=== PATIENT | female | born 1965 | race Caucasian/White ===

== ENCOUNTER 2020-04-17 09:56 | Outpatient (REF) | payer OTHER, SELFPAY ==
[2020-04-17 11:35] LABS: Alanine Aminotransferase 26 U/L (0-31); Albumin Level 4.2 g/dL (3.5-5.0); Alkaline Phosphatase 71 U/L (39-117); Anion Gap 12 (12-20); Aspartate Amino Transferase 23 U/L (5-31); Bilirubin Total 0.6 mg/dL (0.0-1.0); Blood Urea Nitrogen 8 mg/dL (9-16); Carbon Dioxide 24 mmol/L (22-29); Chloride 105 mmol/L (96-108); Cholesterol 150 mg/dL; Estimated Glomerular Filt Rate > 60; Glucose Fasting 127 mg/dL (60-99); HDL Cholesterol 45 mg/dL; LDL Cholesterol Calculated 82 mg/dl; Potassium 4.2 mmol/l (3.3-5.1); Sodium 137 mmol/L (135-145); Total Protein 7.3 g/dL (6.5-8.0); Triglycerides 116 mg/dL
== END 2020-04-17 09:57 | disposition home or self-care (01) ==
LOC: HO.LAB 09:56
PROVIDERS: PCP Internal Medicine; Visit Provider Internal Medicine
DX: E78.00 Pure hypercholesterolemia, unspecified (principal); I10 Essential (primary) hypertension
CPT/HCPCS: 80053; 80061

== ENCOUNTER 2020-08-03 16:08 | Outpatient (REF) | payer OTHER, SELFPAY ==
[2020-08-03 17:53] LABS: Basophils Absolute Auto 0.1 X10*3/uL (0.0-0.2); Basophils Percent Auto 0.4 % (0-2); Eosinophils Absolute Auto 0.2 X10*3/uL (0.0-0.4); Eosinophils Percent Auto 1.7 % (0-4); Hemoglobin 14.5 g/dl (12.0-16.0); Imm Gran Abs Auto 0.04 X10*3/uL (0.00-0.03); Imm Gran Pct Auto 0.3 % (0.0-0.4); Lymphocytes Percent Auto 51.2 % (20-40); MANUAL DIFF FLAG SCAN; Mean Corpuscular HGB Conc 33.7 g/dl (31.0-35.0); Mean Corpuscular Hemoglobin 30.9 pg (27.0-33.0); Mean Corpuscular Volume 91.5 fL (80-98); Mean Platelet Volume 9.5 fL (9.4-12.3); Monocytes Absolute Auto 0.7 X10*3/uL (0.1-1.2); Monocytes Percent Auto 5.7 % (2-11); Neutrophils Absolute Auto 4.9 X10*3/uL (2.0-8.3); Neutrophils Percent Auto 40.7 % (45-73); Platelet Count 264 X10*3/uL (160-400); Red Cell Distribution Width 13.1 % (11.0-16.0); SCAN SMEAR FLAG 1
[2020-08-03 17:54] LABS: Lymphocytes Absolute Auto 6.2 X10*3/uL (1.2-4.9)
[2020-08-03 18:10] LABS: Cholesterol 159 mg/dL; HDL Cholesterol 50 mg/dL; LDL Cholesterol Calculated 79 mg/dl; Lactate Dehydrogenase 201 U/L (122-220); Triglycerides 151 mg/dL
[2020-08-03 18:19] LABS: SLIDE REVIEW VERIFIED
[2020-08-03 18:33] LABS: Erythrocyte Sedimentation Rate 7 MM/HR (0-20)
== END 2020-08-03 16:09 | disposition home or self-care (01) ==
LOC: HO.LAB 16:08
PROVIDERS: PCP Internal Medicine; Visit Provider Internal Medicine Medical Oncology
DX: C83.00 Small cell B-cell lymphoma, unspecified site (principal)
CPT/HCPCS: 36415; 80061; 83615; 85025; 85652

== ENCOUNTER → 2020-08-28 08:42 | Outpatient (BNVA) | payer OTHER, SELFPAY | PROVIDERS: PCP Internal Medicine; Visit Provider Surgery | DX: Z91.89 Other specified personal risk factors, not elsewhere classified (principal) | CPT/HCPCS: 99212 ==

== ENCOUNTER 2020-10-03 09:51 | Outpatient (REF) | payer OTHER, SELFPAY ==
--- NOTE | ~2020-10-03 | MM_ITS ---
EXAMINATION: MM SCREENING DIGITAL BREAST TOMOSYNTHESIS, BILATERAL CLINICAL INFORMATION: Screening. Asymptomatic. The lifetime risk of breast cancer based on the Tyrer-Cuzick Model is 20.3%. Additional annual screening with breast MRI may be of benefit in women with a Score of 20% or greater. COMPARISON: Mammography: September 28, 2019 and studies dating back to August 24, 2011 TECHNIQUE: Digital breast tomosynthesis is performed in both the craniocaudal and mediolateral oblique views along with computer-aided detection (CAD). Synthesized 2D images are generated from the tomosynthesis. FINDINGS: There are scattered areas of fibroglandular density (ACR BI-RADS breast composition Category b). There are no significant masses, abnormal calcifications, or other abnormalities. Postsurgical changes upper outer aspect of the right breast. MM/MM tomosynthesis screening BI IMPRESSION: There are no significant changes from prior study. ASSESSMENT: BI-RADS 2: Benign RECOMMENDATION: Routine annual mammography screening. This patient's information was entered into a reminder system with a target due date for their next mammogram.
== END 2020-10-03 09:52 | disposition home or self-care (01) ==
LOC: HO.MAMMO 09:51
PROVIDERS: Absent Provider Internal Medicine Medical Oncology; PCP Internal Medicine; Visit Provider Internal Medicine
DX: Z12.31 Encounter for screening mammogram for malignant neoplasm of breast (principal)
CPT/HCPCS: 77063; 77067

== ENCOUNTER 2020-12-08 09:38 | Outpatient (REF) | payer OTHER, SELFPAY ==
[2020-12-08 10:12] LABS: MANUAL DIFF FLAG NO
[2020-12-08 10:16] LABS: Basophils Percent Auto 0.6 % (0-2); Eosinophils Absolute Auto 0.2 X10*3/uL (0.0-0.4); Eosinophils Percent Auto 2.8 % (0-4); Hemoglobin 14.3 g/dl (12.0-16.0); Imm Gran Abs Auto 0.02 X10*3/uL (0.00-0.03); Imm Gran Pct Auto 0.3 % (0.0-0.4); Lymphocytes Absolute Auto 3.7 X10*3/uL (1.2-4.9); Lymphocytes Percent Auto 55.5 % (20-40); Mean Corpuscular Hemoglobin 31.4 pg (27.0-33.0); Mean Corpuscular Volume 92.1 fL (80-98); Monocytes Absolute Auto 0.5 X10*3/uL (0.1-1.2); Monocytes Percent Auto 6.7 % (2-11); Neutrophils Absolute Auto 2.3 X10*3/uL (2.0-8.3); Neutrophils Percent Auto 34.1 % (45-73); Platelet Count 215 X10*3/uL (160-400); Red Blood Count 4.56 X10*6/uL (4.20-5.50); Red Cell Distribution Width 12.9 % (11.0-16.0); White Blood Count 6.7 X10*3/uL (4.8-10.8)
[2020-12-08 10:39] LABS: Alanine Aminotransferase 41 U/L (0-31); Albumin Level 4.2 g/dL (3.5-5.0); Alkaline Phosphatase 88 U/L (39-117); Anion Gap 12 (12-20); Aspartate Amino Transferase 34 U/L (5-31); Bilirubin Total 0.4 mg/dL (0.0-1.0); Blood Urea Nitrogen 9 mg/dL (9-16); Calcium 9.2 mg/dL (8.4-10.2); Carbon Dioxide 23 mmol/L (22-29); Chloride 104 mmol/L (96-108); Estimated Glomerular Filt Rate > 60; Glucose Random 172 mg/dL (60-115); Lactate Dehydrogenase 219 U/L (122-220); Sodium 135 mmol/L (135-145); Total Protein 7.4 g/dL (6.5-8.0)
[2020-12-08 11:28] LABS: Erythrocyte Sedimentation Rate 7 MM/HR (0-20)
== END 2020-12-08 09:39 | disposition home or self-care (01) ==
LOC: HO.LAB 09:38
PROVIDERS: PCP Internal Medicine; Visit Provider Internal Medicine Medical Oncology
DX: C83.00 Small cell B-cell lymphoma, unspecified site (principal)
CPT/HCPCS: 36415; 80053; 83615; 85025; 85652

== ENCOUNTER 2021-01-18 16:26 | Outpatient (REF) | payer OTHER, SELFPAY ==
[2021-01-18 17:07] LABS: Basophils Absolute Auto 0.1 X10*3/uL (0.0-0.2); Basophils Percent Auto 0.4 % (0-2); Eosinophils Absolute Auto 0.2 X10*3/uL (0.0-0.4); Eosinophils Percent Auto 1.7 % (0-4); Hematocrit 43.4 % (37-47); Hemoglobin 14.6 g/dl (12.0-16.0); Imm Gran Abs Auto 0.04 X10*3/uL (0.00-0.03); Imm Gran Pct Auto 0.3 % (0.0-0.4); Lymphocytes Percent Auto 46.8 % (20-40); MANUAL DIFF FLAG SCAN; Mean Corpuscular HGB Conc 33.6 g/dl (31.0-35.0); Mean Corpuscular Hemoglobin 30.6 pg (27.0-33.0); Mean Platelet Volume 9.2 fL (9.4-12.3); Monocytes Absolute Auto 0.7 X10*3/uL (0.1-1.2); Monocytes Percent Auto 5.3 % (2-11); Neutrophils Absolute Auto 6.3 X10*3/uL (2.0-8.3); Neutrophils Percent Auto 45.5 % (45-73); Platelet Count 242 X10*3/uL (160-400); Red Blood Count 4.77 X10*6/uL (4.20-5.50); Red Cell Distribution Width 12.7 % (11.0-16.0); SCAN SMEAR FLAG 1; White Blood Count 13.8 X10*3/uL (4.8-10.8)
[2021-01-18 17:13] LABS: Lymphocytes Absolute Auto 6.4 X10*3/uL (1.2-4.9)
[2021-01-18 17:18] LABS: Estimated Average Glucose 146 mg/dL; Hemoglobin A1c % 6.7 %
[2021-01-18 17:36] LABS: Alanine Aminotransferase 25 U/L (0-31); Albumin Level 4.2 g/dL (3.5-5.0); Alkaline Phosphatase 76 U/L (39-117); Anion Gap 16 (12-20); Aspartate Amino Transferase 24 U/L (5-31); Bilirubin Total 0.8 mg/dL (0.0-1.0); Blood Urea Nitrogen 13 mg/dL (9-16); Carbon Dioxide 20 mmol/L (22-29); Chloride 103 mmol/L (96-108); Cholesterol 156 mg/dL; Estimated Glomerular Filt Rate > 60; Glucose Random 81 mg/dL (60-115); HDL Cholesterol 49 mg/dL; LDL Cholesterol Calculated 79 mg/dl; Potassium 3.9 mmol/L (3.3-5.1); Sodium 135 mmol/L (135-145); Total Protein 7.6 g/dL (6.5-8.0); Triglycerides 141 mg/dL
[2021-01-18 17:58] LABS: Free T4 (Free Thyroxine) 1.12 ng/dL (0.71-1.85); Thyroid Stimulating Hormone 1.45 uIU/mL (0.32-4.0); Vitamin D 25-OH Total 30.9 ng/mL (>30)
[2021-01-18 18:02] LABS: SLIDE REVIEW VERIFIED
[2021-01-18 18:13] LABS: Folate 10.5 ng/mL (> or = 4.0); Vitamin B12 448 pg/mL (200-900)
== END 2021-01-18 16:27 | disposition home or self-care (01) ==
LOC: HO.LAB 16:26
PROVIDERS: PCP Internal Medicine; Visit Provider Internal Medicine
DX: E11.65 Type 2 diabetes mellitus with hyperglycemia (principal); E78.00 Pure hypercholesterolemia, unspecified
CPT/HCPCS: 36415; 80053; 80061; 82306; 82607; 82746; 83036; 84439; 84443; 85025

== ENCOUNTER 2021-02-24 08:39 | Outpatient (REF) | payer OTHER, SELFPAY ==
--- NOTE | ~2021-02-24 | MR_ITS ---
EXAMINATION: MR BREAST WITHOUT AND WITH CONTRAST, BILATERAL CLINICAL INFORMATION: 55-year-old for high-risk screening, strong family history, history of low-grade lymphoma. COMPARISON: MRI of 09/06/2019, 09/05/2018 and 07/28/2017. TECHNIQUE: Imaging was performed with a dedicated breast coil. Prior to the administration of contrast, bilateral axial T1 and bilateral axial T2 weighted sequences were obtained. After the uneventful administration of?9 mL of Gadavist, dynamic contrast-enhanced VIBRANT series through the breasts in the axial plane were performed. Subtracted images were performed and reviewed. A delayed sagittal sequence through both breasts was acquired. Additionally, CAD post-processing, including maximum intensity projections, 3-D reconstructions and kinetic analysis, were performed an independent workstation and reviewed by the interpreting radiologist is a portion of this exam. FINDINGS: The patient's fibroglandular tissue demonstrates minimal background enhancement. LEFT BREAST: No suspicious masslike or non-masslike enhancement. No abnormal skin thickening or nipple retraction. No abnormal architectural distortion. Review of the T2 weighted images demonstrates no fibrocystic changes or dilated ducts. Review of kinetic images reveals no additional findings. RIGHT BREAST: No suspicious masslike or non-masslike enhancement. No abnormal skin thickening or nipple retraction. No abnormal architectural distortion. There is mild architectural distortion in the upper outer quadrant from prior excisional biopsy. Review of the T2 weighted images demonstrates no fibrocystic changes or dilated ducts. Review of kinetic images reveals no additional findings. There is no suspicious internal mammary chain or axillary adenopathy. Limited views of the chest and abdomen are unremarkable. MR/MR breast BI wo/w con IMPRESSION: No MR specific evidence of malignancy. ASSESSMENT: LEFT BREAST: BI-RADS 1 - Negative. RIGHT BREAST: BI-RADS 2 - Benign. RECOMMENDATIONS: Routine mammographic imaging as per most recent study and MRI as per high-risk protocol.
== END 2021-02-24 08:40 | disposition home or self-care (01) ==
LOC: HO.MRI 08:39
PROVIDERS: PCP Internal Medicine; Visit Provider Surgery
DX: Z91.89 Other specified personal risk factors, not elsewhere classified (principal)
CPT/HCPCS: 77049; A9585

== ENCOUNTER → 2021-03-18 13:11 | Outpatient (BNVA) | payer OTHER, SELFPAY | PROVIDERS: PCP Internal Medicine; Referring Provider Internal Medicine; Visit Provider Surgery | DX: Z91.89 Other specified personal risk factors, not elsewhere classified (principal) | CPT/HCPCS: 99212 ==

== ENCOUNTER → 2021-04-08 10:27 | Outpatient (BNVA) | payer OTHER, SELFPAY | PROVIDERS: PCP Internal Medicine; Referring Provider Internal Medicine; Visit Provider Surgery | DX: R59.0 Localized enlarged lymph nodes (principal) | CPT/HCPCS: 99212 ==

== ENCOUNTER 2021-04-09 16:23 | Outpatient (REF) | payer OTHER, SELFPAY ==
[2021-04-09 18:03] LABS: Basophils Absolute Auto 0.1 X10*3/uL (0.0-0.2); Basophils Percent Auto 0.4 % (0-2); Eosinophils Absolute Auto 0.3 X10*3/uL (0.0-0.4); Eosinophils Percent Auto 2.4 % (0-4); Hematocrit 41.6 % (37-47); Hemoglobin 14.1 g/dl (12.0-16.0); Imm Gran Abs Auto 0.04 X10*3/uL (0.00-0.03); Imm Gran Pct Auto 0.3 % (0.0-0.4); Lymphocytes Percent Auto 52.7 % (20-40); MANUAL DIFF FLAG SCAN; Mean Corpuscular HGB Conc 33.9 g/dl (31.0-35.0); Mean Corpuscular Hemoglobin 30.6 pg (27.0-33.0); Mean Corpuscular Volume 90.2 fL (80-98); Mean Platelet Volume 9.2 fL (9.4-12.3); Monocytes Absolute Auto 0.7 X10*3/uL (0.1-1.2); Monocytes Percent Auto 5.6 % (2-11); Neutrophils Absolute Auto 4.5 X10*3/uL (2.0-8.3); Neutrophils Percent Auto 38.6 % (45-73); Platelet Count 250 X10*3/uL (160-400); Red Blood Count 4.61 X10*6/uL (4.20-5.50); Red Cell Distribution Width 12.8 % (11.0-16.0); SCAN SMEAR FLAG 1; White Blood Count 11.7 X10*3/uL (4.8-10.8)
[2021-04-09 18:06] LABS: Lymphocytes Absolute Auto 6.2 X10*3/uL (1.2-4.9)
[2021-04-09 18:12] LABS: Estimated Average Glucose 146 mg/dL; Hemoglobin A1c % 6.7 %
[2021-04-09 18:56] LABS: SLIDE REVIEW VERIFIED
[2021-04-09 19:04] LABS: Alanine Aminotransferase 31 U/L (0-31); Albumin Level 4.2 g/dL (3.5-5.0); Alkaline Phosphatase 72 U/L (39-117); Anion Gap 14 (12-20); Aspartate Amino Transferase 26 U/L (5-31); Bilirubin Total 0.8 mg/dL (0.0-1.0); Blood Urea Nitrogen 7 mg/dL (9-16); Carbon Dioxide 21 mmol/L (22-29); Chloride 106 mmol/L (96-108); Estimated Glomerular Filt Rate > 60; Glucose Random 74 mg/dL (60-115); Lactate Dehydrogenase 214 U/L (122-220); Potassium 3.9 mmol/L (3.3-5.1); Sodium 137 mmol/L (135-145); Total Protein 7.4 g/dL (6.5-8.0)
[2021-04-09 19:25] LABS: Erythrocyte Sedimentation Rate 8 MM/HR (0-20)
== END 2021-04-09 16:24 | disposition home or self-care (01) ==
LOC: HO.LAB 16:23
PROVIDERS: PCP Internal Medicine; Visit Provider Internal Medicine Medical Oncology
DX: C83.00 Small cell B-cell lymphoma, unspecified site (principal); E66.9 Obesity, unspecified; E11.9 Type 2 diabetes mellitus without complications
CPT/HCPCS: 36415; 80053; 83036; 83615; 85025; 85652

== ENCOUNTER 2021-05-03 16:36 | Outpatient (REF) | payer OTHER, SELFPAY ==
[2021-05-03 18:15] LABS: Creatinine Urine 70.78 mg/dL; Microalbum/Creatinine Ratio Ur 9.8 ug/mg cr
== END 2021-05-03 16:37 | disposition home or self-care (01) ==
LOC: HO.LAB 16:36
PROVIDERS: PCP Internal Medicine; Visit Provider Internal Medicine
DX: E11.65 Type 2 diabetes mellitus with hyperglycemia (principal)
CPT/HCPCS: 82043

== ENCOUNTER 2021-05-10 17:25 | Outpatient (REF) | payer OTHER, SELFPAY ==
[2021-05-11 03:55] LABS: CT PCR NOT DETECTED (Not Detect.); NG PCR NOT DETECTED (Not Detect.)
[2021-05-11 11:11] LABS: BV Int Neg Control Negative (Negative); BV Int Pos Control Positive (Positive)
[2021-05-13 02:32] LABS: HPV mRNA E6/E7 rflx Not Detected (Not Detected)
== END 2021-05-10 17:26 | disposition home or self-care (01) ==
LOC: HO.LAB 17:25
PROVIDERS: Visit Provider Internal Medicine
DX: Z12.4 Encounter for screening for malignant neoplasm of cervix (principal); Z11.3 Encounter for screening for infections with a predominantly sexual mode of transmission; Z11.51 Encounter for screening for human papillomavirus (HPV)
CPT/HCPCS: 87480; 87491; 87510; 87591; 87624; 87660; 88142

== ENCOUNTER → 2021-05-11 09:26 | Outpatient (BNVA) | payer OTHER, SELFPAY | PROVIDERS: PCP Internal Medicine; Referring Provider Internal Medicine; Visit Provider Surgery | DX: R59.0 Localized enlarged lymph nodes (principal); Z91.89 Other specified personal risk factors, not elsewhere classified | CPT/HCPCS: 99212 ==

== ENCOUNTER 2021-08-10 15:10 | Outpatient (REF) | payer OTHER, SELFPAY ==
[2021-08-10 16:00] LABS: Basophils Percent Auto 0.3 % (0-2); Eosinophils Absolute Auto 0.2 X10*3/uL (0.0-0.4); Eosinophils Percent Auto 1.5 % (0-4); Hematocrit 40.8 % (37.0-47.0); Hemoglobin 13.5 g/dl (12.0-16.0); Imm Gran Abs Auto 0.04 X10*3/uL (0.00-0.03); Imm Gran Pct Auto 0.3 % (0.0-0.4); Lymphocytes Absolute Auto 5.1 X10*3/uL (1.2-4.9); MANUAL DIFF FLAG SCAN; Mean Corpuscular HGB Conc 33.1 g/dl (31.0-35.0); Mean Corpuscular Hemoglobin 30.5 pg (27.0-33.0); Mean Corpuscular Volume 92.3 fL (80.0-98.0); Mean Platelet Volume 9.4 fL (9.4-12.3); Monocytes Absolute Auto 0.8 X10*3/uL (0.1-1.2); Monocytes Percent Auto 6.8 % (2-11); Neutrophils Absolute Auto 5.7 x10*3/uL (2.0-8.3); Neutrophils Percent Auto 48.1 % (45-73); Platelet Count 243 X10*3/uL (160-400); Red Blood Count 4.42 X10*6/uL (4.20-5.50); Red Cell Distribution Width 12.7 % (11.0-16.0); SCAN SMEAR FLAG 1
[2021-08-10 16:25] LABS: Alanine Aminotransferase 24 U/L (0-31); Albumin Level 4.1 g/dL (3.5-5.0); Alkaline Phosphatase 69 U/L (39-117); Anion Gap 11 (12-20); Aspartate Amino Transferase 21 U/L (5-31); Bilirubin Total 0.4 mg/dL (0.0-1.0); Blood Urea Nitrogen 12 mg/dL (9-16); Calcium 9.2 mg/dL (8.4-10.2); Carbon Dioxide 23 mmol/L (22-29); Chloride 106 mmol/L (96-108); Estimated Glomerular Filt Rate > 60; Glucose Random 83 mg/dL (60-115); Potassium 4.1 mmol/L (3.3-5.1); Sodium 136 mmol/L (135-145); Total Protein 7.3 g/dL (6.5-8.0)
[2021-08-10 16:43] LABS: SLIDE REVIEW VERIFIED
== END 2021-08-10 15:11 | disposition home or self-care (01) ==
LOC: HO.LAB 15:10
PROVIDERS: PCP Internal Medicine; Visit Provider Internal Medicine Medical Oncology
DX: R92.0 Mammographic microcalcification found on diagnostic imaging of breast (principal); C83.00 Small cell B-cell lymphoma, unspecified site
CPT/HCPCS: 36415; 80053; 85025

== ENCOUNTER 2021-10-09 09:55 | Outpatient (REF) | payer OTHER, SELFPAY ==
--- NOTE | ~2021-10-09 | MM_ITS ---
EXAMINATION: MM SCREENING DIGITAL BREAST TOMOSYNTHESIS, BILATERAL CLINICAL INFORMATION: Screening. Asymptomatic. The lifetime risk of breast cancer based on the Tyrer-Cuzick Model is 17%. COMPARISON: Mammography: 10/03/2020, 09/28/2019, 09/15/2018 TECHNIQUE: Digital breast tomosynthesis is performed in both the craniocaudal and mediolateral oblique views along with computer-aided detection (CAD). Synthesized 2D images are generated from the tomosynthesis. FINDINGS: There are scattered areas of fibroglandular density (ACR BI-RADS breast composition Category b). There are no significant masses, abnormal calcifications, or other abnormalities. There are some incidental benign round regional dermal calcifications medial left breast. Skin contours are smooth. There are no significant changes from prior exams. MM/MM tomosynthesis screening BI IMPRESSION: No mammographic evidence of malignancy. ASSESSMENT: BI-RADS 2: Benign RECOMMENDATION: Routine annual mammography screening. This patient's information was entered into a reminder system with a target due date for their next mammogram.
== END 2021-10-09 09:56 | disposition home or self-care (01) ==
LOC: HO.MAMMO 09:55
PROVIDERS: Absent Provider Surgery; PCP Internal Medicine; Visit Provider Internal Medicine
DX: Z12.31 Encounter for screening mammogram for malignant neoplasm of breast (principal)
CPT/HCPCS: 77063; 77067

== ENCOUNTER → 2021-11-04 10:35 | Outpatient (BNVA) | payer OTHER, SELFPAY | PROVIDERS: PCP Internal Medicine; Visit Provider Obstetrics & Gynecology | DX: N95.0 Postmenopausal bleeding (principal) | CPT/HCPCS: 99202 ==

== ENCOUNTER 2021-11-08 09:43 | Outpatient (REF) | payer OTHER, SELFPAY ==
[2021-11-08 10:28] LABS: Basophils Absolute Auto 0.1 X10*3/uL (0.0-0.2); Basophils Percent Auto 0.5 % (0-2); Eosinophils Absolute Auto 0.2 X10*3/uL (0.0-0.4); Eosinophils Percent Auto 2.2 % (0-4); Hematocrit 41.2 % (37.0-47.0); Hemoglobin 13.6 g/dl (12.0-16.0); Imm Gran Abs Auto 0.03 X10*3/uL (0.00-0.03); Imm Gran Pct Auto 0.3 % (0.0-0.4); Lymphocytes Absolute Auto 5.7 X10*3/uL (1.2-4.9); Lymphocytes Percent Auto 51.4 % (20-40); MANUAL DIFF FLAG SCAN; Mean Corpuscular Hemoglobin 30.6 pg (27.0-33.0); Mean Corpuscular Volume 92.6 fL (80.0-98.0); Mean Platelet Volume 8.9 fL (9.4-12.3); Monocytes Absolute Auto 0.6 X10*3/uL (0.1-1.2); Neutrophils Absolute Auto 4.5 x10*3/uL (2.0-8.3); Neutrophils Percent Auto 40.6 % (45-73); Platelet Count 240 X10*3/uL (160-400); Red Blood Count 4.45 X10*6/uL (4.20-5.50); Red Cell Distribution Width 12.5 % (11.0-16.0); SCAN SMEAR FLAG 1; White Blood Count 11.1 X10*3/uL (4.8-10.8)
[2021-11-08 11:17] LABS: Alanine Aminotransferase 39 U/L (0-31); Alkaline Phosphatase 69 U/L (39-117); Anion Gap 12 (12-20); Aspartate Amino Transferase 28 U/L (5-31); Bilirubin Total 0.6 mg/dL (0.0-1.0); Blood Urea Nitrogen 9 mg/dL (9-16); Calcium 9.1 mg/dL (8.4-10.2); Carbon Dioxide 21 mmol/L (22-29); Chloride 106 mmol/L (96-108); Estimated Glomerular Filt Rate > 60; Free T4 (Free Thyroxine) 1.19 ng/dL (0.71-1.85); Glucose Random 114 mg/dL (60-115); Potassium 4.2 mmol/L (3.3-5.1); Sodium 135 mmol/L (135-145); Thyroid Stimulating Hormone 2.33 uIU/mL (0.32-4.0); Total Protein 7.5 g/dL (6.5-8.0)
[2021-11-08 11:39] LABS: SLIDE REVIEW VERIFIED
== END 2021-11-08 09:44 | disposition home or self-care (01) ==
LOC: HO.LAB 09:43
PROVIDERS: PCP Internal Medicine; Visit Provider Internal Medicine Medical Oncology
DX: C83.00 Small cell B-cell lymphoma, unspecified site (principal); E66.9 Obesity, unspecified
CPT/HCPCS: 36415; 80053; 84439; 84443; 85025

== ENCOUNTER → 2021-11-09 12:27 | Outpatient (BNVA) | payer OTHER, SELFPAY | PROVIDERS: PCP Internal Medicine; Referring Provider Internal Medicine; Visit Provider Surgery | DX: Z91.89 Other specified personal risk factors, not elsewhere classified (principal); R59.0 Localized enlarged lymph nodes | CPT/HCPCS: 99212 ==

== ENCOUNTER 2021-11-16 09:39 | Outpatient (REF) | payer OTHER, SELFPAY ==
--- NOTE | ~2021-11-16 | US_ITS ---
EXAMINATION: US PELVIS CLINICAL INFORMATION: Postmenopausal bleeding. COMPARISON: CT abdomen/pelvis dated from 08/24/2018. TECHNIQUE: Ultrasound of the pelvis is performed using both transabdominal and transvaginal transducers along with Doppler. Transvaginal imaging is performed due to inadequate visualization transabdominally. FINDINGS: The uterus is retroverted and lobulated measuring 7.6 x 5.4 x 5.9 cm with redemonstration of at least 2 uterine fibroids measuring 1.8 x 1.9 x 2.3 cm and 4.4 x 4.0 x 4.4 cm both in the anterior surface of the uterus. There is thickening of the endometrial measuring up to 0.9 cm without discrete focal abnormalities. The ovaries demonstrate preserved flow at the moment of this examination. The right ovary measures 2.4 x 2 x 2.5 cm (6 mL) and the left ovary measures 2.6 x 1.8 x 1.4 cm (3.3 mL). There is a 1.9 x 1.7 x 1.8 cm solid mass in the right ovary, and a 0.8 x 0.7 x 0.9 cm complex cystic appearing lesion in the left ovary with no definite vascularity fat heterogeneous content and multiple septations. There is a small amount of free fluid layering in the pelvis. US/US pelvic and transvaginal IMPRESSION: Abnormal examination. 1. Thickened endometrium for which PARTS FACILITATOR consultation and tissue sampling is recommended. 2. Solid appearing lesion in the right ovary measuring 1.9 cm and complex cystic appearing lesion in the left ovary measuring 0.9 cm. Consider surgical consult and/or further evaluation with a pelvic MRI with and without intravenous contrast. 3. Uterine fibroids are redemonstrated. The report will be called to the ordering clinician by a [facility] Tub Rider.
== END 2021-11-16 09:40 | disposition home or self-care (01) ==
LOC: HO.HMGCX 09:39
PROVIDERS: Visit Provider Obstetrics & Gynecology
DX: N95.0 Postmenopausal bleeding (principal)
CPT/HCPCS: 76830; 76856

== ENCOUNTER 2021-11-18 18:26 | Outpatient (REF) | payer OTHER, SELFPAY | END 2021-11-18 18:27 | disposition home or self-care (01) | LOC: HO.LNP 18:26 | PROVIDERS: Visit Provider Physician Assistant | DX: N30.01 Acute cystitis with hematuria (principal) | CPT/HCPCS: 87086; 87088; 87186 ==

== ENCOUNTER 2021-12-07 14:10 | Outpatient (REF) | payer OTHER, SELFPAY ==
[2021-12-09 01:10] LABS: CA 125 New Method 12 U/mL (<35); CA-125 12 U/mL (<35)
== END 2021-12-07 14:11 | disposition home or self-care (01) ==
LOC: HO.LAB 14:10
PROVIDERS: PCP Internal Medicine; Visit Provider Obstetrics & Gynecology
DX: N95.0 Postmenopausal bleeding (principal); N83.291 Other ovarian cyst, right side; N83.292 Other ovarian cyst, left side
CPT/HCPCS: 36415; 58100; 86304; 88305; 99212

== ENCOUNTER 2021-12-22 17:44 | Outpatient (REF) | payer OTHER, SELFPAY ==
--- NOTE | ~2021-12-22 | MR_ITS ---
EXAMINATION: MR PELVIS WITHOUT AND WITH CONTRAST CLINICAL INFORMATION: Postmenopausal bleeding. Ultrasound nodes solid mass right ovary and tiny cystic lesion left ovary. History small lymphocytic lymphoma. COMPARISON: Pelvic ultrasound 11/16/2021, PET/CT 08/24/2017. TECHNIQUE: MRI pelvis is performed without and with use of 9 mL Gadavist gadolinium contrast. Imaging is performed in 3 planes. Pre and postcontrast imaging performed in axial views. FINDINGS: Uterus: -Retroverted, measuring 9.5 x 7.1 x 7.0 cm. -Endometrial double wall thickness measuring up to 0.7 cm. -Intramural and submucous fibroid posterior uterine body and fundus just left of midline and compressing posterior uterine cavity measuring 4.4 x 3.2 x 3.9 cm. Margins are macrolobulated and circumscribed. Fibroid is slightly low signal T1 and strongly low signal T2 with fibroid enhancement less than myometrium. No other fibroids demonstrated. Adnexa: -Left ovary measures 2.7 x 1.5 x 1.7 cm. No cystic or solid intraovarian or paraovarian mass. No ascites. -Right ovary measures 3.0 x 2.1 x 2.2 cm. Suspect small intraovarian dermoid, oval in shape, high signal T1 measuring 0.9 x 1.7 x 1.9 cm. No ascites. Other: Urinary bladder unremarkable. No hydronephrosis. No inflammatory changes in bowel or mesentery. No inguinal hernia. No pelvic or inguinal lymphadenopathy. Marrow signal normal. MR/MR pelvis wo/w con IMPRESSION: -Uterus: Retroverted with double wall endometrial thickness is 7 mm. Intramural and submucous fibroid 4.4 cm. -Adnexa: Left ovary unremarkable. Small right intraovarian dermoid measuring 0.9 x 1.7 x 1.9 cm. No pelvic ascites.
== END 2021-12-22 17:45 | disposition home or self-care (01) ==
LOC: HO.MRI 17:44
PROVIDERS: Visit Provider Obstetrics & Gynecology
DX: N83.291 Other ovarian cyst, right side (principal); N83.292 Other ovarian cyst, left side
CPT/HCPCS: 72197; A9585

== ENCOUNTER 2021-12-28 14:15 | Outpatient (REF) | payer OTHER, SELFPAY ==
--- NOTE | ~2021-12-28 | US_ITS ---
EXAMINATION: US EXTREMITY NONVASCULAR GONZALES CLINICAL INFORMATION: Reason for Exam R22.42 - Localized swelling, mass and lump, left lower limb COMPARISON: None. TECHNIQUE: Targeted ultrasound of left lower extremity was performed utilizing grayscale and color Doppler technique US/US extremity nonvascular gonzales FINDINGS/IMPRESSION: No abnormalities are identified along the medial left lower extremity where the patient reported a lump. If this is of persistent clinical concern, MRI would be more sensitive and specific.
== END 2021-12-28 14:16 | disposition home or self-care (01) ==
LOC: HO.HMGCX 14:15
PROVIDERS: Visit Provider Internal Medicine
DX: R22.42 Localized swelling, mass and lump, left lower limb (principal)
CPT/HCPCS: 76882

== ENCOUNTER → 2022-01-11 12:26 | Outpatient (BNVA) | payer OTHER, SELFPAY | PROVIDERS: PCP Internal Medicine; Visit Provider Obstetrics & Gynecology | DX: D25.1 Intramural leiomyoma of uterus (principal); D25.0 Submucous leiomyoma of uterus | CPT/HCPCS: 99212 ==

== ENCOUNTER 2022-02-17 16:24 | Outpatient (REF) | payer OTHER, SELFPAY ==
--- NOTE | ~2022-02-17 | MR_ITS ---
EXAMINATION: MR BREAST WITHOUT AND WITH CONTRAST, BILATERAL CLINICAL INFORMATION: High-risk screening. Previous surgery upper outer right breast. COMPARISON: Portions of a previous study 02/24/2021, 09/05/2018. Mammography (nondiagnostic monitor review): 10/09/2021. TECHNIQUE: A 1.5 T system and a dedicated breast coil. T1-weighted sequences without fat-saturation were obtained prior to the administration of contrast. Fat-saturated T1 and T2-weighted sequences were also acquired. The patient received 10 mL of IV gadolinium-based contrast, Gadavist. Multiple sequential dynamic T1-weighted sequences were obtained through both breasts with fat-saturation. Subtracted images were reviewed. CAD postprocessing with 3-D reconstructions, maximum intensity projections and kinetic analysis was performed by the interpreting radiologist at an independent workstation and reviewed as a portion of this exam. FINDINGS: AMOUNT OF REMAINING FIBROGLANDULAR SIGNAL: There are scattered areas of fibroglandular tissue (ACR BI-RADS breast composition category B).* BACKGROUND PARENCHYMAL ENHANCEMENT: Minimal. SYMMETRY OF BACKGROUND ENHANCEMENT: Symmetric. RIGHT BREAST: There are no suspicious findings. MASSES: There are no suspicious enhancing masses. NON-MASS ENHANCEMENT: There is no suspicious non-mass enhancement. FOCUS: There are no suspicious enhancing foci. NON-ENHANCING FINDINGS: ASSOCIATED FINDINGS: Findings consistent with surgery in the upper outer right breast. KINETIC CURVE ASSESSMENT: INITIAL PHASE: There are no suspicious areas of color signal. DELAYED PHASE: There are no areas of washout kinetics. LEFT BREAST: There are no suspicious findings. MASSES: There are no suspicious enhancing masses. NON-MASS ENHANCEMENT: There is no suspicious non-mass enhancement. FOCUS: There are a few nonspecific circumscribed enhancing foci. These appear similar to the previous study. NON-ENHANCING FINDINGS: ASSOCIATED FINDINGS: There are no suspicious associated findings. KINETIC CURVE ASSESSMENT: INITIAL PHASE: There are no areas of suspicious color signal. DELAYED PHASE: There are no areas of washout kinetics. The axillary lymph nodes are morphologically normal. No suspicious internal mammary lymph nodes are seen. No suspicious abnormality in the visualized portions of chest or abdomen. MR/MR breast BI wo/w con IMPRESSION: No MR evidence of malignancy. No suspicious interval change. ASSESSMENT: RIGHT BREAST: ACR BI-RADS 1: Negative examination. LEFT BREAST: ACR BI-RADS 2: Benign finding. RECOMMENDATIONS: Continue screening.
== END 2022-02-17 16:25 | disposition home or self-care (01) ==
LOC: HO.MRI 16:24
PROVIDERS: Visit Provider Surgery
DX: Z87.898 Personal history of other specified conditions (principal); Z91.89 Other specified personal risk factors, not elsewhere classified
CPT/HCPCS: 77049; A9585

== ENCOUNTER 2022-03-15 16:19 | Outpatient (REF) | payer OTHER, SELFPAY ==
[2022-03-15 17:08] LABS: Basophils Absolute Auto 0.1 X10*3/uL (0.0-0.2); Basophils Percent Auto 0.6 % (0-2); Eosinophils Absolute Auto 0.2 X10*3/uL (0.0-0.4); Eosinophils Percent Auto 1.6 % (0-4); Hematocrit 45.8 % (37.0-47.0); Hemoglobin 15.3 g/dl (12.0-16.0); Imm Gran Abs Auto 0.04 X10*3/uL (0.00-0.03); Imm Gran Pct Auto 0.3 % (0.0-0.4); Lymphocytes Absolute Auto 5.9 X10*3/uL (1.2-4.9); Lymphocytes Percent Auto 48.4 % (20-40); MANUAL DIFF FLAG SCAN; Mean Corpuscular HGB Conc 33.4 g/dl (31.0-35.0); Mean Corpuscular Hemoglobin 30.1 pg (27.0-33.0); Mean Corpuscular Volume 90.2 fL (80.0-98.0); Monocytes Absolute Auto 0.7 X10*3/uL (0.1-1.2); Monocytes Percent Auto 5.7 % (2-11); Neutrophils Absolute Auto 5.3 x10*3/uL (2.0-8.3); Neutrophils Percent Auto 43.4 % (45-73); Platelet Count 269 X10*3/uL (160-400); Red Blood Count 5.08 X10*6/uL (4.20-5.50); Red Cell Distribution Width 13.1 % (11.0-16.0); SCAN SMEAR FLAG 1; White Blood Count 12.2 X10*3/uL (4.8-10.8)
[2022-03-15 17:28] LABS: Lactate Dehydrogenase 175 U/L (122-220)
[2022-03-15 17:33] LABS: SLIDE REVIEW VERIFIED
[2022-03-15 17:56] LABS: Erythrocyte Sedimentation Rate 7 MM/HR (0-20)
== END 2022-03-15 16:20 | disposition home or self-care (01) ==
LOC: HO.LAB 16:19
PROVIDERS: PCP Internal Medicine; Visit Provider Internal Medicine Medical Oncology
DX: C83.00 Small cell B-cell lymphoma, unspecified site (principal)
CPT/HCPCS: 36415; 83615; 85025; 85652

== ENCOUNTER 2022-05-06 08:19 | Outpatient (REF) | payer OTHER, SELFPAY ==
[2022-05-06 08:41] LABS: Basophils Absolute Auto 0.1 X10*3/uL (0.0-0.2); Basophils Percent Auto 0.4 % (0-2); Eosinophils Absolute Auto 0.2 X10*3/uL (0.0-0.4); Eosinophils Percent Auto 1.8 % (0-4); Hematocrit 44.3 % (37.0-47.0); Hemoglobin 14.7 g/dl (12.0-16.0); Imm Gran Abs Auto 0.03 X10*3/uL (0.00-0.03); Imm Gran Pct Auto 0.2 % (0.0-0.4); Lymphocytes Percent Auto 46.4 % (20-40); MANUAL DIFF FLAG SCAN; Mean Corpuscular HGB Conc 33.2 g/dl (31.0-35.0); Mean Corpuscular Hemoglobin 30.3 pg (27.0-33.0); Mean Corpuscular Volume 91.3 fL (80.0-98.0); Mean Platelet Volume 9.1 fL (9.4-12.3); Monocytes Absolute Auto 0.8 X10*3/uL (0.1-1.2); Neutrophils Absolute Auto 6.1 x10*3/uL (2.0-8.3); Neutrophils Percent Auto 45.2 % (45-73); Platelet Count 245 X10*3/uL (160-400); Red Blood Count 4.85 X10*6/uL (4.20-5.50); Red Cell Distribution Width 12.8 % (11.0-16.0); SCAN SMEAR FLAG 1; White Blood Count 13.6 X10*3/uL (4.8-10.8)
[2022-05-06 08:43] LABS: Lymphocytes Absolute Auto 6.3 X10*3/uL (1.2-4.9)
[2022-05-06 08:50] LABS: Estimated Average Glucose 148 mg/dL; Hemoglobin A1c % 6.8 %
[2022-05-06 09:05] LABS: Alanine Aminotransferase 26 U/L (0-31); Albumin Level 4.5 g/dL (3.5-5.0); Alkaline Phosphatase 81 U/L (39-117); Anion Gap 17 (12-20); Aspartate Amino Transferase 19 U/L (5-31); Bilirubin Total 0.4 mg/dL (0.0-1.0); Blood Urea Nitrogen 11 mg/dL (9-16); Calcium 9.7 mg/dL (8.4-10.2); Carbon Dioxide 21 mmol/L (22-29); Chloride 102 mmol/L (96-108); Cholesterol 158 mg/dL; Estimated Glomerular Filt Rate > 60; Glucose Random 139 mg/dL (60-115); HDL Cholesterol 47 mg/dL; LDL Cholesterol Calculated 81 mg/dl; Potassium 4.2 mmol/L (3.3-5.1); Sodium 136 mmol/L (135-145); Total Protein 7.9 g/dL (6.5-8.0); Triglycerides 153 mg/dL
[2022-05-06 09:06] LABS: SLIDE REVIEW VERIFIED
[2022-05-06 09:22] LABS: Free T4 (Free Thyroxine) 1.19 ng/dL (0.71-1.85); Thyroid Stimulating Hormone 2.29 uIU/mL (0.32-4.0); Vitamin D 25-OH Total 34.3 ng/mL (>30)
[2022-05-06 09:49] LABS: Folate 7.5 ng/mL (> or = 4.0); Vitamin B12 392 pg/mL (200-900)
[2022-05-06 10:55] LABS: Creatinine Urine 75.37 mg/dL; Microalbum/Creatinine Ratio Ur 11.9 ug/mg cr
== END 2022-05-06 08:20 | disposition home or self-care (01) ==
LOC: HO.LAB 08:19
PROVIDERS: PCP Internal Medicine; Visit Provider Internal Medicine
DX: E11.65 Type 2 diabetes mellitus with hyperglycemia (principal); E78.00 Pure hypercholesterolemia, unspecified
CPT/HCPCS: 36415; 80053; 80061; 82043; 82306; 82607; 82746; 83036; 84439; 84443; 85025

== ENCOUNTER → 2022-05-13 09:34 | Outpatient (BNVA) | payer OTHER, SELFPAY | PROVIDERS: PCP Internal Medicine; Visit Provider Surgery | DX: R59.0 Localized enlarged lymph nodes (principal); Z91.89 Other specified personal risk factors, not elsewhere classified; Z80.3 Family history of malignant neoplasm of breast; Z99.3 Dependence on wheelchair | CPT/HCPCS: 99212 ==

== ENCOUNTER 2022-07-19 09:10 | Outpatient (REF) | payer OTHER, SELFPAY ==
[2022-07-19 09:53] LABS: Basophils Percent Auto 0.4 % (0-2); Eosinophils Absolute Auto 0.2 X10*3/uL (0.0-0.4); Hematocrit 43.3 % (37.0-47.0); Hemoglobin 14.4 g/dl (12.0-16.0); Imm Gran Abs Auto 0.04 X10*3/uL (0.00-0.03); Imm Gran Pct Auto 0.4 % (0.0-0.4); Lymphocytes Absolute Auto 5.2 X10*3/uL (1.2-4.9); Lymphocytes Percent Auto 47.7 % (20-40); MANUAL DIFF FLAG SCAN; Mean Corpuscular HGB Conc 33.3 g/dl (31.0-35.0); Mean Corpuscular Hemoglobin 30.8 pg (27.0-33.0); Mean Corpuscular Volume 92.5 fL (80.0-98.0); Mean Platelet Volume 9.6 fL (9.4-12.3); Monocytes Absolute Auto 0.5 X10*3/uL (0.1-1.2); Monocytes Percent Auto 4.9 % (2-11); Neutrophils Absolute Auto 4.8 x10*3/uL (2.0-8.3); Neutrophils Percent Auto 44.6 % (45-73); Platelet Count 249 X10*3/uL (160-400); Red Blood Count 4.68 X10*6/uL (4.20-5.50); Red Cell Distribution Width 12.5 % (11.0-16.0); SCAN SMEAR FLAG 1; White Blood Count 10.9 X10*3/uL (4.8-10.8)
[2022-07-19 10:21] LABS: SLIDE REVIEW VERIFIED
[2022-07-19 11:21] LABS: Alanine Aminotransferase 33 U/L (0-31); Albumin Level 4.3 g/dL (3.5-5.0); Alkaline Phosphatase 83 U/L (39-117); Anion Gap 15 (12-20); Aspartate Amino Transferase 22 U/L (5-31); Bilirubin Total 0.6 mg/dL (0.0-1.0); Blood Urea Nitrogen 11 mg/dL (9-16); Calcium 9.6 mg/dL (8.4-10.2); Carbon Dioxide 22 mmol/L (22-29); Chloride 103 mmol/L (96-108); Estimated Glomerular Filt Rate > 60; Glucose Random 140 mg/dL (60-115); Lactate Dehydrogenase 184 U/L (122-220); Potassium 4.2 mmol/L (3.3-5.1); Sodium 136 mmol/L (135-145); Total Protein 7.7 g/dL (6.5-8.0)
[2022-07-21 13:13] LABS: Beta-2 Microglobulin, Serum 2.66 mg/L (< OR = 2.51)
== END 2022-07-19 09:11 | disposition home or self-care (01) ==
LOC: HO.LAB 09:10
PROVIDERS: PCP Internal Medicine; Visit Provider Internal Medicine Medical Oncology
DX: E55.9 Vitamin D deficiency, unspecified (principal); D72.820 Lymphocytosis (symptomatic); E66.9 Obesity, unspecified
CPT/HCPCS: 36415; 80053; 82232; 83615; 85025

== ENCOUNTER 2022-10-15 10:19 | Outpatient (REF) | payer OTHER, SELFPAY ==
--- NOTE | ~2022-10-15 | MM_ITS ---
EXAMINATION: MM SCREENING DIGITAL BREAST TOMOSYNTHESIS, BILATERAL CLINICAL INFORMATION: Screening. Asymptomatic. The lifetime risk of breast cancer based on the Tyrer-Cuzick Model is 20%. COMPARISON: Mammography: 10/09/2021, 10/03/2020, 09/28/2019, 09/15/2018 TECHNIQUE: Digital breast tomosynthesis is performed in both the craniocaudal and mediolateral oblique views along with computer-aided detection (CAD). Synthesized 2D images are generated from the tomosynthesis. FINDINGS: There are scattered areas of fibroglandular density (ACR BI-RADS breast composition Category b). There are no significant masses, abnormal calcifications, or other abnormalities. No architectural abnormality or developing density or significant change from prior studies. There is intramammary node again noted posterior upper outer left breast. The bilateral axilla and skin contours are unremarkable. MM/MM tomosynthesis screening BI IMPRESSION: No mammographic evidence of malignancy. ASSESSMENT: BI-RADS 2: Benign RECOMMENDATION: Routine annual mammography screening. This patient's information was entered into a reminder system with a target due date for their next mammogram.
== END 2022-10-15 10:20 | disposition home or self-care (01) ==
LOC: HO.MAMMO 10:19
PROVIDERS: PCP Internal Medicine; Visit Provider Internal Medicine
DX: Z12.31 Encounter for screening mammogram for malignant neoplasm of breast (principal)
CPT/HCPCS: 77063; 77067

== ENCOUNTER 2022-10-18 08:50 | Outpatient (REF) | payer OTHER, SELFPAY ==
[2022-10-18 09:23] LABS: Basophils Absolute Auto 0.1 X10*3/uL (0.0-0.2); Basophils Percent Auto 0.5 % (0-2); Eosinophils Absolute Auto 0.2 X10*3/uL (0.0-0.4); Eosinophils Percent Auto 1.5 % (0-4); Hematocrit 40.6 % (37.0-47.0); Hemoglobin 13.8 g/dl (12.0-16.0); Imm Gran Abs Auto 0.02 X10*3/uL (0.00-0.03); Imm Gran Pct Auto 0.2 % (0.0-0.4); Lymphocytes Percent Auto 54.9 % (20-40); MANUAL DIFF FLAG SCAN; Mean Corpuscular Hemoglobin 30.9 pg (27.0-33.0); Mean Platelet Volume 8.9 fL (9.4-12.3); Monocytes Absolute Auto 0.6 X10*3/uL (0.1-1.2); Monocytes Percent Auto 5.1 % (2-11); Neutrophils Absolute Auto 4.1 x10*3/uL (2.0-8.3); Neutrophils Percent Auto 37.8 % (45-73); Platelet Count 242 X10*3/uL (160-400); Red Blood Count 4.46 X10*6/uL (4.20-5.50); Red Cell Distribution Width 12.8 % (11.0-16.0); SCAN SMEAR FLAG 1; White Blood Count 10.8 X10*3/uL (4.8-10.8)
[2022-10-18 09:45] LABS: Alanine Aminotransferase 40 U/L (0-31); Albumin Level 4.2 g/dL (3.5-5.0); Alkaline Phosphatase 75 U/L (39-117); Anion Gap 11 (12-20); Aspartate Amino Transferase 24 U/L (5-31); Bilirubin Total 0.6 mg/dL (0.0-1.0); Blood Urea Nitrogen 11 mg/dL (9-16); Calcium 9.1 mg/dL (8.4-10.2); Carbon Dioxide 23 mmol/L (22-29); Chloride 107 mmol/L (96-108); Estimated Glomerular Filt Rate > 60; Glucose Random 139 mg/dL (60-115); Lactate Dehydrogenase 201 U/L (122-220); Potassium 4.3 mmol/L (3.3-5.1); Sodium 137 mmol/L (135-145); Total Protein 7.2 g/dL (6.5-8.0)
[2022-10-18 09:46] LABS: SLIDE REVIEW VERIFIED
== END 2022-10-18 08:51 | disposition home or self-care (01) ==
LOC: HO.LAB 08:50
PROVIDERS: PCP Internal Medicine; Visit Provider Internal Medicine Medical Oncology
DX: C83.00 Small cell B-cell lymphoma, unspecified site (principal)
CPT/HCPCS: 36415; 80053; 83615; 85025

== ENCOUNTER → 2022-12-01 14:37 | Outpatient (BNVA) | payer OTHER, SELFPAY | PROVIDERS: PCP Internal Medicine; Visit Provider Surgery | DX: R59.0 Localized enlarged lymph nodes (principal); Z91.89 Other specified personal risk factors, not elsewhere classified | CPT/HCPCS: 99212 ==

== ENCOUNTER 2023-02-09 15:50 | Outpatient (AMB) | payer OTHER, SELFPAY ==
[2023-02-09 15:58] VITALS: BP 128/78; PULSE 77; O2SAT 98; BMI 34.5
--- NOTE | 2023-02-09 15:58 | A.OFFPC_ITS ---
Vital Signs 02/09/23 15:58 Height 5 ft 3 in Weight 195 lb BMI 34.5 BP 128/78 Blood Pressure Location Lt brachial Position Sitting Pulse 77 Pulse Source Pulse Oximeter Pulse Oximetry (%) 98 Oxygen Delivery Method Room Air Intake Visit Reasons: Annual Physical Allergies latex [LATEX] Allergy (Intermediate, Verified 02/09/23 15:58) REDNESS,RASH lisinopril Allergy (Unknown, Verified 02/09/23 15:58) difficulty urination Medication List - Last Reconciled 02/09/23 by Jack Rosario MD alprazolam 0.5 mg PO DAILY PRN 90 days blood sugar diagnostic (FreeStyle Test strips) As directed check the BS QD cetirizine (Zyrtec) 10 mg PO DAILY cholecalciferol (vitamin D3) 25 mcg PO DAILY irbesartan 75 mg PO DAILY lancets (FreeStyle Lancets) As directed check the BS QD levothyroxine 88 mcg PO DAILY metformin 500 mg PO BIDWMEAL 90 days naproxen sodium (Aleve) 220 mg PO BID PRN sertraline 50 mg PO DAILY 90 days simvastatin 40 mg PO BEDTIME Tobacco use date assessed: 08/30/22 Dental Screening Dental Screen Date: 02/09/23 Did you have a dental visit in the last 12 months?: Yes Did you have a dental problem in the last 6 months where you did not have access to dental care?: No Was dental information given to patient?: Patient has dentist HPI Annual Physical HPI Details 57-year-old obese female with diabetes mellitus hypertension hypothyroidism hypercholesterolemia Maira anxiety disorder having a history of lymphoma and 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 Patient is here for physical exam. Cologuard up-to-date February 2022, Pap smear is up-to-date, mammogram is up-to-date October 2022. MRI breast March 06, 2023 Oncology March 28, Dr. Dominguez and stew FORMERLY [facility], [facility] Medical History Anxiety and depression At high risk for breast cancer Cerebral palsy Ear drum perforation Hypercholesterolemia Hypertension Hypothyroid Lymphoma Medial meniscus tear Obesity (BMI 30-39.9) Shoulder fracture, right Thyroid nodule Type 2 diabetes mellitus with hyperglycemia Surgical History History of Achilles tendon repair History of lymph node biopsy (07/2017) History of meniscal tear History of right breast biopsy (09/2017) Family History Father Stroke Hypertension Diabetes CVD (cardiovascular disease) Mother Stroke Cervical cancer, Onset Age: 63 Breast cancer, Onset Age: 49 CVD (cardiovascular disease) Sister Breast cancer, Onset Age: 51 Substance abuse Bipolar disorder Mental health disorder Maternal Aunt Breast cancer, Onset Age: 40 Maternal Grandfather Throat cancer Social History (Updated 02/09/23 @ 16:34 by Jack Rosario MD) Housing: Apartment Alcohol intake: current Alcohol intake frequency: holidays/special occasions only Patient Tobacco Use Status: Never used Tobacco e-Cigarette/Vaping Use: Never Used Second Hand Smoke Exposure: No service: No Current occupational status: disabled Cognitive needs: Yes Hearing needs: No Vision needs: Yes Female Reproductive History Menstrual Age of Menarche: 14 Questionnaire PHQ-9 Over the last 2 weeks, how often have you been bothered by any of the following problems? 1. Little interest or pleasure in doing things: not at all 2. Feeling down, depressed, or hopeless: not at all 3. Trouble falling or staying asleep, or sleeping too much: not at all 4. Feeling tired or having little energy: not at all 5. Poor appetite or overeating: not at all 6. Feeling bad about yourself - or that you are a failure or have let yourself or your family down: not at all 7. Trouble concentrating on things, such as reading the newspaper or watching television: not at all 8. Moving or speaking so slowly that other people could have noticed. Or the opposite - being so fidgety or restless that you have been moving around a lot more than usual: not at all 9. Thoughts that you would be better off or of hurting yourself in some way: not at all Total score: 0 Depression Screening Interpretation: Negative Source: Developed by Drs. Rahat Otero, Karrie Chahal, Filemon Dos Santos and colleagues, with an educational shaq from [employer]. Thrive Questionnaire Date Thrive assessed: 08/30/22 AUDIT C Alcohol Use Questionnaire (AUDIT-C) 1. How often do you have a drink containing alcohol?: Monthly or less 2. How many drinks containing alcohol do you have on a typical day when you are drinking?: 1 or 2 3. How often do you have six or more drinks on one occasion?: Never Total Score: 1 DAGOBERTO-7 AMB Questionnaire DAGOBERTO-7 Date DAGOBERTO - 7 assessed: 08/30/22 Source: Developed by Drs. Rahat Otero, Karrie Chahal, Filemon Dos Santos and colleagues, with an educational shaq from [employer]. Review of Systems Const Denies poor appetite and Denies weakness Eyes Denies no additional complaints ENT Reports Normal hearing present, Denies dizziness, Denies nasal congestion, Denies tinnitus and Denies sore throat Card Denies chest pain, Denies syncope, Denies rapid heart rate and Denies dyspnea Resp Denies cough and Denies dyspnea GI Denies change in stool character, Reports constipation, Denies diarrhea, Denies nausea and Denies vomiting Denies urinary frequency, Denies difficulty voiding and Denies dysuria Neuro Reports Normal hearing present, Denies confusion, Denies dizziness, Denies syncope and Denies weakness Psych Denies confusion Physical exam (Primary Care) Vital Signs: Last Vital Signs Pulse 77 02/09/23 15:58 BP 128/78 02/09/23 15:58 Pulse Ox 98 02/09/23 15:58 Oxygen Delivery Method Room Air 02/09/23 15:58 BMI result Body Mass Index 34.5 Tobacco/Smoking Status: Tobacco use Status Tobacco use date assessed 08/30/22 02/09/23 15:59 Patient Tobacco Use Status Never used Tobacco 02/09/23 15:59 e-Cigarette/Vaping Use Never Used 02/09/23 15:59 PHQ-9: PHQ-9 Score PHQ-9: Total score 0 02/09/23 16:21 Depression Screening Interpretation: Negative Thrive Assessment: Date of Thrive Assessment Date Thrive assessed 08/30/22 02/09/23 15:59 Const General: No confusion Orientation/consciousness: No confusion HENMT Head: Yes normocephalic Ears: external ears normal and TM's normal bilaterally Face and sinus: Yes normal facial exam Mouth: moist mucous membranes Throat: Yes tonsils normal Eyes Conjunctivae: conjunctivae normal Pupils: Equal, round and reactive pupils present and Pupil accommodation reflex normal Direct Ophthalmoscopy: normal light reflex Neck Neck: No lymphadenopathy Thyroid: Thyroid normal Chest Chest palpation & inspection: normal inspection of the chest Resp Effort & Inspection: normal respiratory effort and no audible wheezes Auscultation: clear to auscultation bilaterally, no crackles, no wheezes and lung sounds not diminished Cardio Rate: regular rate Rhythm: regular rhythm Peripheral pulses: radial pulses present and dorsalis pedis present GI Other: decline Palpation (GI): no masses Auscultation: normal bowel sounds and normoactive bowel sounds Rectal Exam - Female: deferred Skin Other: pedal pulse and pin prick normal General skin exam: no rashes or lesions noted Rashes: no rashes Neuro General: No confusion Cranial nerves: Yes Equal, round and reactive pupils present and Yes Normal hearing present Cognition (Neuro): normal cognition Gait exam (Neuro): Normal gait present Motor exam (neuro): 5/5 motor strength present throughout Deep tendon reflexes (DTR's): Right brachioradialis reflex intensity grade: 2+, Left brachioradialis reflex intensity grade: 2+, Right patellar reflex intensity grade: 2+ and Left patellar reflex intensity grade: 2+ Extrem General: No edema Results AMB Hemoglobin A1c AMB Hemoglobin A1c 6.1 % Last Edit by Estela Rios CMA on 02/09/23 16 :29 Assessment and Plan Assessment & Plan (1) Annual physical exam: Code(s): Z00.00 - Encounter for general adult medical examination without abnormal findings (2) Cerebral palsy: Comment: L ankle release, Code(s): G80.9 - Cerebral palsy, unspecified (3) Hypercholesterolemia: Code(s): E78.00 - Pure hypercholesterolemia, unspecified Plan: Avoid fried foods, chicken skin, eggs, butter margarine, pastries and meat. Be it pork or beef they have a lot of cholesterol LDL goal of less than 100 and triglyceride of less than 150 last blood work was done in April 2022 (4) Hypothyroid: Code(s): E03.9 - Hypothyroidism, unspecified Qualifiers: Hypothyroidism type: acquired Qualified Code(s): E03.9 - Hypothyroidism, unspecified Plan: Continue with thyroid medication advised retesting in 3 months (5) Hypertension: Code(s): I10 - Essential (primary) hypertension Qualifiers: Hypertension type: essential hypertension Qualified Code(s): I10 - Essential (primary) hypertension Plan: Continue with blood pressure medication. Decrease salt intake and exercise patient takes irbesartan 75 mg once a day (6) Type 2 diabetes mellitus with hyperglycemia: Comment: Eye and [place] Code(s): E11.65 - Type 2 diabetes mellitus with hyperglycemia Qualifiers: Diabetes mellitus [employer] insulin use: without [employer] use Qualified Code(s): E11.65 - Type 2 diabetes mellitus with hyperglycemia Plan: Decrease the amount of carbohydrate intake, pasta, bread, rice and potatoes are all sugar and that is aside from all the sweet stuff, remember that fruits are good but they are Sweet also. Hemoglobin A1c goal of less than 6.5 patient is on metformin 500 mg twice a day (7) Obesity (BMI 30-39.9): Code(s): E66.9 - Obesity, unspecified Plan: Diet and exercise (8) Generalized anxiety disorder: Code(s): F41.1 - Generalized anxiety disorder Plan: Continue with medication as needed Orders: Orders Vitamin B12 and Folate 3 Months E11.65 - Type 2 diabetes mellitus with hyperglycemia Comprehensive Met. Panel 3 Months E11.65 - Type 2 diabetes mellitus with hyperglycemia Lipid Panel 3 Months E11.65 - Type 2 diabetes mellitus with hyperglycemia, E78.00 - Pure hypercholesterolemia, unspecified Free T4 (Free Thyroxine) 3 Months E11.65 - Type 2 diabetes mellitus with hyperglycemia Thyroid Stimulating Hormone 3 Months E11.65 - Type 2 diabetes mellitus with hyperglycemia Vitamin D 25-OH Total 3 Months E11.65 - Type 2 diabetes mellitus with hyperglycemia Creatinine Urine 3 Months E11.65 - Type 2 diabetes mellitus with hyperglycemia Microalbumin, Random (w Creat) 3 Months E11.65 - Type 2 diabetes mellitus with hyperglycemia Complete Blood Count Auto Diff 3 Months E11.65 - Type 2 diabetes mellitus with hyperglycemia AMB Hemoglobin A1c Today Z13.9 - Encounter for screening, unspecified Coding Level of Care Code Est Pt Prev Care [id number]([id number]) Diagnoses Annual physical exam Z00.00 Cerebral palsy G80.9 Hypercholesterolemia E78.00 Hypothyroid E03.9 Hypothyroidism type: acquired Hypertension I10 Hypertension type: essential hypertension Type 2 diabetes mellitus with hyperglycemia E11.65 Diabetes mellitus [employer] insulin use: without correction use Obesity (BMI 30-39.9) E66.9 Generalized anxiety disorder F41.1
== END 2023-02-09 16:57 | disposition home or self-care (01) ==
PROVIDERS: PCP Internal Medicine; Visit Provider Internal Medicine
DX: Z00.00 Encounter for general adult medical examination without abnormal findings (principal); G80.9 Cerebral palsy, unspecified; E78.00 Pure hypercholesterolemia, unspecified; E03.9 Hypothyroidism, unspecified; I10 Essential (primary) hypertension; E11.65 Type 2 diabetes mellitus with hyperglycemia; E66.9 Obesity, unspecified; F41.1 Generalized anxiety disorder; Z13.9 Encounter for screening, unspecified
CPT/HCPCS: 83036; 99396

== ENCOUNTER 2023-03-06 13:56 | Outpatient (REF) | payer OTHER, SELFPAY ==
--- NOTE | ~2023-03-06 | MR_ITS ---
EXAMINATION: MR BREAST WITHOUT AND WITH CONTRAST, BILATERAL CLINICAL INFORMATION: High risk screening. The estimated lifetime risk of developing breast cancer is 20%. History of lymphoma and ovarian cancer. Family history of breast cancer. COMPARISON: Portions of a previous 02/17/2022 Mammography (nondiagnostic monitor review): 10/15/2022. TECHNIQUE: A 1.5 T system and a dedicated breast coil. T1-weighted sequences without fat-saturation were obtained prior to the administration of contrast. Fat-saturated T1 and T2-weighted sequences were also acquired. The patient received 9 mL of IV gadolinium-based contrast, Gadavist. Multiple sequential dynamic T1-weighted sequences were obtained through both breasts with fat-saturation. Subtracted images were reviewed. CAD postprocessing with 3-D reconstructions, maximum intensity projections and kinetic analysis was performed by the interpreting radiologist at an independent workstation and reviewed as a portion of this exam. FINDINGS: Amount of Remaining Fibroglandular Signal: There are scattered areas of fibroglandular tissue (ACR BI-RADS breast composition category B).* Background Parenchymal Enhancement: Minimal Symmetry of Background Enhancement: Symmetric RIGHT BREAST: There are no suspicious findings. Masses: There are no suspicious enhancing masses. Non-mass Enhancement: There is no suspicious non-mass enhancement. Focus: There are no suspicious enhancing foci. Non-enhancing Findings: Associated findings: There are no suspicious associated findings. There is distortion and susceptibility consistent with surgery in the upper outer right breast unchanged. Kinetic Curve Assessment: Initial Phase: There are no suspicious areas of color signal. Delayed Phase: There are no areas of washout kinetics. LEFT BREAST: There are no suspicious findings. Masses: There are no suspicious enhancing masses. Non-mass Enhancement: There is no suspicious non-mass enhancement. Focus: There are no suspicious enhancing foci. Non-enhancing Findings: Associated Findings: There are no suspicious associated findings. Kinetic Curve Assessment: Initial Phase: There are no areas of suspicious color signal. Delayed Phase: There are no areas of washout kinetics. There are bilateral axillary lymph nodes. These are minimally more prominent than 2020. No significant change since 02/17/2022. No suspicious internal mammary lymph nodes are seen. No suspicious abnormality in the visualized portions of chest or abdomen. MR/MR breast BI wo/w con IMPRESSION: 1. No MR evidence of malignancy. 2. No suspicious interval change. ASSESSMENT: Right Breast: ACR BI-RADS 2: Benign finding. Left Breast: ACR BI-RADS 1: Negative examination. RECOMMENDATIONS: Recommend annual screening MRI in patients with an estimated lifetime risk of developing breast cancer equal to or greater than 20%.
[2023-03-06] MEDS: gadobutroL 10 ML VIAL IVPUSH (15:28)
== END 2023-03-06 13:57 | disposition home or self-care (01) ==
LOC: HO.MRI 13:56
PROVIDERS: PCP Internal Medicine; Visit Provider Surgery
DX: Z91.89 Other specified personal risk factors, not elsewhere classified (principal)
CPT/HCPCS: 77049; A9585

== ENCOUNTER 2023-03-21 16:13 | Outpatient (REF) | payer OTHER, SELFPAY ==
[2023-03-21 16:32] LABS: Basophils Absolute Auto 0.1 X10*3/uL (0.0-0.2); Basophils Percent Auto 0.4 % (0-2); Eosinophils Absolute Auto 0.2 X10*3/uL (0.0-0.4); Hematocrit 39.9 % (37.0-47.0); Hemoglobin 13.3 g/dl (12.0-16.0); Imm Gran Abs Auto 0.04 X10*3/uL (0.00-0.03); Imm Gran Pct Auto 0.3 % (0.0-0.4); Lymphocytes Percent Auto 48.6 % (20-40); MANUAL DIFF FLAG SCAN; Mean Corpuscular HGB Conc 33.3 g/dl (31.0-35.0); Mean Corpuscular Hemoglobin 30.3 pg (27.0-33.0); Mean Corpuscular Volume 90.9 fL (80.0-98.0); Monocytes Absolute Auto 0.7 X10*3/uL (0.1-1.2); Monocytes Percent Auto 5.9 % (2-11); Neutrophils Absolute Auto 5.3 x10*3/uL (2.0-8.3); Neutrophils Percent Auto 42.8 % (45-73); Platelet Count 220 X10*3/uL (160-400); Red Blood Count 4.39 X10*6/uL (4.20-5.50); Red Cell Distribution Width 12.8 % (11.0-16.0); SCAN SMEAR FLAG 1; White Blood Count 12.3 X10*3/uL (4.8-10.8)
[2023-03-21 17:05] LABS: Alanine Aminotransferase 41 U/L (0-31); Albumin Level 4.3 g/dL (3.5-5.0); Alkaline Phosphatase 85 U/L (39-117); Anion Gap 13 (12-20); Aspartate Amino Transferase 24 U/L (5-31); Bilirubin Total 0.5 mg/dL (0.0-1.0); Blood Urea Nitrogen 12 mg/dL (9-16); Calcium 9.9 mg/dL (8.4-10.2); Carbon Dioxide 22 mmol/L (22-29); Chloride 108 mmol/L (96-108); Estimated Glomerular Filt Rate > 60; Glucose Random 100 mg/dL (60-115); Lactate Dehydrogenase 191 U/L (122-220); Potassium 3.8 mmol/L (3.3-5.1); Sodium 139 mmol/L (135-145); Total Protein 7.7 g/dL (6.5-8.0)
[2023-03-21 17:06] LABS: SLIDE REVIEW VERIFIED
[2023-03-21 17:28] LABS: Erythrocyte Sedimentation Rate 8 MM/HR (0-20)
[2023-03-23 13:33] LABS: Beta-2 Microglobulin, Serum 2.37 mg/L (< OR = 2.51)
== END 2023-03-21 16:14 | disposition home or self-care (01) ==
LOC: HO.LAB 16:13
PROVIDERS: PCP Internal Medicine; Visit Provider Internal Medicine Medical Oncology
DX: C83.00 Small cell B-cell lymphoma, unspecified site (principal); D72.820 Lymphocytosis (symptomatic)
CPT/HCPCS: 36415; 80053; 82232; 83615; 85025; 85652

== ENCOUNTER 2023-05-05 10:05 | Outpatient (REF) | payer OTHER, SELFPAY ==
[2023-05-05 10:57] LABS: Mean Corpuscular HGB Conc 32.5 g/dl (31.0-35.0); Mean Corpuscular Hemoglobin 30.2 pg (27.0-33.0); Mean Corpuscular Volume 92.8 fL (80.0-98.0); Mean Platelet Volume 9.4 fL (9.4-12.3); Platelet Count 240 X10*3/uL (160-400); Red Blood Count 4.31 X10*6/uL (4.20-5.50); Red Cell Distribution Width 12.5 % (11.0-16.0); White Blood Count 11.6 X10*3/uL (4.8-10.8)
[2023-05-05 11:29] LABS: Creatinine Urine 105.61 mg/dL; Microalbum/Creatinine Ratio Ur 14.2 ug/mg cr (<30)
[2023-05-05 11:45] LABS: Alanine Aminotransferase 83 U/L (0-31); Albumin Level 4.3 g/dL (3.5-5.0); Alkaline Phosphatase 92 U/L (39-117); Anion Gap 15 (12-20); Aspartate Amino Transferase 52 U/L (5-31); Bilirubin Total 0.5 mg/dL (0.0-1.0); Blood Urea Nitrogen 9 mg/dL (9-16); Calcium 9.5 mg/dL (8.4-10.2); Carbon Dioxide 22 mmol/L (22-29); Chloride 106 mmol/L (96-108); Cholesterol 161 mg/dL (<200); Estimated Glomerular Filt Rate > 60; Glucose Random 147 mg/dL (60-115); HDL Cholesterol 51 mg/dL (>40); LDL Cholesterol Calculated 84 mg/dL (<100); Potassium 3.8 mmol/L (3.3-5.1); Sodium 139 mmol/L (135-145); Total Protein 7.6 g/dL (6.5-8.0); Triglycerides 134 mg/dL (<150)
[2023-05-05 11:54] LABS: Free T4 (Free Thyroxine) 1.05 ng/dL (0.71-1.85); Thyroid Stimulating Hormone 4.21 uIU/mL (0.32-4.0); Vitamin D 25-OH Total 39.7 ng/mL (>30)
[2023-05-05 12:00] LABS: Eosinophils Absolute Manual 0.6 X10*3/uL (0.0-0.4); Eosinophils Percent Manual 5 % (0-4); Lymphocytes Percent Manual 52 % (20-40); Monocytes Absolute Manual 0.3 X10*3/uL (0.1-1.2); Monocytes Percent Manual 3 % (2-11)
[2023-05-05 12:01] LABS: Platelet Estimate NORMAL (NORMAL); Platelet Morphology Comment NORMAL; Smudge Cells PRESENT
[2023-05-05 12:02] LABS: RBC Morphology NORMAL
[2023-05-05 13:13] LABS: Folate 8.1 ng/mL (> or = 4.0); Vitamin B12 441 pg/mL (200-900)
[2023-05-05 14:50] LABS: Band Neutrophils Percent 0 % (3-5); Neutrophils Absolute Manual 4.6 X10*3/uL (2.0-8.3); Neutrophils Percent Manual 40 % (45-73)
== END 2023-05-05 10:06 | disposition home or self-care (01) ==
LOC: HO.LAB 10:05
PROVIDERS: PCP Internal Medicine; Visit Provider Internal Medicine
DX: E11.65 Type 2 diabetes mellitus with hyperglycemia (principal); E78.00 Pure hypercholesterolemia, unspecified
CPT/HCPCS: 36415; 80053; 80061; 82043; 82306; 82570; 82607; 82746; 84439; 84443; 85007; 85025; 85027

== ENCOUNTER 2023-05-16 15:24 | Outpatient (AMB) | payer OTHER, SELFPAY ==
[2023-05-16 15:27] VITALS: BP 130/72; PULSE 78; O2SAT 98; BMI 34.4
--- NOTE | 2023-05-16 15:27 | A.OFFPC_ITS ---
Vital Signs 05/16/23 15:27 Height 5 ft 3 in Weight 194 lb BMI 34.4 BP 130/72 Blood Pressure Location Lt brachial Position Sitting Pulse 78 Pulse Source Pulse Oximeter Pulse Oximetry (%) 98 Oxygen Delivery Method Room Air Intake Visit Reasons: 3mon f/u Freight Handler Required: No Acute Specialist: Not Required per policy Accompanied by: Self / Same As Patient Allergies latex [LATEX] Allergy (Intermediate, Verified 05/16/23 15:28) REDNESS,RASH lisinopril Allergy (Unknown, Verified 05/16/23 15:28) difficulty urination Tobacco use date assessed: 08/30/22 Dental Screening Dental Screen Date: 05/16/23 Did you have a dental visit in the last 12 months?: Yes Did you have a dental problem in the last 6 months where you did not have access to dental care?: No Was dental information given to patient?: Patient has dentist HPI 3mon f/u HPI Details 57-year-old female with cerebral palsy o n wheelchair having hypercholesterolemia hypothyroidism hypertension controlled diabetes mellitus generalized anxiety disorder last seen for physical in February 2023. Patient has Cologuard is up-to-date mammogram is up-to-date.. 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 Patient also had breast MRI under the surgeon no malignancy [facility] Medical History At high risk for breast cancer Thyroid nodule Medial meniscus tear Ear drum perforation Shoulder fracture, right Type 2 diabetes mellitus with hyperglycemia Obesity (BMI 30-39.9) Lymphoma Hypertension Anxiety and depression Hypothyroid Cerebral palsy Hypercholesterolemia Surgical History History of right breast biopsy (09/2017) History of lymph node biopsy (07/2017) History of meniscal tear History of Achilles tendon repair Family History Father Stroke Hypertension Diabetes CVD (cardiovascular disease) Mother Stroke Cervical cancer, Onset Age: 63 Breast cancer, Onset Age: 49 CVD (cardiovascular disease) Sister Breast cancer, Onset Age: 51 Substance abuse Bipolar disorder Mental health disorder Maternal Aunt Breast cancer, Onset Age: 40 Maternal Grandfather Throat cancer Social History (Reviewed 05/16/23 @ 15:28 by ASHLEY López Housing: Apartment Alcohol intake: current Alcohol intake frequency: holidays/special occasions only Patient Tobacco Use Status: Never used Tobacco e-Cigarette/Vaping Use: Never Used Second Hand Smoke Exposure: No service: No Current occupational status: disabled Cognitive needs: Yes Hearing needs: No Vision needs: Yes Female Reproductive History Menstrual Age of Menarche: 14 Questionnaire PHQ-9 Over the last 2 weeks, how often have you been bothered by any of the following problems? 1. Little interest or pleasure in doing things: not at all 2. Feeling down, depressed, or hopeless: not at all 3. Trouble falling or staying asleep, or sleeping too much: not at all 4. Feeling tired or having little energy: not at all 5. Poor appetite or overeating: not at all 6. Feeling bad about yourself - or that you are a failure or have let yourself or your family down: not at all 7. Trouble concentrating on things, such as reading the newspaper or watching television: not at all 8. Moving or speaking so slowly that other people could have noticed. Or the opposite - being so fidgety or restless that you have been moving around a lot more than usual: not at all 9. Thoughts that you would be better off or of hurting yourself in some way: not at all Total score: 0 Depression Screening Interpretation: Negative Depression Screening Done: Yes Source: Developed by Drs. Rahat Otero, Filemon Beth and colleagues, with an educational shaq from [employer]. Thrive Questionnaire Date Thrive assessed: 08/30/22 AUDIT C Alcohol Use Questionnaire (AUDIT-C) 1. How often do you have a drink containing alcohol?: Monthly or less 2. How many drinks containing alcohol do you have on a typical day when you are drinking?: 1 or 2 3. How often do you have six or more drinks on one occasion?: Never Total Score: 1 DAGOBERTO-7 AMB Questionnaire DAGOBERTO-7 Date DAGOBERTO - 7 assessed: 08/30/22 Source: Developed by Drs. Rahat Otero, Filemon Beth and colleagues, with an educational shaq from [employer]. Physical exam (Primary Care) Vital Signs: Last Vital Signs Pulse 78 05/16/23 15:27 BP 130/72 05/16/23 15:27 Pulse Ox 98 05/16/23 15:27 Oxygen Delivery Method Room Air 05/16/23 15:27 BMI result Body Mass Index 34.4 Tobacco/Smoking Status: Tobacco use Status Tobacco use date assessed 08/30/22 05/16/23 15:28 Patient Tobacco Use Status Never used Tobacco 05/16/23 15:28 e-Cigarette/Vaping Use Never Used 05/16/23 15:28 PHQ-9: PHQ-9 Score PHQ-9: Total score 0 05/16/23 15:41 Depression Screening Interpretation: Negative Thrive Assessment: Date of Thrive Assessment Date Thrive assessed 08/30/22 05/16/23 15:28 Const General: alert; No acute distress Eyes Conjunctivae: conjunctivae normal Resp Auscultation: clear to auscultation bilaterally Cardio Rate: regular rate Rhythm: regular rhythm GI Inspection: Yes normal to inspection Extrem General: Yes normal to inspection and No edema Results AMB Hemoglobin A1c AMB Hemoglobin A1c 7.2 % Last Edit by TRAVIS López on 05/16/23 15:42 Assessment and Plan Assessment & Plan (1) Type 2 diabetes mellitus with hyperglycemia: Comment: Eye and [employer] Code(s): E11.65 - Type 2 diabetes mellitus with hyperglycemia Qualifiers: Diabetes mellitus long-term insulin use: without long-term use Qualified Code(s): E11.65 - Type 2 diabetes mellitus with hyperglycemia Plan: Decrease the amount of carbohydrate intake, pasta, bread, rice and potatoes are all sugar and that is aside from all the sweet stuff, remember that fruits are good but they are Sweet also. Hemoglobin A1c goal of less than 6.5 patient is on metformin 500 mg twice a day on (2) Lymphoma: Comment: small lymphocytic , chronic lymphocytic Dr. Grimes 08/2017 Code(s): C85.90 - Non-Hodgkin lymphoma, unspecified, unspecified site Plan: Continue to follow-up with Hematology-Oncology and on surveillance (3) Hypertension: Code(s): I10 - Essential (primary) hypertension Qualifiers: Hypertension type: essential hypertension Qualified Code(s): I10 - Essential (primary) hypertension Plan: Continue with blood pressure medication. Decrease salt intake and exercise patient is on irbesartan 75 mg once a day (4) Hypothyroid: Code(s): E03.9 - Hypothyroidism, unspecified Qualifiers: Hypothyroidism type: acquired Qualified Code(s): E03.9 - Hypothyroidism, unspecified Plan: Continue with thyroid medication will need retesting (5) Hypercholesterolemia: Code(s): E78.00 - Pure hypercholesterolemia, unspecified Plan: Avoid fried foods, chicken skin, eggs, butter margarine, pastries and meat. Be it pork or beef they have a lot of cholesterol LDL goal of less than 100 patient on simvastatin 40 mg once a day (6) Generalized anxiety disorder: Code(s): F41.1 - Generalized anxiety disorder Plan: Continue with medication as needed Orders: Orders AMB Hemoglobin A1c Today E11.65 - Type 2 diabetes mellitus with hyperglycemia Coding Level of Care Code Est Pt Level 4 (46887) Diagnoses Type 2 diabetes mellitus with hyperglycemia, without long-term current use of insulin E11.65 Diabetes mellitus termination clerk insulin use: without long-term use Lymphoma C85.90 Essential hypertension I10 Hypertension type: essential hypertension Acquired hypothyroidism E03.9 Hypothyroidism type: acquired Hypercholesterolemia E78.00 Generalized anxiety disorder F41.1
== END 2023-05-16 16:02 | disposition home or self-care (01) ==
PROVIDERS: PCP Internal Medicine; Visit Provider Internal Medicine
DX: E11.65 Type 2 diabetes mellitus with hyperglycemia (principal); C85.90 Non-Hodgkin lymphoma, unspecified, unspecified site; I10 Essential (primary) hypertension; E03.9 Hypothyroidism, unspecified; E78.00 Pure hypercholesterolemia, unspecified; F41.1 Generalized anxiety disorder
CPT/HCPCS: 83036; 99214

== ENCOUNTER 2023-06-08 15:28 | Outpatient (AMB) | payer OTHER, SELFPAY ==
--- NOTE | 2023-06-08 15:32 | MHC.OFFVIS ---
Intake Vital Signs 06/08/23 15:38 Height 5 ft 3 in Weight 191 lb 12.835 oz BMI 34.0 BP 128/82 Blood Pressure Location Lt brachial Position Sitting Intake Visit Reasons: 6 mth breast exam Intake Note: Patient is seen in office for 6 month follow up visit, breast exam. Pt c/o: no concerns at the time of visit mm:10/15/22 MRI b:03/06/23 Senior Security Architect Required: No Accompanied by: Self / Same As Patient Allergies latex [LATEX] Allergy (Intermediate, Verified 06/08/23 15:39) REDNESS,RASH lisinopril Allergy (Unknown, Verified 06/08/23 15:39) difficulty urination Medication List - Last Reconciled 06/08/23 by Domenic Quevedo MD alprazolam 0.5 mg PO DAILY PRN 90 days blood sugar diagnostic (FreeStyle Test strips) As directed check the BS QD cetirizine (Zyrtec) 10 mg PO DAILY cholecalciferol (vitamin D3) 25 mcg PO DAILY irbesartan 75 mg PO DAILY lancets (FreeStyle Lancets) As directed check the BS QD levothyroxine 88 mcg PO DAILY metformin 500 mg PO BIDWMEAL 90 days naproxen sodium (Aleve) 220 mg PO BID PRN sertraline 50 mg PO DAILY 90 days simvastatin 40 mg PO BEDTIME HPI HPI Comments History of Present Illness Details 57-year-old female previously evaluated by Dr. Bui and determined to be high risk due to her family history which includes her mother developed breast cancer at the age of 49, her sister who developed breast cancer at the age of 51, and a maternal aunt who developed breast cancer at the age of 40. Her lifetime breast cancer risk was calculated at 28% and she was placed on a high risk protocol including annual mammograms alternating every 6 months with annual breast MRIs. An abnormal cluster of microcalcifications was noted in the right breast close to the chest and could not be stereotactically biopsied. Enlarged lymph node was identified by ultrasound was biopsied on 08/01/2017 and determined to be lymphoma. She subsequently underwent a needle localized excisional biopsy to remove the microcalcifications on 09/28/2017. Pathology revealed benign breast tissue. She continues to be followed by Dr. Grimes for the lymphoma with no treatment required. Her last mammogram performed 10/15/2022 and revealed no mammographic evidence of malignancy (BI-RADS 2 benign). Her last breast MRI was performed on 03/06/2023 revealed no MR evidence of malignancy ( BI-RADS 2 right side, BI-RADS 1 left side). She underwent a laparoscopic bilateral salpingectomy and left oophorectomy at [facility] on 06/14/2022. 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 She subsequently underwent a right oophorectomy, omentectomy and peritoneal washings. She feels well and denies any new breast symptoms or palpable enlarged lymph nodes currently. [facility] Medical History At high risk for breast cancer Thyroid nodule Medial meniscus tear Ear drum perforation Shoulder fracture, right Type 2 diabetes mellitus with hyperglycemia Obesity (BMI 30-39.9) Lymphoma Hypertension Anxiety and depression Hypothyroid Cerebral palsy Hypercholesterolemia Surgical History History of right breast biopsy (09/2017) History of lymph node biopsy (07/2017) History of meniscal tear History of Achilles tendon repair Family History Father Stroke Hypertension Diabetes CVD (cardiovascular disease) Mother Stroke Cervical cancer, Onset Age: 63 Breast cancer, Onset Age: 49 CVD (cardiovascular disease) Sister Breast cancer, Onset Age: 51 Substance abuse Bipolar disorder Mental health disorder Maternal Aunt Breast cancer, Onset Age: 40 Maternal Grandfather Throat cancer Social History Housing: Apartment Alcohol intake: current Alcohol intake frequency: holidays/special occasions only Patient Tobacco Use Status: Never used Tobacco e-Cigarette/Vaping Use: Never Used Second Hand Smoke Exposure: No service: No Current occupational status: disabled Cognitive needs: Yes Hearing needs: No Vision needs: Yes Female Reproductive History Menstrual Age of Menarche: 14 Review of Systems Const Denies poor appetite and Denies weakness Eyes Denies no additional complaints ENT Reports Normal hearing present, Denies dizziness, Denies nasal congestion, Denies tinnitus and Denies sore throat Card Denies chest pain, Denies syncope, Denies rapid heart rate and Denies dyspnea Resp Denies cough and Denies dyspnea GI Denies change in stool character, Reports constipation, Denies diarrhea, Denies nausea and Denies vomiting Denies urinary frequency, Denies difficulty voiding and Denies dysuria Neuro Reports Normal hearing present, Denies confusion, Denies dizziness, Denies syncope and Denies weakness Psych Denies confusion Physical Exam Vital Signs: Last Vital Signs BP 128/82 06/08/23 15:38 BMI result Body Mass Index 34.0 Const General: No confusion Nutritional Appearance: well nourished Orientation/consciousness: No confusion Limitations: wheelchair HEENT Head: Yes normocephalic and Yes atraumatic Ears: hearing grossly normal bilaterally Eyes Sclerae: sclerae normal EOM: EOMs intact bilaterally Chest Other: Left breast: No skin change, no nipple retraction, no nipple discharge, no palpable mass, no enlarged lymph nodes. Right breast: No skin change, no nipple retraction, no nipple discharge, no palpable mass, no enlarged lymph nodes Resp Effort & Inspection: normal respiratory effort, no audible wheezes and no cough Skin General skin exam: no rashes or lesions noted Neuro General: No confusion Cranial nerves: Yes Normal hearing present Extrem General: Yes no clubbing, cyanosis or edema Assessment & Plan Assessment & Plan (1) At high risk for breast cancer: Code(s): Z91.89 - Other specified personal risk factors, not elsewhere classified Plan 57-year-old female patient determined to be high risk for breast cancer recently identified. She has a history of lymphoma which is being followed by Dr. Grimes. 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 Her most recent mammogram of 10/15/2022 revealed no evidence of malignancy (BI-RADS 2). Her most recent breast MRI of 03/06/2023 revealed no MR evidence of malignancy (BI-RADS 1 left breast, BI-RADS 2 right breast ). Examination today revealed no suspicious findings in either breast and no palpable lymph nodes. She will follow-up in 6 months for routine breast examination, but is welcome to return sooner p.r.n.. Coding Level of Care Code Est Pt Level 3 (30053) Diagnoses At high risk for breast cancer Z91.89
[2023-06-08 15:38] VITALS: BP 128/82; BMI 34.0
== END 2023-06-08 15:56 | disposition home or self-care (01) ==
PROVIDERS: PCP Internal Medicine; Visit Provider Surgery
DX: Z80.3 Family history of malignant neoplasm of breast (principal); Z91.89 Other specified personal risk factors, not elsewhere classified
CPT/HCPCS: 99213

== ENCOUNTER → 2023-06-08 15:28 | Outpatient (BNVA) | payer OTHER, SELFPAY | PROVIDERS: PCP Internal Medicine; Visit Provider Surgery | DX: Z91.89 Other specified personal risk factors, not elsewhere classified (principal) | CPT/HCPCS: 99212 ==

== ENCOUNTER 2023-07-04 10:06 | Outpatient (REF) | payer OTHER, SELFPAY ==
[2023-07-04 11:10] LABS: Free T4 (Free Thyroxine) 1.08 ng/dL (0.71-1.85)
== END 2023-07-04 10:07 | disposition home or self-care (01) ==
LOC: HO.LAB 10:06
PROVIDERS: PCP Internal Medicine; Visit Provider Internal Medicine
DX: E03.9 Hypothyroidism, unspecified (principal)
CPT/HCPCS: 36415; 84439; 84443

== ENCOUNTER 2023-07-21 09:01 | Outpatient (REF) | payer OTHER, SELFPAY ==
[2023-07-21 09:54] LABS: Basophils Absolute Auto 0.1 X10*3/uL (0.0-0.2); Basophils Percent Auto 0.7 % (0-2); Eosinophils Absolute Auto 0.2 X10*3/uL (0.0-0.4); Hematocrit 42.8 % (37.0-47.0); Hemoglobin 14.1 g/dl (12.0-16.0); Imm Gran Abs Auto 0.03 X10*3/uL (0.00-0.03); Imm Gran Pct Auto 0.2 % (0.0-0.4); Lymphocytes Percent Auto 55.4 % (20-40); MANUAL DIFF FLAG SCAN; Mean Corpuscular HGB Conc 32.9 g/dl (31.0-35.0); Mean Corpuscular Hemoglobin 30.9 pg (27.0-33.0); Mean Corpuscular Volume 93.9 fL (80.0-98.0); Mean Platelet Volume 9.6 fL (9.4-12.3); Monocytes Absolute Auto 0.6 X10*3/uL (0.1-1.2); Monocytes Percent Auto 5.2 % (2-11); Neutrophils Absolute Auto 4.5 x10*3/uL (2.0-8.3); Neutrophils Percent Auto 36.5 % (45-73); Platelet Count 254 X10*3/uL (160-400); Red Blood Count 4.56 X10*6/uL (4.20-5.50); Red Cell Distribution Width 13.1 % (11.0-16.0); SCAN SMEAR FLAG 1; White Blood Count 12.2 X10*3/uL (4.8-10.8)
[2023-07-21 09:57] LABS: Lymphocytes Absolute Auto 6.8 X10*3/uL (1.2-4.9)
[2023-07-21 10:47] LABS: Alanine Aminotransferase 48 U/L (0-31); Albumin Level 4.7 g/dL (3.5-5.0); Alkaline Phosphatase 82 U/L (39-117); Anion Gap 13 (12-20); Aspartate Amino Transferase 25 U/L (5-31); Bilirubin Total 0.5 mg/dL (0.0-1.0); Blood Urea Nitrogen 11 mg/dL (9-16); Calcium 9.7 mg/dL (8.4-10.2); Carbon Dioxide 24 mmol/L (22-29); Chloride 104 mmol/L (96-108); Estimated Glomerular Filt Rate > 60; Glucose Random 114 mg/dL (60-115); Lactate Dehydrogenase 207 U/L (122-220); Potassium 3.7 mmol/L (3.3-5.1); Sodium 137 mmol/L (135-145); Total Protein 8.5 g/dL (6.5-8.0)
[2023-07-21 10:56] LABS: SLIDE REVIEW VERIFIED
[2023-07-24 20:33] LABS: Beta-2 Microglobulin, Serum 2.41 mg/L (< OR = 2.51)
== END 2023-07-21 09:02 | disposition home or self-care (01) ==
LOC: HO.LAB 09:01
PROVIDERS: PCP Internal Medicine; Visit Provider Internal Medicine Medical Oncology
DX: C83.00 Small cell B-cell lymphoma, unspecified site (principal); D72.820 Lymphocytosis (symptomatic)
CPT/HCPCS: 36415; 80053; 82232; 83615; 85025

== ENCOUNTER 2023-08-16 08:05 | Outpatient (REF) | payer OTHER, SELFPAY ==
[2023-08-18 08:54] LABS: IgA 259 mg/dL (47-310); IgG 1423 mg/dL (600-1640); IgM 53 mg/dL (50-300)
== END 2023-08-16 08:06 | disposition home or self-care (01) ==
LOC: HO.LAB 08:05
PROVIDERS: PCP Internal Medicine Medical Oncology; Visit Provider Internal Medicine Medical Oncology
DX: E55.9 Vitamin D deficiency, unspecified (principal); C83.00 Small cell B-cell lymphoma, unspecified site; E11.9 Type 2 diabetes mellitus without complications; D72.820 Lymphocytosis (symptomatic); R77.9 Abnormality of plasma protein, unspecified
CPT/HCPCS: 36415; 82784; 84155; 86334

== ENCOUNTER 2023-08-23 08:01 | Outpatient (AMB) | payer OTHER, SELFPAY ==
--- NOTE | 2023-08-23 08:33 | MHC.PC.OV ---
Vital Signs 08/23/23 08:36 Height 5 ft 3 in Weight 190 lb BMI 33.7 BP 130/82 Blood Pressure Location Lt brachial Position Sitting Pulse 83 Pulse Source Pulse Oximeter Pulse Oximetry (%) 96 Oxygen Delivery Method Room Air Intake Visit Reasons: 3 Month F/U Allergies latex [LATEX] Allergy (Intermediate, Verified 08/23/23 08:41) REDNESS,RASH lisinopril Allergy (Unknown, Verified 08/23/23 08:41) difficulty urination Tobacco use date assessed: 08/23/23 Dental Screening Dental Screen Date: 08/23/23 Did you have a dental visit in the last 12 months?: Yes Did you have a dental problem in the last 6 months where you did not have access to dental care?: No Was dental information given to patient?: Patient has dentist HPI 3 Month F/U HPI Details 57-year-old obese female with diabetes mellitus hypertension hypothyroidism hypercholesterolemia and generalized anxiety disorder. Patient has a history of lymphoma, small lymphocytic. Follows up with Hematology-Oncology Dr. Sydney geiger. Patient also follows up with the surgeon for the breast exam due to the high risk nature. Having annual mammograms with alternating breast MRI follows up every6 months blood work for LDL done in April 2023 84. September eye and lasik [facility] Medical History (Updated 08/23/23 @ 08:39 by Jack Rosario MD) Anxiety and depression At high risk for breast cancer Thyroid nodule Medial meniscus tear Ear drum perforation Shoulder fracture, right Type 2 diabetes mellitus with hyperglycemia Obesity (BMI 30-39.9) Lymphoma Hypertension Hypothyroid Cerebral palsy Hypercholesterolemia Surgical History History of right breast biopsy (09/2017) History of lymph node biopsy (07/2017) History of meniscal tear History of Achilles tendon repair Family History Father Stroke Hypertension Diabetes CVD (cardiovascular disease) Mother Stroke Cervical cancer, Onset Age: 63 Breast cancer, Onset Age: 49 CVD (cardiovascular disease) Sister Breast cancer, Onset Age: 51 Substance abuse Bipolar disorder Mental health disorder Maternal Aunt Breast cancer, Onset Age: 40 Maternal Grandfather Throat cancer Social History Housing: Apartment Alcohol intake: current Alcohol intake frequency: holidays/special occasions only Patient Tobacco Use Status: Never used Tobacco e-Cigarette/Vaping Use: Never Used Second Hand Smoke Exposure: No service: No Current occupational status: disabled Cognitive needs: Yes Hearing needs: No Vision needs: Yes Female Reproductive History Menstrual Age of Menarche: 14 Questionnaire Thrive Questionnaire Date Thrive assessed: 08/30/22 AUDIT C Alcohol Use Questionnaire (AUDIT-C) 1. How often do you have a drink containing alcohol?: Monthly or less 2. How many drinks containing alcohol do you have on a typical day when you are drinking?: 1 or 2 3. How often do you have six or more drinks on one occasion?: Never Total Score: 1 DAGOBERTO-7 AMB Questionnaire DAGOBERTO-7 Date DAGOBERTO - 7 assessed: 08/23/23 Source: Developed by Drs. Rahat Otero, Karrie Chahal, Filemon Dos Santos and colleagues, with an educational shaq from [employer]. Physical exam (Primary Care) Vital Signs: Last Vital Signs Pulse 83 08/23/23 08:36 BP 130/82 08/23/23 08:36 Pulse Ox 96 08/23/23 08:36 Oxygen Delivery Method Room Air 08/23/23 08:36 BMI result Body Mass Index 33.7 Tobacco/Smoking Status: Tobacco use Status Tobacco use date assessed 08/23/23 08/23/23 08:43 Patient Tobacco Use Status Never used Tobacco 08/23/23 08:34 e-Cigarette/Vaping Use Never Used 08/23/23 08:34 Thrive Assessment: Date of Thrive Assessment Date Thrive assessed 08/30/22 08/23/23 08:34 Const General: alert; No acute distress Eyes Conjunctivae: conjunctivae normal Resp Auscultation: clear to auscultation bilaterally Cardio Rate: regular rate Rhythm: regular rhythm GI Inspection: Yes normal to inspection Extrem General: Yes normal to inspection and No edema Results AMB Hemoglobin A1c AMB Hemoglobin A1c 7.0 % Last Edit by TRAVIS King on 08/23/23 08:45 Results Reviewed Results Reviewed: Laboratory Last Values Hgb A1c (Clinic) 7.0 % (4.0-6.0) H 08/23/23 08:44 Assessment and Plan Assessment & Plan (1) Type 2 diabetes mellitus with hyperglycemia: Comment: Eye and [facility] Code(s): E11.65 - Type 2 diabetes mellitus with hyperglycemia Qualifiers: Diabetes mellitus assisted insulin use: without modeling agency manager use Qualified Code(s): E11.65 - Type 2 diabetes mellitus with hyperglycemia Plan: Decrease the amount of carbohydrate intake, pasta, bread, rice and potatoes are all sugar and that is aside from all the sweet stuff, remember that fruits are good but they are Sweet also. Hemoglobin A1c goal of less than 6.5. Patient presently on metformin 500 mg twice a day (2) Hypertension: Code(s): I10 - Essential (primary) hypertension Qualifiers: Hypertension type: essential hypertension Qualified Code(s): I10 - Essential (primary) hypertension Plan: Continue with blood pressure medication. Decrease salt intake and exercise taking irbesartan 75 mg once a day (3) Hypothyroid: Code(s): E03.9 - Hypothyroidism, unspecified Qualifiers: Hypothyroidism type: acquired Qualified Code(s): E03.9 - Hypothyroidism, unspecified Plan: Continue with thyroid medication 2022 (4) Hypercholesterolemia: Code(s): E78.00 - Pure hypercholesterolemia, unspecified Plan: Avoid fried foods, chicken skin, eggs, butter margarine, pastries and meat. Be it pork or beef they have a lot of cholesterol LDL goal of less than 100 and triglyceride of less than 150 presently on simvastatin 40 mg once a day (5) Obesity (BMI 30-39.9): Code(s): E66.9 - Obesity, unspecified Plan: Keep active eat healthy (6) Generalized anxiety disorder: Comment: [facility] ended 2019 decline any more referral therapy Code(s): F41.1 - Generalized anxiety disorder Plan: Continue with present medication (7) At high risk for breast cancer: Code(s): Z91.89 - Other specified personal risk factors, not elsewhere classified Plan: Patient continues to follow-up with the surgeon for surveillance and monitoring (8) Lymphoma: Comment: small lymphocytic , chronic lymphocytic Dr. Grimes 08/2017 Code(s): C85.90 - Non-Hodgkin lymphoma, unspecified, unspecified site Plan: Patient follows up with Hematology-Oncology patient has been doing good. Orders: Orders AMB Hemoglobin A1c Today E11.65 - Type 2 diabetes mellitus with hyperglycemia Medications: Changed From metformin 500 mg PO BIDWMEAL 90 days 180 tabs 2RF E11.65 - Type 2 diabetes mellitus with hyperglycemia To metformin 1,000 mg PO BIDWMEAL 180 tabs 2RF 90 days E11.65 - Type 2 diabetes mellitus with hyperglycemia Coding Level of Care Code Est Pt Level 4 (64154) Diagnoses Type 2 diabetes mellitus with hyperglycemia, without long-term current use of insulin E11.65 Diabetes mellitus assisted insulin use: without modeling agency manager use Essential hypertension I10 Hypertension type: essential hypertension Acquired hypothyroidism E03.9 Hypothyroidism type: acquired Hypercholesterolemia E78.00 Obesity (BMI 30-39.9) E66.9 Generalized anxiety disorder F41.1 At high risk for breast cancer Z91.89 Lymphoma C85.90
[2023-08-23 08:36] VITALS: BP 130/82; PULSE 83; O2SAT 96; BMI 33.7
== END 2023-08-23 09:00 | disposition home or self-care (01) ==
PROVIDERS: PCP Internal Medicine; Visit Provider Internal Medicine
DX: E11.65 Type 2 diabetes mellitus with hyperglycemia (principal); C85.90 Non-Hodgkin lymphoma, unspecified, unspecified site; E66.9 Obesity, unspecified; Z68.33 Body mass index [BMI] 33.0-33.9, adult; I10 Essential (primary) hypertension; E03.9 Hypothyroidism, unspecified; E78.00 Pure hypercholesterolemia, unspecified; F41.1 Generalized anxiety disorder; Z91.89 Other specified personal risk factors, not elsewhere classified
CPT/HCPCS: 83036; 99214

== ENCOUNTER 2023-10-21 09:13 | Outpatient (REF) | payer OTHER, SELFPAY ==
[2023-10-21 09:56] LABS: Basophils Absolute Auto 0.1 X10*3/uL (0.0-0.2); Basophils Percent Auto 0.5 % (0-2); Eosinophils Absolute Auto 0.6 X10*3/uL (0.0-0.4); Eosinophils Percent Auto 4.6 % (0-4); Hematocrit 41.9 % (37.0-47.0); Imm Gran Abs Auto 0.03 X10*3/uL (0.00-0.03); Imm Gran Pct Auto 0.2 % (0.0-0.4); Lymphocytes Percent Auto 53.4 % (20-40); MANUAL DIFF FLAG SCAN; Mean Corpuscular HGB Conc 33.4 g/dl (31.0-35.0); Mean Corpuscular Hemoglobin 30.8 pg (27.0-33.0); Mean Corpuscular Volume 92.1 fL (80.0-98.0); Monocytes Absolute Auto 0.6 X10*3/uL (0.1-1.2); Monocytes Percent Auto 5.1 % (2-11); Neutrophils Absolute Auto 4.5 x10*3/uL (2.0-8.3); Neutrophils Percent Auto 36.2 % (45-73); Platelet Count 259 X10*3/uL (160-400); Red Blood Count 4.55 X10*6/uL (4.20-5.50); Red Cell Distribution Width 12.9 % (11.0-16.0); SCAN SMEAR FLAG 1; White Blood Count 12.5 X10*3/uL (4.8-10.8)
[2023-10-21 10:04] LABS: Lymphocytes Absolute Auto 6.7 X10*3/uL (1.2-4.9)
[2023-10-21 10:26] LABS: SLIDE REVIEW VERIFIED
[2023-10-21 10:29] LABS: Alanine Aminotransferase 47 U/L (0-31); Albumin Level 4.5 g/dL (3.5-5.0); Alkaline Phosphatase 78 U/L (39-117); Anion Gap 15 (12-20); Aspartate Amino Transferase 27 U/L (5-31); Bilirubin Total 0.5 mg/dL (0.0-1.0); Blood Urea Nitrogen 10 mg/dL (9-16); Calcium 9.8 mg/dL (8.4-10.2); Carbon Dioxide 21 mmol/L (22-29); Chloride 106 mmol/L (96-108); Estimated Glomerular Filt Rate > 60; Glucose Random 127 mg/dL (60-115); Lactate Dehydrogenase 184 U/L (122-220); Potassium 3.9 mmol/L (3.3-5.1); Sodium 138 mmol/L (135-145)
[2023-10-21 10:45] LABS: Vitamin D 25-OH Total 46.2 ng/mL (>30)
== END 2023-10-21 09:14 | disposition home or self-care (01) ==
LOC: HO.MAMMO 09:13
PROVIDERS: Internal Medicine Medical Oncology; PCP Internal Medicine; Visit Provider Internal Medicine
DX: E55.9 Vitamin D deficiency, unspecified (principal); C83.00 Small cell B-cell lymphoma, unspecified site; E11.9 Type 2 diabetes mellitus without complications; D72.820 Lymphocytosis (symptomatic)
CPT/HCPCS: 36415; 77063; 77067; 80053; 82232; 82306; 83615; 85025

== ENCOUNTER → 2023-10-21 10:30 | Outpatient (BNV) | payer OTHER, SELFPAY | PROVIDERS: PCP Internal Medicine; Visit Provider Radiology Diagnostic Radiology | DX: Z12.31 Encounter for screening mammogram for malignant neoplasm of breast (principal) | CPT/HCPCS: 77063; 77067 ==

== ENCOUNTER 2023-12-06 08:55 | Outpatient (AMB) | payer OTHER, SELFPAY ==
[2023-12-06 08:59] VITALS: BP 136/78; PULSE 87; O2SAT 97; BMI 34.2
--- NOTE | 2023-12-06 08:59 | MHC.PC.OV ---
Vital Signs 12/06/23 08:59 Height 5 ft 3 in Weight 193 lb BMI 34.2 BP 136/78 Blood Pressure Location Lt brachial Position Sitting Pulse 87 Pulse Source Pulse Oximeter Pulse Oximetry (%) 97 Oxygen Delivery Method Room Air Intake Visit Reasons: DM Allergies latex [LATEX] Allergy (Intermediate, Verified 12/06/23 09:47) REDNESS,RASH lisinopril Allergy (Unknown, Verified 12/06/23 09:47) difficulty urination Tobacco use date assessed: 12/06/23 Dental Screening Dental Screen Date: 09/13/23 Did you have a dental visit in the last 12 months?: Yes Did you have a dental problem in the last 6 months where you did not have access to dental care?: No Was dental information given to patient?: Patient has dentist HPI DM HPI Details 58-year-old obese female with diabetes mellitus hypertension hypothyroid hypercholesterolemia generalized anxiety disorder and history of lymphoma seeing Hematology-Oncology coming in for follow-up. Last seen in 08/29/2023. Patient's Cologuard is up-to-date 02/26/2022 mammogram is up-to-date 11/27/2023. [facility] Medical History (Updated 08/23/23 @ 08:39 by Jack Rosario MD) Anxiety and depression At high risk for breast cancer Thyroid nodule Medial meniscus tear Ear drum perforation Shoulder fracture, right Type 2 diabetes mellitus with hyperglycemia Obesity (BMI 30-39.9) Lymphoma Hypertension Hypothyroid Cerebral palsy Hypercholesterolemia Surgical History History of right breast biopsy (09/2017) History of lymph node biopsy (07/2017) History of meniscal tear History of Achilles tendon repair Family History Father Stroke Hypertension Diabetes CVD (cardiovascular disease) Mother Stroke Cervical cancer, Onset Age: 63 Breast cancer, Onset Age: 49 CVD (cardiovascular disease) Sister Breast cancer, Onset Age: 51 Substance abuse Bipolar disorder Mental health disorder Maternal Aunt Breast cancer, Onset Age: 40 Maternal Grandfather Throat cancer Social History Housing: Apartment Alcohol intake: current Alcohol intake frequency: holidays/special occasions only Patient Tobacco Use Status: Never used Tobacco e-Cigarette/Vaping Use: Never Used Second Hand Smoke Exposure: No service: No Current occupational status: disabled Cognitive needs: Yes Hearing needs: No Vision needs: Yes Female Reproductive History Menstrual Age of Menarche: 14 Questionnaire PHQ-9 Over the last 2 weeks, how often have you been bothered by any of the following problems? 1. Little interest or pleasure in doing things: not at all 2. Feeling down, depressed, or hopeless: not at all 3. Trouble falling or staying asleep, or sleeping too much: not at all 4. Feeling tired or having little energy: not at all 5. Poor appetite or overeating: not at all 6. Feeling bad about yourself - or that you are a failure or have let yourself or your family down: not at all 7. Trouble concentrating on things, such as reading the newspaper or watching television: not at all 8. Moving or speaking so slowly that other people could have noticed. Or the opposite - being so fidgety or restless that you have been moving around a lot more than usual: not at all 9. Thoughts that you would be better off or of hurting yourself in some way: not at all Total score: 0 Depression Screening Interpretation: Negative Depression Screening Done: Yes Source: Developed by Drs. Rahat Otero, Karrie Chahal, Filemon Dos Santos and colleagues, with an educational shaq from [employer]. Thrive Questionnaire Date Thrive assessed: 12/06/23 I am a: Patient What is your living situation today?: I have a steady place to live Within the past 12 months, did the food you bought not last and you didn't have the money to get more?: Never true Within the past 12 months, did you worry whether your food would run out before you got money to buy more?: Never true Do you have trouble paying for medicines?: No Do you have trouble getting transportation to medical appointments?: No Do you have trouble paying your heating and electricity bill?: No Do you have trouble taking care of your child, family member or friend?: No Do you have trouble with day-to-day activities such as bathing, preparing meals, shopping, managing finances, etc.?: No Are you currently unemployed and looking for a job?: No Are you interested in more education?: No Please select the resources that you would like help with: None Currently or been in a relationship where the following occur: no concerns reported THRIVE Score: 0 AUDIT C Alcohol Use Questionnaire (AUDIT-C) 1. How often do you have a drink containing alcohol?: Monthly or less 2. How many drinks containing alcohol do you have on a typical day when you are drinking?: 1 or 2 3. How often do you have six or more drinks on one occasion?: Never Total Score: 1 DAGOBERTO-7 AMB Questionnaire DAGOBERTO-7 Date DAGOBERTO - 7 assessed: 08/23/23 Source: Developed by Drs. Rahat Otero, Karrie Chahal, Filemon Dos Santos and colleagues, with an educational shaq from [employer]. Physical exam (Primary Care) Vital Signs: Last Vital Signs Pulse 87 12/06/23 08:59 BP 136/78 12/06/23 08:59 Pulse Ox 97 12/06/23 08:59 Oxygen Delivery Method Room Air 12/06/23 08:59 BMI result Body Mass Index 34.2 Tobacco/Smoking Status: Tobacco use Status Tobacco use date assessed 12/06/23 12/06/23 09:00 Patient Tobacco Use Status Never used Tobacco 12/06/23 09:00 e-Cigarette/Vaping Use Never Used 12/06/23 09:00 PHQ-9: PHQ-9 Score PHQ-9: Total score 0 12/06/23 10:27 Depression Screening Interpretation: Negative Thrive Assessment: Date of Thrive Assessment Date Thrive assessed 12/06/23 12/06/23 09:00 Currently or been in a relationship where the following occur: no concerns reported Const General: alert; No acute distress Eyes Conjunctivae: conjunctivae normal Resp Auscultation: clear to auscultation bilaterally Cardio Rate: regular rate Rhythm: regular rhythm GI Inspection: Yes normal to inspection Extrem General: Yes normal to inspection and No edema Results AMB Hemoglobin A1c AMB Hemoglobin A1c 6.9 % Last Edit by TRAVIS King on 12/06/23 09:53 Results Reviewed Results Reviewed: Laboratory Last Values Hgb A1c (Clinic) 6.9 % (4.0-6.0) H 12/06/23 08:59 Assessment and Plan Assessment & Plan (1) Type 2 diabetes mellitus with hyperglycemia: Comment: [facility] Code(s): E11.65 - Type 2 diabetes mellitus with hyperglycemia Qualifiers: Diabetes mellitus nursing home insulin use: without nursing home use Qualified Code(s): E11.65 - Type 2 diabetes mellitus with hyperglycemia Plan: Decrease the amount of carbohydrate intake, pasta, bread, rice and potatoes are all sugar and that is aside from all the sweet stuff, remember that fruits are good but they are Sweet also. Hemoglobin A1c goal of less than 6.5. Patient on metformin a 1000 mg twice a day only (2) Obesity (BMI 30-39.9): Code(s): E66.9 - Obesity, unspecified Plan: Diet and exercise (3) Hypertension: Code(s): I10 - Essential (primary) hypertension Qualifiers: Hypertension type: essential hypertension Qualified Code(s): I10 - Essential (primary) hypertension Plan: Continue with blood pressure medication. Decrease salt intake and exercise takes irbesartan 75 mg once a day (4) Hypothyroid: Code(s): E03.9 - Hypothyroidism, unspecified Qualifiers: Hypothyroidism type: acquired Qualified Code(s): E03.9 - Hypothyroidism, unspecified Plan: Continue with thyroid medication (5) Hypercholesterolemia: Code(s): E78.00 - Pure hypercholesterolemia, unspecified Plan: Avoid fried foods, chicken skin, eggs, butter margarine, pastries and meat. Be it pork or beef they have a lot of cholesterol 04/28/2023 last blood work LDL goal of less than 100 on simvastatin 40 mg once a day (6) Generalized anxiety disorder: Comment: [facility] ended 2019 decline any more referral therapy Code(s): F41.1 - Generalized anxiety disorder Plan: Continue with sertraline and alprazolam as needed Orders: Orders AMB Hemoglobin A1c Today E11.65 - Type 2 diabetes mellitus with hyperglycemia Medications: New empagliflozin (Jardiance) 10 mg PO DAILY 30 tabs 3RF E11.65 - Type 2 diabetes mellitus with hyperglycemia Coding Level of Care Code Est Pt Level 4 (75237) Complex EM visit Add On G2211 Diagnoses Type 2 diabetes mellitus with hyperglycemia, without long-term current use of insulin E11.65 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
== END 2023-12-06 10:38 | disposition home or self-care (01) ==
PROVIDERS: PCP Internal Medicine Medical Oncology; Visit Provider Internal Medicine
DX: E11.65 Type 2 diabetes mellitus with hyperglycemia (principal); I10 Essential (primary) hypertension; E03.9 Hypothyroidism, unspecified; E78.00 Pure hypercholesterolemia, unspecified; F41.1 Generalized anxiety disorder
CPT/HCPCS: 83036; 99214; G2211

== ENCOUNTER 2023-12-21 10:33 | Outpatient (AMB) | payer OTHER, SELFPAY ==
--- NOTE | 2023-12-21 10:46 | A.OFFVIS_ITS ---
Vital Signs 12/21/23 10:55 Height 5 ft 3 in Weight 191 lb 12.835 oz BMI 34.0 BP 121/61 Blood Pressure Location Lt brachial Position Sitting Pulse 88 Intake Visit Reasons: 6 month follow up breast exam Intake Note: Patient is seen in office for 6 month follow up visit, breast exam. Pt c/o: no concerns Wind Turbine Performance Engineer Required: No Director Of Premium Seat Sales: Director Of Premium Seat Sales Present Accompanied by: Family/Other Allergies latex [LATEX] Allergy (Intermediate, Verified 12/21/23 10:56) REDNESS,RASH lisinopril Allergy (Unknown, Verified 12/21/23 10:56) difficulty urination Medication List - Last Reconciled 12/21/23 by Domenic Quevedo MD alprazolam 0.5 mg PO DAILY PRN 90 days blood sugar diagnostic (FreeStyle Test strips) As directed check the BS QD cetirizine (Zyrtec) 10 mg PO DAILY cholecalciferol (vitamin D3) 25 mcg PO DAILY empagliflozin (Jardiance) 10 mg PO DAILY irbesartan 75 mg PO DAILY lancets (FreeStyle Lancets) As directed check the BS QD levothyroxine 88 mcg PO DAILY metformin 1,000 mg PO BIDWMEAL 90 days naproxen sodium (Aleve) 220 mg PO BID PRN sertraline 50 mg PO DAILY 90 days simvastatin 40 mg PO BEDTIME HPI Comments Details: 58-year-old female previously evaluated by Dr. Bui and determined to be high risk due to her family history which includes her mother developed breast cancer at the age of 49, her sister who developed breast cancer at the age of 51, and a maternal aunt who developed breast cancer at the age of 40. Her lifetime breast cancer risk was calculated at 28% and she was placed on a high risk protocol including annual mammograms alternating every 6 months with annual breast MRIs. An abnormal cluster of microcalcifications was noted in the right breast close to the chest and could not be stereotactically biopsied. Enlarged lymph node was identified by ultrasound was biopsied on 08/01/2017 and determined to be lymphoma. She subsequently underwent a needle localized excisional biopsy to remove the microcalcifications on 09/28/2017. Pathology revealed benign breast tissue. She continues to be followed by Dr. Grimes for the lymphoma with no treatment required. Her last mammogram performed 10/21/2023 revealed no mammographic evidence of malignancy (BI-RADS 1). Her last breast MRI was performed on 03/06/2023 revealed no MR evidence of malignancy ( BI-RADS 2 right side, BI-RADS 1 left side). She underwent a laparoscopic bilateral salpingectomy and left oophorectomy at [facility] on 06/14/2022. 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 She subsequently underwent a right oophorectomy, omentectomy and peritoneal washings. She feels well and denies any new breast symptoms or palpable enlarged lymph nodes currently. [facility] Medical History (Updated 08/23/23 @ 08:39 by Jack Rosario MD) Anxiety and depression At high risk for breast cancer Thyroid nodule Medial meniscus tear Ear drum perforation Shoulder fracture, right Type 2 diabetes mellitus with hyperglycemia Obesity (BMI 30-39.9) Lymphoma Hypertension Hypothyroid Cerebral palsy Hypercholesterolemia Surgical History History of right breast biopsy (09/2017) History of lymph node biopsy (07/2017) History of meniscal tear History of Achilles tendon repair Family History Father Stroke Hypertension Diabetes CVD (cardiovascular disease) Mother Stroke Cervical cancer, Onset Age: 63 Breast cancer, Onset Age: 49 CVD (cardiovascular disease) Sister Breast cancer, Onset Age: 51 Substance abuse Bipolar disorder Mental health disorder Maternal Aunt Breast cancer, Onset Age: 40 Maternal Grandfather Throat cancer Social History Housing: Apartment Alcohol intake: current Alcohol intake frequency: holidays/special occasions only Patient Tobacco Use Status: Never used Tobacco e-Cigarette/Vaping Use: Never Used Second Hand Smoke Exposure: No service: No Current occupational status: disabled Cognitive needs: Yes Hearing needs: No Vision needs: Yes Female Reproductive History Menstrual Age of Menarche: 14 Review of Systems Const Denies poor appetite and Denies weakness Eyes Denies no additional complaints ENT Reports Normal hearing present, Denies dizziness, Denies nasal congestion, Denies tinnitus and Denies sore throat Card Denies chest pain, Denies syncope, Denies rapid heart rate and Denies dyspnea Resp Denies cough and Denies dyspnea GI Denies change in stool character, Reports constipation, Denies diarrhea, Denies nausea and Denies vomiting Denies urinary frequency, Denies difficulty voiding and Denies dysuria Neuro Reports Normal hearing present, Denies confusion, Denies dizziness, Denies syncope and Denies weakness Psych Denies confusion Physical Exam Vital Signs: Last Vital Signs Pulse 88 12/21/23 10:55 BP 121/61 12/21/23 10:55 BMI result Body Mass Index 34.0 Const General: No confusion Nutritional Appearance: well nourished Orientation/consciousness: No confusion Limitations: wheelchair HEENT Head: Yes normocephalic and Yes atraumatic Ears: hearing grossly normal bilaterally Eyes Sclerae: sclerae normal EOM: EOMs intact bilaterally Chest Other: Left breast: No skin change, no nipple retraction, no nipple discharge, no palpable mass, no enlarged lymph nodes. Right breast: No skin change, no nipple retraction, no nipple discharge, no palpable mass, no enlarged lymph nodes Resp Effort & Inspection: normal respiratory effort, no audible wheezes and no cough Skin General skin exam: no rashes or lesions noted Neuro General: No confusion Cranial nerves: Yes Normal hearing present Extrem General: Yes no clubbing, cyanosis or edema Assessment & Plan Assessment & Plan (1) At high risk for breast cancer: Code(s): Z91.89 - Other specified personal risk factors, not elsewhere classified Category: Medical Plan 58-year-old female patient determined to be high risk for breast cancer recently identified. She has a history of lymphoma which is being followed by Dr. Grimes. 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 Her most recent mammogram of 10/21/2023 revealed no evidence of malignancy (BI-RADS 1). Her most recent breast MRI of 03/06/2023 revealed no MR evidence of malignancy (BI-RADS 1 left breast, BI-RADS 2 right breast ). Follow-up breast MRI is recommended in 02/27/2024. Examination today revealed no suspicious findings in either breast and no palpable lymph nodes. She will follow-up in 6 months for routine breast examination, but is welcome to return sooner p.r.n.. She will be scheduled for yearly breast MRI in February 2024 Orders: Orders MR breast BI wo/w con 03/07/24 Z91.89 - Other specified personal risk factors, not elsewhere classified Coding Level of Care Code Est Pt Level 3 (76638) Diagnoses At high risk for breast cancer Z91.89
[2023-12-21 10:55] VITALS: BP 121/61; PULSE 88; BMI 34.0
== END 2023-12-21 11:06 | disposition home or self-care (01) ==
PROVIDERS: PCP Internal Medicine; Visit Provider Surgery
DX: Z80.3 Family history of malignant neoplasm of breast (principal); Z91.89 Other specified personal risk factors, not elsewhere classified
CPT/HCPCS: 99213

== ENCOUNTER → 2023-12-21 10:33 | Outpatient (BNVA) | payer OTHER, SELFPAY | PROVIDERS: PCP Internal Medicine; Visit Provider Surgery | DX: Z91.89 Other specified personal risk factors, not elsewhere classified (principal); Z80.3 Family history of malignant neoplasm of breast | CPT/HCPCS: 99212 ==

== ENCOUNTER 2024-02-19 09:02 | Outpatient (REF) | payer OTHER, SELFPAY ==
[2024-02-19 09:27] LABS: Basophils Absolute Auto 0.1 X10*3/uL (0.0-0.2); Basophils Percent Auto 0.6 % (0-2); Eosinophils Absolute Auto 0.3 X10*3/uL (0.0-0.4); Hematocrit 43.2 % (37.0-47.0); Hemoglobin 14.5 g/dl (12.0-16.0); Imm Gran Abs Auto 0.06 X10*3/uL (0.00-0.03); Imm Gran Pct Auto 0.4 % (0.0-0.4); Lymphocytes Percent Auto 52.4 % (20-40); MANUAL DIFF FLAG SCAN; Mean Corpuscular HGB Conc 33.6 g/dl (31.0-35.0); Mean Corpuscular Hemoglobin 30.7 pg (27.0-33.0); Mean Corpuscular Volume 91.5 fL (80.0-98.0); Mean Platelet Volume 9.1 fL (9.4-12.3); Monocytes Absolute Auto 0.7 X10*3/uL (0.1-1.2); Neutrophils Absolute Auto 5.4 x10*3/uL (2.0-8.3); Neutrophils Percent Auto 39.6 % (45-73); Platelet Count 267 X10*3/uL (160-400); Red Blood Count 4.72 X10*6/uL (4.20-5.50); Red Cell Distribution Width 12.8 % (11.0-16.0); SCAN SMEAR FLAG 1; White Blood Count 13.7 X10*3/uL (4.8-10.8)
[2024-02-19 09:28] LABS: Lymphocytes Absolute Auto 7.2 X10*3/uL (1.2-4.9)
[2024-02-19 10:01] LABS: Alanine Aminotransferase 35 U/L (0-31); Albumin Level 4.6 g/dL (3.5-5.0); Alkaline Phosphatase 74 U/L (39-117); Anion Gap 14 (12-20); Aspartate Amino Transferase 22 U/L (5-31); Bilirubin Total 0.5 mg/dL (0.0-1.0); Blood Urea Nitrogen 11 mg/dL (9-16); Calcium 9.7 mg/dL (8.4-10.2); Carbon Dioxide 23 mmol/L (22-29); Chloride 108 mmol/L (96-108); Cholesterol 140 mg/dL (<200); Estimated Glomerular Filt Rate > 60; Glucose Fasting 105 mg/dL (60-99); HDL Cholesterol 56 mg/dL (>40); LDL Cholesterol Calculated 67 mg/dL (<100); Sodium 141 mmol/L (135-145); Total Protein 8.1 g/dL (6.5-8.0); Triglycerides 85 mg/dL (<150)
[2024-02-19 10:17] LABS: SLIDE REVIEW VERIFIED
[2024-02-19 10:20] LABS: Free T4 (Free Thyroxine) 1.34 ng/dL (0.71-1.85); Thyroid Stimulating Hormone 3.67 uIU/mL (0.32-4.0)
== END 2024-02-19 09:03 | disposition home or self-care (01) ==
LOC: HO.LAB 09:02
PROVIDERS: PCP Internal Medicine; Visit Provider Internal Medicine Medical Oncology
DX: E55.9 Vitamin D deficiency, unspecified (principal); C83.00 Small cell B-cell lymphoma, unspecified site; E11.9 Type 2 diabetes mellitus without complications; D72.820 Lymphocytosis (symptomatic); E06.3 Autoimmune thyroiditis; E66.9 Obesity, unspecified
CPT/HCPCS: 36415; 80053; 80061; 84439; 84443; 85025

== ENCOUNTER 2024-02-26 15:48 | Outpatient (AMB) | payer OTHER, SELFPAY ==
[2024-02-26 16:25] VITALS: BP 122/78; PULSE 77; O2SAT 98; BMI 33.2
--- NOTE | 2024-02-26 16:25 | A.OFFPC_ITS ---
Vital Signs 02/26/24 16:25 Height 5 ft 3 in Weight 187 lb 8 oz BMI 33.2 BP 122/78 Blood Pressure Location Lt brachial Position Sitting Pulse 77 Pulse Source Pulse Oximeter Pulse Oximetry (%) 98 Oxygen Delivery Method Room Air Intake Visit Reasons: PE [place] Required: No Accompanied by: Self / Same As Patient Allergies latex [LATEX] Allergy (Intermediate, Verified 02/26/24 16:26) REDNESS,RASH lisinopril Allergy (Unknown, Verified 02/26/24 16:26) difficulty urination Medication List - Last Reconciled 02/26/24 by Jack Rosario MD alprazolam 0.5 mg PO DAILY PRN 90 days Bifidobacterium infantis (Align) 4 mg PO BEDTIME blood sugar diagnostic (FreeStyle Test strips) As directed check the BS QD cetirizine (Zyrtec) 10 mg PO DAILY cholecalciferol (vitamin D3) 25 mcg PO DAILY empagliflozin (Jardiance) 10 mg PO DAILY irbesartan 75 mg PO DAILY lancets (FreeStyle Lancets) As directed check the BS QD levothyroxine 88 mcg PO DAILY metformin 1,000 mg PO BIDWMEAL 90 days sertraline 50 mg PO DAILY 90 days simvastatin 40 mg PO BEDTIME Tobacco use date assessed: 02/26/24 Dental Screening Dental Screen Date: 02/26/24 Did you have a dental visit in the last 12 months?: Yes Did you have a dental problem in the last 6 months where you did not have access to dental care?: No Was dental information given to patient?: Patient has dentist HPI PE HPI Details 58-year-old obese femalenoted 4 4 lb ayan ght loss) with diabetes mellitus controlled hypertension hypothyroid hypercholesterolemia and gel as anxiety disorder last seen in November 2023. Patient's last Cologuard test was in 02/26/2022 mammogram is up-to-date. [facility] Medical History (Updated 08/23/23 @ 08:39 by Jack Rosario MD) Anxiety and depression At high risk for breast cancer Thyroid nodule Medial meniscus tear Ear drum perforation Shoulder fracture, right Type 2 diabetes mellitus with hyperglycemia Obesity (BMI 30-39.9) Lymphoma Hypertension Hypothyroid Cerebral palsy Hypercholesterolemia Surgical History History of right breast biopsy (09/2017) History of lymph node biopsy (07/2017) History of meniscal tear History of Achilles tendon repair Family History Father Stroke Hypertension Diabetes CVD (cardiovascular disease) Mother Stroke Cervical cancer, Onset Age: 63 Breast cancer, Onset Age: 49 CVD (cardiovascular disease) Sister Breast cancer, Onset Age: 51 Substance abuse Bipolar disorder Mental health disorder Maternal Aunt Breast cancer, Onset Age: 40 Maternal Grandfather Throat cancer Social History (Updated 02/26/24 @ 17:29 by Jack Rosario MD) Housing: Apartment Alcohol intake: current Alcohol intake frequency: holidays/special occasions only Comment: stopped 2021 Patient Tobacco Use Status: Never used Tobacco e-Cigarette/Vaping Use: Never Used Second Hand Smoke Exposure: No service: No Current occupational status: disabled Cognitive needs: Yes Hearing needs: No Vision needs: Yes Female Reproductive History Menstrual Age of Menarche: 14 Questionnaire PHQ-9 Over the last 2 weeks, how often have you been bothered by any of the following problems? 1. Little interest or pleasure in doing things: not at all 2. Feeling down, depressed, or hopeless: nearly every day 3. Trouble falling or staying asleep, or sleeping too much: not at all 4. Feeling tired or having little energy: not at all 5. Poor appetite or overeating: not at all 6. Feeling bad about yourself - or that you are a failure or have let yourself or your family down: not at all 7. Trouble concentrating on things, such as reading the newspaper or watching television: not at all 8. Moving or speaking so slowly that other people could have noticed. Or the opposite - being so fidgety or restless that you have been moving around a lot more than usual: not at all 9. Thoughts that you would be better off or of hurting yourself in some way: not at all Total score: 3 Depression Screening Interpretation: Negative Depression Screening Done: Yes Source: Developed by Drs. Rahat Otero, Karrie Chahal, Filemon Dos Santos and colleagues, with an educational shaq from [employer]. Thrive Questionnaire Date Thrive assessed: 02/26/24 I am a: Patient What is your living situation today?: I have a steady place to live Within the past 12 months, did the food you bought not last and you didn't have the money to get more?: Never true Within the past 12 months, did you worry whether your food would run out before you got money to buy more?: Never true Do you have trouble paying for medicines?: No Do you have trouble getting transportation to medical appointments?: No Do you have trouble paying your heating and electricity bill?: No Do you have trouble taking care of your child, family member or friend?: No Do you have trouble with day-to-day activities such as bathing, preparing meals, shopping, managing finances, etc.?: No Are you currently unemployed and looking for a job?: No Are you interested in more education?: No Please select the resources that you would like help with: None Currently or been in a relationship where the following occur: No concerns reported THRIVE Score: 0 AUDIT C Alcohol Use Questionnaire (AUDIT-C) 1. How often do you have a drink containing alcohol?: Monthly or less 2. How many drinks containing alcohol do you have on a typical day when you are drinking?: 1 or 2 3. How often do you have six or more drinks on one occasion?: Never Total Score: 1 DAGOBERTO-7 AMB Questionnaire DAGOBERTO-7 Date DAGOBERTO - 7 assessed: 02/26/24 Feeling nervous, anxious, or on edge: 3 = Nearly every day Not being able to stop or control worryin = Nearly every day Worrying too much about different things: 3 = Nearly every day Trouble relaxin = Nearly every day Being so restless that it is hard to sit still: 3 = Nearly every day Becoming easily annoyed or irritable: 3 = Nearly every day Feeling afraid as if something awful might happen: 3 = Nearly every day Total DAGOBERTO-7 score (0-4 normal; 5-9 mild; 10-14 moderate; 15-21 severe): 21 Source: Developed by Drs. Rahat Otero, Karrie Chahal, Filemon Dos Santos and colleagues, with an educational shaq from [employer]. Review of Systems Const Denies poor appetite and Denies weakness Eyes Denies no additional complaints ENT Reports Normal hearing present, Denies dizziness, Denies nasal congestion, Denies tinnitus and Denies sore throat Card Denies chest pain, Denies syncope, Denies rapid heart rate and Denies dyspnea Resp Denies cough and Denies dyspnea GI Denies change in stool character, Reports constipation, Denies diarrhea, Denies nausea and Denies vomiting Denies urinary frequency, Denies difficulty voiding and Denies dysuria Neuro Reports Normal hearing present, Denies confusion, Denies dizziness, Denies syncope and Denies weakness Psych Denies confusion Physical exam (Primary Care) Vital Signs: Last Vital Signs Pulse 77 02/26/24 16:25 BP 122/78 02/26/24 16:25 Pulse Ox 98 02/26/24 16:25 Oxygen Delivery Method Room Air 02/26/24 16:25 BMI result Body Mass Index 33.2 Tobacco/Smoking Status: Tobacco use Status Tobacco use date assessed 02/26/24 02/26/24 16:27 Patient Tobacco Use Status Never used Tobacco 02/26/24 16:27 e-Cigarette/Vaping Use Never Used 02/26/24 16:27 PHQ-9: PHQ-9 Score PHQ-9: Total score 3 02/26/24 17:01 Depression Screening Interpretation: Negative Thrive Assessment: Date of Thrive Assessment Date Thrive assessed 02/26/24 02/26/24 16:27 Currently or been in a relationship where the following occur: No concerns reported Const General: No confusion Orientation/consciousness: No confusion HENMT Head: Yes normocephalic Ears: external ears normal and TM's normal bilaterally Face and sinus: Yes normal facial exam Mouth: moist mucous membranes Throat: Yes tonsils normal Eyes Conjunctivae: conjunctivae normal Pupils: Equal, round and reactive pupils present and Pupil accommodation reflex normal Direct Ophthalmoscopy: normal light reflex Neck Neck: No lymphadenopathy Thyroid: Thyroid normal Chest Chest palpation & inspection: normal inspection of the chest Resp Effort & Inspection: normal respiratory effort and no audible wheezes Auscultation: clear to auscultation bilaterally, no crackles, no wheezes and lung sounds not diminished Cardio Rate: regular rate Rhythm: regular rhythm Peripheral pulses: radial pulses present and dorsalis pedis present GI Palpation (GI): no masses Auscultation: normal bowel sounds and normoactive bowel sounds Rectal Exam - Female: deferred Skin Other: pedal pulse and pin prick good General skin exam: no rashes or lesions noted Rashes: no rashes Neuro General: No confusion Cranial nerves: Yes Equal, round and reactive pupils present and Yes Normal hearing present Cognition (Neuro): normal cognition Gait exam (Neuro): Normal gait present Motor exam (neuro): 5/5 motor strength present throughout Deep tendon reflexes (DTR's): Right brachioradialis reflex intensity grade: 2+, Left brachioradialis reflex intensity grade: 2+, Right patellar reflex intensity grade: 2+ and Left patellar reflex intensity grade: 2+ Extrem General: No edema Results AMB Hemoglobin A1c AMB Hemoglobin A1c 6.4 % Last Edit by TRAVIS Bacon on 02/26/24 17 :02 Results Reviewed Results Reviewed: Laboratory Last Values Hgb A1c (Clinic) 6.4 % (4.0-6.0) H 02/26/24 16:51 Assessment and Plan Assessment & Plan (1) Annual physical exam: Code(s): Z00.00 - Encounter for general adult medical examination without abnormal findings Plan: Patient is advised to eat healthy, keep well hydrated, keep active and have adequate sleep. (2) Type 2 diabetes mellitus with hyperglycemia: Comment: [facility] Code(s): E11.65 - Type 2 diabetes mellitus with hyperglycemia Qualifiers: Diabetes mellitus [facility] insulin use: without [facility] use Qualified Code(s): E11.65 - Type 2 diabetes mellitus with hyperglycemia Plan: Decrease the amount of carbohydrate intake, pasta, bread, rice and potatoes are all sugar and that is aside from all the sweet stuff, remember that fruits are good but they are Sweet also. Hemoglobin A1c goal of less than 6.5 patient on Jardiance 10 mg once a day metformin a 1000 mg twice a day (3) Obesity (BMI 30-39.9): Code(s): E66.9 - Obesity, unspecified Plan: Diet and exercise (4) Hypercholesterolemia: Code(s): E78.00 - Pure hypercholesterolemia, unspecified Plan: Avoid fried foods, chicken skin, eggs, butter margarine, pastries and meat. Be it pork or beef they have a lot of cholesterol LDL goal of less than 100 and triglyceride of less than 150 on simvastatin 40 mg once a day (5) Hypothyroid: Code(s): E03.9 - Hypothyroidism, unspecified Qualifiers: Hypothyroidism type: acquired Qualified Code(s): E03.9 - Hypothyroidism, unspecified Plan: Continue with thyroid Medicaid (6) Hypertension: Code(s): I10 - Essential (primary) hypertension Qualifiers: Hypertension type: essential hypertension Qualified Code(s): I10 - Essential (primary) hypertension Plan: Continue with blood pressure medication. Decrease salt intake and exercise on irbesartan 75 mg once a day (7) Colon cancer screening: Code(s): Z12.11 - Encounter for screening for malignant neoplasm of colon Plan: Discussed about Cologuard test (8) Generalized anxiety disorder: Comment: [facility] ended 2020 decline any more referral therapy Code(s): F41.1 - Generalized anxiety disorder Plan: Continue with therapy Orders: Orders AMB Hemoglobin A1c Today Z13.9 - Encounter for screening, unspecified Medications: Refilled alprazolam 0.5 mg PO DAILY 90 days PRN 90 tabs 0RF anxiety F32.9 - Major depressive disorder, single episode, unspecified, F41.9 - Anxiety disorder, unspecified empagliflozin (Jardiance) 10 mg PO DAILY 90 tabs 3RF E11.65 - Type 2 diabetes mellitus with hyperglycemia Coding Level of Care Code Est Pt Prev Care 40-64y(09311) Diagnoses Annual physical exam Z00.00 Type 2 diabetes mellitus with hyperglycemia, without long-term current use of insulin E11.65 Diabetes mellitus [facility] insulin use: without [employer] operator use Obesity (BMI 30-39.9) E66.9 Hypercholesterolemia E78.00 Acquired hypothyroidism E03.9 Hypothyroidism type: acquired Essential hypertension I10 Hypertension type: essential hypertension Colon cancer screening Z12.11 Generalized anxiety disorder F41.1
== END 2024-02-26 17:49 | disposition home or self-care (01) ==
PROVIDERS: PCP Internal Medicine; Visit Provider Internal Medicine
DX: Z00.00 Encounter for general adult medical examination without abnormal findings (principal); E11.65 Type 2 diabetes mellitus with hyperglycemia; E66.9 Obesity, unspecified; Z68.33 Body mass index [BMI] 33.0-33.9, adult; E03.9 Hypothyroidism, unspecified; E78.00 Pure hypercholesterolemia, unspecified; I10 Essential (primary) hypertension; Z12.11 Encounter for screening for malignant neoplasm of colon; F41.1 Generalized anxiety disorder
CPT/HCPCS: 83036; 99396

== ENCOUNTER → 2024-04-15 12:33 | Outpatient (BNV) | payer OTHER, SELFPAY | PROVIDERS: PCP Internal Medicine; Visit Provider Internal Medicine | DX: Z85.79 Personal history of other malignant neoplasms of lymphoid, hematopoietic and related tissues (principal) | CPT/HCPCS: 77049 ==

== ENCOUNTER 2024-04-15 12:36 | Outpatient (REF) | payer OTHER, SELFPAY ==
--- NOTE | ~2024-04-15 | MR_ITS ---
EXAMINATION: MR BREAST WITHOUT AND WITH CONTRAST, BILATERAL CLINICAL INFORMATION: High risk surveillance. History of lymphoma and ovarian cancer. Strong family history of breast cancer. COMPARISON: Breast MRI February 2023, February 2022. Atrophy October 21, 2023. TECHNIQUE: Magnetic resonance imaging of the breast was performed using T1, T2 and fat saturated techniques. Dynamic multiphase imaging was also performed after administration of intravenous gadolinium contrast agent. Computer generated 3-D reconstruction was utilized by the radiologist in the interpretation of this examination. FINDINGS: Images are limited due to motion and other MR artifacts. There is scattered fibroglandular densities with moderate background enhancement. LEFT BREAST: There are no suspicious masses or areas of abnormal nonmass enhancement in the left breast. There is no axillary or internal mammary lymphadenopathy on the left. RIGHT BREAST: There are no suspicious masses or areas of abnormal nonmass enhancement in the right breast. There is no axillary or internal mammary lymphadenopathy on the right. Limited views of the chest and abdomen are unremarkable. MR/MR breast BI wo/w con IMPRESSION: No MR specific evidence of malignancy. ASSESSMENT: LEFT BREAST: BI-RADS 1-Negative RIGHT BREAST: BI-RADS 1-Negative RECOMMENDATIONS: Recommend bilateral breast MRI in one year for high risk surveillance. Recommend yearly annual mammography. Electronically signed by: Mary Mcghee DO 05/03/2024 02:07 PM EDT
[2024-04-15] MEDS: gadobutroL 10 ML VIAL IVPUSH (13:52)
== END 2024-04-15 12:37 | disposition home or self-care (01) ==
LOC: HO.MRI 12:36
PROVIDERS: PCP Internal Medicine; Visit Provider Surgery
DX: Z91.89 Other specified personal risk factors, not elsewhere classified (principal)
CPT/HCPCS: 77049; A9585

== ENCOUNTER 2024-06-05 17:25 | Emergency (ER) | payer OTHER, SELFPAY ==
--- NOTE | ~2024-06-05 | XR_ITS ---
EXAMINATION: XR SHOULDER, LEFT CLINICAL INFORMATION: pain/limited rom COMPARISON: None available. TECHNIQUE: Three views of the left shoulder. FINDINGS: The bones and soft tissues are normal. No fracture. Glenohumeral and acromioclavicular alignment is anatomic with normal joint space. No abnormal soft tissue calcifications. XR/XR shoulder LT min 2V IMPRESSION: Normal left shoulder. Electronically signed by: Charli Marlow MD 06/05/2024 08:06 PM [facility]
[2024-06-05 17:31] VITALS: BP 170/95; PULSE 95; RESP 20; TEMP 36.2; O2SAT 95; BMI 34.2
--- NOTE | 2024-06-05 17:53 | ED.EXTPRO ---
HPI - Extremity Problem General Chief complaint: Extremity Problem Stated complaint: Left Arm/Shoulder (no inj) Time Seen by Provider: 06/05/24 21:12 Source: patient Mode of arrival: ambulatory Limitations: no limitations History of Present Illness ED Provider: JOSE SINGH PA-C HPI Narrative: 58 year old female with pmhx significant for lymphoma, hypertension, hypothyroid, HDL, anxiety, depression presents to the ED today for evaluation of atraumatic left shoulder pain x1.5 weeks. Reports pain to the anterolateral aspect of her left shoulder. Pain does not radiate and is exacerbated with lifting the left shoulder. No history of similar. She has been trialing Motrin at home which provides temporary relief. Denies injury/ trauma. Denies history of surgery or injury to that shoulder. denies numbness/tingling/weakness of the LUE. denies fever, chills, cp, sob. Related Data Home Medications ?Medication ?Instructions ?Recorded ?Confirmed cetirizine 10 mg tablet (Zyrtec) 10 mg PO DAILY 04/24/20 02/26/24 cholecalciferol (vitamin D3) 25 25 mcg PO DAILY 04/24/20 02/26/24 mcg (1,000 unit) capsule Bifidobacterium infantis 4 mg 4 mg PO BEDTIME 02/26/24 02/26/24 capsule (Align) Previous Rx's ?Medication ?Instructions ?Recorded lancets 28 gauge (FreeStyle #100 ea 12/24/21 Lancets) blood sugar diagnostic (FreeStyle #100 ea 06/29/23 Test strips) metformin 1,000 mg tablet 1,000 mg PO BIDWMEAL 90 days #180 11/01/23 tabs irbesartan 75 mg tablet 75 mg PO DAILY #90 tabs 01/22/24 sertraline 50 mg tablet 50 mg PO DAILY 90 days #90 tabs 02/25/24 alprazolam 0.5 mg tablet 0.5 mg PO DAILY PRN anxiety 90 02/26/24 days #90 tabs empagliflozin 10 mg tablet 10 mg PO DAILY #90 tabs 02/26/24 (Jardiance) levothyroxine 88 mcg tablet 88 mcg PO DAILY #90 tabs 05/01/24 simvastatin 40 mg tablet 40 mg PO BEDTIME #90 tabs 05/01/24 naproxen 500 mg tablet 500 mg PO Q12H PRN pain (scale 06/05/24 score 1-3) #20 tabs prednisone 20 mg tablet 20 mg PO DAILY 4 days #4 tabs 06/05/24 Allergies Allergy/AdvReac Type Severity Reaction Status Date / Time latex [LATEX] Allergy Intermediate REDNESS,JENNY Verified 06/05/24 17:32 H lisinopril Allergy Unknown difficulty Verified 06/05/24 17:32 urination Review of Systems Review of Systems: Constitutional: No fever, chills, fatigue, night sweats, weight changes ENT/Mouth: No ear pain, hearing loss, nasal congestion, sinus pain, rhinorrhea, sore throat Eyes: No eye pain, swelling, redness, vision changes, discharge Cardio: No chest pain, palpitations, TAN, orthopnea, peripheral edema Pulm: No SOB, cough, sputum, wheezing, dyspnea, hemoptysis GI: No nausea, vomiting, hematemesis, abdominal pain, diarrhea, constipation, hematochezia, melena : No irregular bleeding, dysuria, frequency, urgency, hesitancy, hematuria, flank pain, urinary flow changes, urinary incontinence or retention MSK: No back pain, neck pain, joint pain, myalgias, +L shoulder pain Skin: No lesions, rashes Neuro: No weakness, numbness, paresthesias, LOC, dizziness, headache Psych: No anxiety/panic, depression, SI/HI, AH/VH All other systems reviewed and are negative. [facility] Past Medical History Attestation statement: The following information was validated with the patient. Source: old records reviewed and nursing notes reviewed Medical History Anxiety and depression At high risk for breast cancer Thyroid nodule Medial meniscus tear Ear drum perforation Shoulder fracture, right Type 2 diabetes mellitus with hyperglycemia Obesity (BMI 30-39.9) Lymphoma Hypertension Hypothyroid Cerebral palsy Hypercholesterolemia Surgical History History of right breast biopsy (09/2017) History of lymph node biopsy (07/2017) History of meniscal tear History of Achilles tendon repair Family History Family History Father Stroke Hypertension Diabetes CVD (cardiovascular disease) Mother Stroke Cervical cancer, Onset Age: 63 Breast cancer, Onset Age: 49 CVD (cardiovascular disease) Sister Breast cancer, Onset Age: 51 Substance abuse Bipolar disorder Mental health disorder Maternal Aunt Breast cancer, Onset Age: 40 Maternal Grandfather Throat cancer Social History Social History Housing: Apartment Alcohol intake: current Alcohol intake frequency: holidays/special occasions only Comment: stopped 2021 Patient Tobacco Use Status: Never used Tobacco e-Cigarette/Vaping Use: Never Used Second Hand Smoke Exposure: No Advance Directives: No Advance Directives Information Provided: Yes service: No Current occupational status: disabled Cognitive needs: Yes Hearing needs: No Vision needs: Yes Physical Exam Vital Signs: Vital Signs: Last Vital Signs Temp 97.6 F 06/05/24 22:46 Pulse 86 06/05/24 22:46 Resp 16 06/05/24 22:46 BP 144/79 H 06/05/24 22:46 Pulse Ox 96 06/05/24 22:46 O2 Del Method Room Air 06/05/24 22:46 BMI result Body Mass Index 34.2 hypertensive, vitals otherwise wnl General: Well appearing, in no acute distress. Skin: Warm, dry, intact. No rashes or lesions. Head: Normocephalic, atraumatic. Neck: Supple without LAD. FROM Cardiac: Chest wall symmetric. RRR Lungs: Normal respiratory effort without accessory muscle use. CTA bilaterally Back: No midline spinous or paraspinal tenderness. No step off deformity. Ext: +left shoulder with minimal swelling, no overlying erythema. Exquisitely tender along anterior/ lateral aspect of shoulder. no palpable deformity, crepitus, warmth. NV intact distally. AROM to left shoulder limited d/t pain. Neuro: AOx3. Normal speech. NV intact distally.Ambulating with steady gait. Psych: Appropriate mood and affect. Responds appropriately to questions. Course Course Course Narrative: This is a Rapid Medical Exam performed in triage by Otilia Linares PA-C. Full HPI, ROS and PE to be performed by primary ED provider. 58-year-old female with a past medical history of lymphoma, HTN, hypothyroid, HLD, anxiety, depression, presenting to the ED c/o atraumatic left shoulder pain x1.5 weeks. Denies known injury, trauma, fall, CP/SOB, numbness/tingling PE: + left shoulder with mild swelling. Exquisitely tender. No erythema/warmth. Neurovascularly intact distally. Limited ROM secondary to pain Plan: X-ray, pain control Reevaluation(s) Reevaluation #1: 7844 -- x-ray of left shoulder unremarkable. No fracture, no dislocation. Her exam is concerning for tendinitis versus bursitis. I am not concerned for a rotator cuff tear. will discharge home with prednisone and naproxen. sling provided for comfort. educated on hyperglycemic effects. Patient has remained stable throughout ED visit today. Discussed worrisome signs and symptoms and when to return to the ED. All questions answered at this time. Patient is agreeable with disposition and stable for discharge. Medications Administered Discontinued Medications Generic Name Dose Route Start Last Admin Trade Name Freq PRN Reason Stop Dose Admin Ketorolac Tromethamine 30 mg 06/05/24 21:59 06/05/24 22:08 Ketorolac Tromethamine 30 Mg/Ml Vial IM 06/05/24 22:00 30 mg ONCE ONE Administration Prednisone 20 mg 06/05/24 21:59 06/05/24 22:09 Prednisone 20 Mg Tablet PO 06/05/24 22:00 20 mg ONCE ONE Administration Medical Decision Making Medical Decision Making MDM Narrative: 58 year old female with pmhx significant for lymphoma, hypertension, hypothyroid, HDL, anxiety, depression presents to the ED today for evaluation of atraumatic left shoulder pain x1.5 weeks. Hypertensive, vitals otherwise wnl. she is nontoxic appearing and in NAD. on exam, left shoulder with minimal swelling, no overlying erythema. Exquisitely tender along anterior/ lateral aspect of shoulder. no palpable deformity, crepitus, warmth. NV intact distally. AROM to left shoulder limited d/t pain. Differential diagnosis includes bursitis, tendonitis, rotator cuff injury, fracture, dislocation, arthritis, unlikely NV compromise, threat to limb, compartment syndrome, DVT, gout, pseudo gout Differential Diagnosis Differential Diagnoses: The differential diagnosis associated with the presentation includes as above Admission/Observation not indicated Independent Interpretation I performed an independent interpretation of an: Plain X-Ray Interpretation: xr left shoulder w/o fracture Radiology Impression Discussion of test interpretation with radiology: I have reviewed the radiologist's reading. Radiologist Impression: EXAMINATION: XR SHOULDER, LEFT CLINICAL INFORMATION: pain/limited rom COMPARISON: None available. TECHNIQUE: Three views of the left shoulder. FINDINGS: The bones and soft tissues are normal. No fracture. Glenohumeral and acromioclavicular alignment is anatomic with normal joint space. No abnormal soft tissue calcifications. XR/XR shoulder LT min 2V IMPRESSION: Normal left shoulder. Electronically signed by: Charli Marlow MD 06/05/2024 08:06 PM [facility] Independent Historian Clinical information obtained from an independent historian. History obtained from or confirmed by: Spouse External Record Review External record reviewed: Inpatient record Prescription Management I considered prescription management with: Pain Medication and Other (prednisone) Social Determinants Patient?s care significantly limited by Social Determinants of Health including: Other Social Determinant of Health Procedures Orthopedic Splinting/Casting Injury #1: Side: left Upper Extremity Injury Location: shoulder Upper Extremity Immobilizer: sling/shoulder immobilizer Critical Care Time Critical Care Time Critical Care Time: No Discharge Plan Discharge Clinical Impression: Tendinitis Patient Disposition: Home, Self-Care Instructions: Tendinitis (ED) Additional Instructions: You were evaluated in the ED today for left shoulder pain. Your x-ray is normal. Prednisone as an anti-inflammatory that has been sent to your pharmacy for you to take over the next 4 days starting tomorrow as you already received a dose in the ED today. As discussed, this has hyperglycemic side effects. Please monitor for elevated blood sugars. Continue taking your diabetes medication as prescribed. I also advise taking naproxen at home for pain control. You have been provided with a sling for comfort. As discussed, remove your shoulder and move it around multiple times throughout the day. Follow up with your PCP this week. Return with new or worsening symptoms. In the case of an emergency call 911. Prescriptions: New prednisone 20 mg tablet 20 mg PO DAILY 4 Days Qty: 4 0RF naproxen 500 mg tablet 500 mg PO Q12H PRN (Reason: pain (scale score 1-3)) Qty: 20 0RF No Action (DME) lancets [FreeStyle Lancets] 28 gauge misc See Rx Instructions .ROUTE .MEDSUPPLY Qty: 100 3RF Rx Instructions: As directed check the BS QD (DME) FreeStyle Test Strip See Rx Instructions .ROUTE .MEDSUPPLY Qty: 100 3RF Rx Instructions: As directed check the BS QD metformin 1,000 mg tablet 1,000 mg PO BIDWMEAL 90 Days Qty: 180 2RF irbesartan 75 mg tablet 75 mg PO DAILY Qty: 90 2RF sertraline 50 mg tablet 50 mg PO DAILY 90 Days Qty: 90 2RF levothyroxine 88 mcg tablet 88 mcg PO DAILY Qty: 90 2RF simvastatin 40 mg tablet 40 mg PO BEDTIME Qty: 90 2RF cholecalciferol (vitamin D3) 25 mcg (1,000 unit) capsule 25 mcg PO DAILY cetirizine [Zyrtec] 10 mg tablet 10 mg PO DAILY Align 4 mg capsule 4 mg PO BEDTIME Jardiance 10 mg tablet 10 mg PO DAILY Qty: 90 3RF alprazolam 0.5 mg tablet 0.5 mg PO DAILY PRN (Reason: anxiety) 90 Days Qty: 90 0RF Referrals: Po,Jack Miller MD [Primary Care Provider] - Interventions: ED Discharge Assessment Last Done: 06/05/24 22:46 Discharge Date/Time: 06/05/24 22:46 Print Language: Korean
[2024-06-05 19:54] VITALS: BP 144/79; PULSE 86; RESP 16; TEMP 36.4; O2SAT 96
[2024-06-05] MEDS: Ketorolac Tromethamine 30 MG/ML VIAL IM (22:08)
[2024-06-05] MEDS: predniSONE 20 MG TABLET PO (22:09)
[2024-06-05 22:46] VITALS: BP 144/79; PULSE 86; RESP 16; TEMP 36.4; O2SAT 96
== END 2024-06-05 22:46 | disposition home or self-care (01) ==
PROVIDERS: Emergency Provider Emergency Medicine; PCP Internal Medicine
DX: M75.92 Shoulder lesion, unspecified, left shoulder (principal); M25.512 Pain in left shoulder; E11.9 Type 2 diabetes mellitus without complications; I10 Essential (primary) hypertension; E78.00 Pure hypercholesterolemia, unspecified; G80.9 Cerebral palsy, unspecified; Z79.84 Long term (current) use of oral hypoglycemic drugs; Z79.02 Long term (current) use of antithrombotics/antiplatelets; Z79.899 Other long term (current) drug therapy
CPT/HCPCS: 73030; 96372; 99283; 99284; J1885

== ENCOUNTER 2024-06-17 08:14 | Outpatient (REF) | payer OTHER, SELFPAY ==
[2024-06-17 09:17] LABS: Basophils Absolute Auto 0.1 X10*3/uL (0.0-0.2); Basophils Percent Auto 0.5 % (0-2); Eosinophils Absolute Auto 0.2 X10*3/uL (0.0-0.4); Eosinophils Percent Auto 1.7 % (0-4); Hemoglobin 14.1 g/dl (12.0-16.0); Imm Gran Abs Auto 0.03 X10*3/uL (0.00-0.03); Imm Gran Pct Auto 0.2 % (0.0-0.4); Lymphocytes Percent Auto 53.2 % (20-40); MANUAL DIFF FLAG SCAN; Mean Corpuscular Hemoglobin 29.4 pg (27.0-33.0); Mean Corpuscular Volume 91.9 fL (80.0-98.0); Mean Platelet Volume 9.1 fL (9.4-12.3); Monocytes Absolute Auto 0.7 X10*3/uL (0.1-1.2); Monocytes Percent Auto 5.4 % (2-11); Neutrophils Absolute Auto 5.2 x10*3/uL (2.0-8.3); Platelet Count 254 X10*3/uL (160-400); Red Blood Count 4.79 X10*6/uL (4.20-5.50); Red Cell Distribution Width 13.3 % (11.0-16.0); SCAN SMEAR FLAG 1; White Blood Count 13.3 X10*3/uL (4.8-10.8)
[2024-06-17 09:18] LABS: Lymphocytes Absolute Auto 7.1 X10*3/uL (1.2-4.9)
[2024-06-17 09:51] LABS: Alanine Aminotransferase 33 U/L (0-31); Albumin Level 4.4 g/dL (3.5-5.0); Alkaline Phosphatase 70 U/L (39-117); Anion Gap 13 (12-20); Aspartate Amino Transferase 24 U/L (5-31); Bilirubin Total 0.4 mg/dL (0.0-1.0); Blood Urea Nitrogen 11 mg/dL (9-16); Calcium 9.6 mg/dL (8.4-10.2); Carbon Dioxide 23 mmol/L (22-29); Chloride 106 mmol/L (96-108); Cholesterol 153 mg/dL (<200); Estimated Glomerular Filt Rate > 60; Glucose Fasting 109 mg/dL (60-99); HDL Cholesterol 54 mg/dL (>40); LDL Cholesterol Calculated 79 mg/dL (<100); Sodium 138 mmol/L (135-145); Total Protein 7.8 g/dL (6.5-8.0); Triglycerides 104 mg/dL (<150)
[2024-06-17 10:07] LABS: Lactate Dehydrogenase 200 U/L (122-220)
[2024-06-17 10:59] LABS: SLIDE REVIEW VERIFIED
[2024-06-18 14:08] LABS: Beta-2 Microglobulin, Serum 2.48 mg/L (< OR = 2.51)
== END 2024-06-17 08:15 | disposition home or self-care (01) ==
LOC: HO.LAB 08:14
PROVIDERS: PCP Internal Medicine; Visit Provider Internal Medicine Medical Oncology
DX: E55.9 Vitamin D deficiency, unspecified (principal); C83.00 Small cell B-cell lymphoma, unspecified site; E66.9 Obesity, unspecified; E11.9 Type 2 diabetes mellitus without complications; D72.820 Lymphocytosis (symptomatic)
CPT/HCPCS: 36415; 80053; 80061; 82232; 83615; 85025

== ENCOUNTER 2024-06-21 08:47 | Outpatient (AMB) | payer OTHER, SELFPAY ==
--- NOTE | 2024-06-21 08:49 | MHC.OFFVIS ---
Vital Signs 06/21/24 09:01 Height 5 ft 3 in Weight 193 lb BMI 34.2 BP 138/67 Blood Pressure Location Lt brachial Position Sitting Pulse 80 Intake Visit Reasons: 6 month follow up breast exam Intake Note: Patient is seen in office for 6 month follow up visit, breast exam. 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 Bui and determined to be high risk due to her family history which includes her mother developed breast cancer at the age of 49, her sister who developed breast cancer at the age of 51, and a maternal aunt who developed breast cancer at the age of 40. Her lifetime breast cancer risk was calculated at 28% and she was placed on a high risk protocol including annual mammograms alternating every 6 months with annual breast MRIs. An abnormal cluster of microcalcifications was noted in the right breast close to the chest and could not be stereotactically biopsied. Enlarged lymph node was identified by ultrasound was biopsied on 08/01/2017 and determined to be lymphoma. She subsequently underwent a needle localized excisional biopsy to remove the microcalcifications on 09/28/2017. Pathology revealed benign breast tissue. She continues to be followed by Dr. Grimes for the lymphoma with no treatment required. She underwent a laparoscopic bilateral salpingectomy and left oophorectomy at [facility] on 06/14/2022. 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 She subsequently underwent a right oophorectomy, omentectomy and peritoneal washings. She feels well and denies any new breast symptoms or palpable enlarged lymph nodes currently. Her latest mammogram on 10/21/2023 revealed no mammographic evidence of malignancy (BI-RADS 1). Her latest breast MRI performed on 04/15/2024 revealed no MR specific evidence of malignancy (BI-RADS 1 bilaterally). She is due to see Dr. Grimes next week on 06/25/[address] Rosario on 07/04/2024. [facility] Medical History Anxiety and depression At high risk for breast cancer Thyroid nodule Medial meniscus tear Ear drum perforation Shoulder fracture, right Type 2 diabetes mellitus with hyperglycemia Obesity (BMI 30-39.9) Lymphoma Hypertension Hypothyroid Cerebral palsy Hypercholesterolemia Surgical History History of right breast biopsy (09/2017) History of lymph node biopsy (07/2017) History of meniscal tear History of Achilles tendon repair Family History Father Stroke Hypertension Diabetes CVD (cardiovascular disease) Mother Stroke Cervical cancer, Onset Age: 63 Breast cancer, Onset Age: 49 CVD (cardiovascular disease) Sister Breast cancer, Onset Age: 51 Substance abuse Bipolar disorder Mental health disorder Maternal Aunt Breast cancer, Onset Age: 40 Maternal Grandfather Throat cancer Social History Housing: Apartment Alcohol intake: current Alcohol intake frequency: holidays/special occasions only Comment: stopped 2021 Patient Tobacco Use Status: Never used Tobacco e-Cigarette/Vaping Use: Never Used Second Hand Smoke Exposure: No service: No Current occupational status: disabled Cognitive needs: Yes Hearing needs: No Vision needs: Yes Female Reproductive History Menstrual Age of Menarche: 14 Review of Systems Const Denies poor appetite and Denies weakness Eyes Denies no additional complaints ENT Reports Normal hearing present Card Denies chest pain, Denies syncope, Denies rapid heart rate and Denies dyspnea Resp Denies cough and Denies dyspnea GI Denies change in stool character, Reports constipation, Denies diarrhea, Denies nausea and Denies vomiting Denies urinary frequency, Denies difficulty voiding and Denies dysuria Neuro Reports Normal hearing present, Denies confusion, Denies syncope and Denies weakness Psych Denies confusion Physical Exam Vital Signs: Last Vital Signs Pulse 80 06/21/24 09:01 BP 138/67 06/21/24 09:01 BMI result Body Mass Index 34.2 Const General: No confusion Nutritional Appearance: well nourished Orientation/consciousness: No confusion Limitations: wheelchair HEENT Head: Yes normocephalic and Yes atraumatic Ears: hearing grossly normal bilaterally Eyes Sclerae: sclerae normal EOM: EOMs intact bilaterally Chest Other: Left breast: No skin change, no nipple retraction, no nipple discharge, no palpable mass, no enlarged lymph nodes. Right breast: No skin change, no nipple retraction, no nipple discharge, no palpable mass, no enlarged lymph nodes Resp Effort & Inspection: normal respiratory effort, no audible wheezes and no cough Skin General skin exam: no rashes or lesions noted Neuro General: No confusion Cranial nerves: Yes Normal hearing present Extrem General: Yes no clubbing, cyanosis or edema Assessment & Plan Assessment & Plan (1) At high risk for breast cancer: Code(s): Z91.89 - Other specified personal risk factors, not elsewhere classified Category: Medical Plan 58-year-old female patient determined to be high risk for breast cancer recently identified. She has a history of lymphoma which is being followed by Dr. Grimes. 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 Her most recent mammogram of 10/21/2023 revealed no mammographic evidence of malignancy (BI-RADS 1). Her most recent breast MRI of 04/15/2024 revealed no MR evidence of malignancy (BI-RADS 1 bilaterally). Examination today revealed no suspicious findings in either breast and no palpable lymph nodes. She will follow-up in 6 months for routine breast examination, but is welcome to return sooner p.r.n.. Coding Level of Care Code Est Pt Level 3 (15896) Complex EM visit Add On G2211 Diagnoses At high risk for breast cancer Z91.89
[2024-06-21 09:01] VITALS: BP 138/67; PULSE 80; BMI 34.2
== END 2024-06-21 09:22 | disposition home or self-care (01) ==
PROVIDERS: PCP Internal Medicine; Visit Provider Surgery
DX: Z91.89 Other specified personal risk factors, not elsewhere classified (principal)
CPT/HCPCS: 99213; G2211

== ENCOUNTER → 2024-06-21 08:47 | Outpatient (BNVA) | payer OTHER, SELFPAY | PROVIDERS: PCP Internal Medicine; Visit Provider Surgery | DX: Z91.89 Other specified personal risk factors, not elsewhere classified (principal) | CPT/HCPCS: 99212 ==

== ENCOUNTER 2024-07-04 08:16 | Outpatient (AMB) | payer OTHER, SELFPAY ==
--- NOTE | 2024-07-04 08:20 | MHC.PC.OV ---
Vital Signs 07/04/24 08:25 Height 5 ft 3 in Weight 183 lb BMI 32.4 BP 126/78 Blood Pressure Location Lt brachial Position Sitting Pulse 85 Pulse Source Pulse Oximeter Pulse Oximetry (%) 97 Oxygen Delivery Method Room Air Intake Visit Reasons: 3 MONTHS DM Intake Note: Patient here for a 3 month follow up DM Warehouse Loader Required: No Accompanied by: Self / Same As Patient Allergies latex [LATEX] Allergy (Intermediate, Verified 07/04/24 08:29) REDNESS,RASH lisinopril Allergy (Unknown, Verified 07/04/24 08:29) difficulty urination Tobacco use date assessed: 02/26/24 Dental Screening Dental Screen Date: 02/26/24 HPI 3 MONTHS DM HPI Details The patient is a 58-year-old female presenting for a routine follow-up of her chronic medical conditions and a complaint of shoulder pain. Her diabetes mellitus is currently well-controlled, with an A1c recently documented at 5.9%. She reports consistent monitoring of her diet. Her blood pressure and lipid profile also remain well-managed with current medications. She reports an LDL cholesterol level of 79 mg/dL. The patient received flu and COVID vaccinations, the latter on March 23. Regarding her shoulder pain, she describes that it started after cleaning out her refrigerator. The pain was significant enough to require a visit to the hospital the day before , where she was administered an injection of Ketorolac, which provided relief. The patient was apprehensive about taking prescribed prednisone due to concerns about its impact on her blood glucose levels and opted not to take it. She was advised to take Naproxen for pain, with instructions to consume it with food, which she has followed sparingly. The patient also noted lifestyle changes, such as avoiding high-carbohydrate foods, which may have contributed to her current health status. [facility] Medical History Anxiety and depression At high risk for breast cancer Thyroid nodule Medial meniscus tear Ear drum perforation Shoulder fracture, right Type 2 diabetes mellitus with hyperglycemia Obesity (BMI 30-39.9) Lymphoma Hypertension Hypothyroid Cerebral palsy Hypercholesterolemia Surgical History History of right breast biopsy (09/2017) History of lymph node biopsy (07/2017) History of meniscal tear History of Achilles tendon repair Family History Father Stroke Hypertension Diabetes CVD (cardiovascular disease) Mother Stroke Cervical cancer, Onset Age: 63 Breast cancer, Onset Age: 49 CVD (cardiovascular disease) Sister Breast cancer, Onset Age: 51 Substance abuse Bipolar disorder Mental health disorder Maternal Aunt Breast cancer, Onset Age: 40 Maternal Grandfather Throat cancer Social History Housing: Apartment Alcohol intake: current Alcohol intake frequency: holidays/special occasions only Comment: stopped 2021 Patient Tobacco Use Status: Never used Tobacco e-Cigarette/Vaping Use: Never Used Second Hand Smoke Exposure: No service: No Current occupational status: disabled Cognitive needs: Yes Hearing needs: No Vision needs: Yes Female Reproductive History Menstrual Age of Menarche: 14 Questionnaire Thrive Questionnaire Date Thrive assessed: 02/26/24 AUDIT C Alcohol Use Questionnaire (AUDIT-C) 2. How many drinks containing alcohol do you have on a typical day when you are drinking?: 1 or 2 3. How often do you have six or more drinks on one occasion?: Never Total Score: 0 DAGOBERTO-7 AMB Questionnaire DAGOBERTO-7 Date DAGOBERTO - 7 assessed: 02/26/24 Source: Developed by Drs. Rahat Otero, Karrie Chahal, Filemon Dos Santos and colleagues, with an educational shaq from [employer]. Physical exam (Primary Care) Vital Signs: Last Vital Signs Pulse 85 07/04/24 08:25 BP 126/78 07/04/24 08:25 Pulse Ox 97 07/04/24 08:25 Oxygen Delivery Method Room Air 07/04/24 08:25 BMI result Body Mass Index 32.4 Tobacco/Smoking Status: Tobacco use Status Tobacco use date assessed 02/26/24 07/04/24 08:21 Patient Tobacco Use Status Never used Tobacco 07/04/24 08:21 e-Cigarette/Vaping Use Never Used 07/04/24 08:21 Thrive Assessment: Date of Thrive Assessment Date Thrive assessed 02/26/24 07/04/24 08:21 Const General: alert; No acute distress Eyes Conjunctivae: conjunctivae normal Resp Auscultation: clear to auscultation bilaterally Cardio Rate: regular rate Rhythm: regular rhythm GI Inspection: Yes normal to inspection Results AMB Hemoglobin A1c AMB Hemoglobin A1c 5.9 % Last Edit by TRAVIS Sanchez on 07/04/24 08:32 Results Reviewed Results Reviewed: Laboratory Last Values Hgb A1c (Clinic) 5.9 % (4.0-6.0) 07/04/24 08:20 Coding Level of Care Code Est Pt Level 4 (35542) Complex EM visit Add On G2211 Diagnoses Type 2 diabetes mellitus with hyperglycemia, without long-term current use of insulin E11.65 Diabetes mellitus adjunct faculty for medical terminology insulin use: without penitentiary use Lymphoma C85.90 Essential hypertension I10 Hypertension type: essential hypertension Acquired hypothyroidism E03.9 Hypothyroidism type: acquired Hypercholesterolemia E78.00 Generalized anxiety disorder F41.1 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 Hemoglobin A1c goal of less than 6.5 patient on Jardiance 10 mg once a day metformin a 1000 mg twice a day (2) Lymphoma: Comment: small lymphocytic , chronic lymphocytic Dr. Grimes 08/2017 Code(s): C85.90 - Non-Hodgkin lymphoma, unspecified, unspecified site Category: Medical Plan: Continue to be monitored under Hematology-Oncology (3) Hypertension: Code(s): I10 - Essential (primary) hypertension Category: Medical Qualifiers: Hypertension type: essential hypertension Qualified Code(s): I10 - Essential (primary) hypertension Plan: Continue with blood pressure medication. Decrease salt intake and exercise takes irbesartan 75 mg once a day (4) Hypothyroid: Code(s): E03.9 - Hypothyroidism, unspecified Category: Medical Qualifiers: Hypothyroidism type: acquired Qualified Code(s): E03.9 - Hypothyroidism, unspecified Plan: February 2024 last blood work thyroid test normal (5) Hypercholesterolemia: Code(s): E78.00 - Pure hypercholesterolemia, unspecified Category: Medical Plan: Avoid fried foods, chicken skin, eggs, butter margarine, pastries and meat. 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 August 05, 2022 Robotic assisted laparoscopic total hysterectomy removal of remaining ovary omentectomy, peritoneal biopsies possible midline laparotomy. Q 6 months x 2 years then yearly stage Ia Code(s): D27.9 - Benign neoplasm of unspecified ovary Category: Medical Plan: Continue to follow-up together with the surgeon under surveillance with MRI of the breast Plan - Continue current medication regimen for diabetes mellitus, hypertension, and hyperlipidemia, with appropriate dietary monitoring. - Encourage continued engagement in lifestyle modifications to maintain glucose and lipid control. - Recommend ketorolac injection on an as-needed basis for shoulder pain if warranted, with consideration of Naproxen if ongoing. Educate on the importance of medication adherence and monitoring any adverse reactions. - Schedule a follow-up appointment in six months to re-assess chronic conditions and manage any ongoing issues. - Discuss potential impacts of steroid use on blood glucose levels and explore alternative pain management strategies, with emphasis on the risks and benefits of each. - Reassure patient that preventative measures for shoulder pain through reduced activity strain should also be instituted alongside any pharmacologic intervention. - Continue preventive healthcare maintenance with periodic reassessment of vaccinations and screening tests in line with current guidelines. Orders: Orders AMB Hemoglobin A1c Today E11.65 - Type 2 diabetes mellitus with hyperglycemia
[2024-07-04 08:25] VITALS: BP 126/78; PULSE 85; O2SAT 97; BMI 32.4
== END 2024-07-04 08:49 | disposition home or self-care (01) ==
PROVIDERS: PCP Internal Medicine; Visit Provider Internal Medicine
DX: E11.65 Type 2 diabetes mellitus with hyperglycemia (principal); C85.90 Non-Hodgkin lymphoma, unspecified, unspecified site; I10 Essential (primary) hypertension; E03.9 Hypothyroidism, unspecified; E78.00 Pure hypercholesterolemia, unspecified; F41.1 Generalized anxiety disorder; D27.9 Benign neoplasm of unspecified ovary

== ENCOUNTER → 2024-07-04 08:16 | Outpatient (BNVA) | payer OTHER, SELFPAY | PROVIDERS: PCP Internal Medicine; Visit Provider Internal Medicine | DX: E11.65 Type 2 diabetes mellitus with hyperglycemia (principal); C85.90 Non-Hodgkin lymphoma, unspecified, unspecified site; E03.9 Hypothyroidism, unspecified; I10 Essential (primary) hypertension; E78.00 Pure hypercholesterolemia, unspecified; F41.1 Generalized anxiety disorder; D27.9 Benign neoplasm of unspecified ovary | CPT/HCPCS: 83036; 99212 ==

== ENCOUNTER 2024-10-26 08:48 | Outpatient (REF) | payer OTHER, SELFPAY ==
--- OUTSIDE RECORDS SUMMARY | 2024-10-26 08:52 | XMS_ITS | Patient Health Record ---
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 Name Role Phone Rowan Rosario MD Primary Care Provider Rahat Ruiz Unavailable [phone] Allergies Allergen (clinical drug ingredient) Drug/Non Drug Allergy documented on EMR Reaction Allergy Type Onset Date Status Tape Unknown Allergy Active Surgical Glue Unknown Allergy Active lisinopril Lisinopril Unknown Drug Allergy Activ e Latex Latex Unknown Allergy Active Adhesive Unknown Allergy Active Results Component Value Reference Range Notes Complete Blood Count Auto Di ff Reviewed date:02/25/2024 06:44:09 AM Interpretation: Performing Lab:[facility], [address] [place] [phone] Notes/Report: White Blood Count 13.7 4.8-10.8 X10*3/uL Red Blood Count 4.72 4.20-5.50 X10*6/uL Hemoglobin 14.5 12.0-16.0 g/dl Hematocrit 43.2 37.0-47.0 % Mean Corpuscular Volume 91.5 80.0-98.0 fL Mean Corpuscular Hemoglobin 30.7 27.0-33.0 pg Mean Corpuscular HGB Conc 33.6 31.0-35.0 g/dl Red Cell Distribution Width 12.8 11.0-16.0 % Platelet Count 267 160-400 X10*3/uL Mean Platelet Volume 9.1 9.4-12.3 fL Neutrophils Percent Auto 39.6 45-73 % Imm Gran Pct Auto 0.4 0.0-0.4 % Lymphocytes Percent Auto 52.4 20-40 % Monocytes Percent Auto 5.0 2-11 % Eosinophils Percent Auto 2.0 0-4 % Basophils Percent Auto 0.6 0-2 % NRBC Pct Auto 0.0 0.0-0.2 /100WBC Neutrophils Absolute Auto 5.4 2.0-8.3 x10*3/u L Imm Gran Abs Auto 0.06 0.00-0.03 X10*3/uL Lymphocytes Absolute Auto 7.2 1.2-4.9 X10*3/u L Monocytes Absolute Auto 0.7 0.1-1.2 X10*3/uL Eosinophils Absolute Auto 0.3 0.0-0.4 X10*3/u L Basophils Absolute Auto 0.1 0.0-0.2 X10*3/uL NRBC Abs Auto 0.000 0.0-0.012 X10*3/uL White Blood Count 13.7 4.8-10.8 X10*3/uL Red Blood Count 4.72 4.20-5.50 X10*6/uL Hemoglobin 14.5 12.0-16.0 g/dl Hematocrit 43.2 37.0-47.0 % Mean Corpuscular Volume 91.5 80.0-98.0 fL Mean Corpuscular Hemoglobin 30.7 27.0-33.0 pg Mean Corpuscular HGB Conc 33.6 31.0-35.0 g/dl Red Cell Distribution Width 12.8 11.0-16.0 % Platelet Count 267 160-400 X10*3/uL Mean Platelet Volume 9.1 9.4-12.3 fL Neutrophils Percent Auto 39.6 45-73 % Imm Gran Pct Auto 0.4 0.0-0.4 % Lymphocytes Percent Auto 52.4 20-40 % Monocytes Percent Auto 5.0 2-11 % Eosinophils Percent Auto 2.0 0-4 % Basophils Percent Auto 0.6 0-2 % NRBC Pct Auto 0.0 0.0-0.2 /100WBC Neutrophils Absolute Auto 5.4 2.0-8.3 x10*3/u L Imm Gran Abs Auto 0.06 0.00-0.03 X10*3/uL Lymphocytes Absolute Auto 7.2 1.2-4.9 X10*3/u L Monocytes Absolute Auto 0.7 0.1-1.2 X10*3/uL Eosinophils Absolute Auto 0.3 0.0-0.4 X10*3/u L Basophils Absolute Auto 0.1 0.0-0.2 X10*3/uL NRBC Abs Auto 0.000 0.0-0.012 X10*3/uL C ORRECTED REPORT C ORRECTED REPORT Comprehensive [place]. Panel Fa st Reviewed date:02/25/2024 06:44:09 AM Interpretation: Performing Lab:[facility], [address] [place] [phone] Notes/Report: Sodium 141 135-145 mmol/L Potassium 4.0 3.3-5.1 mmol/L Chloride 108 96-108 mmol/L Carbon Dioxide 23 22-29 mmol/L Anion Gap 14 12-20 Blood Urea Nitrogen 11 9-16 mg/dL Creatinine 0.64 0.5-1.4 mg/dL Estimated Glomerular Filt Rate > 60 NOTE: For -Armenian individuals, multiply the result by 1.210. Chronic Kidney Disease: Estimated GFR < 60 mL/min/1.73m2 Severe Kidney Disease: Estimated GFR < 15 mL/min/1.73m2 Glucose Fasting 105 60-99 mg/dL A fasting glucose from 100-125 mg/dl is considered impaired (pre-diabetes). Calcium 9.7 8.4-10.2 mg/dL Bilirubin Total 0.5 0.0-1.0 mg/dL Aspartate Amino Transferase 22 5-31 U/L Alanine Aminotransferase 35 0-31 U/L Total Protein 8.1 6.5-8.0 g/dL Albumin Level 4.6 3.5-5.0 g/dL Alkaline Phosphatase 74 39-117 U/L Lipid Panel Reviewed date:02/25/2024 06:44:09 AM Interpretation: Performing Lab:[facility] [address] [address] Notes/Report: Triglycerides 85 <150 mg/dL Desirable Triglyceride: less than 150 mg/dL Borderline High Triglyceride 150-199 mg/dL High Triglyceride: 200-499 mg/dL Very High Triglyceride: greater than or equal to 5OO mg/dL Cholesterol 140 <200 mg/dL Desirable Cholesterol: less than 200 mg/dL Borderline High Cholesterol: 200-239 mg/dL High Cholesterol: greater than 239 mg/dL LDL Cholesterol Calculated 67 <100 mg/dL Desirable LDL: less than 100 mg/dL Near Optimal/Above Optimal LDL: 110-129 mg/dL Borderline High LDL: 130-159 mg/dL High LDL: 160-189 mg/dL Very High LDL: greater than or equal to 190 mg/dL HDL Cholesterol 56 >40 mg/dL Desirable HDL: greater than 40 mg/dL Note: This HDL assay may give artificially low results in patients with liver disease. Free T4 (Free Thyroxine) Reviewed date:02/25/2024 06:44:09 AM Interpretation: Performing Lab:[address] [address] Notes/Report: Free T4 (Free Thyroxine) 1.34 0.71-1.85 ng/dL Thyroid Stimulating Hormone Reviewed date:02/25/2024 06:44:09 AM Interpretation: Performing Lab:[address] [address] Notes/Report: Thyroid Stimulating Hormone 3.67 0.32-4.0 uIU/mL Note: A sustained TSH level above 2.5 uIU/mL may warrant further investigation. TSH 3rd Generation ([facility]) SLIDE REVIEW Reviewed date:02/25/2024 06:44:09 AM Interpretation: Performing Lab:[facility], [address] [place] [phone] Notes/Report: SLIDE REVIEW VERIFIED MR breast BI wo/w con Reviewed date:05/13/2024 05:47:39 AM Interpretation: Performing Lab: Notes/Report: [address] [address] Magnetic Resonance Report Signed Patient: Osei Núñez MR#: [id number] : 1965 Acct:[id number] Age/Sex: 58 / F ADM Date: 04/15/24 Loc: HO.MRI Attending Dr: Domenic Quevedo MD Ordering Physician: Domenic Quevedo MD Date of Service: 04/15/24 Procedure(s): MR breast BI wo/w con Accession Number(s): [id number] cc: Rahat Grimes MD; Domenic Quevedo MD; Jack Rosario MD EXAMINATION: MR BREAST WITHOUT AND WITH CONTRAST, BILATERAL CLINICAL INFORMATION: High risk surveillance. History of lymphoma and ovarian cancer. Strong family history of breast cancer. COMPARISON: Breast MRI February 2023, February 2022. Atrophy October 21, 2023. TECHNIQUE: Magnetic resonance imaging of the breast was performed using T1, T2 and fat saturated techniques. Dynamic multiphase imaging was also performed after administration of intravenous gadolinium contrast agent. Computer generated 3-D reconstruction was utilized by the radiologist in the interpretation of this examination. FINDINGS: Images are limited due to motion and other MR artifacts. There is scattered fibroglandular densities with moderate background enhancement. LEFT BREAST: There are no suspicious masses or areas of abnormal nonmass enhancement in the left breast. There is no axillary or internal mammary lymphadenopathy on the left. RIGHT BREAST: There are no suspicious masses or areas of abnormal nonmass enhancement in the right breast. There is no axillary or internal mammary lymphadenopathy on the right. Limited views of the chest and abdomen are unremarkable. MR/MR breast BI wo/w con IMPRESSION: No MR specific evidence of malignancy. ASSESSMENT: LEFT BREAST: BI-RADS 1-Negative RIGHT BREAST: BI-RADS 1-Negative RECOMMENDATIONS: Recommend bilateral breast MRI in one year for high risk surveillance. Recommend yearly annual mammography. Electronically signed by: Mary Mcghee DO 05/03/2024 02:07 PM EDT Dictated By: Mary Mcghee DO Signed By: <Electronically signed by Mary Mcghee DO in OV> 05/03/24 1407 DD/ 1233 TD/TT: 04/15/24 1330 Flight Purser: [address] [address] Magnetic Resonance Report Signed Patient: Osei Núñez MR#: [id number] : 1965 Acct:[id number] Age/Sex: 58 / F ADM Date: 04/15/24 Loc: HO.MRI Attending Dr: Domenic Quevedo MD Ordering Physician: Domenic Quevedo MD Date of Service: 04/15/24 Procedure(s): MR gupta ast BI wo/w con Accession Number(s): [id number] cc: Rahat Grimes MD; Domenic Quevedo MD; Jack Rosario MD EXAMINATION: MR BREAST WITHOUT AN D WITH CONTRAST, BILATERAL CLINICAL INFORMATION: High risk surveillan ce. History of lymphoma and ovarian cancer. Strong family history of breast cancer. COMPARISON: Breast MRI February 26February 2022. Atrophy October 21, 2023. TECHNIQUE: Magnetic resonance imaging of the breast was performed using T1, T2 and fat saturated techniques. Dynamic multiphase imaging was also performed after administration of intravenous gadolinium contrast agent. Computer generated 3-D reconstruction was utilized by the radiologist in the interpretation of th is examination. FINDINGS: Images are limited d ue to motion and other MR artifacts. There is scattered fibroglandular densities with moderate background enhancement. LEFT BREAST: There a re no suspicious masses or areas of abnormal nonmass enhancement in the left breast. There is no axillary or internal mammary lymphadenopathy on the left. RIGHT BREAST: There are no suspicious masses or areas of abnormal nonmass enhancement in the right breast. There is no axillary or internal mammary lymphadenopathy on the right. Limited views of the chest and abdomen are unremarkable. MR/MR breast BI wo/w con IMPRESSION: No MR specific evide nce of malignancy. ASSESSMENT: LEFT BREAST: BI-RADS 1-Negative RIGHT BREAST: BI-RAD S 1-Negative RECOMMENDATIONS: Recommend bilateral breast MRI in one year for high risk surveillance. Recommend yearly ted ual mammography. Electronically breanne d by: Mary Mcghee DO 05/03/2024 02:07 PM EDT Dictated By: Mary Mcghee DO Signed By: <Electronically signed by Mary Mcghee DO in OV> 05/03/24 1407 DD/ 1233 TD/TT: 04/15/24 1330 Flight Purser: Complete Blood Count Auto Di ff Reviewed date:06/25/2024 10:49:35 AM Interpretation: Performing Lab:[facility], [address] [place] [phone] Notes/Report: White Blood Count 13.3 4.8-10.8 X10*3/uL Red Blood Count 4.79 4.20-5.50 X10*6/uL Hemoglobin 14.1 12.0-16.0 g/dl Hematocrit 44.0 37.0-47.0 % Mean Corpuscular Volume 91.9 80.0-98.0 fL Mean Corpuscular Hemoglobin 29.4 27.0-33.0 pg Mean Corpuscular HGB Conc 32.0 31.0-35.0 g/dl Red Cell Distribution Width 13.3 11.0-16.0 % Platelet Count 254 160-400 X10*3/uL Mean Platelet Volume 9.1 9.4-12.3 fL Neutrophils Percent Auto 39.0 45-73 % Imm Gran Pct Auto 0.2 0.0-0.4 % Lymphocytes Percent Auto 53.2 20-40 % Monocytes Percent Auto 5.4 2-11 % Eosinophils Percent Auto 1.7 0-4 % Basophils Percent Auto 0.5 0-2 % NRBC Pct Auto 0.0 0.0-0.2 /100WBC Neutrophils Absolute Auto 5.2 2.0-8.3 x10*3/u L Imm Gran Abs Auto 0.03 0.00-0.03 X10*3/uL Lymphocytes Absolute Auto 7.1 1.2-4.9 X10*3/u L Monocytes Absolute Auto 0.7 0.1-1.2 X10*3/uL Eosinophils Absolute Auto 0.2 0.0-0.4 X10*3/u L Basophils Absolute Auto 0.1 0.0-0.2 X10*3/uL NRBC Abs Auto 0.000 0.0-0.012 X10*3/uL White Blood Count 13.3 4.8-10.8 X10*3/uL Red Blood Count 4.79 4.20-5.50 X10*6/uL Hemoglobin 14.1 12.0-16.0 g/dl Hematocrit 44.0 37.0-47.0 % Mean Corpuscular Volume 91.9 80.0-98.0 fL Mean Corpuscular Hemoglobin 29.4 27.0-33.0 pg Mean Corpuscular HGB Conc 32.0 31.0-35.0 g/dl Red Cell Distribution Width 13.3 11.0-16.0 % Platelet Count 254 160-400 X10*3/uL Mean Platelet Volume 9.1 9.4-12.3 fL Neutrophils Percent Auto 39.0 45-73 % Imm Gran Pct Auto 0.2 0.0-0.4 % Lymphocytes Percent Auto 53.2 20-40 % Monocytes Percent Auto 5.4 2-11 % Eosinophils Percent Auto 1.7 0-4 % Basophils Percent Auto 0.5 0-2 % NRBC Pct Auto 0.0 0.0-0.2 /100WBC Neutrophils Absolute Auto 5.2 2.0-8.3 x10*3/u L Imm Gran Abs Auto 0.03 0.00-0.03 X10*3/uL Lymphocytes Absolute Auto 7.1 1.2-4.9 X10*3/u L Monocytes Absolute Auto 0.7 0.1-1.2 X10*3/uL Eosinophils Absolute Auto 0.2 0.0-0.4 X10*3/u L Basophils Absolute Auto 0.1 0.0-0.2 X10*3/uL NRBC Abs Auto 0.000 0.0-0.012 X10*3/uL C ORRECTED REPORT C ORRECTED REPORT Comprehensive [place]. Panel Fa st Reviewed date:06/25/2024 10:49:35 AM Interpretation: Performing Lab:[facility], [address] [place] [phone] Notes/Report: Sodium 138 135-145 mmol/L Potassium 4.0 3.3-5.1 mmol/L Chloride 106 96-108 mmol/L Carbon Dioxide 23 22-29 mmol/L Anion Gap 13 12-20 Blood Urea Nitrogen 11 9-16 mg/dL Creatinine 0.57 0.5-1.4 mg/dL Estimated Glomerular Filt Rate > 60 Chronic Kidney Disease: Estimated GFR < 60 mL/min/1.73m2 Severe Kidney Disease: Estimated GFR < 15 mL/min/1.73m2 Glucose Fasting 109 60-99 mg/dL A fasting glucose from 100-125 mg/dl is considered impaired (pre-diabetes). Calcium 9.6 8.4-10.2 mg/dL Bilirubin Total 0.4 0.0-1.0 mg/dL Aspartate Amino Transferase 24 5-31 U/L Alanine Aminotransferase 33 0-31 U/L Total Protein 7.8 6.5-8.0 g/dL Albumin Level 4.4 3.5-5.0 g/dL Alkaline Phosphatase 70 39-117 U/L Lactate Dehydrogenase Reviewed date:06/25/2024 10:49:35 AM Interpretation: Performing Lab:[facility], [address] [place] [phone] Notes/Report: Lactate Dehydrogenase 200 122-220 U/L Lipid Panel Reviewed date:06/25/2024 10:49:35 AM Interpretation: Performing Lab:[facility], [address] [place] [phone] Notes/Report: Triglycerides 104 <150 mg/dL Desirable Triglyceride: less than 150 mg/dL Borderline High Triglyceride 150-199 mg/dL High Triglyceride: 200-499 mg/dL Very High Triglyceride: greater than or equal to 5OO mg/dL Cholesterol 153 <200 mg/dL Desirable Cholesterol: less than 200 mg/dL Borderline High Cholesterol: 200-239 mg/dL High Cholesterol: greater than 239 mg/dL LDL Cholesterol Calculated 79 <100 mg/dL Desirable LDL: less than 100 mg/dL Near Optimal/Above Optimal LDL: 110-129 mg/dL Borderline High LDL: 130-159 mg/dL High LDL: 160-189 mg/dL Very High LDL: greater than or equal to 190 mg/dL HDL Cholesterol 54 >40 mg/dL Desirable HDL: greater than 40 mg/dL Note: This HDL assay may give artificially low results in patients with liver disease. Beta-2 Microglobulin, Serum Reviewed date:06/25/2024 10:49:35 AM Interpretation: Performing Lab:[facility], [address] [place] [phone] Notes/Report: Beta-2 Microglobulin, Serum 2.48 < OR = 2.51 mg/L THIS TEST WAS PERFORMED AT: [facility] [address] [place] [phone] AMADOR TOURE MD SLIDE REVIEW Reviewed date:06/25/2024 10:49:35 AM Interpretation: Performing Lab:[facility], [address] [place] [phone] Notes/Report: SLIDE REVIEW VERIFIED Reason For Referral No Information Medications Medication SIG (Take, Route, Frequency, Duration) Notes Start Date End Date Status Simvastatin 20 MG 1 tablet in the even ing Orally Once a day Active Tylenol 325 MG 2 tablets as needed Orally every 6 hrs Active ALPRAZolam 0.25 MG 1 tablet Orally Twic e a day Active Sertraline HCl 50 MG 1 tablet Orally Onc e a day Active Jardiance 10 MG 1 tablet Orally Once a day Active Docusate Sodium 100 MG [...] the morning Orally Once a day Active Vitamin D 1000 UNIT 1 tablet Orally Once a day Active Immunizations Vaccine Route Administration Date Status Comme nts PPV 23 Unknown 10/17/2017 Administered Tdap Unknown 12/10/2015 Administered COVID- 19 Vaccine Unknown 10/20/2021 Administered COVID- 19 Vaccine Unknown 03/29/2021 Administered COVID- 19 Vaccine Unknown 10/24/2020 Administered Influenza, quad Unknown 05/10/2021 Administered Social History Tobacco Use: Social History Observation Description Date Details (start date - stop date) Never Smoker NA - NA Sex Assigned At : Social History Observation Description Sex Assigned At Female Tobacco Use/Smoking Question Answer Notes Patient is a nonsmoker Additional Findings: Tobacco Non-User Aggressive non-smoker Alcohol Screen Question Answer Notes Did you have a drink containing alcohol in the p ast year? No Points 0 Interpretation Negative Problems Problem Type SNOMED Code ICD Code Onset Dates Problem Status W/U Status Risk Notes Problem Diabetes mellitus without complication (304082572) Diabetes (E11.9) Active confirmed Her fas ting glucose is 105. No change in her medications indicated. I recommended aggressive weight loss. Problem 66673620 Lymphocytosis (D72.820) Active confirmed The white blood cell count is 13,300 primarily lymphocytes. Her disease has been stable. Problem 609656868577201 Obesity (BMI 30.0-34.9) (E66.9) Active confirmed She says her weight has been stable. We reviewed her diet and nutrition and weight loss strategy. Problem 19725914 Vitamin D deficiency (E55.9) Active confirmed She has b een compliant with her vitamin D suppleements. 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 No change in therapy was necessary. She will be followed at regular interrvals. She was given instructions on when she should call me or new developments. Problem 81186988452895 Microcalcificati on of right breast on mammogram (R92.0) Active confirmed She will undergo routine mammography. Problem 23353689 Corona's thyroiditis (E06.3) Active confirmed She is clinically euthyroid. She is compliant with her medications. Problem 46089540 Left-sided hemiplegic cerebral palsy (G80.8) Active confirmed The neurological deficits are mild and she is completing all his activities of daily life without impairment. She is not currently working. 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 There was no residual disease. She will be observed at this point. Vital Signs Heart Rate 82 /min 06/25/2024 Temperature 97.6 degrees Fahrenheit 06/25/2024 Blood pressure diastolic 89 mm Hg 06/25/2024 Height 64 in in 06/25/2024 Blood pressure systolic 138 mm Hg 06/25/2024 Weight 185 lbs 06/25/2024 BMI 31.75 kg/m2 06/25/2024 Encounters Encounter Location Date Provider Diagnosis Rahat Grimes III, MD [address] [place] [address] DR [address], [place] [address] 10/27/2023 Rahat Grimes Vitamin D deficiency E55.9 ; Lymphoma, small lymphocytic C83.00 ; Diabetes E11.9 ; Lymphocytosis D72.820 ; Corona's thyroiditis E06.3 and Obesity (BMI 30.0-34.9) E66.9 Rahat Grimes III, MD [address] [place] [address] [address] [place] [phone] 02/27/2024 Rahat Grimes Vitamin D deficiency E55.9 ; Lymphoma, small lymphocytic C83.00 ; Obesity (BMI 30.0-34.9) E66.9 ; Diabetes E11.9 and Lymphocytosis D72.820 Rahat Grimes III, MD [address] [place] [address] [address] [place] [address] 06/25/2024 Rahat Grimes Vitamin D deficiency E55.9 ; Lymphoma, small lymphocytic C83.00 ; Lymphocytosis D72.820 ; Obesity (BMI 30.0-34.9) E66.9 and 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 Assessments Encounter Date Diagnosis (ICD Code) Assessment Notes Treatment Notes Treatment Clinical Notes 10/27/2023 Vitamin D deficiency (ICD-10 - E55.9) She has been compliant with her vitamin D suppleements. 10/27/2023 Lymphoma, small lymphocytic (ICD-10 - C83.00) There is no sign of the lymphoma on today's examination. She continues to have a lymphocytosis. She is stable without treatment will be observed carefully. 02/27/2024 Vitamin D deficiency (ICD-10 - E55.9) She has been compliant with her vitamin D suppleements. 02/27/2024 Lymphoma, small lymphocytic (ICD-10 - C83.00) The lymphoproliferative process is stable and no changes were made in her treatment. She does not need treatment at this time. Observation was continued. 06/25/2024 Vitamin D deficiency (ICD-10 - E55.9) She has been compliant with her vitamin D suppleements. 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 No change in therapy was necessary. She will be followed at regular interrvals. She was given instructions on when she should call me or new developments. 10/27/2023 Diabetes (ICD-10 - E11.9) Diabetes appears to be stable. We discussed weight loss and the elements of a diabetic diet today. I recommended weight loss at a rate of one half pound per week. 02/27/2024 Obesity (BMI 30.0-34.9) (ICD-10 - E66.9) She says her weight has been stable. We reviewed her diet and nutrition and weight loss strategy. 06/25/2024 Lymphocytosis (ICD-10 - D72.820) The white blood cell count is 13,300 primarily lymphocytes. Her disease has been stable. 10/27/2023 Lymphocytosis (ICD-10 - D72.820) Her lymphocytosis is stable. There was no adenopathy or splenomegaly. 02/27/2024 Diabetes (ICD-10 - E11.9) Her fasting glucose is 105. No change in her medications indicated. I recommended aggressive weight loss. 06/25/2024 Obesity (BMI 30.0-34.9) (ICD-10 - E66.9) She says her weight has been stable. We reviewed her diet and nutrition and weight loss strategy. 10/27/2023 Corona's thyroiditis (ICD-10 - E06.3) She is clinically euthyroid. She is compliant with her medications. 02/27/2024 Lymphocytosis (ICD-10 - D72.820) Lymphocytosis is stable. There was no adenopathy or splenomegaly. 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 There was no residual disease. She will be observed at this point. 10/27/2023 Obesity (BMI 30.0-34.9) (ICD-10 - E66.9) She has lost 1 pound. Her body mass index is stable. Her nutritional status is good. We have discussed her weight loss strategies today. Plan Of Treatment Pending Test Test Name Order Date PROFILE, FASTING (COMPREHENSIVE METABOLI C) 12/15/2020 PROFILE, FASTING (COMPREHENSIVE METABOLI C) 02/27/2024 PROFILE, FASTING (COMPREHENSIVE METABOLI C) 10/27/2023 PROFILE, FASTING (COMPREHENSIVE METABOLI C) 04/09/2020 PROFILE, RANDOM (COMPREHENSIVE METABOLIC ) 04/16/2021 PROFILE, RANDOM (COMPREHENSIVE METABOLIC ) 06/25/2024 PROFILE, RANDOM (COMPREHENSIVE METABOLIC ) 03/28/2023 PROFILE, RANDOM (COMPREHENSIVE METABOLIC ) 11/15/2021 PROFILE, RANDOM (COMPREHENSIVE METABOLIC ) 10/25/2022 PROFILE, RANDOM (COMPREHENSIVE METABOLIC ) 05/09/2019 PROFILE, RANDOM (COMPREHENSIVE METABOLIC ) 08/17/2020 PROFILE, RANDOM (COMPREHENSIVE METABOLIC ) 08/17/2021 PROFILE, RANDOM (COMPREHENSIVE METABOLIC ) 01/09/2020 PROFILE, RANDOM (COMPREHENSIVE METABOLIC ) 07/26/2022 PROFILE, RANDOM (COMPREHENSIVE METABOLIC ) 07/28/2023 PROFILE, RANDOM (COMPREHENSIVE METABOLIC ) 09/09/2019 PROFILE, RANDOM (COMPREHENSIVE METABOLIC ) 03/22/2022 LIPID PANEL 04/09/2020 LDH 07/28/2023 LDH 09/09/2019 LDH 03/22/2022 LDH 06/25/2024 LDH 12/15/2020 LDH 03/28/2023 LDH 02/27/2024 LDH 11/15/2021 LDH 10/25/2022 LDH 05/09/2019 LDH 08/17/2020 LDH 04/09/2020 LDH 01/09/2020 LDH 07/26/2022 FREE T4 (FT4) 08/17/2021 TSH (THYROID STIMULATING HORMONE) 2023 TSH (THYROID STIMULATING HORMONE) 2021 CBC w DIFF 04/09/2020 CBC w DIFF 08/17/2021 CBC w DIFF 01/09/2020 CBC w DIFF 07/26/2022 CBC w DIFF 04/16/2021 CBC w DIFF 07/28/2023 CBC w DIFF 09/09/2019 CBC w DIFF 03/22/2022 CBC w DIFF 06/25/2024 CBC w DIFF 12/15/2020 CBC w DIFF 03/28/2023 CBC w DIFF 02/27/2024 CBC w DIFF 11/15/2021 CBC w DIFF 10/27/2023 CBC w DIFF 10/25/2022 CBC w DIFF 05/09/2019 CBC w DIFF 08/17/2020 SED RATE (ESR) 04/09/2020 SED RATE (ESR) 01/09/2020 SED RATE (ESR) 09/09/2019 SED RATE (ESR) 06/25/2024 SED RATE (ESR) 12/15/2020 SED RATE (ESR) 11/15/2021 SED RATE (ESR) 10/25/2022 SED RATE (ESR) 08/17/2020 IMMUNOFIXATION PANEL, SERUM (IEP) 2023 BETA-2 MICROGLOBULIN, SERUM 10/25/2022 BETA-2 MICROGLOBULIN, SERUM 01/04/2019 BETA-2 MICROGLOBULIN, SERUM 03/22/2022 BETA-2 MICROGLOBULIN, SERUM 07/28/2023 BETA-2 MICROGLOBULIN, SERUM 03/28/2023 BETA-2 MICROGLOBULIN, SERUM 02/27/2024 Total Protein 07/28/2023 Lipid Panel 10/27/2023 Lipid Panel 02/27/2024 Vitamin D 25-OH Total 07/28/2023 Free T4 (Free Thyroxine) 10/27/2023 Beta-2 Microglobulin, Serum 06/25/2024 Hemoglobin A1c 12/15/2020 Next Appt Details Provider Name:Rahat Grimes, 12/25/2024 10:30:00 AM, [address] [place] [address] STEF[address] JEAN, [place], [address], Insurance Providers Payer Name Payer Address Payer Phone Subscriber Number Group Number Insured Name Patient Relationship to Insured Coverage Start Date Coverage End Date [employer] [address] [address] [place] [address] [id number] SHANA NÚÑEZA Self - patient is the insured [place] [address] [place], [place] [id number] MERLY OSEI Self - patient is the insured Medical (General) History Medical History History ICD Code Vitamin D deficiency E55.9 Corona's thyroiditis E06.3 Left-sided hemiplegic cerebral palsy G80 .8 microcalcifications right breast indolent lymphoma, diagnosed July anxiety and depression osteoarthritis and torn medial right men iscus right knee left thyroid nodule menopausal, menarche age 14, first pregn omari age 23, lmp january 2020 strong family history of breast cancer, increased risk of same BRCA1/2 negative 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 Right axillary lymph node left posterior superior iliac crest bone marrow biopsy and aspirate 03/2018 Partial Hysterectomy 06/14/2022 hysterectomy completion 08/05/2022 No history Hospitalization History Reason Date(Month/Year) Left axillary lymph node biopsy DIANE/BSO Sertoli-Leydig cell tumor of the ovary September 2022 No history
--- OUTSIDE RECORDS SUMMARY | 2024-10-26 08:52 | XMS_ITS ---
Author Organization Rahat Grimes III, MD Address [address] [place] [facility] [place] [address] Care Team Providers Care Cnc Mill Set Up Operator Name Role Phone Rowan Rosario MD Primary Care Provider Rahat Ruiz [phone] REASON FOR VISIT follow up Social History Sex Assigned At : Social History Observation Description Sex Assigned At Female Encounters Encounter Location Date Provider Diagnosis Rahat Grimes III, MD [address] [place] [address] [place] [address] 02/26/2024 Rahat Grimes Plan Of Treatment Next Appt Details Provider Name:Rahat Grimes, 12/25/2024 10:30:00 AM, [address] [place] [address] [place], [address], Progress Notes * SHANA QUINTEROSADOB:1965 ([age] yo F)Acc No.[id number]:02/26/2024 Progress Notes Patient:?OSEI QUINTEROS Provider:?Rahat Grimes MD :1965???Age:58 Y???Sex:Female D ate:02/26/2024 Address:[address], [place] Pcp:Rowan Rosario MD Subjective: * Chief Complaints: * ???1. Follow up. * Medical History:? Objective: * Vitals:? Assessment: Plan: * Treatment: * Images: * The named appointment provid er may or may not be the originator of this progress note, and it is not deemed complete until electronically signed by the appointment provider. Sign off status: Pending * Provider:?Rahat Grimes MD Date:?02/07 Generated for Danette forrest/Jerri/Alberta on:?10/26/2024 08:51 AM EDT
--- OUTSIDE RECORDS SUMMARY | 2024-10-26 08:52 | XMS_ITS ---
Author Organization Rahat Grimes III, MD Address [address] [address] Care Team Providers Care Senior Datastage Developer Name Role Phone Rowan Rosario MD Primary Care Provider Rahat Ruiz [phone] Allergies Allergen (clinical drug ingredient) Drug/Non Drug [...] Date Provider Diagnosis Rahat Grimes III, MD [address] [place] [address] [place] [address] 02/27/2024 Rahat Grimes Vitamin D deficiency E55.9 [...] Months, Reason: ov review labs Provider Name:Rahat Grimes, 12/25/2024 10:30:00 AM, [address] [place] [address] DR, [place] [address], [place], [address], Progress Notes * SHAAN QUINTEROSADOB:1965 ([age] yo F)Acc No.[id number]:02/27/2024 Progress Notes Patient:?OSEI QUINTEROS Provider:?Rahat Grimes MD :1965???Age:58 Y???Sex:Female D ate:02/27/2024 Address:[address] [place] [address] [place], [address], [facility] Pcp:Rowan Rosario MD Subjective: * Chief Complaints: * ???Small lymphocytic lymphom aSertoli-Leydig cell tumor of the right ovaryLymphocytosisDiabetesObesityLeft hemiplegia from cerebral palsy * HPI: ???COVID-19 Screening:? She returns for medical management of her lymphoma. Since her last visit she has been healthy and well. No new problems have evolved. The ovarian tumor was removed. She says she feels healthy and well. Her diabetes has been controlled. Compress the blood work is available and was reviewed with her in detail. ?Questions?Have you experienced fever, chills, cough, sore throat, shortness of breath, difficulty breathing, muscle aches, loss of taste or smell??No ?Have you been exposed to the virus within the last 10 days??No ?Have you travelled internationally in the last 10 days??No ?Have you been exposed to COVID-19 in the past??No * ROS:?General/Constitutional:?pain?only normal aches and pains.?Chills?denies.?Fatigue?admits.?Fever?denies.?ENT:?Decreased hearing?denies.?Respiratory:?Cough?denies.?Cardiovascular:?Chest pain with exertion?denies.?Dyspnea on exertion?denies.?Shortness of breath?denies.?Gastrointestinal:?Constipation?occasional.?Decreased appetite?denies.?Diarrhea?denies.?Heartburn?controlled with medications.?Nausea?denies.?Rectal bleeding?denies.?Vomiting?denies.?Hematology:?bruising?denies.?petechiae?denies.?Swollen glands?none have been noted.?Genitourinary:?Frequent urination?at night.?Musculoskeletal:?Muscle aches?denies.?Painful joints?denies.?Sciatica?denies.?Weakness?denies.?Skin:?Itching?denies.?Rash?denies.?Skin lesion(s)?denies.?Neurologic:?Difficulty speaking?denies.?Dizziness?denies.?Headache?denies.?Low back pain?denies.?Psychiatric:?Depressed mood?denies.? * Medical History:? * Surgical History:?foot surge ry, left Right knee partial medial meniscectomy 06/2014core biopsy. Right axillary lymph node 07/2017left posterior superior iliac crest bone marrow biopsy and aspirate 03/2018Partial Hysterectomy 06/14/2022hysterectomy completion 08/05/2022 * Hospitalization/Major Diagno stic Procedure:?Left axillary lymph node biopsy DIANE/BSO Sertoli-Leydig cell tumor of the ovary September 2022 * Family History:?Father: dece ased 79 yrs, Diverticulitis, sepsis, diagnosed with HTN, DM.?Mother: 69 yrs, breast cancer-49, cervical cancer-63, diagnosed with Cancer.?Son(s): alive.?Siblings: alive, Sister have bilateral breast cancer-51, diagnosed with Cancer.?Paternal Grand Mother: 38 yrs, diagnosed with Cancer.?Maternal aunt: , bilateral breast cancer-40, diagnosed with Cancer.?1 brother(s) , 2 sister(s) . 1 son(s) [...] at the age of 51. * Social History:?Tobacco Use:?Tobacco Use/Smoking?Patient is a?nonsmoker ?Additional Findings: Tobacco Non-User?Aggressive non-smoker ???She does not smoke or drink alcohol or use drugs. She was born in [place]. She is unemployed. She is single with one child, a son Wilbert and she has no grandchildren. She sees an electric shaver mechanic at [facility] endocrinology. She is perimenopausal. 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 * Medications:?TakingJardiance 10 MG Tablet 1 tablet Orally Once [...] reviewed and reconciled with the patient * Allergies:?LatexLisinoprilAd hesiveSurgical GlueTapeno[Allergies Verified] Objective: * Vitals:?Ht: 64 in, Wt: 189, BMI:32.44, BP: 143/78, HR: 79, Temp: 98.2, Wt-k.73. * ???Past Orders: Lab:Lipid Panel * Order Date 02/19/2024 08/03/2020 Triglycerides 85 (Ref Range: <150 mg/dL) 151 (Ref Range: mg/dL) Cholesterol 140 (Ref Range: <200 mg/dL) 159 (Ref Range: mg/dL) LDL Cholesterol Calculated 67 (Ref Range: <100 mg/dL) 79 (Ref Range: mg/dl) HDL Cholesterol 56 (Ref Range: >40 mg/dL) 50 (Ref Range: mg/dL) ???Lab:Comprehensive Villanueva. Panel Fast (Order Date - 02/19/2024) (Collection Date - 02/19/2024)?ValueReference Range?Xuxepu596491-715 - mmol/L ?Bilirubin Total0.50.0-1.0 - mg/dL?Aspartate Amino Dagtteatnun744- 31 - U/L?Alanine Lyycskvreulvihef70U7-81 - U/L?Total Protein8.1H 6.5-8.0 - g/dL?Albumin Level4.63.5-5.0 - g/dL?Alkaline Phosphatase 7439-117 - U/L?Potassium4.03.3-5.1 - mmol/L?Pswfywac00720-838 - mmol/L?Carbon Neantgw6180-83 - mmol/L?Anion Zds2096-10 - ?Blood Urea Xmqlnyvx905-65 - mg/dL?Creatinine0.640.5-1.4 - mg/dL ?Estimated Glomerular Filt Rate> 60-?Glucose Atbejzu834I61-42 - mg/dL?Calcium9.78.4-10.2 - mg/dL * Lab:Complete Blood Count Aut o Diff * Order Date 02/19/2024 10/21/2023 07/21/2023 White Blood Count 13.7?H (Ref Range: 4.8-10.8 X10*3/uL) 12.5?H (Ref Range: 4.8-10.8 X10*3/uL) 12.2?H (Ref Range: 4.8-10.8 X10*3/uL) Red Blood Count [...] (Ref Range: 160-400 X10*3/uL) Mean Platelet Volume 9.1?L (Ref Range: 9.4-12.3 fL) 9.0?L (Ref Range: 9.4-12.3 fL) 9.6 (Ref Range: 9.4-12.3 fL) Neutrophils Percent Auto 39.6?L (Ref Range: 45-73 %) 36.2?L (Ref Range: 45-73 %) 36.5?L (Ref Range: 45-73 %) Imm Gran Pct Auto 0.4 (Ref Range: 0.0-0.4 %) 0.2 (Ref Range: 0.0-0.4 %) 0.2 (Ref Range: 0.0-0.4 %) Lymphocytes Percent Auto 52.4?H (Ref Range: 20-40 %) 53.4?H (Ref Range: 20-40 %) 55.4?H (Ref Range: 20-40 %) Monocytes Percent Auto 5.0 (Ref Range: 2-11 %) 5.1 (Ref Range: 2-11 %) 5.2 (Ref Range: 2-11 %) Eosinophils Percent Auto 2.0 (Ref Range: 0-4 %) 4.6?H (Ref Range: 0-4 %) 2.0 (Ref Range: [...] Range: 2.0-8.3 x10*3/uL) Imm Gran Abs Auto 0.06?H (Ref Range: 0.00-0.03 X10*3/uL) 0.03 (Ref Range: 0.00-0.03 X10*3/uL) 0.03 (Ref Range: 0.00-0.03 X10*3/uL) Lymphocytes Absolute Auto 7.2?H (Ref Range: 1.2-4.9 X10*3/uL) 6.7?H (Ref Range: 1.2-4.9 X10*3/uL) 6.8?H (Ref Range: 1.2-4.9 X10*3/uL) Monocytes Absolute Auto 0.7 (Ref Range: 0.1-1.2 X10*3/uL) 0.6 (Ref Range: 0.1-1.2 X10*3/uL) 0.6 (Ref Range: 0.1-1.2 X10*3/uL) Eosinophils Absolute Auto 0.3 (Ref Range: 0.0-0.4 X10*3/uL) 0.6?H (Ref Range: 0.0-0.4 X10*3/uL) 0.2 (Ref Range: [...] 1.19 (Ref Range: 0.71-1.85 ng/dL) * Examination: ???General Examination: ?GENERAL APPEARANCE:?pleasant, well nourished, well developed, in no acute distress, calm and relaxed , obese , woman.?HEAD:?atraumatic, normocephalic.?EYES:?eomi, perrla, anicteric, conjugate.?EARS:?normal.?NOSE:?septum intact.?ORAL CAVITY:?normal, unremarkable.?NECK/THYROID:?no jugular venous distention, no carotid bruit, thyroid normal.?LYMPH NODES:?no enlarged lymph nodes,spleen normal.?SKIN:?no suspicious lesions, anicteric.?HEART:?no clicks, gallops, murmurs, or rubs, regular rhythm, S1, S2 normal, no s3, or vascular bruits.?LUNGS:?clear to auscultation .?BREASTS:??no masses palpable bilaterally.?ABDOMEN:?bowel sounds normal, no ascites, no organomegaly, no mass , centripital obesity.?RECTAL EXAM:?not examined.?MUSCULOSKELETAL:?extremities unremarkable, no clubbing, cyanosis or edema.?PERIPHERAL PULSES:?normal.?NEUROLOGIC:?alert and oriented, cranial nerves 2-12 grossly intact, deep tendon reflexes 2+ symmetrical, motor strength normal right upper and lower extremities, Left hemiplegia,?sensory exam intact.?PSYCH:?alert, oriented.? 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 She does not need treatment at this time. Observation was continued.?3.?Obesity (BMI 30.0-34.9) - E66.9, She says her weight has been stable. We reviewed her diet and nutrition and weight loss strategy.?4.?Diabetes - E11.9, Her fasting glucose is 105. No change in her medications indicated. I recommended aggressive weight loss.?5. Lymphocytosis - D72.820, Lymphocytosis is stable. There was no adenopathy or splenomegaly.? Plan: * Treatment: 2.?Lymphoma, small lymphocyt ic?LAB: PROFILE, FASTING (COMPREHENSIVE METABOLIC) ?LAB: LDH ?LAB: CBC w DIFF ?LAB: BETA-2 MICROGLOBULIN, SERUM ?LAB: Lipid Panel 3.?Obesity (BMI 30.0-34.9)?LAB: PROFILE, FASTING (COMPREHENSIVE METABOLIC) ?LAB: LDH ?LAB: CBC w DIFF ?LAB: BETA-2 MICROGLOBULIN, SERUM ?LAB: Lipid Panel 4.?Diabetes?LAB: PROFILE, FASTING (COMPREHENSIVE METABOLIC) ?LAB: LDH ?LAB: CBC w DIFF ?LAB: BETA-2 MICROGLOBULIN, SERUM ?LAB: Lipid Panel 5.?Lymphocytosis?LAB: PROFILE, FASTING (COMPREHENSIVE METABOLIC) ?LAB: LDH ?LAB: CBC w DIFF ?LAB: BETA-2 MICROGLOBULIN, SERUM ?LAB: Lipid Panel * Procedure Codes:? * Preventive Medicine:? ??Counseling:?Care goal follow-up plan:?Counseling for abnormal BMI given?Yes ?Above Normal BMI Follow-up?Dietary management education, guidance, and counseling, Dietary needs education ??DM Care Plan:?Patient Lifestyle Goals?Patient wants to be able to manage diabetes without too much effort.?Treatment Goals?Blood Sugars less than < 115, HbA1C < 7.0.?Barriers?no barriers.?Self-Managment Goals?Work on weight loss, with a goal of losing 1 lb per week.? * Follow Up:?4 Months (Reason: ov review labs) * Images: * Sign off status: Completed true * Provider:?Rahat Grimes MD Date:?02/08 Generated for Danette forrest/Jerri/eTransmitting on:?10/26/2024 08:51 AM EDT History and Physical Notes * HPI (History of Present Illness) Category Sub-Category Detail Notes COVID-19 Screening Questions Have you had any new onset fever, chills, cough, congestion, sore throat, shortness of breath, muscle aches?: No Have you been exposed to the virus withi n the last 10 days?: No Have you travelled internationally in [facility] last 10 days?: No Have [...]
--- OUTSIDE RECORDS SUMMARY | 2024-10-26 08:52 | XMS_ITS ---
Author Organization Rahat Grimes III, MD Address [address] [place] [address] Care Team Providers Care Ingredient Handler Name Role Phone Rowan Rosario MD Primary Care Provider Rahat Ruiz [phone] Allergies Allergen (clinical drug ingredient) Drug/Non Drug [...] Provider Diagnosis Rahat Grimes III, MD [address] [place] [address] [place] [address] 06/25/2024 Rahat Grimes Vitamin D deficiency E55.9 [...] Next Appt Details Follow Up: December, Reason: Hmea moore follow-up Provider Name:Rahat Grimes, 12/25/2024 10:30:00 AM, [address] [place] [address], [place] [address], [place], [address], Progress Notes * ABDIAS QUINTEROSB:1965 ([age] yo F)Acc No.[id number]:06/25/2024 Progress Notes Patient:?OSEI QUINTEROS Provider:?Rahat Grimes MD :1965???Age:58 Y???Sex:Female D ate:06/25/2024 Address:[address] [place] [address] [place], [address] Pcp:Rowan Rosario MD Subjective: * Chief Complaints: * ???Small lymphocytic lymphom aSertoli-Leydig cell tumor of the right over * HPI: ???COVID-19 Screening:?Questions?Have you had any new onset fever, chills, cough, congestion, sore throat, shortness of breath, muscle aches??No ???:? The patient, a 58-year-old female, reported feeling [...] bleeding. Blood Sugar Level is 109. * ROS:?General/Constitutional:?pain?only normal aches and pains.?Chills?denies.?Fatigue?admits.?Fever?denies.?Admits?Weight loss.?ENT:?Decreased hearing?denies.?Respiratory:?Cough?denies.?Cardiovascular:?Chest pain with exertion?denies.?Dyspnea on exertion?denies.?Shortness of breath?denies.?Gastrointestinal:?Constipation?occasional.?Decreased appetite?denies.?Diarrhea?denies.?Heartburn?denies.?Nausea?denies.?Rectal bleeding?denies.?Vomiting?denies.?Hematology:?bruising?denies.?petechiae?denies.?Swollen glands?none have been noted.?Genitourinary:?Frequent urination?denies.?Musculoskeletal:?Muscle aches?denies.?Painful joints?denies.?Sciatica?denies.?Weakness?in the left arm.?Skin:?Itching?denies.?Rash?denies.?Skin lesion(s)?denies.?Neurologic:?Difficulty speaking?denies.?Dizziness?denies.?Headache?denies.?Low back pain?denies.?Psychiatric:?Depressed mood?denies.? * Medical History:? * Surgical History:?foot surge ry, left Right knee partial medial meniscectomy 06/2014core biopsy. Right axillary lymph node 07/2017left posterior superior iliac crest bone marrow biopsy and aspirate 03/2018Partial Hysterectomy 06/14/2022hysterectomy completion 08/05/2022No history * Hospitalization/Major Diagno stic Procedure:?Left axillary lymph node biopsy DIANE/BSO Sertoli-Leydig cell tumor of the ovary September 2022No history * Family History:?Father: dece ased 79 yrs, Diverticulitis, sepsis, diagnosed with DM, HTN.?Mother: 69 yrs, breast cancer-49, cervical cancer-63, diagnosed with Cancer.?Son(s): alive.?Siblings: alive, diagnosed with Cancer.?Paternal Grand Mother: 38 yrs, diagnosed with Cancer.?Maternal aunt: alive, diagnosed with Cancer.?1 brother(s) , 2 sister(s) [...] or use drugs. She was born in [place]. She is unemployed. She is single with one child, a son Wilbert and she has no grandchildren. She sees an director teen post at [facility] endocrinology. She is perimenopausal. 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 * Medications:?TakingmetFORMIN HCl ER 500 MG Tablet Extended Release [...] Verified] Objective: * Vitals:?Ht: 64 in, Wt: 185, BMI:31.75, BP: 138/89, HR: 82, Temp: 97.6, Wt-k.91. * ???Past Orders: Lab:SLIDE REVIEW * Collection Date 06/17/2024 [...] Date 06/17/2024 02/19/2024 10/21/2023 White Blood Count 13.3?H (Ref Range: 4.8-10.8 X10*3/uL) 13.7?H (Ref Range: 4.8-10.8 X10*3/uL) 12.5?H (Ref Range: 4.8-10.8 X10*3/uL) Red Blood Count [...] Platelet Volume 9.1?L (Ref Range: 9.4-12.3 fL) 9.1?L (Ref Range: 9.4-12.3 fL) 9.0?L (Ref Range: 9.4-12.3 fL) Neutrophils Percent Auto 39.0?L (Ref Range: 45-73 %) 39.6?L (Ref Range: 45-73 %) 36.2?L (Ref Range: 45-73 %) Imm Gran Pct Auto 0.2 (Ref Range: 0.0-0.4 %) 0.4 (Ref Range: 0.0-0.4 %) 0.2 (Ref Range: 0.0-0.4 %) Lymphocytes Percent Auto 53.2?H (Ref Range: 20-40 %) 52.4?H (Ref Range: 20-40 %) 53.4?H (Ref Range: 20-40 %) Monocytes Percent Auto 5.4 (Ref Range: 2-11 %) 5.0 (Ref Range: 2-11 %) 5.1 (Ref Range: 2-11 %) Eosinophils Percent Auto 1.7 (Ref Range: 0-4 %) 2.0 (Ref Range: 0-4 %) 4.6?H (Ref Range: 0-4 %) Basophils Percent Auto [...] Abs Auto 0.03 (Ref Range: 0.00-0.03 X10*3/uL) 0.06?H (Ref Range: 0.00-0.03 X10*3/uL) 0.03 (Ref Range: 0.00-0.03 X10*3/uL) Lymphocytes Absolute Auto 7.1?H (Ref Range: 1.2-4.9 X10*3/uL) 7.2?H (Ref Range: 1.2-4.9 X10*3/uL) 6.7?H (Ref Range: 1.2-4.9 X10*3/uL) Monocytes Absolute Auto 0.7 (Ref Range: 0.1-1.2 X10*3/uL) 0.7 (Ref Range: 0.1-1.2 X10*3/uL) 0.6 (Ref Range: 0.1-1.2 X10*3/uL) Eosinophils Absolute Auto 0.2 (Ref Range: 0.0-0.4 X10*3/uL) 0.3 (Ref Range: 0.0-0.4 X10*3/uL) 0.6?H (Ref Range: 0.0-0.4 X10*3/uL) Basophils Absolute Auto 0.1 (Ref Range: 0.0-0.2 X10*3/uL) 0.1 (Ref Range: 0.0-0.2 X10*3/uL) 0.1 (Ref Range: 0.0-0.2 X10*3/uL) NRBC Abs Auto 0.000 (Ref Range: 0.0-0.012 X10*3/uL) 0.000 (Ref Range: 0.0-0.012 X10*3/uL) 0.000 (Ref Range: 0.0-0.012 X10*3/uL) * Lab:Linda Garrido. Isela l Fast * Collection Date 06/17/2024 02/19/2024 Collection Time 08:31 AM 09:16 AM Order Date 06/17/2024 02/19/2024 Sodium 138 (Ref Range: 135-145 mmol/L) 141 (Ref Range: 135-145 mmol/L) Bilirubin Total 0.4 (Ref Range: 0.0-1.0 mg/dL) 0.5 (Ref Range: 0.0-1.0 mg/dL) Aspartate Amino Transferase 24 (Ref Range: 5-31 U/L) 22 (Ref Range: 5-31 U/L) Alanine Aminotransferase 33?H (Ref Range: 0-31 U/L) 35?H (Ref Range: 0-31 U/L) Total Protein 7.8 (Ref Range: 6.5-8.0 g/dL) 8.1?H (Ref Range: 6.5-8.0 g/dL) Albumin Level 4.4 [...] Rate > 60 > 60 Glucose Fasting 109?H (Ref Range: 60-99 mg/dL) 105?H (Ref Range: 60-99 mg/dL) Calcium 9.6 (Ref [...] mg/dL) 50 (Ref Range: mg/dL) * Examination: ???General Examination: ?GENERAL APPEARANCE:?pleasant, well nourished, well developed, in no acute distress, calm and relaxed, obese, woman.?HEAD:?atraumatic, normocephalic.?EYES:?eomi, perrla, anicteric, conjugate.?EARS:?normal.?NOSE:?septum intact.?ORAL CAVITY:?normal, unremarkable.?NECK/THYROID:?no jugular venous distention, no carotid bruit, thyroid normal.?LYMPH NODES:?no enlarged lymph nodes,spleen normal.?SKIN:?no suspicious lesions, anicteric.?HEART:?no clicks, gallops, murmurs, or rubs, regular rhythm, S1, S2 normal, no s3, or vascular bruits.?LUNGS:?clear to auscultation .?BREASTS:??no masses palpable bilaterally.?ABDOMEN:?bowel sounds normal, no ascites, no organomegaly, no mass, centripital obesity.?RECTAL EXAM:?not examined.?MUSCULOSKELETAL:?extremities unremarkable, no clubbing, cyanosis or edema.?PERIPHERAL PULSES:?normal.?NEUROLOGIC:?alert and oriented, cranial nerves 2-12 grossly intact, deep tendon reflexes 2+ symmetrica right, 3+ leftl, motor strength normal right upper and lower extremities, sensory exam intact, Left hemiplegia.?PSYCH:?alert, oriented.? Assessment: * Assessment: 1.?Lymphoma, small lymphocyt ic - C83.00 (Primary)???Notes :She remains stable with no detectable disease other than leukocytosis.? No change in therapy was necessary.? She will be followed at regular interrvals.? She was given instructions on when she should call me or new developments.???2.?Vitamin D deficiency - E55.9???Notes :She has been compliant with her vitamin D suppleements.???3.?Lymphocytosis - D72.820???Notes :The white blood cell count is 13,300 primarily lymphocytes.? Her disease has been stable.???4.?Obesity (BMI 30.0-34.9) - E66.9???Notes :She says her weight has been stable. 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 There was no residual disease. She will be observed at this point.??? Plan: * Treatment: 2.?Vitamin D deficiency? Continue metFORMIN HCl ER Tablet Extended Release 24 Hour, 500 MG, 1 tablet with evening meal, Orally, Twice a day;?Continue Irbesartan Tablet, 75 MG, 1 tablet, Orally, Once a day;?Continue ZyrTEC Allergy Tablet, 10 MG, 1 tablet, Orally, Once a day;?Continue Vitamin D Tablet, 1000 UNIT, 1 tablet, Orally, Once a day;?Continue Levothyroxine Sodium Tablet, 88 MCG, 1 tablet on an empty stomach in the morning, Orally, Once a day;?Continue Tylenol Tablet, 325 MG, 2 tablets as needed, Orally, every 6 hrs;?Continue Simvastatin Tablet, 20 MG, 1 tablet in the evening, Orally, Once a day;?Continue Sertraline HCl Tablet, 50 MG, 1 tablet, Orally, Once a day;?Continue ALPRAZolam Tablet, 0.25 MG, 1 tablet, Orally, Twice a day;?Continue Docusate Sodium Capsule, 100 MG, Oral;?Continue Jardiance Tablet, 10 MG, 1 tablet, Orally, Once a day.?LAB: PROFILE, RANDOM (COMPREHENSIVE METABOLIC) ?LAB: LDH ?LAB: CBC w DIFF ?LAB: SED RATE (ESR) ?LAB: Beta-2 Microglobulin, Serum 3.?Lymphocytosis?LAB: PROFILE, RANDOM (COMPREHENSIVE METABOLIC) ?LAB: LDH ?LAB: CBC w DIFF ?LAB: SED RATE (ESR) ?LAB: Beta-2 Microglobulin, Serum * Procedure Codes:? * Preventive Medicine:? ??Counseling:?Care [...] or Other reason not done * Follow Up:?December (Reason: Rou oscar follow-up) * Images: * Sign off status: Completed true * Provider:?Rahat Grimes MD Date:?06/09 Generated for Mariellei lon/Jerri/Arsalansmitting on:?10/26/2024 08:51 AM EDT History and Physical [...]
== END 2024-10-26 08:49 | disposition home or self-care (01) ==
LOC: HO.MAMMO 08:48
PROVIDERS: PCP Internal Medicine; Visit Provider Internal Medicine
DX: Z12.31 Encounter for screening mammogram for malignant neoplasm of breast (principal)
CPT/HCPCS: 77063; 77067

== ENCOUNTER → 2024-10-26 09:00 | Outpatient (BNV) | payer OTHER, SELFPAY | PROVIDERS: PCP Internal Medicine; Visit Provider Internal Medicine | DX: Z12.31 Encounter for screening mammogram for malignant neoplasm of breast (principal) | CPT/HCPCS: 77063; 77067 ==

== ENCOUNTER 2024-12-17 08:06 | Outpatient (REF) | payer OTHER, SELFPAY ==
--- OUTSIDE RECORDS SUMMARY | 2024-12-17 08:13 | XMS_ITS ---
Author Organization Rahat Grimes III, MD Address [address] [place] [address] Care Team Providers Care Stationary Engineer Apprentice Name Role Phone Rowan Rosario MD Primary Care Provider Rahat Ruiz [phone] Allergies Allergen (clinical drug ingredient) Drug/Non Drug [...] Date Provider Diagnosis Rahat Grimes III, MD [address] [place] [address] [place] [address] 06/25/2024 Rahat Grimes Vitamin D deficiency E55.9 [...] Reason: Hema moore follow-up Provider Name:Rahat Grimes, 12/25/2024 10:30:00 AM, [address] [place] [address], [place] [address], [place], [address], Progress Notes * ABDIAS QUINTEROSB:1965 ([age] yo F)Acc No.[id number]:06/25/2024 Progress Notes Patient:?OSEI QUINTEROS Provider:?Rahat Grimes MD :1965???Age:58 Y???Sex:Female D ate:06/25/2024 Address:[address] [place] [address] [place], [place] [facility] Pcp:Rowan Rosario MD Subjective: * Chief [...] or use drugs. She was born in [place]. She is unemployed. She is single with one child, a son Wilbert and she has no grandchildren. She sees an woodworking machine offbearer at [facility] endocrinology. She is perimenopausal. 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 * Medications:?TakingmetFORMIN HCl ER 500 MG Tablet [...] Grimes MD Date:?06/09 Generated for Mariellei lon/Jerri/Arsalansmitting on:?12/17/2024 08:13 AM EDT History and Physical Notes * [...]
[2024-12-17 09:47] LABS: Basophils Absolute Auto 0.1 X10*3/uL (0.0-0.2); Basophils Percent Auto 0.4 % (0-2); Eosinophils Absolute Auto 0.2 X10*3/uL (0.0-0.4); Eosinophils Percent Auto 1.6 % (0-4); Hematocrit 40.5 % (37.0-47.0); Hemoglobin 13.3 g/dl (12.0-16.0); Imm Gran Abs Auto 0.04 X10*3/uL (0.00-0.03); Imm Gran Pct Auto 0.3 % (0.0-0.4); Lymphocytes Absolute Auto 6.5 X10*3/uL (1.2-4.9); Lymphocytes Percent Auto 56.3 % (20-40); MANUAL DIFF FLAG SCAN; Mean Corpuscular HGB Conc 32.8 g/dl (31.0-35.0); Mean Corpuscular Volume 91.4 fL (80.0-98.0); Mean Platelet Volume 9.1 fL (9.4-12.3); Monocytes Absolute Auto 0.5 X10*3/uL (0.1-1.2); Monocytes Percent Auto 4.4 % (2-11); Neutrophils Absolute Auto 4.3 x10*3/uL (2.0-8.3); Platelet Count 233 X10*3/uL (160-400); Red Blood Count 4.43 X10*6/uL (4.20-5.50); Red Cell Distribution Width 13.5 % (11.0-16.0); SCAN SMEAR FLAG 1; White Blood Count 11.5 X10*3/uL (4.8-10.8)
[2024-12-17 10:30] LABS: Alanine Aminotransferase 28 U/L (0-31); Albumin Level 4.3 g/dL (3.5-5.0); Alkaline Phosphatase 70 U/L (39-117); Anion Gap 13 (12-20); Aspartate Amino Transferase 22 U/L (5-31); Bilirubin Total 0.4 mg/dL (0.0-1.0); Blood Urea Nitrogen 11 mg/dL (9-16); Calcium 9.1 mg/dL (8.4-10.2); Carbon Dioxide 23 mmol/L (22-29); Chloride 109 mmol/L (96-108); Estimated Glomerular Filt Rate > 60; Glucose Random 97 mg/dL (60-115); Lactate Dehydrogenase 161 U/L (122-220); Potassium 3.8 mmol/L (3.3-5.1); Sodium 141 mmol/L (135-145); Total Protein 7.2 g/dL (6.5-8.0)
[2024-12-17 10:34] LABS: SLIDE REVIEW VERIFIED
[2024-12-17 10:42] LABS: Erythrocyte Sedimentation Rate 7 MM/HR (0-20)
[2024-12-18 07:09] LABS: Beta-2 Microglobulin, Serum 2.77 mg/L (< OR = 2.51)
== END 2024-12-17 08:07 | disposition home or self-care (01) ==
LOC: HO.LAB 08:06
PROVIDERS: PCP Internal Medicine Medical Oncology; Visit Provider Internal Medicine Medical Oncology
DX: E55.9 Vitamin D deficiency, unspecified (principal); C83.00 Small cell B-cell lymphoma, unspecified site; D72.820 Lymphocytosis (symptomatic)
CPT/HCPCS: 36415; 80053; 82232; 83615; 85025; 85652

== ENCOUNTER 2024-12-24 08:51 | Outpatient (AMB) | payer OTHER, SELFPAY ==
--- NOTE | 2024-12-24 08:53 | A.OFFVIS_ITS ---
Vital Signs 12/24/24 08:54 Height 5 ft 3 in Weight 184 lb BMI 32.6 BP 141/67 H Blood Pressure Location Lt radial Position Sitting Pulse 79 Intake Visit Reasons: 6 month follow up breast exam Intake Note: Patient is seen in office for 6 month follow up visit, breast exam. Pt c/o: no concerns. Denies lumps, rash, redness, nipple discharge. mm:10/26/24 MRI:04/15/24 Manager Of Sustainability Required: No Accompanied by: Jon boyfriend Allergies latex [LATEX] Allergy (Intermediate, Verified 12/24/24 09:06) REDNESS,RASH lisinopril Allergy (Unknown, Verified 12/24/24 09:06) difficulty urination Medication List - Last Reconciled 12/24/24 by Domenic Quevedo MD alprazolam 0.5 mg PO DAILY PRN 90 days Bifidobacterium infantis (Align (B.infantis)) 4 mg PO BEDTIME blood sugar diagnostic (FreeStyle Test strips) As directed check the BS QD cetirizine (Zyrtec) 10 mg PO DAILY cholecalciferol (vitamin D3) 25 mcg PO DAILY empagliflozin (Jardiance) 10 mg PO DAILY irbesartan 75 mg PO DAILY lancets (FreeStyle Lancets) As directed check the BS QD levothyroxine 88 mcg PO DAILY metformin 1,000 mg PO BIDWMEAL 90 days naproxen 500 mg PO Q12H PRN sertraline 50 mg PO DAILY 90 days simvastatin 40 mg PO BEDTIME HPI Comments Details: 59-year-old female previously evaluated by Dr. Bui and determined to be high risk due to her family history which includes her mother developed breast cancer at the age of 49, her sister who developed breast cancer at the age of 51, and a maternal aunt who developed breast cancer at the age of 40. Her lifetime breast cancer risk was calculated at 28% and she was placed on a high risk protocol including annual mammograms alternating every 6 months with annual breast MRIs. An abnormal cluster of microcalcifications was noted in the right breast close to the chest and could not be stereotactically biopsied. Enlarged lymph node was identified by ultrasound was biopsied on 08/01/2017 and determined to be lymphoma. She subsequently underwent a needle localized excisional biopsy to remove the microcalcifications on 09/28/2017. Pathology revealed benign breast tissue. She continues to be followed by Dr. Grimes for t he lymphoma with no treatment required. She underwent a laparoscopic bilateral salpingectomy and left oophorectomy at [facility] on 06/14/2022. 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 She subsequently underwent a right oophorectomy, omentectomy and peritoneal washings. She feels well and denies any new breast symptoms or palpable enlarged lymph nodes currently. Her latest mammogram on 10/26/2024 revealed no mammographic evidence of malignancy (BI-RADS 1). MRI of 04/15/2024 revealed no MR specific evidence of malignancy (BI-RADS 1 bilaterally). [facility] Medical History Anxiety and depression At high risk for breast cancer Thyroid nodule Medial meniscus tear Ear drum perforation Shoulder fracture, right Type 2 diabetes mellitus with hyperglycemia Obesity (BMI 30-39.9) Lymphoma Hypertension Hypothyroid Cerebral palsy Hypercholesterolemia Surgical History History of right breast biopsy (09/2017) History of lymph node biopsy (07/2017) History of meniscal tear History of Achilles tendon repair Family History Father Stroke Hypertension Diabetes CVD (cardiovascular disease) Mother Stroke Cervical cancer, Onset Age: 63 Breast cancer, Onset Age: 49 CVD (cardiovascular disease) Sister Breast cancer, Onset Age: 51 Substance abuse Bipolar disorder Mental health disorder Maternal Aunt Breast cancer, Onset Age: 40 Maternal Grandfather Throat cancer Social History Housing: Apartment Alcohol intake: current Alcohol intake frequency: holidays/special occasions only Comment: stopped 2021 Patient Tobacco Use Status: Never used Tobacco e-Cigarette/Vaping Use: Never Used Second Hand Smoke Exposure: No service: No Current occupational status: disabled Cognitive needs: Yes Hearing needs: No Vision needs: Yes Female Reproductive History Menstrual Age of Menarche: 14 Review of Systems Const Denies poor appetite and Denies weakness Eyes Denies no additional complaints ENT Reports Normal hearing present Card Denies chest pain, Denies syncope, Denies rapid heart rate and Denies dyspnea Resp Denies cough and Denies dyspnea GI Denies change in stool character, Reports constipation, Denies diarrhea, Denies nausea and Denies vomiting Denies urinary frequency, Denies difficulty voiding and Denies dysuria Neuro Reports Normal hearing present, Denies confusion, Denies syncope and Denies weakness Psych Denies confusion Physical Exam Const General: No confusion Nutritional Appearance: well nourished Orientation/consciousness: No confusion Limitations: wheelchair HEENT Head: Yes normocephalic and Yes atraumatic Ears: hearing grossly normal bilaterally Eyes Sclerae: sclerae normal EOM: EOMs intact bilaterally Chest Other: Left breast: No skin change, no nipple retraction, no nipple discharge, no palpable mass, no enlarged lymph nodes. Right breast: No skin change, no nipple retraction, no nipple discharge, no palpable mass, no enlarged lymph nodes Resp Effort & Inspection: normal respiratory effort, no audible wheezes and no cough Skin General skin exam: no rashes or lesions noted Neuro General: No confusion Cranial nerves: Yes Normal hearing present Extrem General: Yes no clubbing, cyanosis or edema Assessment & Plan Assessment & Plan (1) At high risk for breast cancer: Code(s): Z91.89 - Other specified personal risk factors, not elsewhere classified Category: Medical Plan 59-year-old female patient determined to be high risk for breast cancer recently identified. She has a history of lymphoma which is being followed by Dr. Grimes. 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 Her most recent mammogram of 10/26/2024 revealed no mammographic evidence of malignancy (BI-RADS 1). Her most recent breast MRI of 04/15/2024 revealed no MR evidence of malignancy (BI-RADS 1 bilaterally). Examination today revealed no suspicious findings in either breast and no palpable lymph nodes. She will follow-up in 6 months for routine breast examination, but is welcome to return sooner p.r.n.. Coding Level of Care Code Est Pt Level 3 (13548) Complex EM visit Add On G2211 Diagnoses At high risk for breast cancer Z91.89
[2024-12-24 08:54] VITALS: BP 141/67; PULSE 79; BMI 32.6
--- OUTSIDE RECORDS SUMMARY | 2024-12-24 09:21 | XMS_ITS ---
Author Organization Rahat Grimes III, MD Address [address] [place] [address] Care Team Providers Care Bordereau Clerk Name Role Phone Rowan Rosario MD Primary Care Provider Rahat Ruiz [phone] Allergies Allergen (clinical drug ingredient) Drug/Non Drug [...] Provider Diagnosis Rahat Grimes III, MD [address] [place] [address] [place] [address] 06/25/2024 Rahat Grimes Vitamin D deficiency E55.9 [...] follow-up Provider Name:Rahat Grimes, 12/25/2024 10:30:00 AM, [address] [place] [address], [address] [address], [place], [address], Progress Notes * ABDIAS QUINTEROSB:1965 ([age] yo F)Acc No.[id number]:06/25/2024 Progress Notes Patient:?OSEI QUINTEROS Provider:?Rahat Grimes MD :1965???Age:58 Y???Sex:Female D ate:06/25/2024 Address:[address] [place] [address] [place], [place] [facility] Pcp:Rowan Rosario MD Subjective: * [...] or use drugs. She was born in [place]. She is unemployed. She is single with one child, a son Wilbert and she has no grandchildren. She sees an wine maker at [facility] endocrinology. She is perimenopausal. 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 * Medications:?TakingmetFORMIN HCl ER 500 MG Tablet [...] Grimes MD Date:?06/09 Generated for Mariellei lon/Jerri/Arsalansmitting on:?12/24/2024 09:20 AM EDT History and Physical Notes * [...]
== END 2024-12-24 09:20 | disposition home or self-care (01) ==
LOC: HO.HGS 08:52
PROVIDERS: PCP Internal Medicine; Visit Provider Surgery
DX: Z91.89 Other specified personal risk factors, not elsewhere classified (principal)
CPT/HCPCS: 99213; G2211

== ENCOUNTER → 2024-12-24 08:51 | Outpatient (BNVA) | payer OTHER, SELFPAY | PROVIDERS: PCP Internal Medicine; Visit Provider Surgery | DX: C56.9 Malignant neoplasm of unspecified ovary (principal); Z91.89 Other specified personal risk factors, not elsewhere classified | CPT/HCPCS: 99212 ==

== ENCOUNTER 2025-01-02 15:38 | Outpatient (AMB) | payer OTHER, SELFPAY ==
--- OUTSIDE RECORDS SUMMARY | 2024-06-25 06:45 | XMS_ITS ---
Author Organization Rahat Grimes III, MD Address [address] [address] Care Team Providers Care Blanket Winder Operator Name Role Phone Rowan Rosario MD Primary Care Provider Rahat Ruiz [phone] Allergies Allergen (clinical drug ingredient) Drug/Non Drug [...] Provider Diagnosis Rahat Grimes III, MD [address] [place] [address] [place] [address] 06/25/2024 Rahat Grimes Vitamin D deficiency E55.9 [...] December, Reason: Hema moore follow-up Provider Name:Rahat Griems, 06/26/2025 10:30:00 AM, [address] [place] [address], [address], [address], Progress Notes * ABDIAS QUINTEROSB:1965 ([age] yo F)Acc No.[id number]:06/25/2024 Progress Notes Patient: OSEI CUMMINS Provider: Suly Grimes MD :1965 A ge:58 Y S ex:Female Date:06/25/2024 Address:[address] [place] [address], [facility] Pcp:Rowan Rosario MD Subjective: * Chief Complaints: [...] or use drugs. She was born in [place]. She is unemployed. She is single with one child, a son Wilbert and she has no grandchildren. She sees an assistant service manager at [facility] endocrinology. She is perimenopausal. She has a rounder hand. * Medications: T akingmetFORMIN HCl ER 500 [...] 08/26/2023 Generated for Printi ng/Faalg/eTransmitting on: 0 01/02/2025 07:19 PM EDT History and Physical Notes * [...]
[2025-01-02 15:43] VITALS: BP 114/86; PULSE 78; O2SAT 97; BMI 31.9
--- NOTE | 2025-01-02 15:43 | A.OFFPC_ITS ---
Vital Signs 01/02/25 15:43 Height 5 ft 3 in Weight 180 lb BMI 31.9 BP 114/86 Blood Pressure Location Lt brachial Position Sitting Pulse 78 Pulse Source Pulse Oximeter Pulse Oximetry (%) 97 Oxygen Delivery Method Room Air Intake Visit Reasons: DM- A1C needed Utility Specialist Required: No Accompanied by: Self / Same As Patient Allergies latex (LATEX) Allergy (Intermediate, Verified 01/02/25 15:44) REDNESS,RASH lisinopril Allergy (Unknown, Verified 01/02/25 15:44) difficulty urination Tobacco use date assessed: 01/02/25 Dental Screening Dental Screen Date: 01/02/25 Did you have a dental visit in the last 12 months?: Yes Did you have a dental problem in the last 6 months where you did not have access to dental care?: No Was dental information given to patient?: Patient has dentist HPI DM- A1C needed HPI Details seeing Q year gynecology Dr. Etienne . [facility] Medical History Anxiety and depression At high risk for breast cancer Thyroid nodule Medial meniscus tear Ear drum perforation Shoulder fracture, right Type 2 diabetes mellitus with hyperglycemia Obesity (BMI 30-39.9) Lymphoma Hypertension Hypothyroid Cerebral palsy Hypercholesterolemia Surgical History History of right breast biopsy (09/2017) History of lymph node biopsy (07/2017) History of meniscal tear History of Achilles tendon repair Family History Father Stroke Hypertension Diabetes CVD (cardiovascular disease) Mother Stroke Cervical cancer, Onset Age: 63 Breast cancer, Onset Age: 49 CVD (cardiovascular disease) Sister Breast cancer, Onset Age: 51 Substance abuse Bipolar disorder Mental health disorder Maternal Aunt Breast cancer, Onset Age: 40 Maternal Grandfather Throat cancer Social History Housing: Apartment Alcohol intake: current Alcohol intake frequency: holidays/special occasions only Comment: stopped 2021 Patient Tobacco Use Status: Never used Tobacco e-Cigarette/Vaping Use: Never Used Second Hand Smoke Exposure: No service: No Current occupational status: disabled Cognitive needs: Yes Hearing needs: No Vision needs: Yes Female Reproductive History Menstrual Age of Menarche: 14 Questionnaire PHQ-9 Over the last 2 weeks, how often have you been bothered by any of the following problems? 1. Little interest or pleasure in doing things: more than half the days 2. Feeling down, depressed, or hopeless: several days 3. Trouble falling or staying asleep, or sleeping too much: several days 4. Feeling tired or having little energy: several days 5. Poor appetite or overeating: not at all 6. Feeling bad about yourself - or that you are a failure or have let yourself or your family down: not at all 7. Trouble concentrating on things, such as reading the newspaper or watching television: not at all 8. Moving or speaking so slowly that other people could have noticed. Or the opposite - being so fidgety or restless that you have been moving around a lot more than usual: not at all 9. Thoughts that you would be better off or of hurting yourself in some way: not at all Total score: 5 Source: Developed by Drs. Rahat Otero, Karrie Chahal, Filemon Dos Santos and colleagues, with an educational shaq from [employer]. Thrive Questionnaire Date Thrive assessed: 01/02/25 I am a: Patient What is your living situation today?: I have a place to live, but I am worried about losing it in the future Within the past 12 months, did the food you bought not last and you didn't have the money to get more?: I choose not to answer this question Within the past 12 months, did you worry whether your food would run out before you got money to buy more?: I choose not to answer this question Do you have trouble paying for medicines?: No Do you have trouble getting transportation to medical appointments?: I choose not to answer this question Do you have trouble paying your heating and electricity bill?: No Do you have trouble taking care of your child, family member or friend?: No Do you have trouble with day-to-day activities such as bathing, preparing meals, shopping, managing finances, etc.?: No Are you currently unemployed and looking for a job?: No Are you interested in more education?: No Please select the resources that you would like help with: Housing/Long Term Currently or been in a relationship where the following occur: I choose not to answer THRIVE Score: 1 AUDIT C Alcohol Use Questionnaire (AUDIT-C) 1. How often do you have a drink containing alcohol?: Never 3. How often do you have six or more drinks on one occasion?: Never Total Score: 0 DAGOBERTO-7 AMB Questionnaire DAGOBERTO-7 Date DAGOBERTO - 7 assessed: 01/02/25 Feeling nervous, anxious, or on edge: 3 = Nearly every day Not being able to stop or control worryin = Nearly every day Worrying too much about different things: 3 = Nearly every day Trouble relaxin = Nearly every day Being so restless that it is hard to sit still: 0 = Not at all Becoming easily annoyed or irritable: 3 = Nearly every day Feeling afraid as if something awful might happen: 1 = Several days Total DAGOBERTO-7 score (0-4 normal; 5-9 mild; 10-14 moderate; 15-21 severe): 16 Source: Developed by Drs. Rahat Otero, Karrie Chahal, Filemon Dos Santos and colleagues, with an educational shaq from [employer]. Physical exam (Primary Care) Vital Signs: Last Vital Signs Pulse 78 01/02/25 15:43 BP 114/86 01/02/25 15:43 Pulse Ox 97 01/02/25 15:43 Oxygen Delivery Method Room Air 01/02/25 15:43 BMI result Body Mass Index 31.9 Tobacco/Smoking Status: Tobacco use Status Tobacco use date assessed 01/02/25 01/02/25 15:45 Patient Tobacco Use Status Never used Tobacco 01/02/25 15:45 e-Cigarette/Vaping Use Never Used 01/02/25 15:45 PHQ-9: PHQ-9 Score PHQ-9: Total score 5 01/02/25 16:30 Thrive Assessment: Date of Thrive Assessment Date Thrive assessed 01/02/25 01/02/25 15:45 Currently or been in a relationship where the following occur: I choose not to answer Const General: alert; No acute distress Eyes Conjunctivae: conjunctivae normal Resp Auscultation: clear to auscultation bilaterally Cardio Rate: regular rate Rhythm: regular rhythm GI Inspection: Yes normal to inspection Extrem General: Yes normal to inspection and No edema Results AMB Hemoglobin A1c AMB Hemoglobin A1c 6.4 % Last Edit by TRAVIS Bacon on 01/02/25 16 :03 Results Reviewed Results Reviewed: Laboratory Last Values Hgb A1c (Clinic) 6.4 % (4.0-6.0) H 01/02/25 15:46 Coding Level of Care Code Est Pt Level 4 (69169) Complex EM visit Add On G2211 Diagnoses Type 2 diabetes mellitus with hyperglycemia, without long-term current use of insulin E11.65 Diabetes mellitus retirement insulin use: without retirement use Obesity (BMI 30-39.9) E66.9 Acquired hypothyroidism E03.9 Hypothyroidism type: acquired Essential hypertension I10 Hypertension type: essential hypertension Hypercholesterolemia E78.00 Generalized anxiety disorder F41.1 Lymphoma C85.90 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 in hemoglobin A1c goal of less than 6.5 patient is on Jardiance 10 mg once a day metformin a 1000 mg twice a day (2) Obesity (BMI 30-39.9): Code(s): E66.9 - Obesity, unspecified Category: Medical Plan: Diet and exercise (3) Hypothyroid: Code(s): E03.9 - Hypothyroidism, unspecified Category: Medical Qualifiers: Hypothyroidism type: acquired Qualified Code(s): E03.9 - Hypothyroidism, unspecified Plan: Continue with thyroid medication (4) Hypertension: Code(s): I10 - Essential (primary) hypertension Category: Medical Qualifiers: Hypertension type: essential hypertension Qualified Code(s): I10 - Essential (primary) hypertension Plan: Continue with blood pressure medication. Decrease salt intake and exercise patient is on irbesartan 75 mg once a day (5) Hypercholesterolemia: Code(s): E78.00 - Pure hypercholesterolemia, unspecified Category: Medical Plan: Avoid fried foods, chicken skin, eggs, butter margarine, pastries and meat. Be it pork or beef they have a lot of cholesterol LDL goal of less than 100 and triglyceride of less than 150 on simvastatin 40 mg once a day (6) Generalized anxiety disorder: Comment: [facility] ended 2019 decline any more referral therapy Code(s): F41.1 - Generalized anxiety disorder Category: Medical Plan: Continue with present medication (7) Lymphoma: Comment: small lymphocytic , chronic lymphocytic Dr. Grimes 08/2017 Code(s): C85.90 - Non-Hodgkin lymphoma, unspecified, unspecified site Category: Medical Plan: Patient follows up with Hematology-Oncology stable (8) Sertoli-Leydig cell tumor of ovary: Comment: JuneET CT Janelle Frank M.D. August 05, 2022 Robotic assisted laparoscopic total hysterectomy removal of remaining ovary omentectomy, peritoneal biopsies possible midline laparotomy. Q 6 months x 2 years then yearly stage Ia Code(s): D27.9 - Benign neoplasm of unspecified ovary Category: Medical Plan: Patient follows up with Hematology-Oncology on surveillance Plan History of Present Illness The patient is a 59-year-old female presenting for follow-up care and management of chronic conditions. The patient has a history of diabetes mellitus, which is currently controlled with a Hemoglobin A1c of 6.4%. She is on a regimen of Jardiance 10 mg once daily and Metformin 1000 mg twice daily, along with diet and exercise modifications. The patient also has hypertension, managed with ibuprofen 75 mg once daily. Her blood pressure management plan includes regular monitoring and medication adherence. Hypercholesterolemia is another chronic condition, with an LDL goal of less than 100 mg/dL and triglycerides less than 151 mg/dL. She is currently on Simvastatin 40 mg once daily. The patient has a history of a Sertoli-Leydig cell tumor of the ovary, diagnosed in 2021, and has undergone a total abdominal hysterectomy with bilateral salpingo-oophorectomy. She continues to be followed by hematology oncology for surveillance. The patient has a history of small lymphocytic lymphoma, with no detectable disease other than mild leukocytosis. She remains under observation with regular follow-ups. Health Maintenance - Colon cancer screening with stool test last performed in February 2022 - Mammogram follow-up with general surgeon - Regular follow-up with hematology oncology Social History Review of Systems Physical Exam Results - Labs: Hemoglobin A1c 6.4%, mild leukocytosis, normal electrolytes, good renal function, normal liver function, LDL 79 mg/dL Plan The management plan for diabetes mellitus includes maintaining a Hemoglobin A1c goal of less than 6.5% with the current regimen of Jardiance and Metformin, along with diet and exercise. Hypertension management involves continued use of ibuprofen and regular monitoring of blood pressure. For hypercholesterolemia, the patient is advised to continue Simvastatin with a target LDL of less than 100 mg/dL and triglycerides less than 151 mg/dL. The patient will continue regular follow-ups with hematology oncology for surveillance of lymphoma and post-surgical monitoring of the Sertoli-Leydig cell tumor. Patient was informed and verbally consented to the use of an ambient scribe for clinic note documentation during this visit. Discussion Notes Patient Instructions Orders: Orders AMB Hemoglobin A1c Today Z13.9 - Encounter for screening, unspecified Medications: Changed From sertraline 50 mg PO DAILY 90 days 90 tabs 2RF To sertraline 100 mg PO DAILY 90 tabs 2RF 90 days Refilled levothyroxine 88 mcg PO DAILY 90 tabs 2RF E03.9 - Hypothyroidism, unspecified alprazolam 0.5 mg PO DAILY PRN 90 tabs 0RF anxiety 90 days F32.9 - Major depressive disorder, single episode, unspecified, F41.9 - Anxiety disorder, unspecified
== END 2025-01-02 16:58 | disposition home or self-care (01) ==
LOC: HO.HMCH 15:38
PROVIDERS: PCP Internal Medicine; Visit Provider Internal Medicine
DX: E11.65 Type 2 diabetes mellitus with hyperglycemia (principal); E66.9 Obesity, unspecified; C85.90 Non-Hodgkin lymphoma, unspecified, unspecified site; Z68.31 Body mass index [BMI] 31.0-31.9, adult; E03.9 Hypothyroidism, unspecified; I10 Essential (primary) hypertension; E78.00 Pure hypercholesterolemia, unspecified; F41.1 Generalized anxiety disorder; D27.9 Benign neoplasm of unspecified ovary

== ENCOUNTER → 2025-01-02 15:38 | Outpatient (BNVA) | payer OTHER, SELFPAY | PROVIDERS: PCP Internal Medicine; Visit Provider Internal Medicine | DX: E11.65 Type 2 diabetes mellitus with hyperglycemia (principal); E66.9 Obesity, unspecified; E03.9 Hypothyroidism, unspecified; I10 Essential (primary) hypertension; E78.00 Pure hypercholesterolemia, unspecified; F41.1 Generalized anxiety disorder; C85.90 Non-Hodgkin lymphoma, unspecified, unspecified site; D27.9 Benign neoplasm of unspecified ovary; Z68.31 Body mass index [BMI] 31.0-31.9, adult; Z79.84 Long term (current) use of oral hypoglycemic drugs; Z79.899 Other long term (current) drug therapy | CPT/HCPCS: 83036; 99212 ==

== ENCOUNTER 2025-01-08 00:21 | Inpatient (IN) | payer OTHER, SELFPAY ==
[2025-01-08] VITALS (18 sets, daily range): BP systolic 142–170; BP diastolic 69–110; PULSE 80–97; RESP 10–20; TEMP 36.1–37.3; O2SAT 91–97; BMI 30.9
--- NOTE | ~2025-01-08 | CT_ITS ---
CLINICAL HISTORY: R flank pain CT abdomen and pelvis without contrast Comparison: None Findings: No consolidation or effusion. The liver is enlarged. The liver appears normal in contour. The gallbladder and solid organs are otherwise within normal limits. There are nonobstructing bilateral renal calculi. Vague 5.5 mm calcification identified at the right ureterovesicular junction which may represent a single obstructing calculus or multiple adjacent obstructing calculi. There is mild right hydroureter with [id number] right hydronephrosis. A 3 mm calculus is visualized at the left ureterovesicular junction. There is mild left hydroureter with minimal left hydronephrosis. No bowel obstruction, pneumoperitoneum, or pneumatosis. There is colonic diverticulosis without convincing CT evidence for acute diverticulitis. The uterus is surgically absent. There appears to be asymmetric right-sided bladder wall thickening. Tiny, fat containing right inguinal hernia. Normal appendix. No acute fracture. Vacuum disc phenomenon present at L4-L5 and L5-S1. IMPRESSION: Vague calcification measuring 5.5 mm in diameter present at the right ureterovesicular junction which may represent a single obstructing calculus or multiple smaller adjacent obstructing calculi. There is mild right hydroureter with [id number] right hydronephrosis. 3 mm obstructing calculus present at the left ureterovesicular junction with mild left hydroureter and minimal left hydronephrosis. Nonobstructing bilateral renal calculi present. Asymmetric right-sided bladder wall thickening, possibly related to cystitis. There appears to be adjacent edema. Recommend follow-up after appropriate clinical therapy to exclude a subtle underlying tumor. Colonic diverticulosis. No CT evidence for acute diverticulitis. Hepatomegaly. This document has been electronically signed by: Chris Cohen MD on 01/08/2025 03:34:50
--- NOTE | ~2025-01-08 | FL_ITS ---
EXAMINATION: FL GUIDANCE ONLY HISTORY: left ureteral stone COMPARISON: Correlation is made with an unenhanced CT of the abdomen and pelvis dated 01/08/2025. TECHNIQUE: Fluoroscopy time: 11.4 seconds. Cumulative Dose: 2.57 mGy. Images: 3. FINDINGS: Fluoroscopic spot films demonstrate placement of bilateral nephroureteral stents. FL/FL guidance in OR IMPRESSION: Fluoroscopy during procedure. Please see procedure report for additional information. Electronically signed by: Rahat Green MD 01/08/2025 03:46 PM EDT
[2025-01-08 01:23] LABS: Hematocrit 41.0 % (37.0-47.0); Hemoglobin 14.2 g/dl (12.0-16.0); Imm Gran Abs Auto 0.06 X10*3/uL (0.00-0.03); Imm Gran Pct Auto 0.3 % (0.0-0.4); MANUAL DIFF FLAG SCAN; Mean Corpuscular HGB Conc 34.6 g/dl (31.0-35.0); Mean Corpuscular Hemoglobin 30.3 pg (27.0-33.0); Mean Corpuscular Volume 87.4 fL (80.0-98.0); NRBC Abs Auto 0.000 X10*3/uL (0.0-0.012); NRBC Pct Auto 0.0 /100WBC (0.0-0.2); Platelet Count 237 X10*3/uL (160-400); Red Blood Count 4.69 X10*6/uL (4.20-5.50); SCAN SMEAR FLAG 1; White Blood Count 19.5 X10*3/uL (4.8-10.8)
[2025-01-08 01:25] LABS: Appearance Urine Clear; Glucose Urine UA >=1000 mg/dL (Negative); PH 5.5 (5.0-9.0); Specific Gravity - Urine 1.010 (1.005-1.025); UMIC TRIGGER UACC YES
--- NOTE | 2025-01-08 01:26 | ECG_ITS ---
Test Reason : ABDOMINAL PAIN Blood Pressure : */* mmHG Vent. Rate : 88 BPM Atrial Rate : 88 BPM P-R Int : 168 ms QRS Dur : 88 ms QT Int : 364 ms P-R-T Axes : 14 -8 13 degrees QTcB Int : 440 ms Normal sinus rhythm Normal ECG No previous ECGs available Referred By: Jo Grant Electronically Signed By: JENI DAS MD
[2025-01-08 01:28] LABS: UACC Culture Trigger YES
--- NOTE | 2025-01-08 01:39 | ED.ABDPAIN ---
HPI - Abdominal Pain General Chief Complaint: Abdominal Pain Stated Complaint: ABDOMINAL PAIN Time Seen by Provider: 01/08/25 01:24 Source: patient, EMS and old records reviewed Mode of arrival: EMS Limitations: no limitations History of Present Illness ED Provider: ERROL VALENZUELA narrative: 59 yo female with PMH of HTN, HLD, hypothyroidism, DM, prior ovarian cancer about 2 years ago treated with surgery, Non-hodgkins lymphoma being monitored by Dr. Grimes - no current therapy who comes in with c/o lower abdominal pain and dysuria this afternoon with associated nausea but no vomiting, diarrhea, no fevers. Tonight the pain worsened with R flank pain. She has never had this before and has no hx of stones. She has not had a fever. Pain is abrupt and constant. She is declining pain medications on arrival MD elicited complaint: abdominal pain and flank pain Pertinent past history: none Onset (ago): day(s) (1) Pain Consistency: constant Location: R flank and suprapubic Severity: moderate Quality: aching Radiation: none Migration to: R flank Exacerbating factors: nothing Relieving factors: nothing Associated symptoms: denies other symptoms Related Data Home Medications ?Medication ?Instructions ?Recorded ?Confirmed cetirizine 10 mg tablet (Zyrtec) 10 mg PO DAILY 04/24/20 12/24/24 cholecalciferol (vitamin D3) 25 25 mcg PO DAILY 04/24/20 12/24/24 mcg (1,000 unit) capsule Bifidobacterium infantis 4 mg 4 mg PO BEDTIME 02/26/24 12/24/24 capsule (Align (B.infantis)) Previous Rx's ?Medication ?Instructions ?Recorded lancets 28 gauge (FreeStyle #100 ea 12/24/21 Lancets) empagliflozin 10 mg tablet 10 mg PO DAILY #90 tabs 02/26/24 (Jardiance) simvastatin 40 mg tablet 40 mg PO BEDTIME #90 tabs 05/01/24 naproxen 500 mg tablet 500 mg PO Q12H PRN pain (scale 06/05/24 score 1-3) #20 tabs metformin 1,000 mg tablet 1,000 mg PO BIDWMEAL 90 days #180 06/07/24 tabs blood sugar diagnostic (FreeStyle #100 ea 07/08/24 Test strips) irbesartan 75 mg tablet 75 mg PO DAILY #90 tabs 10/12/24 alprazolam 0.5 mg tablet 0.5 mg PO DAILY PRN anxiety 90 01/02/25 days #90 tabs levothyroxine 88 mcg tablet 88 mcg PO DAILY #90 tabs 01/02/25 sertraline 100 mg tablet 100 mg PO DAILY 90 days #90 tabs 01/02/25 Allergies Allergy/AdvReac Type Severity Reaction Status Date / Time latex (LATEX) Allergy Intermediate REDNESS,JENNY Verified 01/08/25 00:37 H lisinopril Allergy Unknown difficulty Verified 01/08/25 00:37 urination Review of Systems Review of Systems Constitutional : No Weight loss, No Fever, No Chills ENT/Mouth : No sore throat, No Rhinorrhea Eyes: No Swelling, No Redness Cardiovascular : No Chest Pain, No SOB, NoEdema Respiratory : No Cough, No Sputum, No Wheezing Gastrointestinal : Positive Nausea, no Vomiting, no Diarrhea, positive abdominal Pain, No Hematochezia, No Melena Genitourinary : pos Dysuria, pos Urinary Frequency, No Hematuria, No Urgency Musculoskeletal : No joint pain, No Myalgias, No Joint Swelling Skin : No Skin Lesions, No rash Neuro : No Weakness, No Numbness, No Dizziness, No Headache All other systems reviewed and are negative. [facility] Past Medical History Attestation statement: The following information was validated with the patient. Source: old records reviewed Medical History Anxiety and depression At high risk for breast cancer Thyroid nodule Medial meniscus tear Ear drum perforation Shoulder fracture, right Type 2 diabetes mellitus with hyperglycemia Obesity (BMI 30-39.9) Lymphoma Hypertension Hypothyroid Cerebral palsy Hypercholesterolemia Surgical History History of right breast biopsy (09/2017) History of lymph node biopsy (07/2017) History of meniscal tear History of Achilles tendon repair Family History Family History Father Stroke Hypertension Diabetes CVD (cardiovascular disease) Mother Stroke Cervical cancer, Onset Age: 63 Breast cancer, Onset Age: 49 CVD (cardiovascular disease) Sister Breast cancer, Onset Age: 51 Substance abuse Bipolar disorder Mental health disorder Maternal Aunt Breast cancer, Onset Age: 40 Maternal Grandfather Throat cancer Social History Social History Housing: Apartment Alcohol intake: current Alcohol intake frequency: holidays/special occasions only Comment: stopped 2021 Patient Tobacco Use Status: Never used Tobacco Smoked in Last 30 Days: Yes e-Cigarette/Vaping Use: Never Used Second Hand Smoke Exposure: No Use of substances other than those prescribed or required for medical reasons: No Advance Directives: No Advance Directives Information Provided: Yes Patient : No service: No Current occupational status: disabled Cognitive needs: Yes Hearing needs: No Vision needs: Yes Physical Exam ED Vital Signs: Vital Signs - 24 hr 01/08/25 00:33 01/08/25 03:30 01/08/25 05:20 Temperature 98.4 F 98.2 F 99.1 F Pulse Rate 85 93 94 Respiratory Rate 15 13 15 Blood Pressure 155/78 H 158/93 H 156/83 H Pulse Oximetry 93 96 95 Oxygen Delivery Method Room Air Room Air Room Air BMI result Body Mass Index 30.9 Appearance: Alert. Oriented X3. No acute distress. Eyes: Pupils equal, round and reactive to light. ENT: Pharynx normal. Neck: Normal inspection. Neck supple. CVS: Normal heart rate and rhythm. Pulses normal. Respiratory: No respiratory distress. Breath sounds normal. Abdomen: Soft and ttp on R flank/CVA Skin: Skin warm and dry. pale skin color. Normal skin turgor. Extremities: No lower extremity edema. Neuro: Oriented X 3. No motor deficit. No sensory deficit. CN2-12 intact Course Course Course Narrative: one time dose of IV abx given WBC count and bladder edema infection suspected 339am Medical Decision Making Medical Decision Making MDM Narrative: 59 yo female with PMH of HTN, HLD, hypothyroidism, DM, prior ovarian cancer about 2 years ago treated with surgery, Non-hodgkins lymphoma being monitored now here with urinary symptoms and R flank/suprapubic pain at this time based off symptoms will obtain labs, EKG given age and abd pain, UA, CT scan for renal colic. I offered pain medications but she declined. Abd is not distended and no pulsatile mass to suggest AAA. Differential Diagnosis Differential Diagnoses: The differential diagnosis associated with the presentation includes renal colic, constipation, bowel pathology Admission/Observation Consideration of admission/observation: Escalation of care including admission/observation considered admit Consult Healthcare Provider Management of the patient was discussed with: Hospitalist (will admit) and Knowledge Manager (Ming WELDON, possible stents) Lab Data MDM Lab Attestation statement: I reviewed the patient's lab results. 01/08/25 01:14 01/08/25 01:14 Labs: Lab Results 01/08/25 01/08/25 Range/Units 01:14 04:13 WBC 19.5 H (4.8-10.8) X10*3/uL RBC 4.69 (4.20-5.50) X10*6/uL Hgb 14.2 (12.0-16.0) g/dl Hct 41.0 (37.0-47.0) % MCV 87.4 (80.0-98.0) fL MCH 30.3 (27.0-33.0) pg MCHC 34.6 (31.0-35.0) g/dl RDW 13.4 (11.0-16.0) % Plt Count 237 (160-400) X10*3/uL MPV 8.7 L (9.4-12.3) fL Immature Gran % (Auto) 0.3 (0.0-0.4) % Neut % (Auto) 64.7 (45-73) % Lymph % (Auto) 30.8 (20-40) % [place] % (Auto) 3.9 (2-11) % Eos % (Auto) 0.1 (0-4) % Baso % (Auto) 0.2 (0-2) % Lymph # (Auto) 6.0 H (1.2-4.9) X10*3/uL [place] # (Auto) 0.8 (0.1-1.2) X10*3/uL Eos # (Auto) 0.0 (0.0-0.4) X10*3/uL Baso # (Auto) 0.0 (0.0-0.2) X10*3/uL Abs Immat Gran (auto) 0.06 H (0.00-0.03) X10*3/uL Absolute Neuts (auto) 12.6 H (2.0-8.3) x10*3/uL Absolute Nucleated RBC 0.000 (0.0-0.012) X10*3/uL Nucleated RBC % (auto) 0.0 (0.0-0.2) /100WBC Smear Tech's Comments VERIFIED Sodium 138 (135-145) mmol/L Potassium 3.9 (3.3-5.1) mmol/L Chloride 105 (96-108) mmol/L Carbon Dioxide 20 L (22-29) mmol/L Anion Gap 17 (12-20) BUN 12 (9-16) mg/dL Creatinine 0.63 (0.5-1.4) mg/dL Estim Creat Clear Calc 101.8 Estimated GFR > 60 Random Glucose 173 H (60-115) mg/dL Lactic Acid 2.4 H* (0.5-2.0) mmol/L Calcium 9.6 (8.4-10.2) mg/dL Total Bilirubin 0.5 (0.0-1.0) mg/dL AST 25 (5-31) U/L ALT 33 H (0-31) U/L Alkaline Phosphatase 73 (39-117) U/L Total Protein 7.6 (6.5-8.0) g/dL Albumin 4.7 (3.5-5.0) g/dL Lipase 15 (8-78) U/L Urine Color Yellow Urine Appearance Clear Urine pH 5.5 (5.0-9.0) Ur Specific [place] 1.010 (1.005-1.025) Urine Protein 30 (1+) H (Neg-Trace) mg/dL Urine Glucose (UA) >=1000 H (Negative) mg/dL Urine Ketones Trace (Negative) mg/dL Urine Blood Large (3+) H (Negative) Urine Nitrite Negative (Negative) Ur Leukocyte Esterase Small (1+) H (Negative) Urine RBC >20 H (0-2) /HPF Urine WBC 21-50 H (0-5) /HPF Ur Squamous Epith Cells 0-2 (0-2) /HPF Urine Bacteria None Seen (None Seen) Hyaline Casts 0-2 (0-2) /LPF Independent Interpretation I performed an independent interpretation of an: EKG and CT Scan (ureterolithiasis with obstruction) Interpretation: Rate: 88 Rhythm: NSR [place]: left Normal P waves. Normal FRANCISCO. Normal QRS complex. ST T wave : no STEFANIE, normal qTC: 440 prior studies: no acute ischemia The study has been interpreted contemporaneously by me. . Radiology Impression Discussion of test interpretation with radiology: I have reviewed the radiologist's reading. Medications Administered Generic Name Dose Route Start Last Admin Trade Name Freq PRN Reason Stop Dose Admin Lactated Ringer's 1,000 mls @ 80 mls/hr 01/08/25 03:45 01/08/25 05:07 Lr IVCONT 80 mls/hr .[id number] JOHN Administration Discontinued Medications Generic Name Dose Route Start Last Admin Trade Name Freq PRN Reason Stop Dose Admin Ceftriaxone Sodium 1 gm 01/08/25 03:39 01/08/25 05:12 Ceftriaxone Sodium 1 Gm Vial IVPUSH 01/08/25 03:40 1 gm ONCE ONE Administration Lactated Ringer's 1,000 mls @ 999 mls/hr 01/08/25 04:48 01/08/25 05:07 Lr IV 01/08/25 05:48 999 mls/hr .Q1H1M ONE Administration Discharge Plan Discharge Clinical Impression: Ureterolithiasis, Acute cystitis, Elevated WBC count Patient Disposition: Admitted As Inpatient Print Language: Luxembourgish
[2025-01-08 01:45] LABS: Alanine Aminotransferase 33 U/L (0-31); Albumin Level 4.7 g/dL (3.5-5.0); Alkaline Phosphatase 73 U/L (39-117); Anion Gap 17 (12-20); Aspartate Amino Transferase 25 U/L (5-31); Blood Urea Nitrogen 12 mg/dL (9-16); Calcium 9.6 mg/dL (8.4-10.2); Carbon Dioxide 20 mmol/L (22-29); Chloride 105 mmol/L (96-108); Creatinine Clr Calc Pharmacy 101.8; Estimated Glomerular Filt Rate > 60; Lipase 15 U/L (8-78); Potassium 3.9 mmol/L (3.3-5.1); Sodium 138 mmol/L (135-145); Total Protein 7.6 g/dL (6.5-8.0)
[2025-01-08 02:40] LABS: Lymphocytes Absolute Auto 6.0 X10*3/uL (1.2-4.9)
--- NOTE | 2025-01-08 04:18 | MHC.EDTECH ---
Unable to draw second set of cultures. RN aware
--- NOTE | 2025-01-08 04:35 | PC.NURSE ---
EDT to bedside for blood draw, pt deemed to be a difficult stick as only one set of cultures was able to be obtained. The pt previously notified this RN that she is a difficult stick and only has veins/luck in her hands. This RN attempted to initiate and IV line without success. Hot packs applied to the patient's right hand. Delay in IVF and antibiotics related to the patient being a difficult stick
[2025-01-08] MEDS: Lactated Ringers 1,000 ML 999 ML IV (05:07)
[2025-01-08] MEDS: Lactated Ringers 1,000 ML 80 ML IVCONT ×2 (05:07→17:39)
[2025-01-08 06:18] LABS: Reflex Lactate? Lactic Acid Added
--- NOTE | 2025-01-08 08:31 | PC.NURSE ---
Pt son updated at this time of patients plan of care by this RN as charge
--- NOTE | 2025-01-08 09:00 | PC.NURSE ---
pt noted to have low O2 89-91%. pt was noticeably slumped in bed, repositioned. Spo2 now 95-96%
[2025-01-08 09:09] LABS: ~Lactic Acid-LAB USE ONLY 0.9 mmol/L (0.5-2.0)
--- NOTE | 2025-01-08 09:09 | PHA.MEDREC ---
Addendum entered by Luigi Paredes RPh 01/08/25 10:40: MED REC REVIEWED BY [facility] Original Note: Pharmacy Consult ? Medication Reconciliation Pharmacy has completed the medication reconciliation. Spoke with pt and she was able to confirm her medications. Pt took all her medication yesterday.
--- NOTE | 2025-01-08 09:22 | P.HPHOSP_ITS ---
History of Present Illness Date of Service: 01/08/25 Chief Complaint: R flank and lower abdominal pain x 1 day The patient is a 54-year-old female with a past medical history of anxiety/depression, type 2 diabetes, obesity, non-Hodgkin's lymphoma being monitored by Dr. Grimes, cerebral palsy, ovarian cancer status post resection and total hysterectomy who presents with a 1 day history of lower abdominal/pelvic discomfort, dysuria as well as right-sided flank pain which is colicky in nature and nonradiating to her lower back. She reports no hematuria. She reports chills but denies fevers. She reports nausea but denies vomiting. She denies any chest pain, shortness of breath. In the emergency room the patient's workup including CT scan and blood work revealed: WBC 19.5, lactate 2.4, UA with WBCs RBCs CT with: Bilateral stones with right hydro and left hydro nephrosis/ureter The patient's case was discussed with Urology by the ED team with plans for possible stenting bilaterally. Patient will be admitted for further care. Review of Systems 2 Review of Systems: Negative except HPI/interval history. [facility] Medical History Anxiety and depression At high risk for breast cancer Thyroid nodule Medial meniscus tear Ear drum perforation Shoulder fracture, right Type 2 diabetes mellitus with hyperglycemia Obesity (BMI 30-39.9) Lymphoma Hypertension Hypothyroid Cerebral palsy Hypercholesterolemia Family History Father Stroke Hypertension Diabetes CVD (cardiovascular disease) Mother Stroke Cervical cancer, Onset Age: 63 Breast cancer, Onset Age: 49 CVD (cardiovascular disease) Sister Breast cancer, Onset Age: 51 Substance abuse Bipolar disorder Mental health disorder Maternal Aunt Breast cancer, Onset Age: 40 Maternal Grandfather Throat cancer Surgical History History of right breast biopsy (09/2017) History of lymph node biopsy (07/2017) History of meniscal tear History of Achilles tendon repair Social History Housing: Apartment Alcohol intake: current Alcohol intake frequency: holidays/special occasions only Comment: stopped 2021 Patient Tobacco Use Status: Never used Tobacco Smoked in Last 30 Days: Yes e-Cigarette/Vaping Use: Never Used Second Hand Smoke Exposure: No Use of substances other than those prescribed or required for medical reasons: No Advance Directives: No Advance Directives Information Provided: Yes Patient : No service: No Current occupational status: disabled Cognitive needs: Yes Hearing needs: No Vision needs: Yes Meds Allergies Allergy/AdvReac Type Severity Reaction Status Date / Time latex (LATEX) Allergy Intermediate REDNESS,JENNY Verified 01/08/25 00:37 H lisinopril Allergy Unknown difficulty Verified 01/08/25 00:37 urination Active Medications: Current Medications Acetaminophen (Acetaminophen 325 Mg Tablet) 650 mg PO Q6H PRN PRN Reason: Pain, Mild 1-3,fever,headache Calcium Carbonate (Calcium Carbonate 750 Mg Tab.Chew) 750 mg PO Q4H PRN PRN Reason: Heartburn Lactated Ringer's (Lr) 1,000 mls @ 80 mls/hr IVCONT .[id number] [facility] Last Admin: 01/08/25 05:07 Dose: 80 mls/hr Magnesium Hydroxide (Milk Of Magnesia 30 Ml Oral.Susp) 30 ml PO DAILY PRN PRN Reason: Constipation Melatonin (Melatonin 3 Mg Tablet) 6 mg PO BEDTIME PRN PRN Reason: Insomnia Sodium Chloride (0.9 % Sodium Chloride Flush 3 Ml Syringe) 3 ml IVFLUSH QSHIFT [facility] Home Medications ?Medication ?Instructions ?Recorded ?Confirmed ?Last Taken ?Type cetirizine 10 mg tablet (Zyrtec) 10 mg PO DAILY 01/08/25 01/07/25 History cholecalciferol (vitamin D3) 25 25 mcg PO DAILY 01/08/25 01/07/25 History mcg (1,000 unit) capsule levothyroxine 88 mcg tablet 88 mcg PO DAILY@0600 01/0801/08/25 01/07/25 History Physical Exam 2 Vital Signs and Narrative: Vital Signs: Last Vital Signs Temp 98.9 F 01/08/25 06:24 Pulse 86 01/08/25 09:01 Resp 16 01/08/25 09:01 BP 161/82 H 01/08/25 07:26 Pulse Ox 96 01/08/25 09:01 O2 Del Method Room Air 01/08/25 09:01 BMI result Body Mass Index 30.9 Const: Other: Constitutional - Awake and Alert, No apparent distress Eyes - PERRLA, EOMI Cardiovascular - S1S2, RRR, No edema Respiratory - dim at bases; SpO2 dipping to 88 on RA Gastrointestinal - NT / ND; +BS; No rebound or guarding - R CVA TTP Extremities - no calf tenderness bilaterally, no swelling Musculoskeletal - Normal inspection, normal ROM Skin - Warm/Dry Neurological - Alert & oriented x3, No focal deficit Psychological - Appropriate affect Results Labs 01/08/25 01:14 01/08/25 01:14 Labs: Laboratory Results - last 24 hr 01/08/25 01/08/25 01/08/25 01:14 04:13 08:48 MCV 87.4 MCH 30.3 MCHC 34.6 RDW 13.4 Plt Count 237 MPV 8.7 L Immature Gran % (Auto) 0.3 Neut % (Auto) 64.7 Lymph % (Auto) 30.8 [place] % (Auto) 3.9 Eos % (Auto) 0.1 Baso % (Auto) 0.2 Lymph # (Auto) 6.0 H [place] # (Auto) 0.8 Eos # (Auto) 0.0 Baso # (Auto) 0.0 Abs Immat Gran (auto) 0.06 H Absolute Neuts (auto) 12.6 H Absolute Nucleated RBC 0.000 Nucleated RBC % (auto) 0.0 Smear Tech's Comments VERIFIED Anion Gap 17 Estim Creat Clear Calc 101.8 Estimated GFR > 60 Random Glucose 173 H Lactic Acid 2.4 H* Lactic Acid F/U @ 2Hr 0.9 Calcium 9.6 Total Bilirubin 0.5 AST 25 ALT 33 H Alkaline Phosphatase 73 Total Protein 7.6 Albumin 4.7 Lipase 15 Urine Color Yellow Urine Appearance Clear Urine pH 5.5 Ur Specific [place] 1.010 Urine Protein 30 (1+) H Urine Glucose (UA) >=1000 H Urine Ketones Trace Urine Blood Large (3+) H Urine Nitrite Negative Ur Leukocyte Esterase Small (1+) H Urine RBC >20 H Urine WBC 21-50 H Ur Squamous Epith Cells 0-2 Urine Bacteria None Seen Hyaline Casts 0-2 Assessment and Plan (1) UTI (urinary tract infection): Qualifiers: Urinary tract infection type: acute cystitis Hematuria presence: with hematuria Qualified Code(s): N30.01 - Acute cystitis with hematuria Status: Acute Plan 59 yo F with DM, Ovarian Ca - s/p surgery, non-hogkings lymphoma, cerebral palsy and others who presents with R flank and UTI symptoms. Diagnosed with b/l obstructing stones + possible UTI. Will be admitted for further work up and treatment. 1. Bilateral obstructing stones IVF, IV analgesics NPO Urology consult 2. Suspected UTI pt reporting symptoms with equivocal UA; given reports of chills at home, will cover empirically with abx follow up cultures 3. DM hold orals slidings scale with POC 4. Hypoxia intermittent and due to splinting; no respiratory complaints ISS and supplemental O2 as needed to keep sats above 90 Continue other baseline meds as appropriate Full Code DVT pptx - Lovenox once surgical intervention completed Pt with bilateral obstructing stones with suspected UTI, complicated by hypoxia due to splinting with underlying risk factors of lymphoma and DM, therefore expected to requie at a minimum 2 midnights in the hospital for management. Hence, will be admitted as inpatient. Quality Stroke Does the patient have a stroke diagnosis?: No VTE Prior VTE?: No VTE Risk Level:: Medical - moderate - high VTE Device Contraindication: N/A - Device Ordered VTE Drug Contraindication: N/A - Med Ordered
[2025-01-08 09:40] LABS: Glucose, Whole Blood 135 mg/dL (60-115)
--- NOTE | 2025-01-08 10:04 | MHC.CM.ED ---
Recieved notification from Renetta RADER that patient would like to complete HCP. HCP completed, signed and witnessed. Original given to patient. Copy placed in chart.
--- NOTE | 2025-01-08 10:16 | PC.NURSE ---
pt continues to have O2 dip into 80s periodically. Denies SOB, denies any trouble breathing. No increased WOB. Placed on 2L NC per policy
[2025-01-08 13:22] LABS: Glucose, Whole Blood 135 mg/dL (60-115)
[2025-01-08] MEDS: Lactated Ringers 1,000 ML 50 ML IVCONT (13:32)
--- NOTE | 2025-01-08 14:38 | PM.UROCN ---
History of Present Illness Consult details Consult date: 01/08/25 Narrative: 54-year-old female with a past medical history of anxiety/depression, type 2 diabetes, obesity, non-Hodgkin's lymphoma being monitored by Dr. Grimes, cerebral palsy, ovarian cancer status post resection and total hysterectomy who presents with a 1 day history of lower abdominal/pelvic discomfort, dysuria as well as right-sided flank pain. She reports chills but denies fevers. She reports nausea but denies vomiting. CT scan and blood work revealed: WBC 19.5, lactate 2.4, UA with WBCs RBCs CTAP: Bilateral stones with right hydro and left hydro nephrosis/ureter Review of Systems Review of Systems: Yes all other systems are reviewed and are negative Constitutional: Constitutional: Reports no additional constitutional complaints Eyes: Eyes: Reports no additional eye complaints ENT: Reports system reviewed and no additional complaints, except as documented Cardiovascular: Cardiovascular: Reports no additional cardiovascular complaints Respiratory: Respiratory: Reports no additional respiratory complaints Gastrointestinal: Gastrointestinal: Reports no additional gastrointestinal complaints Genitourinary: Genitourinary: Reports as per HPI Musculoskeletal: Musculoskeletal: Reports no additional musculoskeletal complaints Integumentary/Breasts: Skin/Breast: Reports system reviewed and no additional complaints, except as docu Neurologic: Reports system reviewed and no additional complaints, except as documented Psychiatric: Psychiatric: Reports no additional psychiatric complaints Endocrine: Endocrine: Reports no additional endocrine complaints Hematologic/Lymphatic: Hematologic/Lymphatic: Reports no additional hematologic/lymphatic complaints Allergic/Immunologic: Allergic/Immunologic: Reports no additional allergic/immunologic complaints [facility] Past Medical History Medical History Anxiety and depression At high risk for breast cancer Thyroid nodule Medial meniscus tear Ear drum perforation Shoulder fracture, right Type 2 diabetes mellitus with hyperglycemia Obesity (BMI 30-39.9) Lymphoma Hypertension Hypothyroid Cerebral palsy Hypercholesterolemia Family History Family History Father Stroke Hypertension Diabetes CVD (cardiovascular disease) Mother Stroke Cervical cancer, Onset Age: 63 Breast cancer, Onset Age: 49 CVD (cardiovascular disease) Sister Breast cancer, Onset Age: 51 Substance abuse Bipolar disorder Mental health disorder Maternal Aunt Breast cancer, Onset Age: 40 Maternal Grandfather Throat cancer Surgical History Surgical History History of right breast biopsy (09/2017) History of lymph node biopsy (07/2017) History of meniscal tear History of Achilles tendon repair Social History Social History Housing: Apartment Alcohol intake: current Alcohol intake frequency: does not drink Comment: stopped 2021 Patient Tobacco Use Status: Never used Tobacco e-Cigarette/Vaping Use: Never Used Second Hand Smoke Exposure: No service: No Current occupational status: disabled Cognitive needs: Yes Hearing needs: No Vision needs: Yes Meds Allergies Allergy/AdvReac Type Severity Reaction Status Date / Time latex (LATEX) Allergy Intermediate REDNESS,JENNY Verified 01/08/25 00:37 H lisinopril Allergy Unknown difficulty Verified 01/08/25 00:37 urination Active Medications: Current Medications Acetaminophen (Acetaminophen 325 Mg Tablet) 650 mg PO Q6H PRN PRN Reason: Pain, Mild 1-3,fever,headache Alprazolam (Alprazolam 0.5 Mg Tablet) 0.5 mg PO DAILY PRN PRN Reason: Anxiety Atorvastatin Calcium (Atorvastatin Calcium 20 Mg Tablet) 20 mg PO DAILY JOHN Calcium Carbonate (Calcium Carbonate 750 Mg Tab.Chew) 750 mg PO Q4H PRN PRN Reason: Heartburn Ceftriaxone Sodium (Ceftriaxone Sodium 1 Gm Vial) 1 gm IVPUSH Q24H [facility] Lactated Ringer's (Lr) 1,000 mls @ 80 mls/hr IVCONT .[id number] [facility] Last Admin: 01/08/25 05:07 Dose: 80 mls/hr Lactated Ringer's (Lr) 1,000 mls @ 50 mls/hr IVCONT .Q20H [facility] Last Admin: 01/08/25 13:32 Dose: 50 mls/hr Insulin Human Lispro (Insulin Lispro 100 Unit/Ml 3 Ml Vial) 0 unit SUBCUT Q6H [facility]; Protocol Last Admin: 01/08/25 10:33 Dose: Not Given Levothyroxine Sodium (Levothyroxine Sodium 88 Mcg Tablet) 88 mcg PO DAILY@0600 [facility] Loratadine (Loratadine 10 Mg Tablet) 10 mg PO DAILY [facility] Magnesium Hydroxide (Milk Of Magnesia 30 Ml Oral.Susp) 30 ml PO DAILY PRN PRN Reason: Constipation Melatonin (Melatonin 3 Mg Tablet) 6 mg PO BEDTIME PRN PRN Reason: Insomnia Morphine Sulfate (Morphine Sulfate 4 Mg/Ml Cartridge) 4 mg IVPUSH Q4H PRN; Protocol PRN Reason: Pain, Severe (Pain Scale 7-10) Last Admin: 01/08/25 11:10 Dose: 4 mg Sertraline HCl (Sertraline Hcl 100 Mg Tablet) 100 mg PO DAILY [facility] Sodium Chloride (0.9 % Sodium Chloride Flush 3 Ml Syringe) 3 ml IVFLUSH QSHIFT [facility] Vitamin D (Cholecalciferol (Vitamin D3) 25 Mcg Tablet) 25 mcg PO DAILY [facility] Home Medications ?Medication ?Instructions ?Recorded ?Confirmed ?Last Taken ?Type cetirizine 10 mg tablet (Zyrtec) 10 mg PO DAILY 04/24/20 01/08/25 01/07/25 History cholecalciferol (vitamin D3) 25 25 mcg PO DAILY 04/24/20 01/08/25 01/07/25 History mcg (1,000 unit) capsule levothyroxine 88 mcg tablet 88 mcg PO DAILY@0600 01/08/25 01/08/25 01/07/25 History Physical Exam Vital Signs: Vital Signs: Last Vital Signs Temp 97.5 F 01/08/25 12:56 Pulse 90 01/08/25 12:56 Resp 20 01/08/25 12:56 BP 155/89 H 01/08/25 12:56 Pulse Ox 97 01/08/25 12:56 O2 Del Method Nasal Cannula 01/08/25 12:56 O2 Flow Rate 2 01/08/25 12:56 BMI result Body Mass Index 30.9 Const: General: cooperative, healthy appearing and no acute distress Orientation/consciousness: patient oriented x3 HEENT: Head: Yes normal to inspection, Yes normocephalic and Yes atraumatic Eyes: Conjunctivae: conjunctivae normal Neck: Neck: Yes normal visual inspection and Yes trachea midline Chest: Chest palpation & inspection: normal inspection of the chest Resp: Effort & Inspection: normal respiratory effort Cardio: Rate: regular rate GI: Other: diffuse tenderness Inspection: Yes normal to inspection Palpation (GI): Soft to palpation Neuro: General: patient oriented x3 Psych: Appearance: grossly normal Results Labs 01/08/25 01:14 01/08/25 01:14 Labs: Abnormal lab results 01/08/25 01/08/25 01/08/25 Range/Units 01:14 04:13 09:37 WBC 19.5 H (4.8-10.8) X10*3/uL MPV 8.7 L (9.4-12.3) fL Lymph # (Auto) 6.0 H (1.2-4.9) X10*3/uL Abs Immat Gran (auto) 0.06 H (0.00-0.03) X10*3/uL Absolute Neuts (auto) 12.6 H (2.0-8.3) x10*3/uL Carbon Dioxide 20 L (22-29) mmol/L POC Glucose 135 H (60-115) mg/dL Random Glucose 173 H (60-115) mg/dL Lactic Acid 2.4 H* (0.5-2.0) mmol/L ALT 33 H (0-31) U/L Urine Protein 30 (1+) H (Neg-Trace) mg/dL Urine Glucose (UA) >=1000 H (Negative) mg/dL Urine Blood Large (3+) H (Negative) Ur Leukocyte Esterase Small (1+) H (Negative) Urine RBC >20 H (0-2) /HPF Urine WBC 21-50 H (0-5) /HPF 01/08/25 Range/Units 13:19 WBC (4.8-10.8) X10*3/uL MPV (9.4-12.3) fL Lymph # (Auto) (1.2-4.9) X10*3/uL Abs Immat Gran (auto) (0.00-0.03) X10*3/uL Absolute Neuts (auto) (2.0-8.3) x10*3/uL Carbon Dioxide (22-29) mmol/L POC Glucose 135 H (60-115) mg/dL Random Glucose (60-115) mg/dL Lactic Acid (0.5-2.0) mmol/L ALT (0-31) U/L Urine Protein (Neg-Trace) mg/dL Urine Glucose (UA) (Negative) mg/dL Urine Blood (Negative) Ur Leukocyte Esterase (Negative) Urine RBC (0-2) /HPF Urine WBC (0-5) /HPF Short CBC 01/08/25 Range/Units 01:14 WBC 19.5 H (4.8-10.8) X10*3/uL Hgb 14.2 (12.0-16.0) g/dl Hct 41.0 (37.0-47.0) % Plt Count 237 (160-400) X10*3/uL BMP 01/08/25 01:14 Sodium 138 Potassium 3.9 Chloride 105 Carbon Dioxide 20 L BUN 12 Creatinine 0.63 Calcium 9.6 Liver Function 01/08/25 Range/Units 01:14 Total Bilirubin 0.5 (0.0-1.0) mg/dL AST 25 (5-31) U/L ALT 33 H (0-31) U/L Alkaline Phosphatase 73 (39-117) U/L Albumin 4.7 (3.5-5.0) g/dL Urine 01/08/25 Range/Units 01:14 Urine Color Yellow Urine Appearance Clear Urine pH 5.5 (5.0-9.0) Ur Specific [place] 1.010 (1.005-1.025) Urine Protein 30 (1+) H (Neg-Trace) mg/dL Urine Glucose (UA) >=1000 H (Negative) mg/dL Imaging Abdomen CT scan report/results: report reviewed and image reviewed CT scan - pelvis: report reviewed and image reviewed Additional studies: Date of Service: 01/08/25 CLINICAL HISTORY: R flank pain CT abdomen and pelvis without contrast Comparison: None Findings: No consolidation or effusion. The liver is enlarged. The liver appears normal in contour. The gallbladder and solid organs are otherwise within normal limits. There are nonobstructing bilateral renal calculi. Vague 5.5 mm calcification identified at the right ureterovesicular junction which may represent a single obstructing calculus or multiple adjacent obstructing calculi. There is mild right hydroureter with [id number] right hydronephrosis. A 3 mm calculus is visualized at the left ureterovesicular junction. There is mild left hydroureter with minimal left hydronephrosis. No bowel obstruction, pneumoperitoneum, or pneumatosis. There is colonic diverticulosis without convincing CT evidence for acute diverticulitis. The uterus is surgically absent. There appears to be asymmetric right-sided bladder wall thickening. Tiny, fat containing right inguinal hernia. Normal appendix. No acute fracture. Vacuum disc phenomenon present at L4-L5 and L5-S1. IMPRESSION: Vague calcification measuring 5.5 mm in diameter present at the right ureterovesicular junction which may represent a single obstructing calculus or multiple smaller adjacent obstructing calculi. There is mild right hydroureter with [id number] right hydronephrosis. 3 mm obstructing calculus present at the left ureterovesicular junction with mild left hydroureter and minimal left hydronephrosis. Nonobstructing bilateral renal calculi present. Asymmetric right-sided bladder wall thickening, possibly related to cystitis. There appears to be adjacent edema. Recommend follow-up after appropriate clinical therapy to exclude a subtle underlying tumor. Assessment and Plan (1) UTI (urinary tract infection): Qualifiers: Urinary tract infection type: acute cystitis Hematuria presence: with hematuria Qualified Code(s): N30.01 - Acute cystitis with hematuria Status: Acute (2) Ureterolithiasis: Status: Acute (3) Hydronephrosis with obstructing calculus: Status: Acute (4) Bilateral ureteral calculi: Status: Acute Plan Pt on Jardiance, bilateral hydro, secondary to ureteral stones, procedure urgent. Plan cysto Bilateral ureteral stents Procedures Date of Service Date of Service: 01/08/25
--- NOTE | 2025-01-08 14:56 | P.CONAN_ITS ---
HPI - Anesthesia Eval Consult details Narrative: For cysto, bilat stents for bilat stones. PMF Active Problems Active Problems: All Active Problems Bilateral ureteral calculi (Acute) Hydronephrosis with obstructing calculus (Acute) Elevated WBC count (Acute) Acute cystitis (Acute) Ureterolithiasis (Acute) Eczema of right hand (Acute) Sertoli-Leydig cell tumor of ovary (Acute) Colon cancer screening (Acute) Generalized anxiety disorder (Acute) Annual physical exam (Acute) Dermoid cyst (Acute) Mass of left lower leg (Acute) Complex cyst of both ovaries (Acute) UTI (urinary tract infection) (Acute) Postmenopausal bleeding (Acute) Cervical cancer screening (Acute) Lymphadenopathy, axillary (Acute) Annual physical exam (Acute) At high risk for breast cancer (Acute) Type 2 diabetes mellitus with hyperglycemia (Acute) Obesity (BMI 30-39.9) (Acute) Lymphoma (Acute) Hypertension (Acute) Hypothyroid (Acute) Cerebral palsy (Acute) Hypercholesterolemia (Acute) Past Medical History Medical History Anxiety and depression At high risk for breast cancer Thyroid nodule Medial meniscus tear Ear drum perforation Shoulder fracture, right Type 2 diabetes mellitus with hyperglycemia Obesity (BMI 30-39.9) Lymphoma Hypertension Hypothyroid Cerebral palsy Hypercholesterolemia Family History Family History Father Stroke Hypertension Diabetes CVD (cardiovascular disease) Mother Stroke Cervical cancer, Onset Age: 63 Breast cancer, Onset Age: 49 CVD (cardiovascular disease) Sister Breast cancer, Onset Age: 51 Substance abuse Bipolar disorder Mental health disorder Maternal Aunt Breast cancer, Onset Age: 40 Maternal Grandfather Throat cancer Family history of problems with anesthesia: No Surgical History Surgical History History of right breast biopsy (09/2017) History of lymph node biopsy (07/2017) History of meniscal tear History of Achilles tendon repair History of Problems with Anesthesia: No Social History Social History Housing: Apartment Alcohol intake: current Alcohol intake frequency: does not drink Comment: stopped 2021 Patient Tobacco Use Status: Never used Tobacco e-Cigarette/Vaping Use: Never Used Second Hand Smoke Exposure: No service: No Current occupational status: disabled Cognitive needs: Yes Hearing needs: No Vision needs: Yes Meds Allergies Allergy/AdvReac Type Severity Reaction Status Date / Time latex (LATEX) Allergy Intermediate REDNESS,JENNY Verified 01/08/25 00:37 H lisinopril Allergy Unknown difficulty Verified 01/08/25 00:37 urination Active Medications: Current Medications Acetaminophen (Acetaminophen 325 Mg Tablet) 650 mg PO Q6H PRN PRN Reason: Pain, Mild 1-3,fever,headache Alprazolam (Alprazolam 0.5 Mg Tablet) 0.5 mg PO DAILY PRN PRN Reason: Anxiety Atorvastatin Calcium (Atorvastatin Calcium 20 Mg Tablet) 20 mg PO DAILY JOHN Calcium Carbonate (Calcium Carbonate 750 Mg Tab.Chew) 750 mg PO Q4H PRN PRN Reason: Heartburn Ceftriaxone Sodium (Ceftriaxone Sodium 1 Gm Vial) 1 gm IVPUSH Q24H [facility] Lactated Ringer's (Lr) 1,000 mls @ 80 mls/hr IVCONT .[id number] [facility] [place] Last Admin: 01/08/25 05:07 Dose: 80 mls/hr Lactated Ringer's (Lr) 1,000 mls @ 50 mls/hr IVCONT .Q20H [facility] [place] Last Admin: 01/08/25 13:32 Dose: 50 mls/hr Cefazolin Sodium/Dextrose (Ancef) 2 gm in 50 mls @ 100 mls/hr IV PREOP ONE Stop: 01/08/25 15:15 Insulin Human Lispro (Insulin Lispro 100 Unit/Ml 3 Ml Vial) 0 unit SUBCUT Q6H [facility] [place]; Protocol Last Admin: 01/08/25 10:33 Dose: Not Given Levothyroxine Sodium (Levothyroxine Sodium 88 Mcg Tablet) 88 mcg PO DAILY@0600 [facility] [place] Loratadine (Loratadine 10 Mg Tablet) 10 mg PO DAILY [facility] [place] Magnesium Hydroxide (Milk Of Magnesia 30 Ml Oral.Susp) 30 ml PO DAILY PRN PRN Reason: Constipation Melatonin (Melatonin 3 Mg Tablet) 6 mg PO BEDTIME PRN PRN Reason: Insomnia Morphine Sulfate (Morphine Sulfate 4 Mg/Ml Cartridge) 4 mg IVPUSH Q4H PRN; Protocol PRN Reason: Pain, Severe (Pain Scale 7-10) Last Admin: 01/08/25 11:10 Dose: 4 mg Sertraline HCl (Sertraline Hcl 100 Mg Tablet) 100 mg PO DAILY [facility] Sodium Chloride (0.9 % Sodium Chloride Flush 3 Ml Syringe) 3 ml IVFLUSH QSHIFT [facility] Vitamin D (Cholecalciferol (Vitamin D3) 25 Mcg Tablet) 25 mcg PO DAILY JOHN Home Medications ?Medication ?Instructions ?Recorded ?Confirmed ?Last Taken ?Type cetirizine 10 mg tablet (Zyrtec) 10 mg PO DAILY 01/08/25 01/07/25 History cholecalciferol (vitamin D3) 25 25 mcg PO DAILY 01/08/25 01/07/25 History mcg (1,000 unit) capsule levothyroxine 88 mcg tablet 88 mcg PO DAILY@0600 01/0801/08/25 01/07/25 History Exam Height,Weight and Vital Signs: Height 5 ft 4 in Weight 81.647 kg Last Vital Signs Temp 97.5 F 01/08/25 12:56 Pulse 90 01/08/25 12:56 Resp 20 01/08/25 12:56 BP 155/89 H 01/08/25 12:56 Pulse Ox 97 01/08/25 12:56 O2 Del Method Nasal Cannula 01/08/25 12:56 O2 Flow Rate 2 01/08/25 12:56 Pertinent Lab Results Pertinent Lab Results: Laboratory Tests 01/08/25 01/08/25 01/08/25 01:14 04:13 08:48 WBC 19.5 H RBC 4.69 Hgb 14.2 Hct 41.0 MCV 87.4 MCH 30.3 MCHC 34.6 RDW 13.4 Plt Count 237 MPV 8.7 L Immature Gran % (Auto) 0.3 Neut % (Auto) 64.7 Lymph % (Auto) 30.8 [place] % (Auto) 3.9 Eos % (Auto) 0.1 Baso % (Auto) 0.2 Lymph # (Auto) 6.0 H [place] # (Auto) 0.8 Eos # (Auto) 0.0 Baso # (Auto) 0.0 Abs Immat Gran (auto) 0.06 H Absolute Neuts (auto) 12.6 H Absolute Nucleated RBC 0.000 Nucleated RBC % (auto) 0.0 Smear Tech's Comments VERIFIED Sodium 138 Potassium 3.9 Chloride 105 Carbon Dioxide 20 L Anion Gap 17 BUN 12 Creatinine 0.63 Estim Creat Clear Calc 101.8 Estimated GFR > 60 POC Glucose Random Glucose 173 H Lactic Acid 2.4 H* Lactic Acid F/U @ 2Hr 0.9 Calcium 9.6 Total Bilirubin 0.5 AST 25 ALT 33 H Alkaline Phosphatase 73 Total Protein 7.6 Albumin 4.7 Lipase 15 Urine Color Yellow Urine Appearance Clear Urine pH 5.5 Ur Specific [place] 1.010 Urine Protein 30 (1+) H Urine Glucose (UA) >=1000 H Urine Ketones Trace Urine Blood Large (3+) H Urine Nitrite Negative Ur Leukocyte Esterase Small (1+) H Urine RBC >20 H Urine WBC 21-50 H Ur Squamous Epith Cells 0-2 Urine Bacteria None Seen Hyaline Casts 0-2 01/08/25 01/08/25 09:37 13:19 WBC RBC Hgb Hct MCV MCH MCHC RDW Plt Count MPV Immature Gran % (Auto) Neut % (Auto) Lymph % (Auto) [place] % (Auto) Eos % (Auto) Baso % (Auto) Lymph # (Auto) [place] # (Auto) Eos # (Auto) Baso # (Auto) Abs Immat Gran (auto) Absolute Neuts (auto) Absolute Nucleated RBC Nucleated RBC % (auto) Smear Tech's Comments Sodium Potassium Chloride Carbon Dioxide Anion Gap BUN Creatinine Estim Creat Clear Calc Estimated GFR POC Glucose 135 H 135 H Random Glucose Lactic Acid Lactic Acid F/U @ 2Hr Calcium Total Bilirubin AST ALT Alkaline Phosphatase Total Protein Albumin Lipase Urine Color Urine Appearance Urine pH Ur Specific [place] Urine Protein Urine Glucose (UA) Urine Ketones Urine Blood Urine Nitrite Ur Leukocyte Esterase Urine RBC Urine WBC Ur Squamous Epith Cells Urine Bacteria Hyaline Casts Airway Mallampati Class: II TM Dist: <=3cm Neck ROM: Full Loose/Missing/Broken Teeth: Yes and Upper Heart: ok Lungs: clear. Sat 97% on 2L NC Assessment and Plan Assessment Anesthesia Assessment: Anesthesia Plan Discussed and Chart Reviewed Final Anesthetic Review Family History of Problems with Anesthesia: No History of Problems with Anesthesia: No NPO: Yes ASA Class: III Final Preanesthetic Review: No Changes in Pt Med Stat, Meds/Allgs Chart Reviewed, Consent Obtained/Reviewed and Anes Risks/Benef Reviewed Patient Risk: Intermediate Procedure Risk: Low Anesthetic Plan Anesthetic Plan: GA and TIVA Disposition: Standard PACU
--- NOTE | 2025-01-08 15:36 | W.PM.OPN ---
Operative Note Operative Note Date of Service: 01/08/25 Narrative: PreOperative Diagnosis:?? Bilateral ureteral stones, obstructive uropathy, UTI Post Operative Diagnosis:?? ?Bilateral ureteral stones, obstructive uropathy, UTI Procedure: Cystoscopy, bilateral stent insertion, right ureteral stent size 6 Martiniquais by multi length (22-32) cm Left ureteral stent size 6 Martiniquais by multi length (22-32) cm Surgeon:?Dr Eve Bell Anesthesia:? Mac Procedure: After informed consent was verified the patient was brought to the operating placed on the OR table in supine position.? IV sedation was administered per protocol.? The patient was placed in lithotomy position, prepped and draped in the usual sterile fashion.? Safety pause time-out and side of surgery confirmed.? Antibiotics confirmed. 2% lidocaine Uro jet was passed transurethrally. A 22 Martiniquais cystoscope was inserted transurethrally. The bladder was visualized.? 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 Attention was taken to the left side after placing a guidewire the left ureteral stent was inserted 6 Martiniquais by 22-32 cm. Next in similar fashion a right ureteral stent was placed 6 [place]iquais by 22-32 cm. The bladder was emptied.? The rigid cystoscope was removed. ? Belladonna rectal suppository placed. The patient tolerated the procedure well and was brought to the recovery room in stable condition. Complications: None EBL: minimal (<5 mL) Drains: Bilateral Ureteral stents as dictated above
[2025-01-08 16:28] LABS: Glucose, Whole Blood 144 mg/dL (60-115)
[2025-01-08] MEDS: 0.9 % Sodium Chloride Flush 3 ML SYRINGE IVFLUSH (17:39)
[2025-01-08 20:54] LABS: Glucose, Whole Blood 125 mg/dL (60-115)
[2025-01-09 03:26] VITALS: BP 154/74; PULSE 84; RESP 16; TEMP 36.1; O2SAT 93
[2025-01-09] MEDS: Lactated Ringers 1,000 ML 80 ML IVCONT ×2 (03:32→16:42)
[2025-01-09] MEDS: oxyCODONE HCl Immed Release 5 MG TABLET PO (03:43)
[2025-01-09 06:06] LABS: Anion Gap 12 (12-20); Blood Urea Nitrogen 11 mg/dL (9-16); Calcium 8.8 mg/dL (8.4-10.2); Carbon Dioxide 24 mmol/L (22-29); Chloride 105 mmol/L (96-108); Creatinine Clr Calc Pharmacy 105.1; Estimated Glomerular Filt Rate > 60; Potassium 3.7 mmol/L (3.3-5.1); Sodium 137 mmol/L (135-145)
[2025-01-09 07:14] LABS: Hematocrit 39.4 % (37.0-47.0); Hemoglobin 13.1 g/dl (12.0-16.0); Mean Corpuscular HGB Conc 33.2 g/dl (31.0-35.0); Mean Corpuscular Hemoglobin 30.3 pg (27.0-33.0); Mean Corpuscular Volume 91.0 fL (80.0-98.0); NRBC Abs Auto 0.000 X10*3/uL (0.0-0.012); NRBC Pct Auto 0.0 /100WBC (0.0-0.2); Platelet Count 150 X10*3/uL (160-400); Red Blood Count 4.33 X10*6/uL (4.20-5.50); White Blood Count 12.6 X10*3/uL (4.8-10.8)
[2025-01-09 07:17] LABS: Glucose, Whole Blood 139 mg/dL (60-115)
[2025-01-09 07:58] VITALS: BP 151/73; PULSE 85; RESP 16; TEMP 36.5; O2SAT 92
--- NOTE | 2025-01-09 08:50 | HO.PM.IMPN ---
Subjective Subjective Date of Service: 01/09/25 Interval History: symptoms improving Physical Exam Vital Signs: Vital Signs: Last Vital Signs Temp 97.7 F 01/09/25 07:58 Pulse 85 01/09/25 07:58 Resp 16 01/09/25 07:58 BP 151/73 H 01/09/25 07:58 Pulse Ox 92 01/09/25 07:58 O2 Del Method Room Air 01/09/25 07:58 O2 Flow Rate 2 01/08/25 12:56 BMI result Body Mass Index 30.9 General: AO X 3, no acute distress Resp: CTA bilateral, no accessory muscles used CVS: S1,S2,RRR GI: soft, non tender, non distended Neuro: motor grossly intact, alert Psych: appropriate affect, appropriate insight Objective Data Active Medications Acetaminophen (Acetaminophen 325 Mg Tablet) 650 mg PO Q6H PRN PRN Reason: Pain, Mild 1-3,fever,headache Alprazolam (Alprazolam 0.5 Mg Tablet) 0.5 mg PO DAILY PRN PRN Reason: Anxiety Atorvastatin Calcium (Atorvastatin Calcium 20 Mg Tablet) 20 mg PO DAILY [facility] Calcium Carbonate (Calcium Carbonate 750 Mg Tab.Chew) 750 mg PO Q4H PRN PRN Reason: Heartburn Ceftriaxone Sodium (Ceftriaxone Sodium 1 Gm Vial) 1 gm IVPUSH Q24H [facility] Last Admin: 01/09/25 03:30 Dose: 1 gm Documented By: RONAN Lactated Ringer's (Lr) 1,000 mls @ 80 mls/hr IVCONT .[id number] [facility] Last Admin: 01/09/25 03:32 Dose: 80 mls/hr Documented By: RONAN Insulin Human Lispro (Insulin Lispro 100 Unit/Ml 3 Ml Vial) 0 unit SUBCUT QIDACHS [facility]; Protocol Last Admin: 01/09/25 07:32 Dose: Not Given Documented By: JERMAN Non-Admin Reason: No Insulin Coverage Levothyroxine Sodium (Levothyroxine Sodium 88 Mcg Tablet) 88 mcg PO DAILY@0600 [facility] Last Admin: 01/09/25 05:44 Dose: 88 mcg Documented By: RONAN Loratadine (Loratadine 10 Mg Tablet) 10 mg PO DAILY [facility] Magnesium Hydroxide (Milk Of Magnesia 30 Ml Oral.Susp) 30 ml PO DAILY PRN PRN Reason: Constipation Melatonin (Melatonin 3 Mg Tablet) 6 mg PO BEDTIME PRN PRN Reason: Insomnia Morphine Sulfate (Morphine Sulfate 4 Mg/Ml Cartridge) 4 mg IVPUSH Q4H PRN; Protocol PRN Reason: Pain, Severe (Pain Scale 7-10) Last Admin: 01/08/25 11:10 Dose: 4 mg Documented By: YADI Naloxone HCl (Naloxone Hcl 0.4 Mg/Ml Vial) 0.04 mg IVPUSH Q5M PRN PRN Reason: Excessive sedation or RR < 8 Sertraline HCl (Sertraline Hcl 100 Mg Tablet) 100 mg PO DAILY [facility] Sodium Chloride (0.9 % Sodium Chloride Flush 3 Ml Syringe) 3 ml IVFLUSH QSHIFT [facility] Last Admin: 01/09/25 00:19 Dose: Not Given Documented By: RONAN Non-Admin Reason: IV Running Vitamin D (Cholecalciferol (Vitamin D3) 25 Mcg Tablet) 25 mcg PO DAILY [facility] Labs 01/09/25 05:33 01/09/25 05:33 Labs: Laboratory Results - last 24 hr 01/08/25 01/08/25 01/08/25 08:48 09:37 13:19 MCV MCH MCHC RDW Plt Count MPV Absolute Nucleated RBC Nucleated RBC % (auto) Anion Gap Estim Creat Clear Calc Estimated GFR POC Glucose 135 H 135 H Random Glucose Lactic Acid F/U @ 2Hr 0.9 Calcium 01/08/25 01/08/25 01/09/25 16:24 20:50 05:33 MCV 91.0 MCH 30.3 MCHC 33.2 RDW 13.8 Plt Count 150 L D MPV 10.0 Absolute Nucleated RBC 0.000 Nucleated RBC % (auto) 0.0 Anion Gap 12 Estim Creat Clear Calc 105.1 Estimated GFR > 60 POC Glucose 144 H 125 H Random Glucose 141 H Lactic Acid F/U @ 2Hr Calcium 8.8 D 01/09/25 07:13 MCV MCH MCHC RDW Plt Count MPV Absolute Nucleated RBC Nucleated RBC % (auto) Anion Gap Estim Creat Clear Calc Estimated GFR POC Glucose 139 H Random Glucose Lactic Acid F/U @ 2Hr Calcium Microbiology Microbiology Results: Microbiology 01/08/25 05:03 Blood Culture - Preliminary Blood - Venous 01/08/25 04:13 Blood Culture - Preliminary Blood - Venous No growth after 24 hours. Assessment and Plan (1) Hydronephrosis with obstructing calculus: Status: Acute Plan 59F PMH mood disorder, DM, NHL, cerebral palsy, ovarian ca s/p resection/total hysterectomy, presented with dysuria and flank pain UTI and acute bilateral obstructing stones rocephin, s/p cysto and stents follow up cultures DM insulin hypothyroid synthroid mood disorder sertraline dvt prophylaxis - lovenox full code reason for continued hospitalization:cultures Quality Stroke Does the patient have a stroke diagnosis?: No VTE Prior VTE?: No VTE Risk Level:: Medical - moderate - high VTE Device Contraindication: N/A - Device Ordered VTE Drug Contraindication: N/A - Med Ordered
--- NOTE | 2025-01-09 09:00 | HO.POSTANES ---
Post Anesthesia Evaluation Post Anesthesia Evaluation Date of Service: 01/09/25 Vital Signs: Vital Signs Temp Pulse Resp BP Pulse Ox O2 Del Method 01/09/25 07:58 97.7 F 85 16 151/73 H 92 Room Air 01/09/25 03:26 96.9 F 84 16 154/74 H 93 Room Air Anesthesia: General Mental Status: Awake Pain Control: Satisfactory Nausea/Vomiting: None Hydration: Adequate Anesthesia-Related Issues: No Anes. Related Issues
[2025-01-09 11:16] LABS: Glucose, Whole Blood 108 mg/dL (60-115)
--- NOTE | 2025-01-09 14:08 | MHC.CM.PN ---
PT REPORTS SHE LIVES WITH HER FIANCE AND IS INDEPENDENT WITH CARE SHE USES A WHEEL CHAIR OUTSIDE OF THE HOME AND A CANE INSIDE SHE COMPLETED A HCP IN THE ED PCP: [facility] DCP: HOME VIA PRIVATE TRANSPORT
[2025-01-09 14:56] VITALS: BP 161/76; PULSE 89; RESP 18; TEMP 36.6; O2SAT 92
[2025-01-09 15:03] VITALS: O2SAT 92
[2025-01-09 15:52] LABS: Glucose, Whole Blood 110 mg/dL (60-115)
[2025-01-09 19:45] LABS: Glucose, Whole Blood 115 mg/dL (60-115)
[2025-01-09 19:53] VITALS: BP 134/85; PULSE 99; RESP 18; TEMP 36.6; O2SAT 94
[2025-01-10 03:35] VITALS: BP 113/60; PULSE 80; RESP 18; TEMP 36.1; O2SAT 92
[2025-01-10] MEDS: Lactated Ringers 1,000 ML 80 ML IVCONT (03:42)
[2025-01-10 07:22] VITALS: BP 154/77; PULSE 74; RESP 18; TEMP 36.7; O2SAT 94
[2025-01-10 07:25] LABS: Glucose, Whole Blood 125 mg/dL (60-115)
--- NOTE | 2025-01-10 09:30 | HO.PM.IMPN ---
Subjective Subjective Date of Service: 01/10/25 Interval History: symptoms improving Physical Exam Vital Signs: Vital Signs: Last Vital Signs Temp 98.1 F 01/10/25 07:22 Pulse 74 01/10/25 07:22 Resp 18 01/10/25 07:22 BP 154/77 H 01/10/25 07:22 Pulse Ox 94 01/10/25 07:22 O2 Del Method Room Air 01/10/25 07:22 O2 Flow Rate 2 01/08/25 12:56 BMI result Body Mass Index 30.9 General: AO X 3, no acute distress Resp: CTA bilateral, no accessory muscles used CVS: S1,S2,RRR GI: soft, non tender, non distended Neuro: motor grossly intact, alert Psych: appropriate affect, appropriate insight Objective Data Active Medications Acetaminophen (Acetaminophen 325 Mg Tablet) 650 mg PO Q6H PRN PRN Reason: Pain, Mild 1-3,fever,headache Last Admin: 01/10/25 01:55 Dose: 650 mg Documented By: ROANN Alprazolam (Alprazolam 0.5 Mg Tablet) 0.5 mg PO DAILY PRN PRN Reason: Anxiety Last Admin: 01/09/25 09:15 Dose: 0.5 mg Documented By: JERMAN Atorvastatin Calcium (Atorvastatin Calcium 20 Mg Tablet) 20 mg PO DAILY [facility] Last Admin: 01/10/25 08:45 Dose: 20 mg Documented By: IMELDA Calcium Carbonate (Calcium Carbonate 750 Mg Tab.Chew) 750 mg PO Q4H PRN PRN Reason: Heartburn Ceftriaxone Sodium (Ceftriaxone Sodium 1 Gm Vial) 1 gm IVPUSH Q24H [facility] Last Admin: 01/10/25 03:43 Dose: 1 gm Documented By: RONAN Enoxaparin Sodium (Enoxaparin Sodium 40 Mg/0.4 Ml Syringe) 40 mg SUBCUT Q24H [facility] Last Admin: 01/10/25 08:45 Dose: 40 mg Documented By: IMELDA Insulin Human Lispro (Insulin Lispro 100 Unit/Ml 3 Ml Vial) 0 unit SUBCUT QIDACHS [facility]; Protocol Last Admin: 01/10/25 07:36 Dose: Not Given Documented By: IMELDA Non-Admin Reason: No Insulin Coverage Levothyroxine Sodium (Levothyroxine Sodium 88 Mcg Tablet) 88 mcg PO DAILY@0600 [facility] Last Admin: 01/10/25 05:56 Dose: 88 mcg Documented By: RONAN Loratadine (Loratadine 10 Mg Tablet) 10 mg PO DAILY [facility] Last Admin: 01/10/25 08:45 Dose: 10 mg Documented By: IMELDA Magnesium Hydroxide (Milk Of Magnesia 30 Ml Oral.Susp) 30 ml PO DAILY PRN PRN Reason: Constipation Melatonin (Melatonin 3 Mg Tablet) 6 mg PO BEDTIME PRN PRN Reason: Insomnia Morphine Sulfate (Morphine Sulfate 4 Mg/Ml Cartridge) 4 mg IVPUSH Q4H PRN; Protocol PRN Reason: Pain, Severe (Pain Scale 7-10) Last Admin: 01/08/25 11:10 Dose: 4 mg Documented By: YADI Naloxone HCl (Naloxone Hcl 0.4 Mg/Ml Vial) 0.04 mg IVPUSH Q5M PRN PRN Reason: Excessive sedation or RR < 8 Sertraline HCl (Sertraline Hcl 100 Mg Tablet) 100 mg PO DAILY [facility] Last Admin: 01/10/25 08:45 Dose: 100 mg Documented By: IMELDA Sodium Chloride (0.9 % Sodium Chloride Flush 3 Ml Syringe) 3 ml IVFLUSH QSHIFT [facility] Last Admin: 01/10/25 07:45 Dose: Not Given Documented By: IMELDA Non-Admin Reason: IV Running Vitamin D (Cholecalciferol (Vitamin D3) 25 Mcg Tablet) 25 mcg PO DAILY [facility] Last Admin: 01/10/25 08:45 Dose: 25 mcg Documented By: IMELDA Labs 01/09/25 05:33 01/09/25 05:33 Labs: Laboratory Results - last 24 hr 01/09/25 01/09/25 01/09/25 11:12 15:46 19:40 POC Glucose 108 110 115 01/10/25 07:16 POC Glucose 125 H Microbiology Microbiology Results: Microbiology 01/08/25 05:03 Blood Culture - Preliminary Blood - Venous Gram positive cocci 01/08/25 04:13 Blood Culture - Preliminary Blood - Venous Gram positive cocci 01/08/25 Unknown Urine Culture - Preliminary Urine clean catch - Clean Catch Midstream Culture in progress. Assessment and Plan (1) Hydronephrosis with obstructing calculus: Status: Acute Plan 59F PMH mood disorder, DM, NHL, cerebral palsy, ovarian ca s/p resection/total hysterectomy, presented with dysuria and flank pain UTI and acute bilateral obstructing stones rocephin, s/p cysto and stents follow up cultures DM insulin hypothyroid synthroid mood disorder sertraline dvt prophylaxis - lovenox full code reason for continued hospitalization:cultures Quality Stroke Does the patient have a stroke diagnosis?: No VTE Prior VTE?: No VTE Risk Level:: Medical - moderate - high VTE Device Contraindication: N/A - Device Ordered VTE Drug Contraindication: N/A - Med Ordered
[2025-01-10 11:12] LABS: Glucose, Whole Blood 106 mg/dL (60-115)
[2025-01-10 15:00] VITALS: O2SAT 95
--- NOTE | 2025-01-10 15:06 | PM.DS ---
DS: Providers Provider Date of Service: 01/10/25 Date of admission: 01/08/25 08:51 Date of discharge: 01/10/25 Primary care physician: Jack Rosario MD Consults: 01/08/25 08:48 Consult to Urology Routine Consulting Provider: [facility] Reason for consultation: bilateral stones DS: Diagnosis Discharge Diagnosis (1) Hydronephrosis with obstructing calculus: Status: Acute DS: Summary Hospital Course Hospital Course: from initial hpi: 54-year-old female with a past medical history of anxiety/depression, type 2 diabetes, obesity, non-Hodgkin's lymphoma being monitored by Dr. Grimes, cerebral palsy, ovarian cancer status post resection and total hysterectomy who presents with a 1 day history of lower abdominal/pelvic discomfort, dysuria as well as right-sided flank pain which is colicky in nature and nonradiating to her lower back. She reports no hematuria. She reports chills but denies fevers. She reports nausea but denies vomiting. She denies any chest pain, shortness of breath. In the emergency room the patient's workup including CT scan and blood work revealed: WBC 19.5, lactate 2.4, UA with WBCs RBCs CT with: Bilateral stones with right hydro and left hydro nephrosis/ureter The patient's case was discussed with Urology by the ED team with plans for possible stenting bilaterally. Patient will be admitted for further care. hospital course: Patient was admitted for urinary tract infection and acute bilateral obstructing ureteral stones. Was treated with ceftriaxone, underwent cystoscopy with bilateral stent placement. Urine culture grew mixed sherice. On discharge will continue 5 more days of Ceftin and should follow up with Urology as outpatient. For diabetes was continued on insulin. For hypothyroid continued on levothyroxine. For mood disorder continued on sertraline. Time Attestation Discharge Coordination Time (in mins): 35 Quality: Safe Use of Opioids Does Pt have an Active Cancer Diagnosis on the Problem List?: No Quality: Stroke Does the patient have a stroke diagnosis?: No Physical Exam Vital Signs: Vital Signs: Last Vital Signs Temp 98.1 F 01/10/25 07:22 Pulse 74 01/10/25 07:22 Resp 18 01/10/25 07:22 BP 154/77 H 01/10/25 07:22 Pulse Ox 94 01/10/25 07:22 O2 Del Method Room Air 01/10/25 07:22 O2 Flow Rate 2 01/08/25 12:56 BMI result Body Mass Index 30.9 General: AO X 3, no acute distress Resp: CTA bilateral, no accessory muscles used CVS: S1,S2,RRR GI: soft, non tender, non distended Neuro: motor grossly intact, alert Psych: appropriate affect, appropriate insight DS: Data Data Completed and Pending Labs on day of discharge: Laboratory Results - last 24 hr 01/09/25 01/09/25 01/10/25 15:46 19:40 07:16 POC Glucose 110 115 125 H 01/10/25 11:08 POC Glucose 106 Preliminary micro results at discharge 01/08/25 05:03 Blood Culture - Preliminary Blood - Venous Gram positive cocci 01/08/25 04:13 Blood Culture - Preliminary Blood - Venous Gram positive cocci Discharge Plan Discharge Anticipated Discharge Date/Time: 01/10/25 15:04 Patient Disposition: Home, Self-Care Discharge Diagnosis: uti, stones Referrals: Eve Bell MD [Physician, Urology] - 1 Week Po,Jack Miller MD [Primary Care Provider, Internal Medicine] - 1 Week Discharge Medications: New cefuroxime axetil 500 mg tablet 500 mg PO BID Qty: 10 0RF Continued (DME) lancets [FreeStyle Lancets] 28 gauge misc See Rx Instructions .ROUTE .MEDSUPPLY Qty: 100 3RF Rx Instructions: As directed check the BS QD simvastatin 40 mg tablet 40 mg PO BEDTIME Qty: 90 2RF metformin 1,000 mg tablet 1,000 mg PO BIDWMEAL 90 Days Qty: 180 2RF (DME) FreeStyle Test Strip See Rx Instructions .ROUTE .MEDSUPPLY Qty: 100 3RF Rx Instructions: As directed check the BS QD irbesartan 75 mg tablet 75 mg PO DAILY Qty: 90 2RF levothyroxine 88 mcg tablet 88 mcg PO DAILY@0600 cholecalciferol (vitamin D3) 25 mcg (1,000 unit) capsule 25 mcg PO DAILY cetirizine [Zyrtec] 10 mg tablet 10 mg PO DAILY Jardiance 10 mg tablet 10 mg PO DAILY Qty: 90 3RF alprazolam 0.5 mg tablet 0.5 mg PO DAILY PRN (Reason: anxiety) 90 Days Qty: 90 0RF sertraline 100 mg tablet 100 mg PO DAILY 90 Days Qty: 90 2RF Discharge Orders: Discharge Order (Routine); Ordered 01/10/25 Ordered By: Collins Harmon Diet: Advance to usual diet Activity on Discharge: As tolerated Stand Alone Forms: Patient Portal Discharge page Print Language: Salvadorean Care Plan Goals: Recovery Health Concerns: Bilateral stones, UTI Plan of Treatment: 5 more days of Ceftin, follow up with Urology Assessment: See above
[2025-01-10 15:16] VITALS: BP 172/88; PULSE 86; RESP 16; TEMP 36.3; O2SAT 95
[2025-01-10 15:29] LABS: Glucose, Whole Blood 98 mg/dL (60-115)
== END 2025-01-10 15:48 | disposition home or self-care (01) | DRG 463 ==
LOC: HO.ED 08:20 → HO.EDOVER 09:06 → HO.S3 15:57
PROVIDERS: Urology; Admitting Provider Family Medicine; Emergency Provider Emergency Medicine; PCP Internal Medicine; Visit Provider Internal Medicine
PROC: 0T788DZ Dilation of Bilateral Ureters with Intraluminal Device, Via Natural or Artificial Opening Endoscopic (ICD-10-PCS; principal; 2025-01-08 14:30)
DX: N13.6 Pyonephrosis (principal); C85.90 Non-Hodgkin lymphoma, unspecified, unspecified site; G80.9 Cerebral palsy, unspecified; F39 Unspecified mood [affective] disorder; R31.9 Hematuria, unspecified; E11.9 Type 2 diabetes mellitus without complications; Z85.43 Personal history of malignant neoplasm of ovary; Z79.84 Long term (current) use of oral hypoglycemic drugs; Z79.890 Hormone replacement therapy; Z79.899 Other long term (current) drug therapy
CPT/HCPCS: 36415; 74176; 80048; 80053; 81001; 82947; 83605; 83690; 85025; 85027; 87040; 87077; 87086; 87186; 87205; 93005; 99285; C1758; C1769; C2617; J0690; J0696; J1650; J1885; J2003; J2270; J2405; J2704; J3010; J7120; Q9967

== ENCOUNTER → 2025-01-08 01:26 | Outpatient (BNV) | payer OTHER, SELFPAY | PROVIDERS: Admitting Provider Family Medicine; Emergency Provider Emergency Medicine; PCP Internal Medicine; Visit Provider Internal Medicine Cardiovascular Disease | DX: R10.30 Lower abdominal pain, unspecified (principal) | CPT/HCPCS: 93010 ==

== ENCOUNTER → 2025-01-08 01:44 | Outpatient (BNV) | payer OTHER, SELFPAY | PROVIDERS: Emergency Provider Emergency Medicine; PCP Internal Medicine; Visit Provider Radiology Diagnostic Radiology | DX: N13.2 Hydronephrosis with renal and ureteral calculous obstruction (principal) | CPT/HCPCS: 74176 ==

== ENCOUNTER → 2025-01-08 08:51 | Outpatient (BNV) | payer OTHER, SELFPAY | PROVIDERS: Admitting Provider Family Medicine; Emergency Provider Emergency Medicine; PCP Internal Medicine; Visit Provider Urology | DX: N30.01 Acute cystitis with hematuria (principal); N13.2 Hydronephrosis with renal and ureteral calculous obstruction | CPT/HCPCS: 52332; 99222 ==

== ENCOUNTER → 2025-01-08 08:51 | Outpatient (BNV) | payer OTHER, SELFPAY | PROVIDERS: Admitting Provider Family Medicine; Emergency Provider Emergency Medicine; PCP Internal Medicine; Visit Provider Family Medicine | DX: N30.01 Acute cystitis with hematuria (principal) | CPT/HCPCS: 99223; 99233; 99239 ==

== ENCOUNTER 2025-01-30 15:43 | Outpatient (AMB) | payer OTHER, SELFPAY ==
--- OUTSIDE RECORDS SUMMARY | 2024-06-25 06:45 | XMS_ITS ---
Author Organization Rahat Grimes III, MD Address [address] [address] Care Team Providers Care Yeast Supervisor Name Role Phone Rowan Rosario MD Primary Care Provider Rahat Ruiz [phone] Allergies Allergen (clinical drug ingredient) Drug/Non Drug [...] Date Provider Diagnosis Rahat Grimes III, MD [address] [place] [address] [place] [address] 06/25/2024 Rahat Grimes Vitamin D deficiency E55.9 [...] December, Reason: Hema moore follow-up Provider Name:Rahat Grimes, 06/26/2025 10:30:00 AM, [address] [place] [address], [address], [address], Progress Notes * ABDIAS QUINTEROSB:1965 ([age] yo F)Acc No.[id number]:06/25/2024 Progress Notes Patient: OSEI CUMMINS Provider: Suly Grimes MD :1965 A ge:58 Y S ex:Female Date:06/25/2024 Address:[address] [place] [address], [facility] Pcp:Rowan Rosario MD Subjective: * Chief Complaints: [...] or use drugs. She was born in [place]. She is unemployed. She is single with one child, a son Wilbert and she has no grandchildren. She sees an urgent care nurse practitioner at [facility] endocrinology. She is perimenopausal. 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 * Medications: T akingmetFORMIN HCl ER 500 [...] true * Provider: Suly Grimes MD Date: 1 08/26/2023 Generated for Printi ng/Faalg/eTransmitting on: 0 01/30/2025 03:45 PM EDT History and Physical Notes * [...]
--- NOTE | 2025-01-30 15:42 | A.OFFVIS_ITS ---
Intake Visit Reasons: bilateral stent/UTI/ procedure discussion Allergies latex (LATEX) Allergy (Intermediate, Verified 01/08/25 00:37) REDNESS,RASH lisinopril Allergy (Unknown, Verified 01/08/25 00:37) difficulty urination HPI Comments Details: 01/30/25 History of Present Illness - The patient is a 59-year-old female presenting with bilateral ureteral stones. - A CT scan on 01/08/25 showed bilateral mild hydronephrosis with distal ureteral stones. - Bilateral ureteral stents were placed on 01/08/25 to relieve obstruction. - The patient reports comfort with the stents and denies hematuria. - Planned procedures include cystoscopy, bilateral ureteroscopy, stone extraction, and stent removal. Plan - Plan for cystoscopy and bilateral ureteroscopy possible laser, remove stents. [facility] Medical History Anxiety and depression At high risk for breast cancer Thyroid nodule Medial meniscus tear Ear drum perforation Shoulder fracture, right Type 2 diabetes mellitus with hyperglycemia Obesity (BMI 30-39.9) Lymphoma Hypertension Hypothyroid Cerebral palsy Hypercholesterolemia Surgical History History of right breast biopsy (09/2017) History of lymph node biopsy (07/2017) History of meniscal tear History of Achilles tendon repair Family History Father Stroke Hypertension Diabetes CVD (cardiovascular disease) Mother Stroke Cervical cancer, Onset Age: 63 Breast cancer, Onset Age: 49 CVD (cardiovascular disease) Sister Breast cancer, Onset Age: 51 Substance abuse Bipolar disorder Mental health disorder Maternal Aunt Breast cancer, Onset Age: 40 Maternal Grandfather Throat cancer Social History Household Members: Significant Other Household Members Other:: Jon Housing: Apartment Do you presently have visiting nurse or other home services: No Alcohol intake: current Alcohol intake frequency: does not drink Comment: stopped 2021 Patient Tobacco Use Status: Never used Tobacco e-Cigarette/Vaping Use: Never Used Second Hand Smoke Exposure: No service: No Current occupational status: disabled Cognitive needs: Yes Hearing needs: No Vision needs: Yes Female Reproductive History Menstrual Age of Menarche: 14 Review of Systems Const All systems reviewed & are unremarkable except as noted in HPI and below Reports no additional complaints Eyes Reports no additional complaints ENT Reports no additional complaints Card Reports no additional complaints Resp Reports no additional complaints GI Reports no additional complaints Reports as per HPI Musc Reports no additional complaints Skin/Breast Reports system reviewed and no additional complaints, except as documented Neuro Reports no additional complaints Psych Reports no additional complaints Endo Reports no additional complaints Hector/Lymph Reports no additional complaints Aller/Immun Reports no additional complaints Telehealth Telehealth Telehealth Platform: [employer] Location of provider rendering services: practice address Location of patient: address on file Patient Identification confirmed using: Name, : Yes Telehealth method: voice only Patient verbally consented to treatment: Yes Patient verbally consented to billing insurance company: Yes Minutes spent on Phone/Video with Pt.: 14 Results Reviewed Results Reviewed: Date of Service: 01/08/25 CT abdomen and pelvis without contrast Comparison: None Findings: No consolidation or effusion. The liver is enlarged. The liver appears normal in contour. The gallbladder and solid organs are otherwise within normal limits. There are nonobstructing bilateral renal calculi. Vague 5.5 mm calcification identified at the right ureterovesicular junction which may represent a single obstructing calculus or multiple adjacent obstructing calculi. There is mild right hydroureter with alsv-cc-moxkxirw right hydronephrosis. A 3 mm calculus is visualized at the left ureterovesicular junction. There is mild left hydroureter with minimal left hydronephrosis. No bowel obstruction, pneumoperitoneum, or pneumatosis. There is colonic diverticulosis without convincing CT evidence for acute diverticulitis. The uterus is surgically absent. There appears to be asymmetric right-sided bladder wall thickening. Tiny, fat containing right inguinal hernia. Normal appendix. No acute fracture. Vacuum disc phenomenon present at L4-L5 and L5-S1. IMPRESSION: Vague calcification measuring 5.5 mm in diameter present at the right ureterovesicular junction which may represent a single obstructing calculus or multiple smaller adjacent obstructing calculi. There is mild right hydroureter with ymcc-ur-ixbcyyks right hydronephrosis. 3 mm obstructing calculus present at the left ureterovesicular junction with mild left hydroureter and minimal left hydronephrosis. Nonobstructing bilateral renal calculi present. Asymmetric right-sided bladder wall thickening, possibly related to cystitis. There appears to be adjacent edema. Recommend follow-up after appropriate clinical therapy to exclude a subtle underlying tumor. Other findiings as above. Assessment & Plan Assessment & Plan (1) Ureterolithiasis: Code(s): N20.1 - Calculus of ureter Category: Medical (2) Hydronephrosis with obstructing calculus: Code(s): N13.2 - Hydronephrosis with renal and ureteral calculous obstruction Category: Medical (3) Ureteral stent present: Code(s): Z96.0 - Presence of urogenital implants Category: Medical Plan Plan - Plan for cystoscopy and bilateral ureteroscopy possible laser, remove stents. Patient Instructions: The patient had an opportunity to ask questions regarding treatment plan. The patient expressed understanding and agreement with the above treatment plan. The patient is aware they should contact our office by phone for worsening of their current condition or the appearance of new symptoms. Compliance is encouraged with any medications and followup testing that is ordered. It is a privilege to be allowed the opportunity to participate in the urologic care of your patient. If you have any questions or concerns regarding treatment for the above conditions please do not hesitate to contact me. The office telephone contact is [phone]. This note is constructed in part using voice recognition software. While every effort has been made to ensure accuracy medical device errors may have been included. Yours sincerely, Eve Bell MD Scribe Plan - Not visible on output: Patient was informed and verbally consented to the use of an ambient scribe for clinic note documentation during this visit. Coding Level of Care Code Tele Est Pt Level 4 (28814) Diagnoses Ureterolithiasis N20.1 Hydronephrosis with obstructing calculus N13.2 Ureteral stent present Z96.0
== END 2025-01-30 16:13 | disposition home or self-care (01) ==
LOC: HO.HUSH 15:43
PROVIDERS: PCP Internal Medicine; Visit Provider Urology
DX: N20.1 Calculus of ureter (principal); N13.30 Unspecified hydronephrosis; Z96.0 Presence of urogenital implants
CPT/HCPCS: 99214

== ENCOUNTER 2025-02-14 16:22 | Outpatient (AMB) | payer OTHER, SELFPAY ==
--- NOTE | 2025-02-14 16:25 | A.OFFPC_ITS ---
Vital Signs 02/14/25 16:26 Height 5 ft 4 in Weight 167 lb 8 oz BMI 28.7 BP 142/84 H Blood Pressure Location Lt brachial Position Sitting Respiration 18 Pulse 86 Temp 97.1 F Temp Source Temporal Artery Scan Pulse Oximetry (%) 97 Oxygen Delivery Method Room Air Intake Visit Reasons: HDF [facility] 01/10/25 Clipper Machine Required: No Accompanied by: Self / Same As Patient Allergies latex (LATEX) Allergy (Intermediate, Verified 01/08/25 00:37) REDNESS,RASH lisinopril Allergy (Unknown, Verified 01/08/25 00:37) difficulty urination Tobacco use date assessed: 02/14/25 Dental Screening Dental Screen Date: 02/14/25 HPI HPI Comments History of Present Illness Details 59 y/o Female patient who presents to [facility] clinic today for HDF. She was admitted at [facility] on 01/08 - 01/10 for an evaluation and treatment of urinary tract infection and acute bilateral obstructing ureteral stones. She underwent cystoscopy with bilateral Stent placement on 01/08/25. She had a f/u appointment with Urology on 01/10/25. There is a plan in place for cystoscopy and bilateral ureteroscopy possible laser, remove Stents, scheduled for 03/04/25. Today Pt c/o Nausea associated with Poor Appetite. Denies fevers, chills, vomiting, Dysuria, frequency, and Abodminal pain. [facility] Medical History (Updated 02/14/25 @ 16:48 by Esthela Hendrickson NP) Nausea Anxiety and depression At high risk for breast cancer Thyroid nodule Medial meniscus tear Ear drum perforation Shoulder fracture, right Type 2 diabetes mellitus with hyperglycemia Obesity (BMI 30-39.9) Lymphoma Hypertension Hypothyroid Cerebral palsy Hypercholesterolemia Surgical History History of right breast biopsy (09/2017) History of lymph node biopsy (07/2017) History of meniscal tear History of Achilles tendon repair Family History Father Stroke Hypertension Diabetes CVD (cardiovascular disease) Mother Stroke Cervical cancer, Onset Age: 63 Breast cancer, Onset Age: 49 CVD (cardiovascular disease) Sister Breast cancer, Onset Age: 51 Substance abuse Bipolar disorder Mental health disorder Maternal Aunt Breast cancer, Onset Age: 40 Maternal Grandfather Throat cancer Social History Household Members: Significant Other Household Members Other:: Jon Housing: Apartment Do you presently have visiting nurse or other home services: No Alcohol intake: current Alcohol intake frequency: does not drink Comment: stopped 2021 Patient Tobacco Use Status: Never used Tobacco e-Cigarette/Vaping Use: Never Used Second Hand Smoke Exposure: No service: No Current occupational status: disabled Cognitive needs: Yes Hearing needs: No Vision needs: Yes Female Reproductive History Menstrual Age of Menarche: 14 Questionnaire PHQ-9 Over the last 2 weeks, how often have you been bothered by any of the following problems? 1. Little interest or pleasure in doing things: more than half the days 2. Feeling down, depressed, or hopeless: several days 3. Trouble falling or staying asleep, or sleeping too much: several days 4. Feeling tired or having little energy: several days 5. Poor appetite or overeating: not at all 6. Feeling bad about yourself - or that you are a failure or have let yourself or your family down: not at all 7. Trouble concentrating on things, such as reading the newspaper or watching television: not at all 8. Moving or speaking so slowly that other people could have noticed. Or the opposite - being so fidgety or restless that you have been moving around a lot more than usual: not at all 9. Thoughts that you would be better off or of hurting yourself in some way: not at all Total score: 5 Source: Developed by Drs. Rahat Otero, Karrie Chahal, Filemon Dos Santos and colleagues, with an educational shaq from [employer]. Thrive Questionnaire Date Thrive assessed: 02/14/25 I am a: Patient What is your living situation today?: I have a place to live, but I am worried about losing it in the future Within the past 12 months, did the food you bought not last and you didn't have the money to get more?: I choose not to answer this question Within the past 12 months, did you worry whether your food would run out before you got money to buy more?: I choose not to answer this question Do you have trouble paying for medicines?: No Do you have trouble getting transportation to medical appointments?: I choose not to answer this question Do you have trouble paying your heating and electricity bill?: No Do you have trouble taking care of your child, family member or friend?: No Do you have trouble with day-to-day activities such as bathing, preparing meals, shopping, managing finances, etc.?: No Are you currently unemployed and looking for a job?: No Are you interested in more education?: No Please select the resources that you would like help with: Housing/Snf Currently or been in a relationship where the following occur: I choose not to answer THRIVE Score: 1 AUDIT C Alcohol Use Questionnaire (AUDIT-C) 1. How often do you have a drink containing alcohol?: Never 3. How often do you have six or more drinks on one occasion?: Never Total Score: 0 DAGOBERTO-7 AMB Questionnaire DAGOBERTO-7 Date DAGOBERTO - 7 assessed: 02/14/25 Feeling nervous, anxious, or on edge: 3 = Nearly every day Not being able to stop or control worryin = Nearly every day Worrying too much about different things: 3 = Nearly every day Trouble relaxin = Nearly every day Being so restless that it is hard to sit still: 0 = Not at all Becoming easily annoyed or irritable: 3 = Nearly every day Feeling afraid as if something awful might happen: 1 = Several days Total DAGOBERTO-7 score (0-4 normal; 5-9 mild; 10-14 moderate; 15-21 severe): 16 Source: Developed by Drs. Rahat Otero, Karrie Chahal, Filemon Dos Santos and colleagues, with an educational shaq from [employer]. Review of Systems Const All systems reviewed & are unremarkable except as noted in HPI and below Physical exam (Primary Care) Vital Signs: Last Vital Signs Temp 97.1 F 02/14/25 16:26 Pulse 86 02/14/25 16:26 Resp 18 02/14/25 16:26 BP 142/84 H 02/14/25 16:26 Pulse Ox 97 02/14/25 16:26 Oxygen Delivery Method Room Air 02/14/25 16:26 BMI result Body Mass Index 28.7 Tobacco/Smoking Status: Tobacco use Status Tobacco use date assessed 08/08/25 08/08/25 16:34 Patient Tobacco Use Status Never used Tobacco 02/14/25 16:34 e-Cigarette/Vaping Use Never Used 02/14/25 16:34 PHQ-9: PHQ-9 Score PHQ-9: Total score 5 02/14/25 16:34 Thrive Assessment: Date of Thrive Assessment Date Thrive assessed 02/14/25 02/14/25 16:34 Currently or been in a relationship where the following occur: I choose not to answer Const General: no acute distress Nutritional Appearance: overweight Orientation/consciousness: patient oriented x3 Limitations: wheelchair Resp Effort & Inspection: normal respiratory effort Auscultation: clear to auscultation bilaterally Cardio Heart sounds: S1 normal heart sound present and S2 normal heart sound present Neuro General: patient oriented x3 Coding Level of Care Code Est Pt Level 4 (04149) Diagnoses Hydronephrosis with obstructing calculus N13.2 Nausea R11.0 Time Spent (min) 20 Assessment & Plan Assessment & Plan (1) Hydronephrosis with obstructing calculus: Code(s): N13.2 - Hydronephrosis with renal and ureteral calculous obstruction Category: Medical Plan: Managed by Urologist. Plan for cystoscopy and bilateral ureteroscopy possible laser, remove stents. (2) Nausea: Code(s): R11.0 - Nausea Category: Medical Plan: Ordered Zofran Avoid Oily greasy foods Medications: New ondansetron 8 mg PO Q8H 30 tabs 0RF R11.0 - Nausea
[2025-02-14 16:26] VITALS: BP 142/84; PULSE 86; RESP 18; TEMP 36.2; O2SAT 97; BMI 28.7
== END 2025-02-14 17:36 | disposition home or self-care (01) ==
LOC: HO.HMCH 16:23
PROVIDERS: PCP Internal Medicine; Visit Provider Nurse Practitioner Family
DX: N13.2 Hydronephrosis with renal and ureteral calculous obstruction (principal); R11.0 Nausea

== ENCOUNTER → 2025-02-14 16:22 | Outpatient (BNVA) | payer OTHER, SELFPAY | PROVIDERS: PCP Internal Medicine; Visit Provider Nurse Practitioner Family | DX: N13.2 Hydronephrosis with renal and ureteral calculous obstruction (principal); R11.0 Nausea; Z87.440 Personal history of urinary (tract) infections | CPT/HCPCS: 99212 ==

== ENCOUNTER 2025-03-04 10:09 | Day surgery (SDC) | payer OTHER, SELFPAY ==
--- OUTSIDE RECORDS SUMMARY | 2024-06-25 06:45 | XMS_ITS ---
Author Organization Rahat Grimes III, MD Address [address] [place] [address] Care Team Providers Care Pattern Clerk Name Role Phone Rowan Rosario MD Primary Care Provider Rahat Ruiz [phone] Allergies Allergen (clinical drug ingredient) Drug/Non Drug [...] Date Provider Diagnosis Rahat Grimes III, MD [address] [place] [address] [place] [address] 06/25/2024 Rahat Grimes Vitamin D deficiency E55.9 [...] follow-up Provider Name:Rahat Grimes, 06/26/2025 10:30:00 AM, [address] [place] [address], [address], [address], Progress Notes * ABDIAS QUINTEROSB:1965 ([age] yo F)Acc No.[id number]:06/25/2024 Progress Notes Patient: OSEI CUMMINS Provider: Suly Grimes MD :1965 A ge:58 Y S ex:Female Date:06/25/2024 Address:[address] [place] [address], [facility] Pcp:Rowan Rosario MD Subjective: * Chief [...] or use drugs. She was born in [place]. She is unemployed. She is single with one child, a son Wilbert and she has no grandchildren. She sees an call center analyst at [facility] endocrinology. She is perimenopausal. 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 * Medications: T akingmetFORMIN HCl ER 500 [...] 08/26/2023 Generated for Printi ng/Faalg/eTransmitting on: 0 02/14/2025 01:20 PM EDT History and Physical Notes * [...]
[2025-02-28 13:44] VITALS: BMI 28.8
--- NOTE | 2025-03-03 11:52 | HO.ANESPROP2 ---
Documented by User: Otilia Moore NP 03/03/25 11:53 HPI - Anesthesia Eval Consult details Narrative: 59 yr old female for Cystoscopy, Ureteroroscopy, Retro, Laser,stent REMOVAL s/p cystoscopy with stent placement 01/2025 with TIVA Type 2 DM: A1C 6.4% 12/2024 PMF Active Problems Active Problems: All Active Problems Ureteral stent present (Acute) Bilateral ureteral calculi (Acute) Hydronephrosis with obstructing calculus (Acute) Elevated WBC count (Acute) Acute cystitis (Acute) Ureterolithiasis (Acute) Eczema of right hand (Acute) Sertoli-Leydig cell tumor of ovary (Acute) Colon cancer screening (Acute) Generalized anxiety disorder (Acute) Annual physical exam (Acute) Dermoid cyst (Acute) Mass of left lower leg (Acute) Complex cyst of both ovaries (Acute) UTI (urinary tract infection) (Acute) Postmenopausal bleeding (Acute) Cervical cancer screening (Acute) Lymphadenopathy, axillary (Acute) Annual physical exam (Acute) Nausea (Acute) At high risk for breast cancer (Acute) Type 2 diabetes mellitus with hyperglycemia (Acute) Obesity (BMI 30-39.9) (Acute) Lymphoma (Acute) Hypertension (Acute) Hypothyroid (Acute) Cerebral palsy (Acute) Hypercholesterolemia (Acute) Past Medical History Medical History Diverticulosis Hx of ovarian cancer Nausea Anxiety and depression At high risk for breast cancer Thyroid nodule Medial meniscus tear Ear drum perforation Shoulder fracture, right Type 2 diabetes mellitus with hyperglycemia Obesity (BMI 30-39.9) Lymphoma Hypertension Hypothyroid Cerebral palsy Hypercholesterolemia Family History Family History Father Stroke Hypertension Diabetes CVD (cardiovascular disease) Mother Stroke Cervical cancer, Onset Age: 63 Breast cancer, Onset Age: 49 CVD (cardiovascular disease) Sister Breast cancer, Onset Age: 51 Substance abuse Bipolar disorder Mental health disorder Maternal Aunt Breast cancer, Onset Age: 40 Maternal Grandfather Throat cancer Family history of problems with anesthesia: No Surgical History Surgical History Hx of hysterectomy Hx of cystoscopy History of right breast biopsy (09/2017) History of lymph node biopsy (07/2017) History of meniscal tear History of Achilles tendon repair History of Problems with Anesthesia: No Social History Social History Household Members: Significant Other Household Members Other:: Jon Housing: Apartment Do you presently have visiting nurse or other home services: No Alcohol intake: current Alcohol intake frequency: does not drink Comment: stopped 2021 Patient Tobacco Use Status: Never used Tobacco e-Cigarette/Vaping Use: Never Used Second Hand Smoke Exposure: No service: No Current occupational status: disabled Cognitive needs: Yes Hearing needs: No Vision needs: Yes Meds Allergies Allergy/AdvReac Type Severity Reaction Status Date / Time latex (LATEX) Allergy Intermediate REDNESS,JENNY Verified 03/04/25 10:29 H lisinopril Allergy Unknown difficulty Verified 03/04/25 10:29 urination Home Medications ?Medication ?Instructions ?Recorded ?Confirmed ?Last Taken ?Type cetirizine 10 mg tablet (Zyrtec) 10 mg PO DAILY 04/24/20 03/04/25 01/07/25 History cholecalciferol (vitamin D3) 25 25 mcg PO DAILY 04/24/20 03/04/25 01/07/25 History mcg (1,000 unit) capsule levothyroxine 88 mcg tablet 88 mcg PO DAILY@0600 01/08/25 03/04/25 01/07/25 History ondansetron 8 mg disintegrating 8 mg PO Q8H PRN Nausea 03/04/25 03/04/25 Unknown History tablet Exam Height,Weight and Vital Signs: Height 5 ft 4 in Weight 76.204 kg Pertinent Lab Results Pertinent Lab Results: Laboratory Tests 01/09/25 05:33 WBC 12.6 H RBC 4.33 Hgb 13.1 Hct 39.4 Plt Count 150 L D Sodium 137 Potassium 3.7 BUN 11 Creatinine 0.61 Assessment and Plan Final Anesthetic Review Family History of Problems with Anesthesia: No History of Problems with Anesthesia: No Documented by User: Allyson Pelayo MD 03/04/25 11:15 PMFSH Past Medical History Medical History Diverticulosis Hx of ovarian cancer Nausea Anxiety and depression At high risk for breast cancer Thyroid nodule Medial meniscus tear Ear drum perforation Shoulder fracture, right Type 2 diabetes mellitus with hyperglycemia Obesity (BMI 30-39.9) Lymphoma Hypertension Hypothyroid Cerebral palsy Hypercholesterolemia Family History Family History Father Stroke Hypertension Diabetes CVD (cardiovascular disease) Mother Stroke Cervical cancer, Onset Age: 63 Breast cancer, Onset Age: 49 CVD (cardiovascular disease) Sister Breast cancer, Onset Age: 51 Substance abuse Bipolar disorder Mental health disorder Maternal Aunt Breast cancer, Onset Age: 40 Maternal Grandfather Throat cancer Surgical History Surgical History Hx of hysterectomy Hx of cystoscopy History of right breast biopsy (09/2017) History of lymph node biopsy (07/2017) History of meniscal tear History of Achilles tendon repair Social History Social History Household Members: Significant Other Household Members Other:: Jon Housing: Apartment Do you presently have visiting nurse or other home services: No Alcohol intake: current Alcohol intake frequency: does not drink Comment: stopped 2021 Patient Tobacco Use Status: Never used Tobacco e-Cigarette/Vaping Use: Never Used Second Hand Smoke Exposure: No service: No Current occupational status: disabled Cognitive needs: Yes Hearing needs: No Vision needs: Yes Meds Allergies Allergy/AdvReac Type Severity Reaction Status Date / Time latex (LATEX) Allergy Intermediate REDNESS,JENNY Verified 03/04/25 10:29 H lisinopril Allergy Unknown difficulty Verified 03/04/25 10:29 urination Home Medications ?Medication ?Instructions ?Recorded ?Confirmed ?Last Taken ?Type cetirizine 10 mg tablet (Zyrtec) 10 mg PO DAILY 04/24/20 03/04/25 01/07/25 History cholecalciferol (vitamin D3) 25 25 mcg PO DAILY 04/24/20 03/04/25 01/07/25 History mcg (1,000 unit) capsule levothyroxine 88 mcg tablet 88 mcg PO DAILY@0600 01/08/25 03/04/25 01/07/25 History ondansetron 8 mg disintegrating 8 mg PO Q8H PRN Nausea 03/04/25 03/04/25 Unknown History tablet Exam Airway Mallampati Class: III TM Dist: >3cm Neck ROM: Full Loose/Missing/Broken Teeth: No Heart: RRR Lungs: CTA Assessment and Plan Assessment Anesthesia Assessment: Anesthesia Plan Discussed and Chart Reviewed Final Anesthetic Review NPO: Yes ASA Class: III Final Preanesthetic Review: Meds/Allgs Chart Reviewed, Consent Obtained/Reviewed and Anes Risks/Benef Reviewed Patient Risk: Intermediate Procedure Risk: Low Anesthetic Plan Anesthetic Plan: GA Disposition: Standard PACU
[2025-03-04] VITALS (7 sets, daily range): BP systolic 118–155; BP diastolic 79–94; PULSE 70–81; RESP 15–18; TEMP 36.2–36.4; O2SAT 96–98; BMI 29.5
--- NOTE | ~2025-03-04 | FL_ITS ---
EXAMINATION: FL GUIDANCE ONLY HISTORY: bilateral stones COMPARISON: Correlation is made with a CT of the abdomen and pelvis dated 01/08/2025. TECHNIQUE: Fluoroscopy time: 22.9 seconds. Cumulative Dose: 5.88 mGy. Images: 2. FINDINGS: Fluoroscopic spot films of the left abdomen demonstrate a nephroureteral stent in place. FL/FL guidance in OR IMPRESSION: Fluoroscopy during procedure. Please see procedure report for additional information. Electronically signed by: Rahat Green MD 03/04/2025 12:52 PM EDT
[2025-03-04] MEDS: Lactated Ringers 1,000 ML 100 ML IVCONT (11:00)
[2025-03-04 11:02] LABS: Glucose, Whole Blood 73 mg/dL (60-115)
--- NOTE | 2025-03-04 11:22 | MHC.SHP ---
Pre-Procedural Eval Section A - 24 Hr Update-Section A only Date of Service: 03/04/25 The patient is an INPATIENT: No The patient has been examined within 24 hours of the surgical procedure. The History & Physical has been completed within 30 days and I have reviewed it.: Yes Section B - Complete if H&P > 30 days Chief Complaint: Calculus of ureter bilaterally Allergies: Allergies Allergy/AdvReac Type Severity Reaction Status Date / Time latex (LATEX) Allergy Intermediate REDNESS,JENNY Verified 03/04/25 10:29 H lisinopril Allergy Unknown difficulty Verified 03/04/25 10:29 urination Plan Diagnosis/Plan: Unchanged I have reviewed the history and physical and performed a pertinent physical examination on my patient. No changes have occurred unless specified. Plan for Cystoscopy, bilateral ureteroscopy, laser lithotripsy, ureteral stent exchange versus removal. Risks discussed included but not limited to, possible need to repeat procedure if stone is not completely fragmented, Irritative voiding symptoms, bladder spasms, urgency, blood in urine. Time Spent With Patient Time: Total time managing care of this patient today ____ minutes.
--- NOTE | 2025-03-04 11:23 | W.PM.OPN ---
Operative Note Operative Note Date of Service: 03/04/25 Narrative: PreOperative Diagnosis:?? Bilateral ureteral stones, Bilateral Hydronephrosis, s/p bilateral ureteral stents Post Operative Diagnosis:?? Bilateral Hydronephrosis, s/p bilateral ureteral stents Procedure: Cystoscopy, Bilateral ureteroscopy Right ureteral stent removal Left ureteral stent exchange--7 Cymraes by 24 cm Surgeon:?Dr Eve Bell Anesthesia:? General Findings: Significant sloughing of the papilla left greater than right, No ureteral stones visualized, Procedure: After informed consent was verified the patient was brought to the operating placed on the OR table in supine position.? General Anesthesia was administered per protocol.? The patient was placed in lithotomy position, prepped and draped in the usual sterile fashion.? Safety pause time-out and side of surgery confirmed.? Antibiotics confirmed. A 22 Cymraes cystoscope was inserted transurethrally, The bladder was visualized.? Both ureteric orifices were in normal position. The distal end of the right ureteral stent was grasped with the flexible grasping forceps. The stent was pulled retrograde through the urethra. A guidewire was passed through the stent. The cystoscope was removed, leaving the guidewire in place. The guidewire was used as the safety and was attached to the draping. The semi rigid ureteroscope was passed transurethrally, no ureteral stones were visualized. The ureteroscope was removed. Attention was taken to the left, and repeat similar steps as above the ureteroscope was passed into the left ureter, there was inflamatory changes, and significant sloughing of tissue noted, the ureteroscope was removed. The cystoscope was passed over the safety guidewire. A? 7 Cymraes by 24 cm stent was placed into the left ureter and renal pelvis under a combination of fluoroscopy and direct visualization. The bladder was emptied.? The rigid cystoscope was removed. ? The patient tolerated the procedure well and was brought to the recovery room in stable condition. Complications: None Drains: Ureteral stent as dictated above
== END 2025-03-04 14:00 | disposition home or self-care (01) ==
PROVIDERS: PCP Internal Medicine Medical Oncology; Visit Provider Urology
PROC: (CPT 52332; principal; 2025-03-04 12:20)
DX: N20.1 Calculus of ureter (principal); N13.30 Unspecified hydronephrosis; Z96.0 Presence of urogenital implants; N28.89 Other specified disorders of kidney and ureter
CPT/HCPCS: 52332; 82365; 82947; 88300; C1758; C1769; C2617; J0131; J1100; J1956; J2003; J2250; J2405; J2704; J3010; Q9967

== ENCOUNTER → 2025-03-04 10:09 | Outpatient (BNV) | payer OTHER, SELFPAY | PROVIDERS: PCP Internal Medicine Medical Oncology; Visit Provider Urology | DX: N20.1 Calculus of ureter (principal) | CPT/HCPCS: 52332 ==

== ENCOUNTER 2025-03-06 07:07 | Outpatient (REF) | payer OTHER, SELFPAY ==
--- OUTSIDE RECORDS SUMMARY | 2024-12-25 06:30 | XMS_ITS ---
Author Organization Rahat Grimes III, MD Address [address] [place] [place] [address] Care Team Providers Care Reinstatement Clerk Name Role Phone Po Rowan CM Primary Care Provider Rahat Ruiz [facility] [phone] Allergies Allergen (clinical drug ingredient) Drug/Non Drug [...] Provider Diagnosis Rahat Grimes III, MD [address] [place] [address] [place], [place] [address] 12/25/2024 Rahat Grimes Vitamin D deficiency E55.9 [...] Up: 6 Months, Reason: OV Provider Name:Rahat Grimes, 06/26/2025 10:30:00 AM, [address] [place] [address] [address] [place] [address], [place], [address], Progress Notes * ABDIAS QUINTEROSB:1965 ([age] yo F)Acc No.[id number]:12/25/2024 Progress Notes Patient: OSEI CUMMINS Provider: Suly Grimes MD :1965 A ge:59 Y S ex:Female Date:12/25/2024 Address:[address] [place] [address] [place], [address], [id number] Pcp:Rowan Rosario MD Subjective: * Chief Complaints: [...] or use drugs. She was born in [place]. She is unemployed. She is single with one child, a son Wilbert and she has no grandchildren. She sees an sales & service associate at [facility] endocrinology. She is perimenopausal. She has a database design analyst. * Medications: T akingmetFORMIN HCl ER [...] 0 12/25/2024 Generated for Danette forrest/Jerri/eTransmitting on: 0 03/06/2025 07:09 AM EDT History and Physical Notes * [...]
--- OUTSIDE RECORDS SUMMARY | 2025-01-14 05:25 | XMS_ITS ---
Author Organization Rahat Grimes III, MD Address [address] D[address]AZ [facility] [address] Care Team Providers Care Callisthenics Instructor Name Role Phone Rowan Rosario MD Primary Care Provider Rahat Ruiz [phone] REASON FOR VISIT update on her hospital stay at Social History Sex Assigned At : Social History Observation Description Sex Assigned At Female Encounters Encounter Location Date Provider Diagnosis Rahat Grimes III, MD [address] [place] [address] [place] [address] 01/14/2025 Rahat Grimes Plan Of Treatment Next Appt Details Provider Name:Rahat Grimes, 06/26/2025 10:30:00 AM, [address] [place] [address] [place], [address], Progress Notes * ABDIAS QUINTERSOB:1965 ([age] yo F)Acc No.[id number]:01/14/2025 Patient: OSEI CUMMINS :1965 A ge:59 Y S ex:Female Address:[address], [address], [facility] [place] [address] * true * Date: Generated for Printi ng/Faxing/eTransmitting on: 0 03/06/2025 07:09 AM EDT
--- OUTSIDE RECORDS SUMMARY | 2025-03-05 11:00 | XMS_ITS ---
Author Organization Rahat Grimes III, MD Address [address] [place] [address] Care Team Providers Care Buffing Turner And Counter Name Role Phone Rowan Rosario MD Primary Care Provider Rahat Ruiz [phone] REASON FOR VISIT FYI only Social History Sex Assigned At : Social History Observation Description Sex Assigned At Female Encounters Encounter Location Date Provider Diagnosis Rahat Grimes III, MD [address] [place] [address] [address] [place] [address] 03/05/2025 Rahat Grimes Plan Of Treatment Next Appt Details Provider Name:Rahat Grimes, 06/26/2025 10:30:00 AM, [address] [place] [address] [address] JE[address], [place], [address], Progress Notes * ABDIAS QUINTEROSB:1965 ([age] yo F)Acc No.[id number]:03/05/2025 Patient: OSEI CUMMINS :1965 A ge:59 Y S ex:Female Address:[address], [place], [address] * true * Date: Generated for Printi ng/Faalg/eTransmitting on: 0 03/06/2025 07:09 AM EDT
--- NOTE | ~2025-03-06 | US_ITS ---
EXAMINATION: US KIDNEY BILATERAL HISTORY: N13.2 - Hydronephrosis with renal and ureteral calculous obstruction TECHNIQUE: Real-time grayscale ultrasound imaging of the kidneys was performed and images were reviewed. COMPARISON: Correlation is made with a CT of the abdomen without contrast dated 01/08/2025. FINDINGS: Right kidney: The right kidney measures 13.0 x 4.1 x 5.8 cm. Renal parenchymal echotexture and thickness are normal. There is an 8 x 6 x 9 mm cyst in the interpolar region. Multiple calculi are noted including an 11 x 7 x 10 mm calculus in the interpolar region, a 16 x 5 x 13 mm calculus at the lower pole, and a 12 x 3 x 14 mm calculus at the lower pole. There is mild hydronephrosis. Left Kidney: The left kidney measures 12.5 x 5.6 x 5.0 cm. Renal parenchymal echotexture and thickness are normal. There are no masses. A stent is seen in place. There is a 6 x 4 x 5 mm calculus in the interpolar region and a cluster of calculi in the region of the renal pelvis measuring up to 3.6 x 1.2 x 1.7 cm in aggregate. There is mild hydronephrosis. US/US renal BI IMPRESSION: Bilateral nephrolithiasis as described. Mild bilateral hydronephrosis. Left nephroureteral stent in place. Electronically signed by: Rahat Green MD 03/06/2025 08:15 AM EDT
--- OUTSIDE RECORDS SUMMARY | 2025-03-06 07:09 | XMS_ITS | Patient Health Record ---
Author Organization Rahat Grimes III, MD Address [address] [place] [address] Care Team Providers Care Electrical Controls Technician Name Role Phone Rowan Rosario MD Primary Care Provider Rahat Ruiz [phone] Allergies Allergen (clinical drug ingredient) Drug/Non Drug Allergy documented on EMR Reaction Allergy Type Onset Date Status Tape Unknown Allergy Active Surgical Glue Unknown Allergy Active lisinopril Lisinopril Unknown Drug Allergy Activ e Latex Latex Unknown Allergy Active Adhesive Unknown Allergy Active Results Component Value Reference Range Notes MR breast BI wo/w con Reviewed date:05/13/2024 05:47:39 AM Interpretation: Performing Lab: Notes/Report: [address] [address] Magnetic Resonance Report Signed Patient: Osei Núñez MR#: [id number] : 1965 Acct:[id number] Age/Sex: 58 / F ADM Date: 04/15/24 Loc: HO.MRI Attending Dr: Domenic Quevedo MD Ordering Physician: Domenic Quevedo MD Date of Service: 04/15/24 Procedure(s): MR breast BI wo/w con Accession Number(s): [id number] cc: Rahat Grimes MD; Domenic Quevedo MD; [...] 05/03/24 1407 DD/ 1233 TD/TT: 04/15/24 1330 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: [place] [address] Magnetic Resonance Report Signed Patient: Osei Núñez MR#: [id number] : 1965 Acct:[id number] Age/Sex: 58 / F ADM Date: 04/15/24 Loc: HO.MRI Attending Dr: Domenic Quevedo MD Ordering Physician: Domenic Quevedo MD Date of Service: 04/15/24 Procedure(s): candy ast BI wo/w con Accession Number(s): [id number] cc: Rahat Grimes MD; Domenic Quevedo MD; [...] 05/03/24 1407 DD/ 1233 TD/TT: 04/15/24 1330 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: Complete Blood Count Auto Di ff Reviewed date:06/25/2024 10:49:35 AM Interpretation: Performing Lab:[facility], [address] [place] [phone] Notes/Report: White Blood Count 13.3 4.8-10.8 X10*3/uL [...] C ORRECTED REPORT C ORRECTED REPORT Comprehensive Berwind. Panel Fa st Reviewed date:06/25/2024 10:49:35 AM Interpretation: Performing Lab:[facility], [address] [place] [phone] Notes/Report: Sodium 138 135-145 mmol/L Potassium 4.0 [...] Dehydrogenase Reviewed date:06/25/2024 10:49:35 AM Interpretation: Performing Lab:[facility], [address] [place] [phone] Notes/Report: Lactate Dehydrogenase 200 122-220 U/L Lipid Panel Reviewed date:06/25/2024 10:49:35 AM Interpretation: Performing Lab:[facility], [address] [place] [phone] Notes/Report: Triglycerides 104 <150 mg/dL Desirable Triglyceride: [...] Serum Reviewed date:06/25/2024 10:49:35 AM Interpretation: Performing Lab:[address] [address] Notes/Report: Beta-2 Microglobulin, Serum 2.48 < OR = 2.51 mg/L THIS TEST WAS PERFORMED AT: [facility] [address] [address] AMADOR TOURE MD SLIDE REVIEW Reviewed date:06/25/2024 10:49:35 AM Interpretation: Performing Lab:[facility], [address] [place] [phone] Notes/Report: SLIDE REVIEW VERIFIED Complete Blood Count Auto Di ff Reviewed date:12/19/2024 05:32:08 AM Interpretation: Performing Lab:[facility], [address] [place] [address] Notes/Report: White Blood Count 11.5 4.8-10.8 X10*3/uL Red Blood Count 4.43 4.20-5.50 X10*6/uL Hemoglobin 13.3 12.0-16.0 g/dl Hematocrit 40.5 37.0-47.0 % Mean Corpuscular Volume 91.4 80.0-98.0 fL Mean Corpuscular Hemoglobin 30.0 27.0-33.0 pg Mean Corpuscular HGB Conc 32.8 31.0-35.0 g/dl Red Cell Distribution Width 13.5 11.0-16.0 % Platelet Count 233 160-400 X10*3/uL Mean Platelet Volume 9.1 9.4-12.3 fL Neutrophils Percent Auto 37.0 45-73 % Imm Gran Pct Auto 0.3 0.0-0.4 % Lymphocytes Percent Auto 56.3 20-40 % Monocytes Percent Auto 4.4 2-11 % Eosinophils Percent Auto 1.6 0-4 % Basophils Percent Auto 0.4 0-2 % NRBC Pct Auto 0.0 0.0-0.2 /100WBC Neutrophils Absolute Auto 4.3 2.0-8.3 x10*3/u L Imm Gran Abs Auto 0.04 0.00-0.03 X10*3/uL Lymphocytes Absolute Auto 6.5 1.2-4.9 X10*3/u L Monocytes Absolute Auto 0.5 0.1-1.2 X10*3/uL Eosinophils Absolute Auto 0.2 0.0-0.4 X10*3/u L Basophils Absolute Auto 0.1 0.0-0.2 X10*3/uL NRBC Abs Auto 0.000 0.0-0.012 X10*3/uL White Blood Count 11.5 4.8-10.8 X10*3/uL Red Blood Count 4.43 4.20-5.50 X10*6/uL Hemoglobin 13.3 12.0-16.0 g/dl Hematocrit 40.5 37.0-47.0 % Mean Corpuscular Volume 91.4 80.0-98.0 fL Mean Corpuscular Hemoglobin 30.0 27.0-33.0 pg Mean Corpuscular HGB Conc 32.8 31.0-35.0 g/dl Red Cell Distribution Width 13.5 11.0-16.0 % Platelet Count 233 160-400 X10*3/uL Mean Platelet Volume 9.1 9.4-12.3 fL Neutrophils Percent Auto 37.0 45-73 % Imm Gran Pct Auto 0.3 0.0-0.4 % Lymphocytes Percent Auto 56.3 20-40 % Monocytes Percent Auto 4.4 2-11 % Eosinophils Percent Auto 1.6 0-4 % Basophils Percent Auto 0.4 0-2 % NRBC Pct Auto 0.0 0.0-0.2 /100WBC Neutrophils Absolute Auto 4.3 2.0-8.3 x10*3/u L Imm Gran Abs Auto 0.04 0.00-0.03 X10*3/uL Lymphocytes Absolute Auto 6.5 1.2-4.9 X10*3/u L Monocytes Absolute Auto 0.5 0.1-1.2 X10*3/uL Eosinophils Absolute Auto 0.2 0.0-0.4 X10*3/u L Basophils Absolute Auto 0.1 0.0-0.2 X10*3/uL NRBC Abs Auto 0.000 0.0-0.012 X10*3/uL C ORRECTED REPORT C ORRECTED REPORT Erythrocyte Sedimentation Ra te Reviewed date:12/19/2024 05:32:08 AM Interpretation: Performing Lab:[address] [address] Notes/Report: Erythrocyte Sedimentation Rate 7 0-20 MM/HR Patients with polycythemia and many hemoglobin abnormalities may have depressed sed rates whereas patients with anemia may have elevated sed rates. Comprehensive Met. Panel Reviewed date:12/19/2024 05:32:08 AM Interpretation: Performing Lab:[address] [address] Notes/Report: Sodium 141 135-145 mmol/L Potassium 3.8 3.3-5.1 mmol/L Chloride 109 96-108 mmol/L Carbon Dioxide 23 22-29 mmol/L Anion Gap 13 12-20 Blood Urea Nitrogen 11 9-16 mg/dL Creatinine 0.52 0.5-1.4 mg/dL Estimated Glomerular Filt Rate > 60 Chronic Kidney Disease: Estimated GFR < 60 mL/min/1.73m2 Severe Kidney Disease: Estimated GFR < 15 mL/min/1.73m2 Glucose Random 97 60-115 mg/dL Calcium 9.1 8.4-10.2 mg/dL Bilirubin Total 0.4 0.0-1.0 mg/dL Aspartate Amino Transferase 22 5-31 U/L Alanine Aminotransferase 28 0-31 U/L Total Protein 7.2 6.5-8.0 g/dL Albumin Level 4.3 3.5-5.0 g/dL Alkaline Phosphatase 70 39-117 U/L Lactate Dehydrogenase Reviewed date:12/19/2024 05:32:08 AM Interpretation: Performing Lab:[address] [address] Notes/Report: Lactate Dehydrogenase 161 122-220 U/L Beta-2 Microglobulin, Serum Reviewed date:12/19/2024 05:32:08 AM Interpretation: Performing Lab:[address] [address] Notes/Report: Beta-2 Microglobulin, Serum 2.77 < OR = 2.51 mg/L THIS TEST WAS PERFORMED AT: [facility] [address] [place] [phone] AMADOR TOURE MD SLIDE REVIEW Reviewed date:12/19/2024 05:32:08 AM Interpretation: Performing Lab:[facility], [address] [place] [phone] Notes/Report: SLIDE REVIEW VERIFIED Glucose, Whole Blood (Not ye t reviewed by provider) Interpretation: Performing Lab:[facility], [address] [place] [phone] Notes/Report: Glucose, Whole Blood 73 60-115 mg/dL METER # : [id number] FL guidance in OR (Not yet r eviewed by provider) Interpretation: Performing Lab: Notes/Report: [address] [address] Fluoroscopy Report Signed Patient: Osei Núñez MR#: [id number] : 1965 Acct:[id number] Age/Sex: 59 / F ADM Date: 03/04/25 Loc: HO.SSS Attending Dr: Eve Bell MD Ordering Physician: Eve Bell MD Date of Service: 03/04/25 Procedure(s): FL guidance in OR Accession Number(s): [id number] cc: Eve Bell MD; Rahat Grimes MD EXAMINATION: FL GUIDANCE ONLY HISTORY: bilateral stones COMPARISON: Correlation is made with a CT of the abdomen and pelvis dated 01/08/2025. TECHNIQUE: Fluoroscopy time: 22.9 seconds. Cumulative Dose: 5.88 mGy. Images: 2. FINDINGS: Fluoroscopic spot films of the left abdomen demonstrate a nephroureteral stent in place. FL/FL guidance in OR IMPRESSION: Fluoroscopy during procedure. Please see procedure report for additional information. Electronically signed by: Rahat Green MD 03/04/2025 12:52 PM EDT RP Dictated By: Rahat Green MD Signed By: <Electronically signed by Rahat Green MD in OV> 03/04/25 1252 DD/ 1140 TD/TT: 03/04/25 1235 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: [address] [address] Fluoroscopy Report Signed Patient: Osei Núñez MR#: [id number] : 1965 Acct:[id number] Age/Sex: 59 / F ADM Date: 03/04/25 Loc: HO.SSS Attending Dr: Eve Bell MD Ordering Physician: Eve Bell MD Date of Service: 03/04/25 Procedure(s): FL guidance in OR Accession Number(s): [id number] cc: Rohit Bell MD; Rahat Grimes MD EXAMINATION: FL GUIDANCE ONLY HISTORY: bilateral stones COMPARISON: Correlation is made with a CT of the abdomen and pelvis dated 01/08/2025. TECHNIQUE: Fluoroscopy time: 22 .9 seconds. Cumulative Dose: 5.8 8 mGy. Images: 2. FINDINGS: Fluoroscopic spot fi lms of the left abdomen demonstrate a nephroureteral stent in place. FL/FL guidance in OR IMPRESSION: Fluoroscopy during procedure. Please see procedure report for additional information. Electronically breanne d by: Rahat Green MD 03/04/2025 12:52 PM EDT Dictated By: Rahat Green MD Signed By: <Electronically signed by Rahat Green MD in OV> 03/04/25 1252 DD/ 1140 TD/TT: 03/04/25 1235 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: Reason For Referral No Information Medications Medication SIG (Take, Route, Frequency, Duration) Notes Start Date End Date Status ALPRAZolam 0.25 MG 1 tablet Orally Twic [...] tablet Orally Onc e a day Active metFORMIN HCl ER 500 MG 1 tablet with ev ening meal Orally Twice a day Active Irbesartan 75 MG 1 tablet Orally Once a day Active ZyrTEC Allergy 10 MG 1 tablet Orally Onc e a day Active Vitamin D 1000 UNIT 1 tablet Orally Once a day Active Jardiance 10 MG 1 [...] Risk Notes Problem Diabetes mellitus without complication (299407227) Diabetes (E11.9) Active confirmed Her fas ting glucose is 105. No change in her medications indicated. I recommended aggressive weight loss. Problem 48722217 Lymphocytosis (D72.820) Active confirmed Lymphocyte count is slightly lower. It is essentially unchanged. Observation will continue. Problem 025846252777565 Obesity (BMI 30.0-34.9) (E66.9) Active confirmed We discuu ssed diet and nutrition. I recommended calorie reduction. Problem 04789234 Vitamin D deficiency (E55.9) Active confirmed She has b een compliant with her vitamin D suppleements. 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 The lymphoma remains indolent and surveillance with her treatment will be continued. Problem 03500481924684 Microcalcificati on of right breast on mammogram (R92.0) Active confirmed She will undergo routine mammography. 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 She is compliant with her medications. Problem 80528434 Left-sided hemiplegic cerebral palsy (G80.8) Active confirmed The neurological deficits are mild and she is completing all his activities of daily life without impairment. She is not currently working. 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 There is no sign of recurrent disease. Vital Signs Heart Rate 79 /min 12/25/2024 Temperature 98.4 degrees Fahrenheit 12/25/2024 Blood pressure diastolic 80 mm Hg 12/25/2024 Height 64 in in 12/25/2024 Blood pressure systolic 134 mm Hg 12/25/2024 Weight 185 lbs 12/25/2024 BMI 31.75 kg/m2 12/25/2024 Encounters Encounter Location Date Provider Diagnosis Rahat Grimes III, MD [address] [place] [address] [place] [address] 06/25/2024 Rahat Grimes Vitamin D deficiency E55.9 ; Lymphoma, small lymphocytic C83.00 ; Lymphocytosis D72.820 ; Obesity (BMI 30.0-34.9) E66.9 and 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 Rahat Grimes III, MD [address] [place] [address] [place] [address] 12/25/2024 Rahat Grimes Vitamin D deficiency E55.9 ; Lymphoma, small lymphocytic C83.00 ; Lymphocytosis D72.820 ; Obesity (BMI 30.0-34.9) E66.9 and 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 Rahat Grimes III, MD [address] [place] [address] [place] [address] 01/14/2025 Rahat Grimes III, MD [address] [place] [address] [place] [address] 03/05/2025 Rahat Grimes Assessments Encounter Date Diagnosis (ICD Code) Assessment [...] she should call me or new developments. 12/25/2024 Vitamin D deficiency (ICD-10 - E55.9) She has been compliant with her vitamin D suppleements. 12/25/2024 Lymphoma, small lymphocytic (ICD-10 - C83.00) There continues to be no palpable adenopathy or splenomegaly on the white blood cell count is slightly diminished. The lymphoma remains indolent and surveillance with her treatment will be continued. 06/25/2024 Lymphocytosis (ICD-10 - D72.820) The white blood cell count is 13,300 primarily lymphocytes. Her disease has been stable. 12/25/2024 Lymphocytosis (ICD-10 - D72.820) Lymphocyte count is slightly lower. It is essentially unchanged. Observation will continue. 06/25/2024 Obesity (BMI 30.0-34.9) (ICD-10 - E66.9) She says her weight has been stable. We reviewed her diet and nutrition and weight loss strategy. 12/25/2024 Obesity (BMI 30.0-34.9) (ICD-10 - E66.9) We discuussed diet and nutrition. I recommended calorie reduction. 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 There was no residual disease. She will be observed at this point. 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 There is no sign of recurrent disease. Plan Of Treatment Pending Test Test Name Order Date PROFILE, FASTING (COMPREHENSIVE METABOLI C) 12/15/2020 PROFILE, FASTING (COMPREHENSIVE METABOLI C) 02/27/2024 PROFILE, FASTING (COMPREHENSIVE METABOLI C) 10/27/2023 PROFILE, FASTING (COMPREHENSIVE METABOLI C) 04/09/2020 PROFILE, RANDOM (COMPREHENSIVE METABOLIC ) 03/22/2022 PROFILE, RANDOM (COMPREHENSIVE METABOLIC ) 07/28/2023 PROFILE, RANDOM (COMPREHENSIVE METABOLIC ) 09/09/2019 PROFILE, RANDOM (COMPREHENSIVE METABOLIC ) 12/25/2024 PROFILE, RANDOM (COMPREHENSIVE METABOLIC ) 04/16/2021 PROFILE, RANDOM (COMPREHENSIVE METABOLIC ) 06/25/2024 PROFILE, RANDOM (COMPREHENSIVE METABOLIC ) 03/28/2023 PROFILE, RANDOM (COMPREHENSIVE METABOLIC ) 11/15/2021 PROFILE, RANDOM (COMPREHENSIVE METABOLIC ) 10/25/2022 PROFILE, RANDOM (COMPREHENSIVE METABOLIC ) 05/09/2019 PROFILE, RANDOM (COMPREHENSIVE METABOLIC ) 08/17/2020 PROFILE, RANDOM (COMPREHENSIVE METABOLIC ) 08/17/2021 PROFILE, RANDOM (COMPREHENSIVE METABOLIC ) 07/26/2022 PROFILE, RANDOM (COMPREHENSIVE METABOLIC ) 01/09/2020 LIPID PANEL 04/09/2020 LDH 07/26/2022 LDH 01/09/2020 LDH 03/22/2022 LDH 07/28/2023 LDH 09/09/2019 LDH 12/25/2024 LDH 06/25/2024 LDH 12/15/2020 LDH 03/28/2023 LDH 02/27/2024 LDH 11/15/2021 LDH 10/25/2022 LDH 05/09/2019 LDH 08/17/2020 LDH 04/09/2020 FREE T4 (FT4) 08/17/2021 TSH (THYROID STIMULATING HORMONE) 2023 TSH (THYROID STIMULATING HORMONE) 2021 CBC w DIFF 04/09/2020 CBC w DIFF 08/17/2021 CBC w DIFF 07/26/2022 CBC w DIFF 01/09/2020 CBC w DIFF 04/16/2021 CBC w DIFF 03/22/2022 CBC w DIFF 07/28/2023 CBC w DIFF 09/09/2019 CBC w DIFF 12/25/2024 CBC w DIFF 06/25/2024 CBC w DIFF 12/15/2020 CBC w DIFF 11/15/2021 CBC w DIFF 03/28/2023 CBC w DIFF 02/27/2024 CBC w DIFF 10/25/2022 CBC w DIFF 10/27/2023 CBC w DIFF 05/09/2019 CBC w DIFF 08/17/2020 SED RATE (ESR) 08/17/2020 SED RATE (ESR) 04/09/2020 SED RATE (ESR) 01/09/2020 SED RATE (ESR) 09/09/2019 SED RATE (ESR) 06/25/2024 SED RATE (ESR) 12/15/2020 SED RATE (ESR) 11/15/2021 SED RATE (ESR) 10/25/2022 IMMUNOFIXATION PANEL, SERUM (IEP) 2023 BETA-2 MICROGLOBULIN, SERUM 10/25/2022 BETA-2 MICROGLOBULIN, SERUM 01/04/2019 BETA-2 MICROGLOBULIN, SERUM 03/22/2022 BETA-2 MICROGLOBULIN, SERUM 07/28/2023 BETA-2 MICROGLOBULIN, SERUM 03/28/2023 BETA-2 MICROGLOBULIN, SERUM 02/27/2024 Total Protein 07/28/2023 Lipid Panel 02/27/2024 Lipid Panel 10/27/2023 Vitamin D 25-OH Total 07/28/2023 Free T4 (Free Thyroxine) 10/27/2023 Beta-2 Microglobulin, Serum 06/25/2024 Beta-2 Microglobulin, Serum 12/25/2024 Glucose, Whole Blood 03/04/2025 FL guidance in OR 03/04/2025 Hemoglobin A1c 12/15/2020 Next Appt Details Provider Name:Rahat Grimes, 06/26/2025 10:30:00 AM, [address] [place] [address] STEF[address] [place]AN, [place], [address], Insurance Providers Payer Name Payer Address Payer Phone Subscriber Number Group Number Insured Name Patient Relationship to Insured Coverage Start Date Coverage End Date [employer] [address] [address] [place] [address] [id number] OSEI NÚÑEZ Self - patient is the insured [place] [address] [place], [place] [id number] OSEI NÚÑEZ Self - patient is the insured Medical [...] the ovary, resected Surgical History Surgery Date(Month/Year) No history hysterectomy completion 08/05/2022 Partial Hysterectomy 06/14/2022 left posterior superior iliac crest bone marrow biopsy and aspirate 03/2018 core biopsy. Right axillary lymph node Right knee partial medial meniscectomy 1 08/2013 foot surgery, left Hospitalization History Reason Date(Month/Year) No history DIANE/BSO Sertoli-Leydig cell tumor of the ovary September 2022 Left axillary lymph node biopsy
== END 2025-03-06 07:08 | disposition home or self-care (01) ==
LOC: HO.US 07:07
PROVIDERS: PCP Internal Medicine; Visit Provider Urology
DX: Z00.00 Encounter for general adult medical examination without abnormal findings (principal); Z12.11 Encounter for screening for malignant neoplasm of colon; N13.2 Hydronephrosis with renal and ureteral calculous obstruction; G80.9 Cerebral palsy, unspecified; C85.90 Non-Hodgkin lymphoma, unspecified, unspecified site; D27.9 Benign neoplasm of unspecified ovary; E03.9 Hypothyroidism, unspecified; I10 Essential (primary) hypertension; E78.00 Pure hypercholesterolemia, unspecified; F41.1 Generalized anxiety disorder; K59.00 Constipation, unspecified; Z79.84 Long term (current) use of oral hypoglycemic drugs; Z79.890 Hormone replacement therapy; Z79.899 Other long term (current) drug therapy; Z96.0 Presence of urogenital implants
CPT/HCPCS: 76775; 99396

== ENCOUNTER → 2025-03-06 07:10 | Outpatient (BNV) | payer OTHER, SELFPAY | PROVIDERS: PCP Internal Medicine; Visit Provider Radiology Diagnostic Radiology | DX: N13.2 Hydronephrosis with renal and ureteral calculous obstruction (principal); Z96.0 Presence of urogenital implants | CPT/HCPCS: 76775 ==

== ENCOUNTER 2025-03-06 16:13 | Outpatient (AMB) | payer OTHER, SELFPAY ==
[2025-03-06 16:16] VITALS: BP 136/72; PULSE 99; O2SAT 96; BMI 29.7
--- NOTE | 2025-03-06 16:16 | MHC.PC.OV ---
Vital Signs 03/06/25 16:16 Height 5 ft 4 in Weight 173 lb BMI 29.7 BP 136/72 Blood Pressure Location Lt brachial Position Sitting Pulse 99 Pulse Source Pulse Oximeter Pulse Oximetry (%) 96 Oxygen Delivery Method Room Air Intake Visit Reasons: PHYSICAL Allergies latex (LATEX) Allergy (Intermediate, Verified 03/06/25 16:16) REDNESS,RASH lisinopril Allergy (Unknown, Verified 03/06/25 16:16) difficulty urination Medication List - Last Reconciled 03/06/25 by Jack Rosario MD alprazolam 0.5 mg PO DAILY PRN 90 days blood sugar diagnostic (FreeStyle Test strips) As directed check the BS QD cetirizine (Zyrtec) 10 mg PO DAILY cholecalciferol (vitamin D3) 25 mcg PO DAILY empagliflozin (Jardiance) 10 mg PO DAILY irbesartan 75 mg PO DAILY lancets (FreeStyle Lancets) As directed check the BS QD levofloxacin 250 mg PO Q24H levothyroxine 88 mcg PO DAILY@0600 metformin 1,000 mg PO BIDWMEAL 90 days ondansetron 8 mg PO Q8H PRN sertraline 100 mg PO DAILY 90 days simvastatin 40 mg PO BEDTIME Tobacco use date assessed: 02/14/25 Dental Screening Dental Screen Date: 02/14/25 HPI PHYSICAL HPI Details nausea, PFSH Medical History Diverticulosis Hx of ovarian cancer Nausea Anxiety and depression At high risk for breast cancer Thyroid nodule Medial meniscus tear Ear drum perforation Shoulder fracture, right Type 2 diabetes mellitus with hyperglycemia Obesity (BMI 30-39.9) Lymphoma Hypertension Hypothyroid Cerebral palsy Hypercholesterolemia Surgical History Hx of hysterectomy Hx of cystoscopy History of right breast biopsy (09/2017) History of lymph node biopsy (07/2017) History of meniscal tear History of Achilles tendon repair Family History Father Stroke Hypertension Diabetes CVD (cardiovascular disease) Mother Stroke Cervical cancer, Onset Age: 63 Breast cancer, Onset Age: 49 CVD (cardiovascular disease) Sister Breast cancer, Onset Age: 51 Substance abuse Bipolar disorder Mental health disorder Maternal Aunt Breast cancer, Onset Age: 40 Maternal Grandfather Throat cancer Social History (Updated 03/06/25 @ 16:39 by Jack Rosario MD) Household Members: Significant Other Household Members Other:: Jon Housing: Apartment Do you presently have visiting nurse or other home services: No Alcohol intake: never Patient Tobacco Use Status: Never used Tobacco Tobacco use type: Cigarette Years Smoked: gummies e-Cigarette/Vaping Use: Never Used Second Hand Smoke Exposure: No service: No Current occupational status: disabled Cognitive needs: Yes Hearing needs: No Vision needs: Yes Female Reproductive History Menstrual Age of Menarche: 14 Questionnaire PHQ-9 Over the last 2 weeks, how often have you been bothered by any of the following problems? 1. Little interest or pleasure in doing things: more than half the days 2. Feeling down, depressed, or hopeless: several days 3. Trouble falling or staying asleep, or sleeping too much: several days 4. Feeling tired or having little energy: several days 5. Poor appetite or overeating: not at all 6. Feeling bad about yourself - or that you are a failure or have let yourself or your family down: not at all 7. Trouble concentrating on things, such as reading the newspaper or watching television: not at all 8. Moving or speaking so slowly that other people could have noticed. Or the opposite - being so fidgety or restless that you have been moving around a lot more than usual: not at all 9. Thoughts that you would be better off or of hurting yourself in some way: not at all Total score: 5 Depression Screening Interpretation: Positive Depression Screening Done: Yes Source: Developed by Drs. Rahat Otero, Karrie Chahal, Filemon Dos Santos and colleagues, with an educational shaq from [employer]. Thrive Questionnaire Date Thrive assessed: 12/26/24 I am a: Patient What is your living situation today?: I have a place to live, but I am worried about losing it in the future Within the past 12 months, did the food you bought not last and you didn't have the money to get more?: I choose not to answer this question Within the past 12 months, did you worry whether your food would run out before you got money to buy more?: I choose not to answer this question Do you have trouble paying for medicines?: No Do you have trouble getting transportation to medical appointments?: I choose not to answer this question Do you have trouble paying your heating and electricity bill?: No Do you have trouble taking care of your child, family member or friend?: No Do you have trouble with day-to-day activities such as bathing, preparing meals, shopping, managing finances, etc.?: No Are you currently unemployed and looking for a job?: No Are you interested in more education?: No Please select the resources that you would like help with: Housing/Fci Currently or been in a relationship where the following occur: I choose not to answer THRIVE Score: 1 AUDIT C Alcohol Use Questionnaire (AUDIT-C) 1. How often do you have a drink containing alcohol?: Never 3. How often do you have six or more drinks on one occasion?: Never Total Score: 0 DAGOBERTO-7 AMB Questionnaire DAGOBERTO-7 Date DAGOBERTO - 7 assessed: 02/14/25 Source: Developed by Drs. Rahat Otero, Karrie Chahal, Filemon Dos Santos and colleagues, with an educational shaq from [employer]. Review of Systems Const Denies poor appetite and Denies weakness Eyes Denies no additional complaints ENT Reports Normal hearing present, Denies dizziness, Denies nasal congestion, Denies tinnitus and Denies sore throat Card Denies chest pain, Denies syncope, Denies rapid heart rate and Denies dyspnea Resp Denies cough and Denies dyspnea GI Denies change in stool character, Reports constipation, Denies diarrhea, Denies nausea and Denies vomiting Denies urinary frequency, Denies difficulty voiding and Denies dysuria Neuro Reports Normal hearing present, Denies confusion, Denies dizziness, Denies syncope and Denies weakness Psych Denies confusion Physical exam (Primary Care) Vital Signs: Last Vital Signs Pulse 99 03/06/25 16:16 BP 136/72 03/06/25 16:16 Pulse Ox 96 03/06/25 16:16 Oxygen Delivery Method Room Air 03/06/25 16:16 BMI result Body Mass Index 29.7 Tobacco/Smoking Status: Tobacco use Status Tobacco use date assessed 02/14/25 03/06/25 16:25 Patient Tobacco Use Status Never used Tobacco 03/06/25 16:25 Tobacco use type Cigarette 03/06/25 16:25 e-Cigarette/Vaping Use Never Used 03/06/25 16:25 PHQ-9: PHQ-9 Score PHQ-9: Total score 5 03/06/25 16:25 Depression Screening Interpretation: Positive Thrive Assessment: Date of Thrive Assessment Date Thrive assessed 12/26/24 03/06/25 16:25 Currently or been in a relationship where the following occur: I choose not to answer Const General: No confusion Orientation/consciousness: No confusion HENMT Head: Yes normocephalic Ears: external ears normal and TM's normal bilaterally Face and sinus: Yes normal facial exam Mouth: moist mucous membranes Throat: Yes tonsils normal Eyes Conjunctivae: conjunctivae normal Pupils: Equal, round and reactive pupils present and Pupil accommodation reflex normal Direct Ophthalmoscopy: normal light reflex Neck Neck: No lymphadenopathy Thyroid: Thyroid normal Chest Chest palpation & inspection: normal inspection of the chest Resp Effort & Inspection: normal respiratory effort and no audible wheezes Auscultation: clear to auscultation bilaterally, no crackles, no wheezes and lung sounds not diminished Cardio Rate: regular rate Rhythm: regular rhythm Peripheral pulses: radial pulses present and dorsalis pedis present GI Palpation (GI): no masses Auscultation: normal bowel sounds and normoactive bowel sounds Rectal Exam - Female: deferred Skin General skin exam: no rashes or lesions noted Rashes: no rashes Neuro Other: Pinprick and pedal pulse normal, lower extremity weakness number 4 over 5 General: No confusion Cranial nerves: Yes Equal, round and reactive pupils present and Yes Normal hearing present Cognition (Neuro): normal cognition Deep tendon reflexes (DTR's): Right brachioradialis reflex intensity grade: 2+, Left brachioradialis reflex intensity grade: 2+, Right patellar reflex intensity grade: 2+ and Left patellar reflex intensity grade: 2+ Extrem General: No edema Coding Level of Care Code Est Pt Prev Care 40-64y([id number]) Diagnoses Annual physical exam Z00.00 Cerebral palsy G80.9 Lymphoma C85.90 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 Bilateral ureteral calculi N20.1 Ureteral stent present Z96.0 Type 2 diabetes mellitus with hyperglycemia, without long-term current use of insulin E11.65 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 (2) Cerebral palsy: Comment: L ankle release, Code(s): G80.9 - Cerebral palsy, unspecified Category: Medical (3) Lymphoma: Comment: small lymphocytic , chronic lymphocytic Dr. Grimes 08/2017 Code(s): C85.90 - Non-Hodgkin lymphoma, unspecified, unspecified site Category: Medical Plan: Continue to be monitored and follows up with Hematology-Oncology (4) Sertoli-Leydig cell tumor of ovary: Comment: [facility] CT Janelle Frank M.D. August 05, 2022 Robotic assisted laparoscopic total hysterectomy removal of remaining ovary omentectomy, peritoneal biopsies possible midline laparotomy. Q 6 months x 2 years then yearly stage Ia Code(s): D27.9 - Benign neoplasm of unspecified ovary Category: Medical Plan: Continue to be monitored (5) Bilateral ureteral calculi: Code(s): N20.1 - Calculus of ureter Category: Medical Plan: Patient is being followed up by Urology and stent placement with right taken off with the left left staying and planned ureteral stent removal in the next few months (6) Ureteral stent present: Code(s): Z96.0 - Presence of urogenital implants Category: Medical (7) Type 2 diabetes mellitus with hyperglycemia: Comment: [facility] Code(s): E11.65 - Type 2 diabetes mellitus with hyperglycemia Category: Medical Qualifiers: 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 December 2024 6.4 hemoglobin A1c goal of 6.5 below patient on Jardiance at 10 mg once a day metformin a 1000 mg twice a day (8) Hypothyroid: Code(s): E03.9 - Hypothyroidism, unspecified Category: Medical Qualifiers: Hypothyroidism type: acquired Qualified Code(s): E03.9 - Hypothyroidism, unspecified Plan: Continue with thyroid medication (9) Hypertension: Code(s): I10 - Essential (primary) hypertension Category: Medical Qualifiers: Hypertension type: essential hypertension Qualified Code(s): I10 - Essential (primary) hypertension Plan: Continue with blood pressure medication. Decrease salt intake and exercise patient on irbesartan 75 mg once a day (10) Hypercholesterolemia: Code(s): E78.00 - Pure hypercholesterolemia, unspecified Category: Medical Plan: Avoid fried foods, chicken skin, eggs, butter margarine, pastries and meat. Be it pork or beef they have a lot of cholesterol patient on simvastatin 40 mg once a day (11) Generalized anxiety disorder: Comment: [facility] ended 2020 decline any more referral therapy Code(s): F41.1 - Generalized anxiety disorder Category: Medical Plan: Continue with present therapy on sertraline as well as alprazolam (12) Constipation: Code(s): K59.00 - Constipation, unspecified Category: Medical (13) Colon cancer screening: Code(s): Z12.11 - Encounter for screening for malignant neoplasm of colon Category: Medical Plan History of Present Illness The patient is a 59-year-old female presenting for an annual physical examination and management of multiple chronic conditions. The patient has a history of cerebral palsy, contributing to left ankle weakness, and is managing hypercholesterolemia, hypothyroidism, and hypertension with medication. In 2018, she was diagnosed with lymphoma and has a history of a Sertoli-Leydig cell tumor of the ovary, leading to a robotic-assisted laparoscopic total hysterectomy and related procedures in June 2022. She is under hematology and oncology monitoring. The patient has nephrolithiasis, with recent imaging showing bilateral nephrolithiasis and mild hydronephrosis. She underwent bilateral ureteroscopy with stent procedures and was hospitalized for a urinary tract infection with obstructing ureteral stones, treated with ceftriaxone and cystoscopy. She has diabetes mellitus, with a hemoglobin A1c of 6.4%, managed with Jardiance and metformin. Preventative care includes a Cologuard test in February 2022 and a mammogram in October 2024. Health Maintenance - Colon cancer screening with Cologuard test in February 2022 - Mammogram in October 2024 Social History - Substance Use: Denies alcohol and tobacco use, occasionally uses edible gummies - Family History: Family history of heart problems, stroke, breast cancer, and throat cancer Review of Systems - General: Reports nausea, denies fever, dizziness, or vomiting - Cardiovascular: Denies chest pain or shortness of breath - Gastrointestinal: Reports constipation post-surgery, denies abdominal pain - Genitourinary: Reports dysuria and hematuria, denies recent kidney stone passage - Neurological: Denies dizziness or balance issues Physical Exam General: Cooperative, healthy appearing, comfortable, no acute distress and well developed Orientation: Patient oriented x3 Limitations: Left ankle weakness due to cerebral palsy Head: Normal to inspection Ears: Hearing grossly normal bilaterally Nose: Normal external nose present Face and sinus: Normal facial exam Eyes: Appearance normal, both eyes and all related structures Neck: Normal visual inspection and Yes full ROM Respiratory: Normal respiratory effort and able to speak in complete sentences. Clear to auscultation bilaterally Cardiovascular: Regular rate and rhythm. Normal S1 and S2 GI: Normal to inspection. Soft to palpation and nontender Skin: No rashes or lesions noted Neuro: Patient oriented x3 Extremities: Normal to inspection, except for left ankle weakness due to cerebral palsy Results - Labs: Hemoglobin A1c of 6.4% in December 2024 - Imaging: Ultrasound in February 2025 showing bilateral nephrolithiasis and mild hydronephrosis - Procedures: Bilateral ureteroscopy with right ureteral stent removal and left ureteral stent exchange Plan Patient was informed and verbally consented to the use of an ambient scribe for clinic note documentation during this visit. 1. Nephrolithiasis The patient has bilateral nephrolithiasis with mild hydronephrosis, as confirmed by recent imaging. She underwent bilateral ureteroscopy with right ureteral stent removal and left ureteral stent exchange. The plan includes continued monitoring by urology, with a planned ureteral stent removal in the next few months. 2. Diabetes Mellitus The patient's diabetes mellitus is managed with Jardiance 10 mg once daily and metformin 1000 mg twice daily. Her recent hemoglobin A1c was 6.4%, with a goal to maintain it below 6.5%. 3. Hypertension The patient's hypertension is managed with irbesartan 75 mg once daily. 4. Hypercholesterolemia The patient's hypercholesterolemia is managed with simvastatin 40 mg once daily. 5. Hypothyroidism The patient continues on her thyroid medication regimen. 6. Generalized Anxiety Disorder The patient is on sertraline and alprazolam as needed for anxiety management. 7. Lymphoma The patient is under regular monitoring by hematology and oncology for her history of lymphoma. Discussion Notes During the visit, we discussed the management of the patient's nephrolithiasis, including the planned ureteral stent removal and potential future interventions to address the large stones. We also reviewed her diabetes management plan, emphasizing the importance of maintaining her hemoglobin A1c below 6.5% with her current medications. The patient was advised to continue her current medication regimen for hypertension, hypercholesterolemia, hypothyroidism, and anxiety. Patient Instructions - Continue taking all prescribed medications as directed. - Follow up with urology for planned ureteral stent removal. - Monitor blood sugar levels regularly and maintain a healthy diet to keep hemoglobin A1c below 6.5%. - Schedule and complete any recommended screenings, such as Cologuard and mammogram. Orders: Orders Complete Blood Count Auto Diff 3 Months E11.65 - Type 2 diabetes mellitus with hyperglycemia Free T4 (Free Thyroxine) 3 Months E11.65 - Type 2 diabetes mellitus with hyperglycemia Vitamin D 25-OH Total 3 Months E11.65 - Type 2 diabetes mellitus with hyperglycemia Comprehensive Met. Panel 3 Months E11.65 - Type 2 diabetes mellitus with hyperglycemia Hemoglobin A1c 3 Months E11.65 - Type 2 diabetes mellitus with hyperglycemia Thyroid Stimulating Hormone 3 Months E11.65 - Type 2 diabetes mellitus with hyperglycemia Vitamin B12 and Folate 3 Months E11.65 - Type 2 diabetes mellitus with hyperglycemia Lipid Panel 3 Months E11.65 - Type 2 diabetes mellitus with hyperglycemia, E78.00 - Pure hypercholesterolemia, unspecified Referrals Nephrology Referral N20.1 - Calculus of ureter Cologuard Test Z12.11 - Encounter for screening for malignant neoplasm of colon, Z12.12 - Encounter for screening for malignant neoplasm of rectum Medications: New polyethylene glycol 3350 (Gavilax) 17 grams PO BID 850 grams 0RF K59.00 - Constipation, unspecified Refilled blood sugar diagnostic (FreeStyle Test strips) As directed check the BS QD 100 ea 3RF E11.65 - Type 2 diabetes mellitus with hyperglycemia lancets (FreeStyle Lancets) As directed check the BS QD 100 ea 3RF E11.65 - Type 2 diabetes mellitus with hyperglycemia
== END 2025-03-06 17:07 | disposition home or self-care (01) ==
LOC: HO.HMCH 16:13
PROVIDERS: PCP Internal Medicine; Visit Provider Internal Medicine
DX: Z00.00 Encounter for general adult medical examination without abnormal findings (principal); G80.9 Cerebral palsy, unspecified; C85.90 Non-Hodgkin lymphoma, unspecified, unspecified site; E11.65 Type 2 diabetes mellitus with hyperglycemia; N20.1 Calculus of ureter; Z96.0 Presence of urogenital implants; D27.9 Benign neoplasm of unspecified ovary; E03.9 Hypothyroidism, unspecified; I10 Essential (primary) hypertension; E78.00 Pure hypercholesterolemia, unspecified; F41.1 Generalized anxiety disorder; K59.00 Constipation, unspecified

== ENCOUNTER 2025-03-27 10:55 | Outpatient (AMB) | payer OTHER, SELFPAY ==
[2025-03-27 11:12] VITALS: BP 118/84; PULSE 103; O2SAT 99; BMI 29.5
--- NOTE | 2025-03-27 11:12 | HO.NEPHOV_ITS ---
Vital Signs 03/27/25 11:12 Height 5 ft 4 in Weight 172 lb BMI 29.5 BP 118/84 Blood Pressure Location Rt brachial Position Sitting Pulse 103 H Pulse Source Pulse Oximeter Pulse Oximetry (%) 99 Oxygen Delivery Method Room Air Intake Visit Reasons: INP: Calculus of ureter [employer] Required: No Accompanied by: Spouse Allergies latex (LATEX) Allergy (Intermediate, Verified 03/27/25 11:13) REDNESS,RASH lisinopril Allergy (Unknown, Verified 03/27/25 11:13) difficulty urination HPI Comments Details: The patient is a 59-year-old woman referred for nephrolithiasis. She has bilateral kidney stones with mild hydronephrosis and underwent cystoscopy with bilateral stent placement on March 04. The left stent is scheduled for removal next week. She reports no previous kidney stones and describes the pain as severe, worse than childbirth. Occasional left kidney pain is noted, with no current hematuria or dysuria. She drinks 80 ounces of water daily and follows a low-salt diet. Her medical history includes hypertension and diabetes mellitus, managed with irbesartan and metformin, respectively. She also takes vitamin D, sertraline, and simvastatin. Renal ultrasound shows multiple stones, primarily calcium oxalate. Medical History: - Hypertension - Diabetes mellitus - Cerebral palsy Surgical History: - Cystoscopy with bilateral stent placement on March 04, 2025 Social History: - Hydration: Consumes 80 ounces of water daily - Diet: Follows a low-salt diet Diagnostic Results: - Renal ultrasound: Multiple stones, primarily calcium oxalate PFSH Medical History Diverticulosis Hx of ovarian cancer Nausea Anxiety and depression At high risk for breast cancer Thyroid nodule Medial meniscus tear Ear drum perforation Shoulder fracture, right Type 2 diabetes mellitus with hyperglycemia Obesity (BMI 30-39.9) Lymphoma Hypertension Hypothyroid Cerebral palsy Hypercholesterolemia Surgical History Hx of hysterectomy Hx of cystoscopy History of right breast biopsy (09/2017) History of lymph node biopsy (07/2017) History of meniscal tear History of Achilles tendon repair Family History Father Stroke Hypertension Diabetes CVD (cardiovascular disease) Mother Stroke Cervical cancer, Onset Age: 63 Breast cancer, Onset Age: 49 CVD (cardiovascular disease) Sister Breast cancer, Onset Age: 51 Substance abuse Bipolar disorder Mental health disorder Maternal Aunt Breast cancer, Onset Age: 40 Maternal Grandfather Throat cancer Social History Household Members: Significant Other Household Members Other:: Jon Housing: Apartment Do you presently have visiting nurse or other home services: No Alcohol intake: never Patient Tobacco Use Status: Never used Tobacco Tobacco use type: Cigarette Years Smoked: gummies e-Cigarette/Vaping Use: Never Used Second Hand Smoke Exposure: No service: No Current occupational status: disabled Cognitive needs: Yes Hearing needs: No Vision needs: Yes Female Reproductive History Menstrual Age of Menarche: 14 Review of Systems Const Denies fever(s) and Denies weight loss Card Denies chest pain Resp Denies cough and Denies hemoptysis GI Denies abdominal pain, Denies diarrhea and Denies nausea Musc Denies back pain Neuro Denies focal weakness Physical Exam Vital Signs: Last Vital Signs Pulse 103 H 03/27/25 11:12 BP 118/84 03/27/25 11:12 Pulse Ox 99 03/27/25 11:12 Oxygen Delivery Method Room Air 03/27/25 11:12 BMI result Body Mass Index 29.5 Comfortable Neck supple no JVD. Lungs entry equal no rales. Heart S1-S2 heard no gallop or rub. Abdomen soft nontender. Neuro alert awake oriented. No asterixis. Extremities no edema. Results Reviewed Results Reviewed: USG Feb 2025 Right kidney: The right kidney measures 13.0 x 4.1 x 5.8 cm. Renal parenchymal echotexture and thickness are normal. There is an 8 x 6 x 9 mm cyst in the interpolar region. Multiple calculi are noted including an 11 x 7 x 10 mm calculus in the interpolar region, a 16 x 5 x 13 mm calculus at the lower pole, and a 12 x 3 x 14 mm calculus at the lower pole. There is mild hydronephrosis. Left Kidney: The left kidney measures 12.5 x 5.6 x 5.0 cm. Renal parenchymal echotexture and thickness are normal. There are no masses. A stent is seen in place. There is a 6 x 4 x 5 mm calculus in the interpolar region and a cluster of calculi in the region of the renal pelvis measuring up to 3.6 x 1.2 x 1.7 cm in aggregate. There is mild hydronephrosis. Stone analysis Feb 2025 Carbonate Apatite (Dahllite) 90% Calcium Oxalate Dihydrate (Weddellite) 10% Nephrology Results: Renal US 03/06/25 Assessment & Plan Assessment & Plan (1) Bilateral ureteral calculi: Code(s): N20.1 - Calculus of ureter Category: Medical Plan 1.Nephrolithiasis - 24-hour urine collection to assess stone risk factors. - Maintain high fluid intake and low-salt diet. - Citrate supplementation through lemonade to prevent stones. - Stent removal scheduled for next week. Check Ca/iPTH/Phos and uric acid levels 2. Hypertension - Continue irbesartan for blood pressure control. 3. Diabetes Mellitus - Continue metformin for diabetes management. No changes were made today Orders: Orders Sodium, 24Hr Urine Group Today N20.1 - Calculus of ureter Creatinine, 24 Hr Group Today N20.1 - Calculus of ureter Calcium, 24 Hr Ur Today N20.1 - Calculus of ureter Uric Acid, 24Hr Urine Group Today N20.1 - Calculus of ureter Basic Metabolic Panel Today N20.1 - Calculus of ureter Parathyroid Hormone Intact Today N20.1 - Calculus of ureter Phosphorus Today N20.1 - Calculus of ureter Oxalate, 24 Hr Today N20.1 - Calculus of ureter Citric Acid 24hr Urine Today N20.1 - Calculus of ureter Vitamin D 25-OH Total Today N20.1 - Calculus of ureter Uric Acid Today N20.1 - Calculus of ureter Coding Level of Care Code New Pt Level 4 (47847) Diagnoses Bilateral ureteral calculi N20.1
== END 2025-03-27 11:34 | disposition home or self-care (01) ==
LOC: HO.HKA 10:55
PROVIDERS: PCP Internal Medicine; Referring Provider Internal Medicine; Visit Provider Internal Medicine Hypertension Specialist
DX: N20.1 Calculus of ureter (principal)
CPT/HCPCS: 99204

== ENCOUNTER → 2025-03-27 10:55 | Outpatient (BNVA) | payer OTHER, SELFPAY | PROVIDERS: PCP Internal Medicine; Referring Provider Internal Medicine; Visit Provider Internal Medicine Hypertension Specialist | DX: N20.1 Calculus of ureter (principal) | CPT/HCPCS: 99202 ==

== ENCOUNTER 2025-03-31 11:51 | Outpatient (REF) | payer OTHER, SELFPAY ==
--- OUTSIDE RECORDS SUMMARY | 2024-02-27 06:30 | XMS_ITS ---
Author Organization Rahat Grimes III, MD Address [address] [address] Care Team Providers Care Spectral Scientist Name Role Phone Rowan Rosario MD Primary Care Provider Dr. Rahat Ruiz III Unavailable [phone] Allergies Allergen (clinical drug ingredient) Drug/Non Drug [...] Date Provider Diagnosis Rahat Grimes III, MD [address] [place] [address] [place] [address] 02/27/2024 Rahat Grimes Vitamin D deficiency E55.9 [...] Provider Name:Rahat Grimes , 06/26/2025 10:30:00 AM, [address] [place] [address] [address] [place] [address], [place], [address], Progress Notes * MERLYSHANARITAB:1965 ([age] yo F)Acc No.[id number]:02/27/2024 Progress Notes Patient: OSEI CUMMINS Provider: Suly Grimes MD :1965 A ge:58 Y S ex:Female Date:02/27/2024 Address:[address] [place] [address] [place], [place], [id number] Pcp:Rowan Rosario MD Subjective: * Chief [...] or use drugs. She was born in [place]. She is unemployed. She is single with one child, a son Wilbert and she has no grandchildren. She sees an pr manager at [facility] endocrinology. She is perimenopausal. 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 * Medications: T akingJardiance 10 MG Tablet [...] >40 mg/dL) 50 (Ref Range: mg/dL) ???Lab:Comprehensive [place]. Panel Fast (Order Date - 02/19/2024) (Collection Date - 02/19/2024)?ValueReference Range?[id number] - mmol/L ?Bilirubin Total0.50.0-1.0 - mg/dL?Aspartate Amino Jdbsrssqmne290- 31 - U/L?Alanine Thlwhnjrzclgnnza87L1-92 - U/L?Total Protein8.1H 6.5-8.0 - g/dL?Albumin Level4.63.5-5.0 - g/dL?Alkaline Phosphatase 7439-117 - U/L?Potassium4.03.3-5.1 - mmol/L?Qtujyrxo67737-138 - mmol/L?Carbon Nsokrso0089-67 - mmol/L?Anion Uio0315-34 - ?Blood Urea Wuprldwn861-89 - mg/dL?Creatinine0.640.5-1.4 - mg/dL ?Estimated Glomerular Filt Rate> 60-?Glucose Oatzqbh618T14-30 - mg/dL?Calcium9.78.4-10.2 - mg/dL * Lab:Complete Blood [...] 0 02/27/2024 Generated for Danette forrest/Jerri/eTransmitting on: 0 03/31/2025 02:33 PM EDT History and Physical Notes * HPI (History of Present Illness) Category Sub-Category Detail Notes COVID-19 Screening Questions Have you had any new onset fever, chills, cough, congestion, sore throat, shortness of breath, muscle aches?: No Have you been exposed to the virus withi n the last 10 days?: No Have you travelled internationally in [facility] last 10 days?: No Have you [...]
--- OUTSIDE RECORDS SUMMARY | 2024-06-25 06:45 | XMS_ITS ---
Author Organization Rahat Grimes III, MD Address [address] [place] [address] Care Team Providers Care Emergency Medical Technician Basic Name Role Phone Rowan Rosario MD Primary Care Provider Dr. Rahat Ruiz III Unavailable [phone] Allergies Allergen (clinical drug ingredient) Drug/Non Drug [...] Provider Diagnosis Rahat Grimes III, MD [address] [place] [address] [place] [address] 06/25/2024 Rahat Grimes Vitamin D deficiency E55.9 [...] Provider Name:Rahat Grimes , 06/26/2025 10:30:00 AM, [address] [place] [address], [place] [address], [place], [address], Progress Notes * ABDIAS QUINTEROSB:1965 ([age] yo F)Acc No.[id number]:06/25/2024 Progress Notes Patient: OSEI CUMMINS Provider: Suly Grimes MD :1965 A ge:58 Y S ex:Female Date:06/25/2024 Address:[address] [place] [address], [address], [place], [id number] Pcp:Rowan Rosario MD Subjective: * Chief Complaints: [...] or use drugs. She was born in [place]. She is unemployed. She is single with one child, a son Wilbert and she has no grandchildren. She sees an angledozer operator at [facility] endocrinology. She is perimenopausal. 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 * Medications: T akingmetFORMIN HCl ER 500 [...] 08/26/2023 Generated for Printi ng/Faalg/eTransmitting on: 0 03/31/2025 02:32 PM EDT History and Physical Notes * [...]
--- OUTSIDE RECORDS SUMMARY | 2024-12-25 06:30 | XMS_ITS ---
Author Organization Rahat Grimes III, MD Address [address] [place] [address] Care Team Providers Care Electroencephalograph Technologist Name Role Phone Rowan Rosario MD Primary [...] Date Provider Diagnosis Rahat Grimes III, MD [address] [place] [address] [address] [place], [place] [address] 12/25/2024 Rahat Grimes Vitamin D deficiency E55.9 [...] Name:Rahat Grimes , 06/26/2025 10:30:00 AM, [address] [place] [address] [address] [place] [place] [address], [place], [address], Progress Notes * SHANA QUINTEROSADOB:1965 ([age] yo F)Acc No.[id number]:12/25/2024 Progress Notes Patient: OSEI CUMMINS Provider: Suly Grimes MD :1965 A ge:59 Y S ex:Female Date:12/25/2024 Address:[address] [place] [address] [place], [place], [place] Pcp:Rowan Rosario MD Subjective: * Chief [...] or use drugs. She was born in [place]. She is unemployed. She is single with one child, a son Wilbert and she has no grandchildren. She sees an pulp house supervisor at [facility] endocrinology. She is perimenopausal. She has a care administrative tech. * Medications: T akingmetFORMIN HCl ER 500 [...] true * Provider: Suly Grimes MD Date: 12/25/2024 Generated for Danette forrest/Jerri/eTransmitting on: 0 03/31/2025 [...]
--- OUTSIDE RECORDS SUMMARY | 2025-01-14 05:25 | XMS_ITS ---
Author Organization Rahat Grimes III, MD Address [address] D[address] [facility] [place] [address] Care Team Providers Care Research And Development Engineer Name Role Phone Rowan Rosario MD Primary Care Provider Dr. Rahat Ruiz III [facility] REASON FOR VISIT update on her hospital stay at Social History Sex Assigned At : Social History Observation Description Sex Assigned At Female Encounters Encounter Location Date Provider Diagnosis Rahat Grimes III, MD [address] [place] [address] [place] [address] 01/14/2025 Rahat Grimes Plan Of Treatment Next Appt Details Provider Name:Rahat Grimes , 06/26/2025 10:30:00 AM, [address] [place] [address] [place], [address], Progress Notes * SHANA QUINTEROSADOB:1965 ([age] yo F)Acc No.[id number]:01/14/2025 Patient: OSEI CUMMINS :1965 A ge:59 Y S ex:Female Address:[address], [address], [place], [address] * true * Date: Generated for Printi ng/Faxing/eTransmitting on: 0 03/31/2025 02:33 PM EDT
--- OUTSIDE RECORDS SUMMARY | 2025-03-05 11:00 | XMS_ITS ---
Author Organization Rahat Grimes III, MD Address [address] [place] [address] Care Team Providers Care Header Operator Name Role Phone Rowan Rosario MD Primary Care Provider Dr. Rahat Ruiz III [facility] [phone] REASON FOR VISIT FYI only Social History Sex Assigned At : Social History Observation Description Sex Assigned At Female Encounters Encounter Location Date Provider Diagnosis Rahat Grimes III, MD [address] [place] [address] [place] [address] 03/05/2025 Rahat Grimes Plan Of Treatment Next Appt Details Provider Name:Rahat Grimes , 06/26/2025 10:30:00 AM, [address] [place] [address] [place], [address], Progress Notes * ABDIAS QUINTEROSB:1965 ([age] yo F)Acc No.[id number]:03/05/2025 Patient: OSEI CUMMINS :1965 A ge:59 Y S ex:Female Address:[address], [address], [facility] [place], [address] * true * Date: Generated for Printi ng/Faxing/eTransmitting on: 0 03/31/2025 02:33 PM EDT
[2025-03-31 13:55] LABS: Anion Gap 13 (12-20); Blood Urea Nitrogen 11 mg/dL (9-16); Calcium 9.6 mg/dL (8.4-10.2); Carbon Dioxide 24 mmol/L (22-29); Chloride 107 mmol/L (96-108); Estimated Glomerular Filt Rate > 60; Potassium 3.9 mmol/L (3.3-5.1); Sodium 140 mmol/L (135-145); Uric Acid 5.4 mg/dL (2.4-5.7)
[2025-03-31 13:57] LABS: Parathyroid Hormone Intact 45.3 pg/mL (8.7-77.1)
[2025-03-31 14:12] LABS: Creatinine, mg/dL 44.14; Sodium, 24 Hr Urine 43.0 mmol/L
[2025-03-31 14:17] LABS: Creatinine, mg/dL 43.55; Uric Acid, mg/dL 29.9 mg/dL
[2025-03-31 14:20] LABS: Total Volume 24 Hour Urine 2200 mL
[2025-03-31 14:21] LABS: Total Volume 24 Hour Urine 2200 mL
--- OUTSIDE RECORDS SUMMARY | 2025-03-31 14:33 | XMS_ITS | Patient Health Record ---
Author Organization Rahat Grimes III, MD Address [address] [place] [address] Care Team Providers Care Pearl Diver Name Role Phone Rowan Rosario MD Primary Care Provider Dr. Rahat Ruiz III [facility] Allergies Allergen (clinical drug ingredient) Drug/Non Drug Allergy documented on EMR Reaction Allergy Type Onset Date Status Tape Unknown Allergy Active Surgical Glue Unknown Allergy Active lisinopril Lisinopril Unknown Drug Allergy Activ e Latex Latex Unknown Allergy Active Adhesive Unknown Allergy Active Results Component Value Reference Range Notes MR breast BI wo/w con Reviewed date:05/13/2024 05:47:39 AM Interpretation: Performing Lab: Notes/Report: [address] [address] Magnetic Resonance Report Signed Patient: Osei Nñúez MR#: [id number] : 1965 Acct:[id number] Age/Sex: 58 / F ADM Date: 04/15/24 Loc: HO.MRI Attending Dr: Domenic Quevedo MD Ordering Physician: Domenic Quevedo MD Date of Service: 04/15/24 Procedure(s): MR breast BI wo/w con Accession Number(s): [id number] cc: Rahat Grimes MD; Domenic Quevedo MD; [...] 05/03/24 1407 DD/ 1233 TD/TT: 04/15/24 1330 Building Maintenance Supervisor: [place] [address] Magnetic Resonance Report Signed Patient: Osei Núñez MR#: [id number] : 1965 Acct:[id number] Age/Sex: 58 / F ADM Date: 04/15/24 Loc: HO.MRI Attending Dr: Domenic Quevedo MD Ordering Physician: Domenic Quevedo MD Date of Service: 04/15/24 Procedure(s): candy ast BI wo/w con Accession Number(s): [id number] cc: Rahat Grimes MD; Domenic Quevedo MD; Jack Rosario MD EXAMINATION: MR BREAST WITHOUT AN D WITH CONTRAST, BILATERAL CLINICAL INFORMATION: High risk surveillan ce. History of lymphoma and ovarian cancer. Strong family history of br east cancer. COMPARISON: Breast MRI February 26February 2022. Atrophy October 21, 2023. TECHNIQUE: Magnetic resonance i maging of the breast was performed using T1, T2 and fat saturated techni ques. Dynamic multiphase imaging was also performed after [...] of the chest and abdomen are unremarkable. M R/MR breast BI wo/w con IMPRESSION: No MR specific evide nce of malignancy. ASSESSMENT: LEFT BREAST: BI-RADS 1-Negative RIGHT BREAST: BI-RAD S 1-Negative RECOMMENDATIONS: Recommend bilateral breast MRI in one year for high risk surveillance. Recommend yearly ted l mammography. Electronically breanne d by: Mary Mcghee DO 05/03/2024 02:07 PM EDT Dictated By: Mary Mcghee DO Signed By: <Electron ically signed by Mary Mcghee DO in OV> 05/03/24 1407 DD/ 1233 TD/TT: 04/15/24 1330 Building Maintenance Supervisor: Complete Blood Count Auto Di ff Reviewed date:06/25/2024 10:49:35 AM Interpretation: Performing Lab:[facility], [address] [place] [phone] Notes/Report: White Blood Count 13.3 4.8-10.8 X10*3/uL [...] 0.0-0.2 /100WBC Neutrophils Absolute Auto 5.2 2.0-8.3 x10*3/uL Imm Gran Abs Auto 0.03 0.00-0.03 X10*3/uL Lymphocytes Absolute Auto 7.1 1.2-4.9 X10*3/uL Monocytes Absolute Auto 0.7 0.1-1.2 X10*3/uL Eosinophils Absolute Auto 0.2 0.0-0.4 X10*3/uL Basophils Absolute Auto 0.1 0.0-0.2 X10*3/uL NRBC [...] 0.0-0.2 /100WBC Neutrophils Absolute Auto 5.2 2.0-8.3 x10*3/uL Imm Gran Abs Auto 0.03 0.00-0.03 X10*3/uL Lymphocytes Absolute Auto 7.1 1.2-4.9 X10*3/uL Monocytes Absolute Auto 0.7 0.1-1.2 X10*3/uL Eosinophils Absolute Auto 0.2 0.0-0.4 X10*3/uL Basophils Absolute Auto 0.1 0.0-0.2 X10*3/uL NRBC Abs Auto 0.000 0.0-0.012 X10*3/uL XAVIER ECTED REPORT XAVIER ECTED REPORT Comprehensive [place]. Panel Fa st Reviewed date:06/25/2024 10:49:35 AM Interpretation: Performing Lab:[facility], [address] [place] [phone] Notes/Report: Sodium 138 135-145 mmol/L Potassium 4.0 [...] Dehydrogenase Reviewed date:06/25/2024 10:49:35 AM Interpretation: Performing Lab:[facility], [address] [place] [phone] Notes/Report: Lactate Dehydrogenase 200 122-220 U/L Lipid Panel Reviewed date:06/25/2024 10:49:35 AM Interpretation: Performing Lab:[facility], [address] [place] [phone] Notes/Report: Triglycerides 104 <150 mg/dL Desirable Triglyceride: [...] Serum Reviewed date:06/25/2024 10:49:35 AM Interpretation: Performing Lab:[address] [phone] Notes/Report: Beta-2 Microglobulin, Serum 2.48 < OR = 2.51 mg/L THIS TEST WAS PERFORMED AT: [facility] [address] [place] [phone] AMADOR TOURE MD SLIDE REVIEW Reviewed date:06/25/2024 10:49:35 AM Interpretation: Performing Lab:[address] [address] Notes/Report: SLIDE REVIEW VERIFIED Complete Blood Count Auto Di ff Reviewed date:12/19/2024 05:32:08 AM Interpretation: Performing Lab:[facility], [address] [place] [phone] Notes/Report: White Blood Count 11.5 4.8-10.8 X10*3/uL [...] 0.0-0.2 /100WBC Neutrophils Absolute Auto 4.3 2.0-8.3 x10*3/uL Imm Gran Abs Auto 0.04 0.00-0.03 X10*3/uL Lymphocytes Absolute Auto 6.5 1.2-4.9 X10*3/uL Monocytes Absolute Auto 0.5 0.1-1.2 X10*3/uL Eosinophils Absolute Auto 0.2 0.0-0.4 X10*3/uL Basophils Absolute Auto 0.1 0.0-0.2 X10*3/uL NRBC [...] 0.0-0.2 /100WBC Neutrophils Absolute Auto 4.3 2.0-8.3 x10*3/uL Imm Gran Abs Auto 0.04 0.00-0.03 X10*3/uL Lymphocytes Absolute Auto 6.5 1.2-4.9 X10*3/uL Monocytes Absolute Auto 0.5 0.1-1.2 X10*3/uL Eosinophils Absolute Auto 0.2 0.0-0.4 X10*3/uL Basophils Absolute Auto 0.1 0.0-0.2 X10*3/uL NRBC Abs Auto 0.000 0.0-0.012 X10*3/uL XAVIER ECTED REPORT XAVIER ECTED REPORT Erythrocyte Sedimentation Ra te Reviewed date:12/19/2024 05:32:08 AM Interpretation: Performing Lab:[address] [address] Notes/Report: Erythrocyte Sedimentation Rate 7 0-20 MM/HR Patients with polycythemia and many hemoglobin abnormalities may have depressed sed rates whereas patients with anemia may have elevated sed rates. Comprehensive Met. Panel Reviewed date:12/19/2024 05:32:08 AM Interpretation: Performing Lab:[address] [address] Notes/Report: Sodium 141 135-145 mmol/L Potassium 3.8 [...] Dehydrogenase Reviewed date:12/19/2024 05:32:08 AM Interpretation: Performing Lab:[facility], [address] [place] [phone] Notes/Report: Lactate Dehydrogenase 161 122-220 U/L Beta-2 Microglobulin, Serum Reviewed date:12/19/2024 05:32:08 AM Interpretation: Performing Lab:[facility], [address] [place] [phone] Notes/Report: Beta-2 Microglobulin, Serum 2.77 < OR = 2.51 mg/L THIS TEST WAS PERFORMED AT: [facility] [address] [phone] AMADOR TOURE MD SLIDE REVIEW Reviewed date:12/19/2024 05:32:08 AM Interpretation: Performing Lab:[facility], [address] [place] [phone] Notes/Report: SLIDE REVIEW VERIFIED Glucose, Whole Blood Reviewed date:03/07/2025 02:49:15 PM Interpretation: Performing Lab:[facility], [address] [place] [phone] Notes/Report: Glucose, Whole Blood 73 60-115 mg/dL METER # : [id number] Kidney Stone Reviewed date:03/21/2025 05:48:04 AM Interpretation: Performing Lab:[facility], [address] [place] [phone] Notes/Report: [id number] Component 1 SEE NOTE Carbonate Apatite (Dahllite) 90% Calcium Oxalate Dihydrate (Weddellite) 10% Stone Weight 0.100 Formalin, surgical gel, tape adhesive or transport media interfere with the analytical procedure. Follow up testing with the UroRisk(R) Panel is suggested for affected samples, if clinically indicated. This test was developed and its analytical performance characteristics have been determined by [employer]. It has not been cleared or approved by the FDA. This assay has been validated pursuant to the CLIA regulations and is used for clinical purposes. THIS TEST WAS PERFORMED AT: [facility] [address] [place] [address] ROGER PHAM MD,PHD,TRINA [facility] KIDNEY Pathology Reviewed date:03/07/2025 02:49:15 PM Interpretation: Performing Lab:[facility], [address] [place] [phone] Notes/Report: ------ Name: Osei Núñez Age/Sex: 59/F : 1965 Unit#: [id number] Attend Dr: Eve Bell MD Re03/04/25 Status : [facility] Location: [facility] Disch: ------ SPEC : [id number] RECD : 03/04/250 STATUS: [place] NUM: [id number] YULISSA: 03/04/251236 [facility] DR: Eve Bell MD ENTERED: 03/04/25-14 35 SP TYPE: Surgical OTHR DR: Rahat Grimes MD ORDERED: GO Diagnosis Ureter stone: Calcul ous material. Gross examination only. Sent for chemical analysis. Please see laborator y portion of the EMR for outside report from [employer]. Clinical History Pre-Op Dx: Calculus of ureter bilaterally Post-Op Dx: Bilatera l hydronephrosis, bilateral ureteral stone Material Received Sloughing of the papilla Gross Description Received fresh label ed ?sloughing of the papilla? is an aggregate of cortez-white and red-pink soft tissue with pal pable, firm gritty areas forming in aggregate measuring 3.2 x 2.5 x 0.3 cm. The specimen is entirely submitted to [facility] for chemical analysis per request of Dr. Bell. No sections taken. ([facility]) IHC S/NG Disclaimer NOTE: Unless otherwi se stated, all tissue is formalin-fixed and paraffin-embedded. Some or all of the immunohistochemical tests reported herein may have been developed and their performance characteristics determined by [facility]. They have not been cleared or appr juan j by the U.S. Food and Drug Administration (FDA). However, the FDA has determined that such clearance or approval is not necessary. This laboratory is certified under the Clinical Laboratory Improvement Amendments of 1988 (CLIA) as qualified to perform high comp lexity clinical laboratory testing. Copies To: Eve Bell MD [facility] [address] [place] [address] [address] [place] [address] [email or web address] Rahat Grimes MD [address] [place] [address], [facility] [address] [place], [place] [id number] CONTINUED ON NEXT PAGE ------ Name: Osei Núñez Age/Sex: 59/F : 1965 Unit#: [id number] Attend Dr: Eve Bell MD Re03/04/25 Status : [facility] [place] [facility] Disch: ------ SPEC : [id number] RECD : 03/04/25-1430 STATUS: [place] NUM: [id number] YULISSA: 03/04/25-[address] [facility] [address]: Eve Bell MD ENTERED: 03/04/25-14 35 SP TYPE: Surgical OTHR DR: Rahat Grimes MD ORDERED: GO ------ Signed (signature on file) Kannan Dean MD 03/07/25 1151 ------ END OF REPORT FL guidance in OR Reviewed date:03/07/2025 02:49:15 PM Interpretation: Performing Lab: Notes/Report: [address] [address] Fluoroscopy Report Signed Patient: Osei Núñez MR#: [id number] : 1965 Acct:[id number] Age/Sex: 59 / F ADM Date: 03/04/25 Loc: HO.SSS Attending Dr: Eve Bell MD Ordering Physician: Eve Bell MD Date of Service: 03/04/25 Procedure(s): FL guidance in OR Accession Number(s): [id number] cc: Eve Bell MD; Rahat Grimes MD [...] 03/04/25 1252 DD/ 1140 TD/TT: 03/04/25 1235 Building Maintenance Supervisor: [address] [address] Fluoroscopy Report Signed Patient: Osei Núñez MR#: [id number] : 1965 Acct:[id number] Age/Sex: 59 / F ADM Date: 03/04/25 Loc: HO.SSS Attending Dr: Eve Bell MD Ordering Physician: Eve Bell MD Date of Service: 08/26/25 Procedure(s): FL jayla tarasce in OR Accession Number(s): [id number] cc: Rohit Bell MD; Rahat Grimes MD EXAMINATION: FL SHANDRA BAUTISTA ONLY HISTORY: bilateral stones COMPARISON: Correlation is made with a CT of the abdomen and pelvis dated 01/08/2025. TECHNIQUE: Fluoroscopy time: 22 .9 seconds. Cumulative Dose: 5.88 mGy. Images: 2. FINDINGS: Fluoroscopic spot fi lms of the left abdomen demonstrate a nephroureteral stent in place. F L/FL guidance in OR IMPRESSION: Fluoroscopy during procedure. Please see procedure report for additional information. Electronically breanne d by: Rahat Green MD 03/04/2025 12:52 PM EDT Dictated By: Rahat Green MD Signed By: <Kristina icaalanis signed by Rahat Green MD in OV> 03/04/25 1252 DD/ 1140 TD/TT: 03/04/25 1235 Building Maintenance Supervisor: Reason For Referral No Information Medications Medication [...] Risk Notes Problem Diabetes mellitus without complication (218657571) Diabetes (E11.9) Active confirmed Her fas ting glucose is 105. No change in her medications indicated. I recommended aggressive weight loss. Problem 33753153 Lymphocytosis (D72.820) Active confirmed Lymphocyte count is slightly lower. It is essentially unchanged. Observation will continue. Problem 301417997694101 Obesity (BMI 30.0-34.9) (E66.9) Active confirmed We discuu ssed diet and nutrition. I recommended calorie reduction. Problem 55790295 Vitamin D deficiency (E55.9) Active confirmed She has b een compliant with her vitamin D suppleements. 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 The lymphoma remains indolent and surveillance with her treatment will be continued. Problem 00571520724725 Microcalcificati on of right breast on mammogram (R92.0) Active confirmed She will undergo routine mammography. 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 She is compliant with her medications. Problem 68522749 Left-sided hemiplegic cerebral palsy (G80.8) Active confirmed The neurological deficits are mild and she is completing all his activities of daily life without impairment. She is not currently working. 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 Rahat Grimes III, MD [address] [place] [address] [place] [phone] 01/14/2025 Rahat Grimes III, MD [address] [place] [address] [place] [address] 03/05/2025 Rahat Grimes Assessments Encounter Date Diagnosis [...] C) 04/09/2020 PROFILE, RANDOM (COMPREHENSIVE METABOLIC ) 12/25/2024 PROFILE, RANDOM (COMPREHENSIVE METABOLIC ) 04/16/2021 PROFILE, RANDOM (COMPREHENSIVE METABOLIC ) 06/25/2024 PROFILE, RANDOM (COMPREHENSIVE METABOLIC ) 11/15/2021 PROFILE, RANDOM (COMPREHENSIVE METABOLIC ) 03/28/2023 PROFILE, RANDOM (COMPREHENSIVE METABOLIC ) 10/25/2022 PROFILE, RANDOM (COMPREHENSIVE METABOLIC ) 05/09/2019 PROFILE, RANDOM (COMPREHENSIVE METABOLIC ) 08/17/2020 PROFILE, RANDOM (COMPREHENSIVE METABOLIC ) 08/17/2021 PROFILE, RANDOM (COMPREHENSIVE METABOLIC ) 07/26/2022 PROFILE, RANDOM (COMPREHENSIVE METABOLIC ) 01/09/2020 PROFILE, RANDOM (COMPREHENSIVE METABOLIC ) 03/22/2022 PROFILE, RANDOM (COMPREHENSIVE METABOLIC ) 07/28/2023 PROFILE, RANDOM (COMPREHENSIVE METABOLIC ) 09/09/2019 LIPID PANEL 04/09/2020 LDH 03/22/2022 LDH 07/28/2023 LDH 09/09/2019 LDH 12/25/2024 LDH 06/25/2024 LDH 12/15/2020 LDH 11/15/2021 LDH 03/28/2023 LDH 02/27/2024 LDH 10/25/2022 LDH 05/09/2019 LDH 08/17/2020 LDH 04/09/2020 LDH 07/26/2022 LDH 01/09/2020 FREE T4 (FT4) 08/17/2021 TSH (THYROID STIMULATING HORMONE) 2023 TSH (THYROID STIMULATING HORMONE) 2021 CBC w DIFF 08/17/2021 CBC w DIFF 04/09/2020 CBC w DIFF 07/26/2022 CBC w DIFF [...] T4 (Free Thyroxine) 10/27/2023 Beta-2 Microglobulin, Serum 12/25/2024 Beta-2 Microglobulin, Serum 06/25/2024 Hemoglobin A1c 12/15/2020 Next Appt Details Provider Name:Rahat Grimes , 06/26/2025 10:30:00 AM, [address] [place] [address] STEFANIE JEAN, [place], [address], Insurance Providers Payer Name Payer Address Payer Phone Subscriber Number Group Number Insured Name Patient Relationship to Insured Coverage Start Date Coverage End Date [employer] [address] [address] [place] [address] [id number] SHANA NÚÑEZA Self - patient is the insured [place] [address] [place], [place] [id number] [phone] [id number] OSEI NÚÑEZ Self - patient is the [...] left Hospitalization History Reason Date(Month/Year) No history DIAEN/BSO Sertoli-Leydig cell tumor of the ovary September 2022 Left axillary lymph node biopsy
[2025-04-02 18:29] LABS: Calcium/Creatinine Ratio 120 mg/g creat (30-275); Creatinine 24Hr Urine 1.01 g/24 h (0.50-2.15)
[2025-04-06 16:35] LABS: 24hr Urine Total Volume 2200 mL; Citric Acid, 24hr Urine 407 mg/24 h (100-1300); Citric Acid/Creat Ratio 24U 394 mg/g creat (180-1070); Creatinine, 24U 1.03 g/24 h (0.50-2.15)
[2025-04-12 02:29] LABS: 24hr Urine Total Volume 2200 mL; Oxalic Acid 24 Urine 35.6 mg/24 h (3.6-38.0)
== END 2025-03-31 11:52 | disposition home or self-care (01) ==
LOC: HO.10HDL 11:51
PROVIDERS: Visit Provider Internal Medicine Hypertension Specialist
DX: N20.2 Calculus of kidney with calculus of ureter (principal); N30.01 Acute cystitis with hematuria; Z96.0 Presence of urogenital implants
CPT/HCPCS: 36415; 52310; 80048; 81003; 82306; 82340; 82507; 83945; 83970; 84100; 84300; 84550; 84560; 87086

== ENCOUNTER 2025-03-31 12:31 | Outpatient (AMB) | payer OTHER, SELFPAY ==
--- NOTE | 2025-03-31 13:09 | A.OFFVIS_ITS ---
Intake Visit Reasons: Stent removal Intake Note: Patient presents today for a stent removal Urology Medication:None Blood Thinner:None Antibiotic Allergies:None Lot #:[id number] Exp:10/03/27 Allergies latex (LATEX) Allergy (Intermediate, Verified 03/31/25 13:10) REDNESS,RASH lisinopril Allergy (Unknown, Verified 03/31/25 13:10) difficulty urination HPI Comments Details: 03/31/25--status post bilateral ureteroscopy right stent removal on 03/04/25. Here for cystoscopy left stent removal. The patient is being followed by nephrology and states she completed a 24 hour urine collection and has scheduled follow-up. Discussed plan for further stone management with right ESWL. Stone analysis--Carbonate Apatite (Dahllite) 90% Calcium Oxalate Dihydrate (Weddellite) 10% 01/30/25 History of Present Illness - The patient is a 59-year-old female presenting with bilateral ureteral stones. - A CT scan on 01/08/25 showed bilateral mild hydronephrosis with distal ureteral stones. - Bilateral ureteral stents were placed on 01/08/25 to relieve obstruction. - The patient reports comfort with the stents and denies hematuria. - Planned procedures include cystoscopy, bilateral ureteroscopy, stone extraction, and stent removal. Plan - Plan for cystoscopy and bilateral ureteroscopy possible laser, remove stents. [facility] Medical History Diverticulosis Hx of ovarian cancer Nausea Anxiety and depression At high risk for breast cancer Thyroid nodule Medial meniscus tear Ear drum perforation Shoulder fracture, right Type 2 diabetes mellitus with hyperglycemia Obesity (BMI 30-39.9) Lymphoma Hypertension Hypothyroid Cerebral palsy Hypercholesterolemia Surgical History Hx of hysterectomy Hx of cystoscopy History of right breast biopsy (09/2017) History of lymph node biopsy (07/2017) History of meniscal tear History of Achilles tendon repair Family History Father Stroke Hypertension Diabetes CVD (cardiovascular disease) Mother Stroke Cervical cancer, Onset Age: 63 Breast cancer, Onset Age: 49 CVD (cardiovascular disease) Sister Breast cancer, Onset Age: 51 Substance abuse Bipolar disorder Mental health disorder Maternal Aunt Breast cancer, Onset Age: 40 Maternal Grandfather Throat cancer Social History Household Members: Significant Other Household Members Other:: Jon Housing: Apartment Do you presently have visiting nurse or other home services: No Alcohol intake: never Patient Tobacco Use Status: Never used Tobacco Tobacco use type: Cigarette Years Smoked: gummies e-Cigarette/Vaping Use: Never Used Second Hand Smoke Exposure: No service: No Current occupational status: disabled Cognitive needs: Yes Hearing needs: No Vision needs: Yes Female Reproductive History Menstrual Age of Menarche: 14 Review of Systems Const All systems reviewed & are unremarkable except as noted in HPI and below Reports no additional complaints Eyes Reports no additional complaints ENT Reports no additional complaints Card Reports no additional complaints Resp Reports no additional complaints GI Reports no additional complaints Reports as per HPI Musc Reports no additional complaints Skin/Breast Reports system reviewed and no additional complaints, except as documented Neuro Reports no additional complaints Psych Reports no additional complaints Endo Reports no additional complaints Hector/Lymph Reports no additional complaints Aller/Immun Reports no additional complaints Office Procedures Cystoscopy Consent Discussed risk and benefit or proposed procedure with the patient. Information consent for procedure given to the patient. Discussed technical aspects, risks, benefits and alternatives in full. Addressed all of the patient's questions and concerns regarding the procedure. The patient demonstrated knowledge and understanding. They wish to proceed with this procedure. Preparation The patient was prepped in the usual manner. A heel seat filler was present and in the room. Genitalia was prepped with betadine solution in a sterile manner. Lidocaine Jelly 2% was placed into the urethra and 16Fr flexible Olympus cystoscope was inserted into the meatus after adequate lubrication. Procedure Time out per protocol performed. Speculum used as indicated for adequate visualization of urethra, the flexible cystoscope is passed transurethrally: Cystoscopy findings: mild edema ureteral orifice which is expected, distal end of ureteral stent visualized. The grasping forceps were used and the stent was removed without difficulty. [id number] with stent removal DISPOSABLE SCOPE URO-G FLEXIBLE SCOPE Procedure code (CPT) selection complete Office Meds lidocaine HCl 2 % mucosal jelly in applicator Performing Provider: Eve Bell MD Performing Location: [facility] [place] [facility] Administered by: Jeremy Gee LPN on 03/31/25 13:16 Dose Route Admin Location Dispensed Lot Number Expiration Date [employer] Distribution Associate 10 mL intra-urethral 20 mL ciprofloxacin HCl 500 mg tablet Performing Provider: Eve Bell MD Performing Location: [facility] [place] [facility] Administered by: Jeremy Gee LPN on 03/31/25 13:16 Dose Route Admin Location Dispensed Lot Number Expiration Date [employer] Distribution Associate 500 mg PO 1 tab phenazopyridine 200 mg tablet Performing Provider: Eve Bell MD Performing Location: [facility] [place] [facility] Administered by: Jeremy Gee LPN on 03/31/25 13:16 Dose Route Admin Location Dispensed Lot Number Expiration Date N[employer] Distribution Associate 200 mg PO 1 tab Results Reviewed Results Reviewed: YULISSA: 03/04/25-1236 STATUS: COMP REQ : [id number] RECD: 03/04/25-[address]: Eve Bell MD COMP: 03/14/25-0338 ENTERED: 03/05/25-[address]: Rahat Grimes MD ORDERED: Kidney Stone QUERIES: Kidney Stone Source: [id number] Test Result Flag Reference Component 1 SEE NOTE Carbonate Apatite (Dahllite) 90% Calcium Oxalate Dihydrate (Weddellite) 10% Stone Weight 0.100 g Formalin, surgical gel, tape adhesive or transport media interfere with the analytical procedure. Follow up testing with the UroRisk(R) Panel is suggested for affected samples, if clinically indicated. This test was developed and its analytical performance characteristics have been determined by [facility]. It has not been cleared or approved by the FDA. This assay has been validated pursuant to the CLIA regulations and is used for clinical purposes. THIS TEST WAS PERFORMED AT: [facility] [address] [place] [address] ROGER PHAM MD,PHD,TRINA Stone Source KIDNEY Date of Service: 01/08/25 CT abdomen and pelvis without contrast Comparison: None Findings: No consolidation or effusion. The liver is enlarged. The liver appears normal in contour. The gallbladder and solid organs are otherwise within normal limits. There are nonobstructing bilateral renal calculi. Vague 5.5 mm calcification identified at the right ureterovesicular junction which may represent a single obstructing calculus or multiple adjacent obstructing calculi. There is mild right hydroureter with [id number] right hydronephrosis. A 3 mm calculus is visualized at the left ureterovesicular junction. There is mild left hydroureter with minimal left hydronephrosis. No bowel obstruction, pneumoperitoneum, or pneumatosis. There is colonic diverticulosis without convincing CT evidence for acute diverticulitis. The uterus is surgically absent. There appears to be asymmetric right-sided bladder wall thickening. Tiny, fat containing right inguinal hernia. Normal appendix. No acute fracture. Vacuum disc phenomenon present at L4-L5 and L5-S1. IMPRESSION: Vague calcification measuring 5.5 mm in diameter present at the right ureterovesicular junction which may represent a single obstructing calculus or multiple smaller adjacent obstructing calculi. There is mild right hydroureter with [id number] right hydronephrosis. 3 mm obstructing calculus present at the left ureterovesicular junction with mild left hydroureter and minimal left hydronephrosis. Nonobstructing bilateral renal calculi present. Asymmetric right-sided bladder wall thickening, possibly related to cystitis. There appears to be adjacent edema. Recommend follow-up after appropriate clinical therapy to exclude a subtle underlying tumor. Other findiings as above. Assessment & Plan Assessment & Plan (1) Multiple renal calculi: Code(s): N20.0 - Calculus of kidney Category: Medical Plan Discussed plan for further stone management with right ESWL. Stone analysis--Carbonate Apatite (Dahllite) 90% Calcium Oxalate Dihydrate (Weddellite) 10% Orders: Orders AMB Cystoscopy Today N20.1 - Calculus of ureter, Z96.0 - Presence of urogenital implants Patient Instructions: The patient had an opportunity to ask questions regarding treatment plan. The patient expressed understanding and agreement with the above treatment plan. The patient is aware they should contact our office by phone for worsening of their current condition or the appearance of new symptoms. Compliance is encouraged with any medications and followup testing that is ordered. It is a privilege to be allowed the opportunity to participate in the urologic care of your patient. If you have any questions or concerns regarding treatment for the above conditions please do not hesitate to contact me. The office telephone contact is [phone]. This note is constructed in part using voice recognition software. While every effort has been made to ensure accuracy special events fundraiser errors may have been included. Yours sincerely, Eve Bell MD Coding Level of Care Code Est Pt Level 3 (76449) Diagnoses Multiple renal calculi N20.0 CPT Codes Cystoscopy - CPT: 22466-[id number] with stent removal ([id number])
== END 2025-03-31 14:02 | disposition home or self-care (01) ==
LOC: HO.HUSH 12:32
PROVIDERS: PCP Internal Medicine; Visit Provider Urology
DX: N20.1 Calculus of ureter (principal); N20.0 Calculus of kidney; Z96.0 Presence of urogenital implants
CPT/HCPCS: 52310

== ENCOUNTER 2025-04-10 11:28 | Outpatient (AMB) | payer OTHER, SELFPAY ==
--- OUTSIDE RECORDS SUMMARY | 2024-02-27 06:30 | XMS_ITS ---
Author Organization Rahat Grimes III, MD Address [address] [place] [address] Care Team Providers Care Microcomputer Technician Name Role Phone Rowan Rosario MD Primary [...] Date Provider Diagnosis Rahat Grimes III, MD [address] [place] [address] [place] [address] 02/27/2024 Rahat Grimes Vitamin D deficiency E55.9 [...] Provider Name:Rahat Grimes , 06/26/2025 10:30:00 AM, [address] [place] [address] [address] [place] [address], [place], [address], Progress Notes * MERLYSHANARITAB:1965 ([age] yo F)Acc No.[id number]:02/27/2024 Progress Notes Patient: OSEI CUMMINS Provider: Suly Grimes MD :1965 A ge:58 Y S ex:Female Date:02/27/2024 Address:[address] [place] [address] [place], [place], [id number] Pcp:Rowan Rosario MD Subjective: * Chief [...] or use drugs. She was born in [place]. She is unemployed. She is single with one child, a son Wilbert and she has no grandchildren. She sees an traveling storekeeper at [facility] endocrinology. She is perimenopausal. 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 * Medications: T akingJardiance 10 MG [...] >40 mg/dL) 50 (Ref Range: mg/dL) ???Lab:Comprehensive [place]. Panel Fast (Order Date - 02/19/2024) (Collection Date - 02/19/2024)?ValueReference Range?[id number] - mmol/L ?Bilirubin Total0.50.0-1.0 - mg/dL?Aspartate Amino Sfsmtdhukef115- 31 - U/L?Alanine Jtgxlfjrkavpbtpu62T7-42 - U/L?Total Protein8.1H 6.5-8.0 - g/dL?Albumin Level4.63.5-5.0 - g/dL?Alkaline Phosphatase 7439-117 - U/L?Potassium4.03.3-5.1 - mmol/L?Mzibmhur92736-834 - mmol/L?Carbon Cachfoj7116-60 - mmol/L?Anion Qja3661-03 - ?Blood Urea Qwidzcjp668-75 - mg/dL?Creatinine0.640.5-1.4 - mg/dL ?Estimated Glomerular Filt Rate> 60-?Glucose Regfdxo806B95-14 - mg/dL?Calcium9.78.4-10.2 - mg/dL * Lab:Complete Blood [...] 02/27/2024 Generated for Danette forrest/Jerri/eTransmitting on: 1 01:19 PM EDT History and Physical Notes * HPI (History of Present Illness) Category Sub-Category Detail Notes COVID-19 Screening Questions Have you had any new onset fever, chills, cough, congestion, sore throat, shortness of breath, muscle aches?: No Have you been exposed to the virus withi n the last 10 days?: No Have you travelled internationally in [facility] last 10 days?: No Have you [...]
--- OUTSIDE RECORDS SUMMARY | 2024-06-25 06:45 | XMS_ITS ---
Author Organization Rahat Grimes III, MD Address [address] [place] [address] Care Team Providers Care Formulation Technician Name Role Phone Rowan Rosario MD Primary Care Provider Dr. Rahat Ruiz III Unavailable [phone] Allergies Allergen (clinical drug ingredient) Drug/Non Drug [...] Date Provider Diagnosis Rahat Grimes III, MD [address] [place] [address] [place] [address] 06/25/2024 Rahat Grimes Vitamin D deficiency E55.9 [...] Provider Name:Rahat Grimes , 06/26/2025 10:30:00 AM, [address] [place] [address], [place] [address], [place], [address], Progress Notes * ABDIAS QUINTEROSB:1965 ([age] yo F)Acc No.[id number]:06/25/2024 Progress Notes Patient: OSEI CUMMINS Provider: Suly Grimes MD :1965 A ge:58 Y S ex:Female Date:06/25/2024 Address:[address] [place] [address], [address], [place], [id number] Pcp:Rowan Rosario MD Subjective: * Chief Complaints: [...] or use drugs. She was born in [place]. She is unemployed. She is single with one child, a son Wilbert and she has no grandchildren. She sees an calibration engineer at [facility] endocrinology. She is perimenopausal. 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 * Medications: T akingmetFORMIN HCl ER 500 [...] 1 08/26/2023 Generated for Printi ng/Jerri/eTransmitting on: 01:18 PM EDT History and Physical Notes * [...]
--- OUTSIDE RECORDS SUMMARY | 2024-12-25 06:30 | XMS_ITS ---
Author Organization Rahat Grimes III, MD Address [address] [address] Care Team Providers Care Investigation Division Captain Name Role Phone Rowan Rosario MD Primary Care Provider Dr. Rahat Ruiz III Unavailable [phone] Allergies Allergen (clinical drug ingredient) Drug/Non Drug [...] Date Provider Diagnosis Rahat Grimes III, MD [address] [place] [address] [address] [place], [place] [id number] 12/25/2024 Rahat Grimes Vitamin D deficiency E55.9 [...] Provider Name:Rahat Grimes , 06/26/2025 10:30:00 AM, [address] [place] [address] [address] [place] [id number], [place], [address], Progress Notes * SHANA QUINTEROSADOB:1965 ([age] yo F)Acc No.[id number]:12/25/2024 Progress Notes Patient: OSEI CUMMINS Provider: Suly Grimes MD :1965 A ge:59 Y S ex:Female Date:12/25/2024 Address:[address] [place] [address] [place], [place], [id number] Pcp:Rowan Rosario MD Subjective: * Chief [...] or use drugs. She was born in [place]. She is unemployed. She is single with one child, a son Wilbert and she has no grandchildren. She sees an vault mechanic at [facility] endocrinology. She is perimenopausal. 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 * Medications: T akingmetFORMIN HCl ER 500 [...] 0 12/25/2024 Generated for Danette forrest/Jerri/eTransmitting on: 01:19 PM EDT History and Physical Notes [...]
--- OUTSIDE RECORDS SUMMARY | 2025-01-14 05:25 | XMS_ITS ---
Author Organization Rahat Grimes III, MD Address [address] D[address]AZ [facility] [place] [address] Care Team Providers Care Lead Caregiver Name Role Phone Rowan Rosario MD Primary Care Provider Dr. Rahat Ruiz III [facility] REASON FOR VISIT update on her hospital stay at Social History Sex Assigned At : Social History Observation Description Sex Assigned At Female Encounters Encounter Location Date Provider Diagnosis Rahat Grimes III, MD [address] [place] [address] [place] [address] 01/14/2025 Rahat Grimes Plan Of Treatment Next Appt Details Provider Name:Rahat Grimes , 06/26/2025 10:30:00 AM, [address] [place] [address] [place], [address], Progress Notes * SHANA QUINTEROSADOB:1965 ([age] yo F)Acc No.[id number]:01/14/2025 Patient: OSEI CUMMINS :1965 A ge:59 Y S ex:Female Address:[address], [address], [place], [address] * true * Date: Generated for Printi ng/Faalg/eTransmitting on: 01:19 PM EDT
--- OUTSIDE RECORDS SUMMARY | 2025-03-05 11:00 | XMS_ITS ---
Author Organization Rahat Grimes III, MD Address [address] [address] Care Team Providers Care Soaker Hides Name Role Phone Rowan Rosario MD Primary Care Provider Dr. Rahat Ruiz III [facility] REASON FOR VISIT FYI only Social History Sex Assigned At : Social History Observation Description Sex Assigned At Female Encounters Encounter Location Date Provider Diagnosis Rahat Grimes III, MD [address] [place] [address] [place] [address] 03/05/2025 Rahat Grimes Plan Of Treatment Next Appt Details Provider Name:Rahat Grimes , 06/26/2025 10:30:00 AM, [address] [place] [address] [place], [address], Progress Notes * ABDIAS QUINTEROSB:1965 ([age] yo F)Acc No.[id number]:03/05/2025 Patient: OSEI CUMMINS :1965 A ge:59 Y S ex:Female Address:[address], [address] [facility] [place], [address] * true * Date: Generated for Printi ng/Faxing/eTransmitting on: 01:18 PM EDT
[2025-04-10 11:42] VITALS: BP 126/82; PULSE 95; O2SAT 97
--- NOTE | 2025-04-10 11:42 | HO.NEPHOV_ITS ---
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 Required: No Accompanied by: Self / Same As Patient Allergies latex (LATEX) Allergy (Intermediate, Verified 04/10/25 11:44) REDNESS,RASH lisinopril Allergy (Unknown, Verified 04/10/25 11:44) difficulty urination Medication List - Last Reconciled 04/10/25 by Cornelius Franks MD alprazolam 0.5 mg PO DAILY PRN 90 days blood sugar diagnostic (FreeStyle Test strips) As directed check the BS QD cetirizine (Zyrtec) 10 mg PO DAILY cholecalciferol (vitamin D3) 25 mcg PO DAILY empagliflozin (Jardiance) 10 mg PO DAILY irbesartan 75 mg PO DAILY lancets (FreeStyle Lancets) As directed check the BS QD levothyroxine 88 mcg PO DAILY@0600 metformin 1,000 mg PO BIDWMEAL 90 days polyethylene glycol 3350 (Gavilax) 17 grams PO BID sertraline 100 mg PO DAILY 90 days simvastatin 40 mg PO BEDTIME HPI Comments Details: The patient is a 59-year-old woman referred for nephrolithiasis. She has bilateral kidney stones with mild hydronephrosis and underwent cystoscopy with bilateral stent placement on March 04. The left stent is scheduled for removal next week. She reports no previous kidney stones and describes the pain as severe, worse than childbirth. Occasional left kidney pain is noted, with no current hematuria or dysuria. She drinks 80 ounces of water daily and follows a low-salt diet. Her medical history includes hypertension and diabetes mellitus, managed with irbesartan and metformin, respectively. She also takes vitamin D, sertraline, and simvastatin. Renal ultrasound shows multiple stones, primarily calcium oxalate. Medical History: - Hypertension - Diabetes mellitus - Cerebral palsy Surgical History: - Cystoscopy with bilateral stent placement on March 04, 2025 Social History: - Hydration: Consumes 80 ounces of water daily - Diet: Follows a low-salt diet Diagnostic Results: - Renal ultrasound: Multiple stones, primarily calcium oxalate 04/10/25 - The patient is a 59-year-old female presenting with nephrolithiasis. - Recent stent removal with no post-procedural nausea or pain. - Adequate hydration confirmed by 24-hour urine collection of 2.2 liters. - Normal calcium excretion and low sodium intake. Urine oxalate is pending - Citrate levels sufficient to inhibit stone formation. - Advised dietary modifications to avoid high oxalate foods. [facility] Medical History Diverticulosis Hx of ovarian cancer Nausea Anxiety and depression At high risk for breast cancer Thyroid nodule Medial meniscus tear Ear drum perforation Shoulder fracture, right Type 2 diabetes mellitus with hyperglycemia Obesity (BMI 30-39.9) Lymphoma Hypertension Hypothyroid Cerebral palsy Hypercholesterolemia Surgical History Hx of hysterectomy Hx of cystoscopy History of right breast biopsy (09/2017) History of lymph node biopsy (07/2017) History of meniscal tear History of Achilles tendon repair Family History Father Stroke Hypertension Diabetes CVD (cardiovascular disease) Mother Stroke Cervical cancer, Onset Age: 63 Breast cancer, Onset Age: 49 CVD (cardiovascular disease) Sister Breast cancer, Onset Age: 51 Substance abuse Bipolar disorder Mental health disorder Maternal Aunt Breast cancer, Onset Age: 40 Maternal Grandfather Throat cancer Social History Household Members: Significant Other Household Members Other:: Jon Housing: Apartment Do you presently have visiting nurse or other home services: No Alcohol intake: never Patient Tobacco Use Status: Never used Tobacco Tobacco use type: Cigarette Years Smoked: gummies e-Cigarette/Vaping Use: Never Used Second Hand Smoke Exposure: No service: No Current occupational status: disabled Cognitive needs: Yes Hearing needs: No Vision needs: Yes Female Reproductive History Menstrual Age of Menarche: 14 Physical Exam Vital Signs: Last Vital Signs Pulse 95 04/10/25 11:42 BP 126/82 04/10/25 11:42 Pulse Ox 97 04/10/25 11:42 Oxygen Delivery Method Room Air 04/10/25 11:42 Comfortable Neck supple no JVD. Lungs entry equal no rales. Heart S1-S2 heard no gallop or rub. Abdomen soft nontender. Neuro alert awake oriented. No asterixis. Extremities no edema. Results Reviewed Results Reviewed: Stone analysis Carbonate Apatite (Dahllite) 90% Calcium Oxalate Dihydrate (Weddellite) 10% Stone Weight 0.100 g Nephrology Results: Sodium, (135-145) 140 mmol/L 03/31/25 Potassium, (3.3-5.1) 3.9 mmol/L 03/31/25 Chloride, (96-108) 107 mmol/L 03/31/25 Carbon Dioxide, (22-29) 24 mmol/L 03/31/25 BUN, (9-16) 11 mg/dL 03/31/25 Creatinine, (0.5-1.4) 0.60 mg/dL 03/31/25 Calcium, (8.4-10.2) 9.6 mg/dL Δ 03/31/25 Phosphorus, (2.7-4.5) 3.3 mg/dL 03/31/25 PTH Intact, (8.7-77.1) 45.3 pg/mL 03/31/25 Renal US 03/06/25 Assessment & Plan Assessment & Plan (1) Bilateral ureteral calculi: Code(s): N20.1 - Calculus of ureter Category: Medical Plan 1.Nephrolithiasis - 24-hour urine collection to assess stone risk factors reviewed - Maintain high fluid intake and low-salt diet. - Citrate supplementation through lemonade to prevent stones. Ca/iPTH/Phos and uric acid levels are normal Await urine Oxalate levels Stay on LOW oxalte diet ( Avoid rasberries/Strawberries etc) 2. Hypertension BP well controlled - Continue irbesartan 3. Diabetes Mellitus - Continue metformin Coding Level of Care Code Est Pt Level 4 (53723) Diagnoses Bilateral ureteral calculi N20.1
--- OUTSIDE RECORDS SUMMARY | 2025-04-10 13:19 | XMS_ITS | Patient Health Record ---
Author Organization Rahat Grimes III, MD Address [address] [place] [address] Care Team Providers Care Marketing Technology Coordinator Name Role Phone Rowan Rosario MD Primary Care Provider Dr. Rahat Ruiz III [facility] Allergies Allergen (clinical drug ingredient) Drug/Non Drug Allergy documented on EMR Reaction Allergy Type Onset Date Status Tape Unknown Allergy Active Surgical Glue Unknown Allergy Active lisinopril Lisinopril Unknown Drug Allergy Activ e Latex Latex Unknown Allergy Active Adhesive Unknown Allergy Active Results Component Value Reference Range Notes MR breast BI wo/w con Reviewed date:05/13/2024 05:47:39 AM Interpretation: Performing Lab: Notes/Report: [address] [address] Magnetic Resonance Report Signed Patient: Osei Núñez MR#: [id number] : 1965 Acct:[id number] Age/Sex: 58 / F ADM Date: 04/15/24 Loc: HO.MRI Attending Dr: Domenic Quevedo MD Ordering Physician: Domenic Quevedo MD Date of Service: 04/15/24 Procedure(s): MR breast BI wo/w con Accession Number(s): [id number] cc: Rahat Grimes MD; Domenic Quevedo MD; [...] 05/03/24 1407 DD/ 1233 TD/TT: 04/15/24 1330 Hairspring Truer: [place] [address] Magnetic Resonance Report Signed Patient: Osei Núñez MR#: [id number] : 1965 Acct:[id number] Age/Sex: 58 / F ADM Date: 04/15/24 Loc: HO.MRI Attending Dr: Domenic Quevedo MD Ordering Physician: Domenic Quevedo MD Date of Service: 04/15/24 Procedure(s): candy ast BI wo/w con Accession Number(s): [id number] cc: Rahat Grimes MD; Domenic Quevedo MD; [...] 05/03/24 1407 DD/ 1233 TD/TT: 04/15/24 1330 Hairspring Truer: Complete Blood Count Auto Di ff Reviewed date:06/25/2024 10:49:35 AM Interpretation: Performing Lab:[facility], [address] [place] [address] Notes/Report: White Blood Count 13.3 4.8-10.8 X10*3/uL [...] XAVIER ECTED REPORT XAVIER ECTED REPORT Comprehensive [place]. Panel Fa st Reviewed date:06/25/2024 10:49:35 AM Interpretation: Performing Lab:[facility], [address] [place] [address] Notes/Report: Sodium 138 135-145 mmol/L Potassium 4.0 [...] Dehydrogenase Reviewed date:06/25/2024 10:49:35 AM Interpretation: Performing Lab:[facility], [address] [place] [address] Notes/Report: Lactate Dehydrogenase 200 122-220 U/L Lipid Panel Reviewed date:06/25/2024 10:49:35 AM Interpretation: Performing Lab:[facility], [address] [place] [address] Notes/Report: Triglycerides 104 <150 mg/dL Desirable Triglyceride: [...] Serum Reviewed date:06/25/2024 10:49:35 AM Interpretation: Performing Lab:[address] [address] Notes/Report: Beta-2 Microglobulin, Serum 2.48 < OR = 2.51 mg/L THIS TEST WAS PERFORMED AT: [email or web address] [address] [place] [address] AMADOR TOURE MD SLIDE REVIEW Reviewed date:06/25/2024 10:49:35 AM Interpretation: Performing Lab:[address] [address] Notes/Report: SLIDE REVIEW VERIFIED Complete Blood Count Auto Di ff Reviewed date:12/19/2024 05:32:08 AM Interpretation: Performing Lab:[facility], [address] [place] [address] Notes/Report: White Blood Count 11.5 4.8-10.8 X10*3/uL [...] te Reviewed date:12/19/2024 05:32:08 AM Interpretation: Performing Lab:[address] [address] Notes/Report: Erythrocyte Sedimentation Rate 7 0-20 MM/HR Patients with polycythemia and many hemoglobin abnormalities may have depressed sed rates whereas patients with anemia may have elevated sed rates. Comprehensive Met. Panel Reviewed date:12/19/2024 05:32:08 AM Interpretation: Performing Lab:[address] [address] Notes/Report: Sodium 141 135-145 mmol/L Potassium 3.8 [...] Dehydrogenase Reviewed date:12/19/2024 05:32:08 AM Interpretation: Performing Lab:[facility], [address] [place] [address] Notes/Report: Lactate Dehydrogenase 161 122-220 U/L Beta-2 Microglobulin, Serum Reviewed date:12/19/2024 05:32:08 AM Interpretation: Performing Lab:[facility], [address] [place] [address] Notes/Report: Beta-2 Microglobulin, Serum 2.77 < OR = 2.51 mg/L THIS TEST WAS PERFORMED AT: [facility] [address] [address] AMADOR TOURE MD SLIDE REVIEW Reviewed date:12/19/2024 05:32:08 AM Interpretation: Performing Lab:[facility], [address] [place] [address] Notes/Report: SLIDE REVIEW VERIFIED Glucose, Whole Blood Reviewed date:03/07/2025 02:49:15 PM Interpretation: Performing Lab:[facility], [address] [place] [address] Notes/Report: Glucose, Whole Blood 73 60-115 mg/dL METER # : [id number] Kidney Stone Reviewed date:03/21/2025 05:48:04 AM Interpretation: Performing Lab:[facility], [address] [place] [address] Notes/Report: [id number] Component 1 SEE NOTE Carbonate Apatite (Dahllite) 90% Calcium Oxalate Dihydrate (Weddellite) 10% Stone Weight 0.100 Formalin, surgical gel, tape adhesive or transport media interfere with the analytical procedure. Follow up testing with the UroRisk(R) Panel is suggested for affected samples, if clinically indicated. This test was developed and its analytical performance characteristics have been determined by [employer]. It has not been cleared or approved by the FDA. This assay has been validated pursuant to the CLIA regulations and is used for clinical purposes. THIS TEST WAS PERFORMED AT: [facility] [address] [place] [address] ROGER PHAM MD,PHD,TRINA [facility] KIDNEY Pathology Reviewed date:03/07/2025 02:49:15 PM Interpretation: Performing Lab:[facility], [address] [place] [address] Notes/Report: ------ Name: Osei Núñez Age/Sex: 59/F : 1965 Unit#: [id number] Attend Dr: Eve Bell MD Re03/04/25 Status : [facility] Location: [facility] Disch: ------ SPEC : [id number] RECD : 03/04/250 STATUS: [place] NUM: [id number] YULISSA: 03/04/251236 [facility] DR: Eve Bell MD ENTERED: 03/04/25-14 35 SP TYPE: Surgical OTHR DR: Rahat Grimes MD ORDERED: GO Diagnosis Ureter stone: Calcul ous material. Gross examination only. Sent for chemical analysis. Please see laborator y portion of the EMR for outside report from [employer]. Clinical History Pre-Op Dx: Calculus of ureter bilaterally Post-Op Dx: Bilatera l hydronephrosis, bilateral ureteral stone Material Received Sloughing of the papilla Gross Description Received fresh label ed ?sloughing of the papilla? is an aggregate of cortez-white and red-pink soft tissue with pal pable, firm gritty areas forming in aggregate measuring 3.2 x 2.5 x 0.3 cm. The specimen is entirely submitted to [employer] for chemical analysis per request of Dr. Bell. No sections taken. ([facility]) IHC S/NG Disclaimer NOTE: Unless otherwi se stated, all tissue is formalin-fixed and paraffin-embedded. Some or all of the immunohistochemical tests reported herein may have been developed and their performance characteristics determined by [facility]. They have not been cleared or appr juan j by the U.S. Food and Drug Administration (FDA). However, the FDA has determined that such clearance or approval is not necessary. This laboratory is certified under the Clinical Laboratory Improvement Amendments of 1988 (CLIA) as qualified to perform high comp lexity clinical laboratory testing. Copies To: Eve Bell MD [facility] [address] [place] [address] [address] [place] [address] [email or web address] Rahat Grimes MD [address] [place] [address], [facility] [address] [place], [place] [id number] CONTINUED ON NEXT PAGE ------ Name: Osei Núñez Age/Sex: 59/F : 1965 Unit#: [id number] Attend Dr: Eve Bell MD Re03/04/25 [place] : [facility] [place] [facility] Disch: ------ SPEC : [id number] RECD : 03/04/25-1430 STATUS: [place] NUM: [id number] YULISSA: 03/04/25-[address] [facility] [address]: Eve Bell MD ENTERED: 03/04/25-14 35 SP TYPE: Surgical OTHR DR: Rahat Grimes MD ORDERED: GO ------ Signed (signature on file) Kannan Dean MD 03/07/25 1151 ------ END OF REPORT FL guidance in OR Reviewed date:03/07/2025 02:49:15 PM Interpretation: Performing Lab: Notes/Report: [address] [address] Fluoroscopy Report Signed Patient: Osei Núñez MR#: [id number] : 1965 Acct:[id number] Age/Sex: 59 / F ADM Date: 03/04/25 Loc: HO.SSS Attending Dr: Eve Bell MD Ordering Physician: Eve Bell MD Date of Service: 03/04/25 Procedure(s): FL guidance in OR Accession Number(s): [id number] cc: Eve Bell MD; Rahat Grimes MD [...] 03/04/25 1252 DD/ 1140 TD/TT: 03/04/25 1235 Hairspring Truer: [address] [address] Fluoroscopy Report Signed Patient: Osei Núñez MR#: [id number] : 1965 Acct:[id number] Age/Sex: 59 / F ADM Date: 03/04/25 Loc: HO.SSS Attending Dr: Eve Bell MD Ordering Physician: Eve Bell MD Date of Service: 08/26/25 Procedure(s): FL jayla tarasce in OR Accession Number(s): [id number] cc: Rohit Bell MD; Rahat Grimes MD [...] 03/04/25 1252 DD/ 1140 TD/TT: 03/04/25 1235 Hairspring Truer: Reason For Referral No Information Medications Medication [...] Risk Notes Problem Diabetes mellitus without complication (536132686) Diabetes (E11.9) Active confirmed Her fas ting glucose is 105. No change in her medications indicated. I recommended aggressive weight loss. Problem 73574008 Lymphocytosis (D72.820) Active confirmed Lymphocyte count is slightly lower. It is essentially unchanged. Observation will continue. Problem 629302621329395 Obesity (BMI 30.0-34.9) (E66.9) Active confirmed We discuu ssed diet and nutrition. I recommended calorie reduction. Problem 10463683 Vitamin D deficiency (E55.9) Active confirmed She has b een compliant with her vitamin D suppleements. Problem 437741928 Lymphoma, small lymphocytic (C83.00) Active confirmed There continues to be no palpable adenopathy or splenomegaly on the white blood cell count is slightly diminished. The lymphoma remains indolent and surveillance with her treatment will be continued. Problem 62681083543537 Microcalcificati on of right breast on mammogram (R92.0) Active confirmed She will undergo routine mammography. Problem 61521206 Corona's thyroiditis (E06.3) Active confirmed She is clinically euthyroid. She is compliant with her medications. Problem 87384566 Left-sided hemiplegic cerebral palsy (G80.8) Active confirmed The neurological deficits are mild and she is completing all his activities of daily life without impairment. She is not currently working. 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 Rahat Grimes III, MD [address] [place] [address] [place] [address] 01/14/2025 Rahat Grimes III, MD [address] [place] [address] [place] [address] 03/05/2025 Rahat Grimes Assessments Encounter Date Diagnosis [...] Provider Name:Rahat Grimes , 06/26/2025 10:30:00 AM, [address] [place] [address] STEFANIE JEAN, [place], [address], Insurance Providers Payer Name Payer Address Payer Phone Subscriber Number Group Number Insured Name Patient Relationship to Insured Coverage Start Date Coverage End Date [employer] [address] [address] [place] [address] [id number] SHANA NÚÑEZA Self - patient is the insured MEDICA[place] [address] [place], [place] [id number] [phone] [id number] OSEI NÚÑEZ Self - patient is the [...]
== END 2025-04-10 12:25 | disposition home or self-care (01) ==
LOC: HO.HKA 11:29
PROVIDERS: PCP Internal Medicine; Visit Provider Internal Medicine Hypertension Specialist
DX: N20.1 Calculus of ureter (principal)
CPT/HCPCS: 99214

== ENCOUNTER → 2025-04-10 11:28 | Outpatient (BNVA) | payer OTHER, SELFPAY | PROVIDERS: PCP Internal Medicine; Visit Provider Internal Medicine Hypertension Specialist | DX: N20.1 Calculus of ureter (principal) | CPT/HCPCS: 99212 ==

== ENCOUNTER 2025-05-05 10:19 | Outpatient (REF) | payer OTHER, SELFPAY ==
--- OUTSIDE RECORDS SUMMARY | 2024-02-26 13:45 | XMS_ITS ---
Author Organization Rahat Grimes III, MD Address [address] [facility] [place] [address] Care Team Providers Care Social Sciences Research Scientist Name Role Phone Rowan Rosario MD Primary Care Provider Dr. Rahat Ruiz III [facility] REASON FOR VISIT follow up Social History Sex Assigned At : Social History Observation Description Sex Assigned At Female Encounters Encounter Location Date Provider Diagnosis Rahat Grimes III, MD [address] [place] [address] [address] [place] [address] 02/26/2024 Rahat Grimes Plan Of Treatment Next Appt Details Provider Name:Rahat Grimes , 06/26/2025 10:30:00 AM, [address] [place] [address] [place], [address], Progress Notes * SHANA QUINTEROSADOB:1965 ([age] yo F)Acc No.[id number]:02/26/2024 Progress Notes Patient: OSEI CUMMINS Provider: Suly Grimes MD :1965 A ge:58 Y S ex:Female Date:02/26/2024 Address:[address], [address], [id number] Pcp:Rowan Rosario MD Subjective: * Chief Complaints: [...] 02/26/2024 Generated for Danette forrest/Jerri/Alberta on: 1 12:28 PM EDT
--- OUTSIDE RECORDS SUMMARY | 2024-02-27 06:30 | XMS_ITS ---
Author Organization Rahat Grimes III, MD Address [address] [place] [address] Care Team Providers Care Tube And Rod Straightener Name Role Phone Rowan Rosario MD Primary Care Provider Dr. Rahat Ruiz III Unavailable [phone] Allergies Allergen (clinical drug ingredient) Drug/Non Drug [...] Date Provider Diagnosis Rahat Grimes III, MD [address] [place] [address] [place] [address] 02/27/2024 Rahat Grimes Vitamin D deficiency E55.9 [...] Provider Name:Rahat Grimes , 06/26/2025 10:30:00 AM, [address] [place] [address] [address] [place] [address], [place], [address], Progress Notes * MERLYSHANARITAB:1965 ([age] yo F)Acc No.[id number]:02/27/2024 Progress Notes Patient: OSEI CUMMINS Provider: Suly Grimes MD :1965 A ge:58 Y S ex:Female Date:02/27/2024 Address:[address] [place] [address] [place], [place], [place] Pcp:Rowan Rosario MD Subjective: * Chief [...] or use drugs. She was born in [place]. She is unemployed. She is single with one child, a son Wilbert and she has no grandchildren. She sees an bus analyst at [facility] endocrinology. She is perimenopausal. 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 * Medications: T akingJardiance 10 MG Tablet [...] >40 mg/dL) 50 (Ref Range: mg/dL) ???Lab:Comprehensive [place]. Panel Fast (Order Date - 02/19/2024) (Collection Date - 02/19/2024)?ValueReference Range?[id number] - mmol/L ?Bilirubin Total0.50.0-1.0 - mg/dL?Aspartate Amino Vkzobugxbpu745- 31 - U/L?Alanine Kjlartxszuisonjc58V8-48 - U/L?Total Protein8.1H 6.5-8.0 - g/dL?Albumin Level4.63.5-5.0 - g/dL?Alkaline Phosphatase 7439-117 - U/L?Potassium4.03.3-5.1 - mmol/L?Sopnomzr80911-805 - mmol/L?Carbon Vzxtcnx6916-80 - mmol/L?Anion Szo7121-19 - ?Blood Urea Mpysuaxi232-71 - mg/dL?Creatinine0.640.5-1.4 - mg/dL ?Estimated Glomerular Filt Rate> 60-?Glucose Azhfqgd696T43-08 - mg/dL?Calcium9.78.4-10.2 - mg/dL * Lab:Complete Blood [...] MD Date: 0 02/27/2024 Generated for Mariellei ng/Salmag/eTransmitting on: 1 12:27 PM EDT History and Physical Notes * HPI (History of Present Illness) Category Sub-Category Detail Notes COVID-19 Screening Questions Have you had any new onset fever, chills, cough, congestion, sore throat, shortness of breath, muscle aches?: No Have you been exposed to the virus withi n the last 10 days?: No Have you travelled internationally in [facility] last 10 days?: No Have you been [...]
--- OUTSIDE RECORDS SUMMARY | 2024-06-25 06:45 | XMS_ITS ---
Author Organization Rahat Grimes III, MD Address [address] [place] [address] Care Team Providers Care Fitter Up Name Role Phone Rowan Rosario MD Primary [...] Date Provider Diagnosis Rahat Grimes III, MD [address] [place] [address] [place] [address] 06/25/2024 Rahat Grimes Vitamin D deficiency E55.9 [...] Provider Name:Rahat Grimes , 06/26/2025 10:30:00 AM, [address] [place] [address], [place] [address], [place], [address], Progress Notes * ABDIAS QUINTEROSB:1965 ([age] yo F)Acc No.[id number]:06/25/2024 Progress Notes Patient: OSEI CUMMINS Provider: Suly Grimes MD :1965 A ge:58 Y S ex:Female Date:06/25/2024 Address:[address] [place] [address], [address], [place], [id number] Pcp:Rowan Rosario MD Subjective: * Chief Complaints: [...] or use drugs. She was born in [place]. She is unemployed. She is single with one child, a son Wilbert and she has no grandchildren. She sees an fuel manager at [facility] endocrinology. She is perimenopausal. 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 * Medications: T akingmetFORMIN HCl ER 500 [...] woman. HEAD: a traumatic, normocephalic. EYES: e jnaa, perrla, anicteric, conjugate. EARS: n ormal. NOSE: [...] MD Date: 1 08/26/2023 Generated for Printi ng/Jerri/eTransmitting on: 12:27 PM EDT History and Physical Notes [...]
--- OUTSIDE RECORDS SUMMARY | 2024-12-25 06:30 | XMS_ITS ---
Author Organization Rahat rGimes III, MD Address [address] [place] [address] Care Team Providers Care Shot Lighter Name Role Phone Rowan Rosario MD Primary Care Provider Dr. Rahat Ruiz III Unavailable [phone] Allergies Allergen (clinical drug ingredient) Drug/Non Drug [...] Date Provider Diagnosis Rahat Grimes III, MD [address] [place] [address] [address] [place], [place] [address] 12/25/2024 Rahat Grimes Vitamin D deficiency E55.9 [...] Name:Rahat Grimes , 06/26/2025 10:30:00 AM, [address] [place] [address] [address] [place] [address], [place], [address], Progress Notes * SHANA QUINTEROSADOB:1965 ([age] yo F)Acc No.[id number]:12/25/2024 Progress Notes Patient: OSEI CUMMINS Provider: Suly Grimes MD :1965 A ge:59 Y S ex:Female Date:12/25/2024 Address:[address] [place] [address] [place], [place], [place] Pcp:Rowan Rosario MD Subjective: * Chief [...] or use drugs. She was born in [place]. She is unemployed. She is single with one child, a son Wilbert and she has no grandchildren. She sees an boring machine operator at [facility] endocrinology. She is perimenopausal. 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 * Medications: T akingmetFORMIN HCl ER 500 [...] 0 12/25/2024 Generated for Danette forrest/Jerri/eTransmitting on: 12:27 PM EDT History and Physical [...]
--- OUTSIDE RECORDS SUMMARY | 2025-01-14 05:25 | XMS_ITS ---
Author Organization Rahat Grimes III, MD Address [address] D[address]AZ [facility] [place] [address] Care Team Providers Care Post Graduate Intern Name Role Phone Rowan Rosario MD Primary Care Provider Dr. Rahat Ruiz III [facility] REASON FOR VISIT update on her hospital stay at Social History Sex Assigned At : Social History Observation Description Sex Assigned At Female Encounters Encounter Location Date Provider Diagnosis Rahat Grimes III, MD [address] [place] [address] [place] [address] 01/14/2025 Rahat Grimes Plan Of Treatment Next Appt Details Provider Name:Rahat Grimes , 06/26/2025 10:30:00 AM, [address] [place] [address] [place], [address], Progress Notes * SHANA QUINTEROSADOB:1965 ([age] yo F)Acc No.[id number]:01/14/2025 Patient: OSEI CUMMINS :1965 A ge:59 Y S ex:Female Address:[address], [address], [place], [address] * true * Date: Generated for Printi ng/Faxing/eTransmitting on: 12:28 PM EDT
--- OUTSIDE RECORDS SUMMARY | 2025-03-05 11:00 | XMS_ITS ---
Author Organization Rahat Grimes III, MD Address [address] [facility] [address] Care Team Providers Care Mixer Runner Name Role Phone Rowan Rosario MD Primary Care Provider Dr. Rahat Ruiz III [facility] REASON FOR VISIT FYI only Social History Sex Assigned At : Social History Observation Description Sex Assigned At Female Encounters Encounter Location Date Provider Diagnosis Rahat Grimes III, MD [address] [place] [address] [place] [address] 03/05/2025 Rahat Grimes Plan Of Treatment Next Appt Details Provider Name:Rahat Grimes , 06/26/2025 10:30:00 AM, [address] [place] [address] [address], [place], [address], Progress Notes * ABDIAS QUINTEROSB:1965 ([age] yo F)Acc No.[id number]:03/05/2025 Patient: OSEI CUMMINS :1965 A ge:59 Y S ex:Female Address:[address], [address], [facility] [place], [address] * true * Date: Generated for Printi ng/Faxing/eTransmitting on: 1 12:27 PM EDT
--- OUTSIDE RECORDS SUMMARY | 2025-05-05 12:27 | XMS_ITS | Patient Health Record ---
Author Organization Rahat Grimes III, MD Address [address] [place] [address] Care Team Providers Care Clinical Lab Scientist Name Role Phone Rowan Rosario MD [...] Interpretation: Performing Lab:[facility], [address] [place] [address] Notes/Report: White Blood Count 13.3 4.8-10.8 X10*3/uL [...] XAVIER ECTED REPORT XAVIER ECTED REPORT Comprehensive [place]. Panel Fa st Reviewed date:06/25/2024 10:49:35 AM Interpretation: Performing Lab:[address] [address] Notes/Report: Sodium 138 135-145 mmol/L Potassium 4.0 [...] Interpretation: Performing Lab:[facility], [address] [place] [address] Notes/Report: Lactate Dehydrogenase 200 122-220 U/L Lipid Panel Reviewed date:06/25/2024 10:49:35 AM Interpretation: Performing Lab:[address] [address] Notes/Report: Triglycerides 104 <150 mg/dL Desirable Triglyceride: [...] Serum Reviewed date:06/25/2024 10:49:35 AM Interpretation: Performing Lab:[address] [address] Notes/Report: Beta-2 Microglobulin, Serum 2.48 < OR = 2.51 mg/L THIS TEST WAS PERFORMED AT: [facility] [address] [address] AMADOR TOURE MD SLIDE REVIEW Reviewed date:06/25/2024 10:49:35 AM Interpretation: Performing Lab:[facility], [address] [place] [address] Notes/Report: SLIDE REVIEW VERIFIED Complete Blood Count Auto Di ff Reviewed date:12/19/2024 05:32:08 AM Interpretation: Performing Lab:[address] [address] Notes/Report: White Blood Count 11.5 4.8-10.8 X10*3/uL [...] te Reviewed date:12/19/2024 05:32:08 AM Interpretation: Performing Lab:[facility], [address] [place] [address] Notes/Report: Erythrocyte Sedimentation Rate 7 0-20 MM/HR Patients with polycythemia and many hemoglobin abnormalities may have depressed sed rates whereas patients with anemia may have elevated sed rates. Comprehensive Met. Panel Reviewed date:12/19/2024 05:32:08 AM Interpretation: Performing Lab:[facility], [address] [place] [address] Notes/Report: Sodium 141 135-145 mmol/L Potassium 3.8 [...] Interpretation: Performing Lab:[facility], [address] [place] [address] Notes/Report: Lactate Dehydrogenase 161 122-220 U/L Beta-2 Microglobulin, Serum Reviewed date:12/19/2024 05:32:08 AM Interpretation: Performing Lab:[facility], [address] [place] [address] Notes/Report: Beta-2 Microglobulin, Serum 2.77 < OR = 2.51 mg/L THIS TEST WAS PERFORMED AT: [facility] [address] [address] AMADOR TOURE MD SLIDE REVIEW Reviewed date:12/19/2024 05:32:08 AM Interpretation: Performing Lab:[facility], [address] [place] [address] Notes/Report: SLIDE REVIEW VERIFIED Glucose, Whole Blood Reviewed date:03/07/2025 02:49:15 PM Interpretation: Performing Lab:[facility], [address] [place] [address] Notes/Report: Glucose, Whole Blood 73 60-115 mg/dL METER # : [id number] Kidney Stone Reviewed date:03/21/2025 05:48:04 AM Interpretation: Performing Lab:[facility], [address] [place] [address] Notes/Report: [id number] Component 1 SEE NOTE Carbonate Apatite (Dahllite) 90% Calcium Oxalate Dihydrate (Weddellite) 10% Stone Weight 0.100 Formalin, surgical gel, tape adhesive or transport media interfere with the analytical procedure. Follow up testing with the UroRisk(R) Panel is suggested for affected samples, if clinically indicated. This test was developed and its analytical performance characteristics have been determined by [facility]. It has not been cleared or approved by the FDA. This assay has been validated pursuant to the CLIA regulations and is used for clinical purposes. THIS TEST WAS PERFORMED AT: [facility] [address] [place] [address] ROGER PHAM MD,PHD,TRINA [facility] KIDNEY Pathology Reviewed date:03/07/2025 02:49:15 PM Interpretation: Performing Lab:[facility], [address] [place] [address] Notes/Report: ------ Name: Osei Núñez Age/Sex: 59/F : 1965 Unit#: [id number] Attend Dr: Eve Bell MD Re03/04/25 Status : [facility] Location: [facility] Disch: ------ SPEC : [id number] RECD : 03/04/25-8160 STATUS: [place] NUM: [id number] YULISSA: 03/04/25-[address] [facility] [address]: Eve Bell MD ENTERED: 03/04/25-14 35 SP TYPE: Surgical OTHR DR: Rahat Grimes MD ORDERED: GO Diagnosis Ureter stone: Calcul ous material. Gross examination only. Sent for chemical analysis. Please see laborator y portion of the EMR for outside report from [facility]. Clinical History Pre-Op Dx: Calculus of ureter bilaterally Post-Op Dx: Bilatera l hydronephrosis, bilateral ureteral stone Material Received Sloughing of the papilla Gross Description Received fresh label ed ?sloughing of the papilla? is an aggregate of cortez-white and red-pink soft tissue with pal pable, firm gritty areas forming in aggregate measuring 3.2 x 2.5 x 0.3 cm. The specimen is entirely submitted to [email or web address] for chemical analysis per request of Dr. Bell. No sections taken. ([facility]) IHC S/NG Disclaimer NOTE: Unless otherwi se stated, all tissue is formalin-fixed and paraffin-embedded. Some or all of the immunohistochemical tests reported herein may have been developed and their performance characteristics determined by [facility]. They have not been cleared or appr juan j by the U.S. Food and Drug Administration (FDA). However, the FDA has determined that such clearance or approval is not necessary. This laboratory is certified under the Clinical Laboratory Improvement Amendments of 1988 (CLIA) as qualified to perform high comp lexity clinical laboratory testing. Copies To: Eve Bell MD [facility] [address] [place] [address] [address]. [address] [place] [address] [email or web address] Rahat Grimes MD [address] [place] [address] [address] [place] [address] CONTINUED ON NEXT PAGE ------ Name: Osei Núñez Age/Sex: 59/F : 1965 Unit#: [id number] Attend Dr: Eve Bell MD Re03/04/25 Status : [facility] Location: [facility] Disch: ------ SPEC : [id number] RECD : 03/04/25-8840 STATUS: [place] NUM: [id number] YULISSA: 03/04/25-[address] [facility] [address]: Eve Bell MD ENTERED: 03/04/25-14 35 SP TYPE: Surgical OTHR DR: Rahat Grimes MD ORDERED: GO ------ Signed (signature on file) Vladimir Dean MD 03/07/25 1151 ------ END OF REPORT FL guidance in OR Reviewed date:03/07/2025 02:49:15 PM Interpretation: Performing Lab: Notes/Report: [address] [address] Fluoroscopy Report Signed Patient: Osei Núñez MR#: [id number] : 1965 Acct:[id number] Age/Sex: 59 / F ADM Date: 03/04/25 Loc: HO.SSS Attending Dr: Eve Bell MD Ordering Physician: Eve Bell MD Date of Service: 03/04/25 Procedure(s): FL guidance in OR Accession Number(s): [id number] cc: Eve Bell MD; Rahat Grimes MD [...] 03/04/25 1252 DD/ 1140 TD/TT: 03/04/25 1235 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: [place] [address] Fluoroscopy Report Signed Patient: Osei Núñez MR#: [id number] : 1965 Acct:[id number] Age/Sex: 59 / F ADM Date: 03/04/25 Loc: HO.SSS Attending Dr: Eve Bell MD Ordering Physician: Eve Bell MD Date of Service: 03/04/25 Procedure(s): FL jayla dance in OR Accession Number(s): [id number] cc: Rohit Bell MD; Rahat Grimes MD EXAMINATION: FL GUID ANCE ONLY HISTORY: bilateral stones COMPARISON: Correlation is [...] By: Rahat Green MD Signed By: <Kristina red signed by Rahat Green MD in OV> 03/04/25 1252 DD/ 1140 TD/TT: 03/04/25 1235 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: Reason For Referral No Information Medications Medication [...] Risk Notes Problem Diabetes mellitus without complication (379304549) Diabetes (E11.9) Active confirmed Her fas ting glucose is 105. No change in her medications indicated. I recommended aggressive weight loss. Problem 11324488 Lymphocytosis (D72.820) Active confirmed Lymphocyte count is slightly lower. It is essentially unchanged. Observation will continue. Problem 349803501210794 Obesity (BMI 30.0-34.9) (E66.9) Active confirmed We discuu ssed diet and nutrition. I recommended calorie reduction. Problem 05063309 Vitamin D deficiency (E55.9) Active confirmed She has b een compliant with her vitamin D suppleements. Problem 356922539 Lymphoma, small lymphocytic (C83.00) Active confirmed There continues to be no palpable adenopathy or splenomegaly on the white blood cell count is slightly diminished. The lymphoma remains indolent and surveillance with her treatment will be continued. Problem 52317218962380 Microcalcificati on of right breast on mammogram (R92.0) Active confirmed She will undergo routine mammography. Problem 41726437 Corona's thyroiditis (E06.3) Active confirmed She is clinically euthyroid. She is compliant with her medications. Problem 76404685 Left-sided hemiplegic cerebral palsy (G80.8) Active confirmed The neurological deficits are mild and she is completing all his activities of daily life without impairment. She is not currently working. 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 Rahat Grimes III, MD [address] [place] [address] [place] [address] 01/14/2025 Rahat Grimes III, MD [address] [place] [address] [place] [address] 03/05/2025 Rahat Grimes Assessments Encounter Date Diagnosis [...] A1c 12/15/2020 Next Appt Details Provider Name:Rahat Aguilarrne , 06/26/2025 10:30:00 AM, [address] [place] [address] STEFANIE JEAN, [place], [address], Insurance Providers Payer Name Payer Address Payer Phone Subscriber Number Group Number Insured Name Patient Relationship to Insured Coverage Start Date Coverage End Date [employer] [address] [address] [place] [address] [id number] OSEI NÚÑEZ Self - patient is the insured MEDICAID [place] [address] [place], [place] [id number] OSEI NÚÑEZ Self - patient is the [...]
[2025-05-05 13:14] LABS: Appearance Urine Turbid; Glucose Urine UA 500 mg/dL (Negative); PH 6.0 (5.0-9.0); Specific Gravity - Urine 1.015 (1.005-1.025); UMIC TRIGGER UACC YES
[2025-05-05 13:41] LABS: UACC Culture Trigger YES
== END 2025-05-05 10:20 | disposition home or self-care (01) ==
LOC: HO.HMGCLDS 10:19
PROVIDERS: PCP Internal Medicine; Visit Provider Internal Medicine
DX: R39.9 Unspecified symptoms and signs involving the genitourinary system (principal)
CPT/HCPCS: 81001; 87086

== ENCOUNTER 2025-05-09 10:42 | Outpatient (REF) | payer OTHER, SELFPAY ==
--- OUTSIDE RECORDS SUMMARY | 2024-02-26 13:45 | XMS_ITS ---
Author Organization Rahat Grimes III, MD Address [address] [facility] [place] [address] Care Team Providers Care Surgical Training Specialist Name Role Phone Rowan Rosario MD Primary Care Provider Dr. Rahat Ruiz III [facility] [phone] REASON FOR VISIT follow up Social History Sex Assigned At : Social History Observation Description Sex Assigned At Female Encounters Encounter Location Date Provider Diagnosis Rahat Grimes III, MD [address] [place] [address] [address] [facility] [facility] [place] [address] 02/26/2024 Rahat Grimes Plan Of Treatment Next Appt Details Provider Name:Rahat Grimes , 06/26/2025 10:30:00 AM, [address] [place] [address] [place], [address], Progress Notes * SHANA QUINTEROSADOB:1965 (5 9 yo F)Acc No.[id number]:02/26/2024 Progress Notes Patient: OSEI CUMMINS Provider: Suly Grimes MD :1965 A ge:58 Y S ex:Female Date:02/26/2024 Address:[address], [address], [id number] Pcp:Rowan Rosario MD Subjective: * Chief Complaints: [...] 02/26/2024 Generated for Danette forrest/Jerri/Alberta on: 1 12:10 PM EDT
--- OUTSIDE RECORDS SUMMARY | 2024-02-27 06:30 | XMS_ITS ---
Author Organization Rahat Grimes III, MD Address [address] [place] [address] Care Team Providers Care Head Machinist Name Role Phone Rowan Rosario MD Primary [...] Date Provider Diagnosis Rahat Grimes III, MD [address] [place] [address] [place] [address] 02/27/2024 Rahat Grimes Vitamin D deficiency E55.9 [...] Provider Name:Rahat Grimes , 06/26/2025 10:30:00 AM, [address] [place] [address] [address] [address], [place], [address], Progress Notes * MERLYSHANARITAB:1965 ([age] yo F)Acc No.[id number]:02/27/2024 Progress Notes Patient: OSEI CUMMINS Provider: Suly Grimes MD :1965 A ge:58 Y S ex:Female Date:02/27/2024 Address:[address] [place] [address] [place], [place], [id number] Pcp:Rowan Rosario MD Subjective: * Chief [...] or use drugs. She was born in [place]. She is unemployed. She is single with one child, a son Wilbert and she has no grandchildren. She sees an sharepoint application architect at [facility] endocrinology. She is perimenopausal. 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 * Medications: T akingJardiance 10 MG Tablet [...] >40 mg/dL) 50 (Ref Range: mg/dL) ???Lab:Comprehensive [place]. Panel Fast (Order Date - 02/19/2024) (Collection Date - 02/19/2024)?ValueReference Range?[id number] - mmol/L ?Bilirubin Total0.50.0-1.0 - mg/dL?Aspartate Amino Rpgunxoeohx989- 31 - U/L?Alanine Htzlxaievhmyzdrg59V2-58 - U/L?Total Protein8.1H 6.5-8.0 - g/dL?Albumin Level4.63.5-5.0 - g/dL?Alkaline Phosphatase 7439-117 - U/L?Potassium4.03.3-5.1 - mmol/L?Rnisxkkq51645-882 - mmol/L?Carbon Pzatfts5857-10 - mmol/L?Anion Nky5542-13 - ?Blood Urea Scuuinbb063-87 - mg/dL?Creatinine0.640.5-1.4 - mg/dL ?Estimated Glomerular Filt Rate> 60-?Glucose Rlpgejl318Z25-41 - mg/dL?Calcium9.78.4-10.2 - mg/dL * Lab:Complete Blood [...] Grimes MD Date: 0 02/27/2024 Generated for Mariellei lon/Salmag/eTransmitting on: 1 12:10 PM EDT History and Physical Notes * HPI (History of Present Illness) Category Sub-Category Detail Notes COVID-19 Screening Questions Have you had any new onset fever, chills, cough, congestion, sore throat, shortness of breath, muscle aches?: No Have you been exposed to the virus withi n the last 10 days?: No Have you travelled internationally in [facility] last 10 days?: No Have you been [...]
--- OUTSIDE RECORDS SUMMARY | 2024-06-25 06:45 | XMS_ITS ---
Author Organization Rahat Grimes III, MD Address [address] [place] [address] Care Team Providers Care Academic Assistant Name Role Phone Rowan Rosario MD Primary [...] Provider Diagnosis Rahat Grimes III, MD [address] [place] [address] [place] [address] 06/25/2024 Rahat Grimes Vitamin D deficiency E55.9 [...] Provider Name:Rahat Grimes , 06/26/2025 10:30:00 AM, [address] [place] [address], [place] [address], [place], [address], Progress Notes * ABDIAS QUINTEROSB:1965 ([age] yo F)Acc No.[id number]:06/25/2024 Progress Notes Patient: OSEI CUMMINS Provider: Suly Grimes MD :1965 A ge:58 Y S ex:Female Date:06/25/2024 Address:[address] [place] [address], [address], [place], [id number] Pcp:Rowan Rosario MD Subjective: * Chief Complaints: [...] or use drugs. She was born in [place]. She is unemployed. She is single with one child, a son Wilbert and she has no grandchildren. She sees an bread distributor at [facility] endocrinology. She is perimenopausal. 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 * Medications: T akingmetFORMIN HCl ER 500 [...] Grimes MD Date: 1 08/26/2023 Generated for Mariellei ng/Jerri/eTransmitting on: 12:10 PM EDT History and Physical Notes [...]
--- OUTSIDE RECORDS SUMMARY | 2024-12-25 06:30 | XMS_ITS ---
Author Organization Rahat Grimes III, MD Address [address] [place] [address] Care Team Providers Care Health Science Instructor Name Role Phone Rowan Rosario MD Primary [...] Date Provider Diagnosis Rahat Grimes III, MD [address] [place] [address] [address] [place], [place] [address] 12/25/2024 Rahat Grimes Vitamin D deficiency E55.9 [...] Provider Name:Rahat Grimes , 06/26/2025 10:30:00 AM, [address] [place] [address] [address] [place] [address], [place], [address], Progress Notes * SHANA QUINTEROSADOB:1965 ([age] yo F)Acc No.[id number]:12/25/2024 Progress Notes Patient: OSEI CUMMINS Provider: Suly Grimes MD :1965 A ge:59 Y S ex:Female Date:12/25/2024 Address:[address] [place] [address] [place], [place], [place] Pcp:Rowan Rosario MD Subjective: * Chief [...] or use drugs. She was born in [place]. She is unemployed. She is single with one child, a son Wilbert and she has no grandchildren. She sees an caster operator at [facility] endocrinology. She is perimenopausal. 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 * Medications: T akingmetFORMIN HCl ER 500 [...] 0 12/25/2024 Generated for Danette forrest/Jerri/eTransmitting on: 12:10 PM EDT History and Physical [...]
--- OUTSIDE RECORDS SUMMARY | 2025-01-14 05:25 | XMS_ITS ---
Author Organization Rahat Grimes III, MD Address [address] D[address]AZ [facility] [place] [address] Care Team Providers Care High Man Name Role Phone Rowan Rosario MD Primary Care Provider Dr. Rahat Ruiz III [facility] REASON FOR VISIT update on her hospital stay at Social History Sex Assigned At : Social History Observation Description Sex Assigned At Female Encounters Encounter Location Date Provider Diagnosis Rahat Grimes III, MD [address] [place] [address] [place] [address] 01/14/2025 Rahat Grimes Plan Of Treatment Next Appt Details Provider Name:Rahat Grimes , 06/26/2025 10:30:00 AM, [address] [place] [address] [place], [address], Progress Notes * SHANA QUINTEROSADOB:1965 ([age] yo F)Acc No.[id number]:01/14/2025 Patient: OSEI CUMMINS :1965 A ge:59 Y S ex:Female Address:[address], [address], [place], [address] * true * Date: Generated for Printi ng/Faxing/eTransmitting on: 12:10 PM EDT
--- OUTSIDE RECORDS SUMMARY | 2025-03-05 11:00 | XMS_ITS ---
Author Organization Rahat Grimes III, MD Address [address] [place] [address] Care Team Providers Care Lease Examiner Name Role Phone Rowan Rosario MD Primary Care Provider Dr. Rahat Ruiz III [facility] REASON FOR VISIT FYI only Social History Sex Assigned At : Social History Observation Description Sex Assigned At Female Encounters Encounter Location Date Provider Diagnosis Rahat Grimes III, MD [address] [place] [address] [place] [address] 03/05/2025 Rahat Grimes Plan Of Treatment Next Appt Details Provider Name:Rahat Grimes , 06/26/2025 10:30:00 AM, [address] [place] [address] [place], [address], Progress Notes * ABDIAS QUINTEROSB:1965 ([age] yo F)Acc No.[id number]:03/05/2025 Patient: OSEI CUMMINS :1965 A ge:59 Y S ex:Female Address:[address], [address], [facility] [place], [address] * true * Date: Generated for Printi ng/Faxing/eTransmitting on: 12:10 PM EDT
--- NOTE | ~2025-05-09 | MR_ITS ---
EXAMINATION: MR BREAST WITHOUT AND WITH CONTRAST, BILATERAL CLINICAL INFORMATION: High risk screening strong family history of breast cancer including mother in her 40s and maternal aunt in her 40s in sister in her mid 50s. History of lymphoma and ovarian cancer. COMPARISON: Comparison is made with relevant prior imaging. TECHNIQUE: MR imaging of the breast was performed using T1, T2 and fat saturated techniques. Dynamic multiphase imaging was also performed after the administration of intravenous gadolinium contrast agent. Computer generated 3D reconstruction and enhancement kinetic analysis was ulitized by the radiologist in the interpretation of this examination. FINDINGS: Breast composition: Scattered fibroglandular breast tissue Background parenchymal enhancement: Moderate LEFT BREAST: No suspicious enhancing masses or areas of non mass enhancement. No axillary or internal mammary adenopathy. RIGHT BREAST: No suspicious enhancing masses or areas of non mass enhancement. No axillary or internal mammary adenopathy. Other: Limited views of the mediastinal fat demonstrates multiple T2 hyperintense enhancing oval masses question lymph nodes throughout the visualized neck and mediastinal fat. Series 7 image 52/144 59/140 470/144 and 71/144. Series 15 images 41,48,50,55,70/144. Otherwise Limited views of the chest and abdomen are unremarkable. MR/MR breast BI wo/w con IMPRESSION: No MR specific evidence of malignancy. Other: Multiple enhancing masses within the neck and mediastinum are partially imaged and not completely visualized. Additional neck and chest imaging should be considered for further evaluation. ASSESSMENT: LEFT BREAST: BI-RADS 1-Negative RIGHT BREAST: BI-RADS 1-Negative RECOMMENDATIONS: Yearly screening mammography Yearly Breast MRI screening surveillance. Other: Multiple enhancing masses within the neck and mediastinum are partially imaged and not completely visualized. Additional neck and chest imaging should be considered for further evaluation. Findings and recommendations communicated to Dr. Quevedo Electronically signed by: Mary Mcghee DO 05/09/2025 03:49 PM EDT
--- OUTSIDE RECORDS SUMMARY | 2025-05-09 12:10 | XMS_ITS | Patient Health Record ---
Author Organization Rahat Grimes III, MD Address [address] [place] [address] Care Team Providers Care Television News Photographer Name Role Phone Rowan Rosario MD Primary Care Provider Dr. Rahat Ruiz III Unavailable [phone] Allergies Allergen (clinical drug ingredient) Drug/Non Drug Allergy documented on EMR Reaction Allergy Type Onset Date Status Tape Unknown Allergy Active Surgical Glue Unknown Allergy Active lisinopril Lisinopril Unknown Drug Allergy Activ e Latex Latex Unknown Allergy Active Adhesive Unknown Allergy Active Results Component Value Reference Range Notes Complete Blood Count Auto Di ff Reviewed date:06/25/2024 10:49:35 AM Interpretation: Performing Lab:[facility], [address] [place] [phone] Notes/Report: White Blood Count 13.3 4.8-10.8 X10*3/uL [...] XAVIER ECTED REPORT XAVIER ECTED REPORT Comprehensive [place]. Panel Fa st Reviewed date:06/25/2024 10:49:35 AM Interpretation: Performing Lab:[address] [address] Notes/Report: Sodium 138 135-145 mmol/L Potassium 4.0 [...] Dehydrogenase Reviewed date:06/25/2024 10:49:35 AM Interpretation: Performing Lab:[facility], [address] [place] [phone] Notes/Report: Lactate Dehydrogenase 200 122-220 U/L Lipid Panel Reviewed date:06/25/2024 10:49:35 AM Interpretation: Performing Lab:[address] [address] Notes/Report: Triglycerides 104 <150 mg/dL Desirable Triglyceride: [...] Serum Reviewed date:06/25/2024 10:49:35 AM Interpretation: Performing Lab:[address] [address] Notes/Report: Beta-2 Microglobulin, Serum 2.48 < OR = 2.51 mg/L THIS TEST WAS PERFORMED AT: [facility] [address] [address] AMADOR TOURE MD SLIDE REVIEW Reviewed date:06/25/2024 10:49:35 AM Interpretation: Performing Lab:[facility], [address] [place] [phone] Notes/Report: SLIDE REVIEW VERIFIED Complete Blood Count Auto Di ff Reviewed date:12/19/2024 05:32:08 AM Interpretation: Performing Lab:[address] [address] Notes/Report: White Blood Count 11.5 4.8-10.8 X10*3/uL [...] te Reviewed date:12/19/2024 05:32:08 AM Interpretation: Performing Lab:[facility], [address] [place] [phone] Notes/Report: Erythrocyte Sedimentation Rate 7 0-20 MM/HR Patients with polycythemia and many hemoglobin abnormalities may have depressed sed rates whereas patients with anemia may have elevated sed rates. Comprehensive Met. Panel Reviewed date:12/19/2024 05:32:08 AM Interpretation: Performing Lab:[facility], [address] [place] [phone] Notes/Report: Sodium 141 135-145 mmol/L Potassium 3.8 [...] Dehydrogenase Reviewed date:12/19/2024 05:32:08 AM Interpretation: Performing Lab:[facility], [address] [place] [phone] Notes/Report: Lactate Dehydrogenase 161 122-220 U/L Beta-2 Microglobulin, Serum Reviewed date:12/19/2024 05:32:08 AM Interpretation: Performing Lab:[facility], [address] [place] [phone] Notes/Report: Beta-2 Microglobulin, Serum 2.77 < OR = 2.51 mg/L THIS TEST WAS PERFORMED AT: [facility] [address] [address] AMADOR TOURE MD SLIDE REVIEW Reviewed date:12/19/2024 05:32:08 AM Interpretation: Performing Lab:[facility], [address] [place] [phone] Notes/Report: SLIDE REVIEW VERIFIED Glucose, Whole Blood Reviewed date:03/07/2025 02:49:15 PM Interpretation: Performing Lab:[facility], [address] [place] [phone] Notes/Report: Glucose, Whole Blood 73 60-115 mg/dL METER # : [id number] Kidney Stone Reviewed date:03/21/2025 05:48:04 AM Interpretation: Performing Lab:[facility], [address] [place] [phone] Notes/Report: [id number] Component 1 SEE NOTE Carbonate Apatite (Dahllite) 90% Calcium Oxalate Dihydrate (Weddellite) 10% Stone Weight 0.100 Formalin, surgical gel, tape adhesive or transport media interfere with the analytical procedure. Follow up testing with the UroRisk(R) Panel is suggested for affected samples, if clinically indicated. This test was developed and its analytical performance characteristics have been determined by [facility]. It has not been cleared or approved by the FDA. This assay has been validated pursuant to the CLIA regulations and is used for clinical purposes. THIS TEST WAS PERFORMED AT: [facility] [address] [place] [address] ROGER PHAM MD,PHD,TRINA [facility] K[facility] Pathology Reviewed date:03/07/2025 02:49:15 PM Interpretation: Performing Lab:[facility], [address] [place] [phone] Notes/Report: ------ Name: Osei Núñez Age/Sex: 59/F : 1965 Unit#: [id number] Attend Dr: Eve Bell MD Re03/04/25 Status : [facility] Location: [facility] Disch: ------ SPEC : [id number] RECD : 03/04/25-8404 STATUS: SAL [place] NUM: [id number] YULISSA: 03/04/25-1236 [facility] DR: Eve Bell MD ENTERED: 03/04/25-14 35 SP TYPE: Surgical OTHR DR: Rahat Grimes MD ORDERED: GO Diagnosis Ureter stone: Calcul ous material. Gross examination only. Sent for chemical analysis. Please see laborator y portion of the EMR for outside report from [facility]. Clinical History Pre-Op Dx: Calculus of ureter bilaterally Post-Op Dx: Bilatera l hydronephrosis, bilateral ureteral stone Material Received Sloughing of the papilla Gross Description Received fresh label ed ?sloughing of the papilla? is an aggregate of cortez-white and red-pink soft tissue with pal pable, firm gritty areas forming in aggregate measuring 3.2 x 2.5 x 0.3 cm. The specimen is entirely submitted to [facility] for chemical analysis per request of Dr. Bell. No sections taken. ([facility]) IHC S/NG Disclaimer NOTE: Unless otherwi se stated, all tissue is formalin-fixed and paraffin-embedded. Some or all of the immunohistochemical tests reported herein may have been developed and their performance characteristics determined by [facility]. They have not been cleared or appr juan j by the U.S. Food and Drug Administration (FDA). However, the FDA has determined that such clearance or approval is not necessary. This laboratory is certified under the Clinical Laboratory Improvement Amendments of 1988 (CLIA) as qualified to perform high comp lexity clinical laboratory testing. Copies To: Eve Bell MD [facility] [address] [place] [address] [address] [place] [address] [email or web address] Rahat Grimes MD [address] [place] [address] [address] [place] [address] CONTINUED ON NEXT PAGE ------ Name: Osei Núñez Age/Sex: 59/F : 1965 Unit#: [id number] Attend Dr: Eve Bell MD Re03/04/25 Status : [facility] Location: [facility] Disch: ------ SPEC : [id number] RECD : 03/04/25-9050 STATUS: SAL [place] NUM: [id number] YULISSA: 03/04/25-1236 [facility] DR: Eve Bell MD ENTERED: 03/04/25-14 35 SP TYPE: Surgical OTHR DR: Rahat Grimes MD ORDERED: GO ------ Signed (signature on file) Vladimir Dean MD 03/07/25 1151 ------ END OF REPORT FL guidance in OR Reviewed date:03/07/2025 02:49:15 PM Interpretation: Performing Lab: Notes/Report: [address] [address] Fluoroscopy Report Signed Patient: sOei Núñez MR#: [id number] : 1965 Acct:[id number] Age/Sex: 59 / F ADM Date: 03/04/25 Loc: HO.SSS Attending Dr: Eve Bell MD Ordering Physician: Eve Bell MD Date of Service: 03/04/25 Procedure(s): FL guidance in OR Accession Number(s): [id number] cc: Eve Bell MD; Rahat Grimes MD [...] 03/04/25 1252 DD/ 1140 TD/TT: 03/04/25 1235 [employer] [facility] [employer] [facility]: [place] [address] Fluoroscopy Report Signed Patient: Osei Núñez MR#: [id number] : 1965 Acct:[id number] Age/Sex: 59 / F ADM Date: 03/04/25 Loc: HO.SSS Attending Dr: Eve Bell MD Ordering Physician: Eve Bell MD Date of Service: 03/04/25 Procedure(s): FL ajyla dance in OR Accession Number(s): [id number] cc: Rohit Bell MD; Rahat Griems MD EXAMINATION: FL GUID ANCE ONLY HISTORY: [...] 03/04/25 1252 DD/ 1140 TD/TT: 03/04/25 1235 [employer] Lab[employer]: Reason For Referral No Information Medications Medication [...] Risk Notes Problem Diabetes mellitus without complication (519856479) Diabetes (E11.9) Active confirmed Her fas ting glucose is 105. No change in her medications indicated. I recommended aggressive weight loss. Problem 63914405 Lymphocytosis (D72.820) Active confirmed Lymphocyte count is slightly lower. It is essentially unchanged. Observation will continue. Problem 712273621498267 Obesity (BMI 30.0-34.9) (E66.9) Active confirmed We discuu ssed diet and nutrition. I recommended calorie reduction. Problem 90480513 Vitamin D deficiency (E55.9) Active confirmed She has b een compliant with her vitamin D suppleements. 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 The lymphoma remains indolent and surveillance with her treatment will be continued. Problem 51021290863974 Microcalcificati on of right breast on mammogram (R92.0) Active confirmed She will undergo routine mammography. 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 She is compliant with her medications. Problem 47373723 Left-sided hemiplegic cerebral palsy (G80.8) Active confirmed The neurological deficits are mild and she is completing all his activities of daily life without impairment. She is not currently working. 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 Rahat Grimes III, MD [address] [place] [address] [address] [place] [address] 12/25/2024 Rahat Grimes Vitamin D deficiency E55.9 ; Lymphoma, small lymphocytic C83.00 ; Lymphocytosis D72.820 ; Obesity (BMI 30.0-34.9) E66.9 and 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 Rahat Grimes III, MD [address] [place] [address] [place] [address] 01/14/2025 Rahat Grimes III, MD [address] [place] [address] [place] [address] 03/05/2025 Rahat Grimes Assessments Encounter Date Diagnosis [...] Provider Name:Rahat Aguilarrne , 06/26/2025 10:30:00 AM, [address] [place] [address] STEFANIE JEAN, [place], [phone], Insurance Providers Payer Name Payer Address Payer Phone Subscriber Number Group Number Insured Name Patient Relationship to Insured Coverage Start Date Coverage End Date [employer] [address] [address] [place] [address] [id number] OSEI NÚÑEZ Self - patient is the insured [place] [address] [place], [place] [id number] OSEI NÚÑEZ Self - patient is the [...]
== END 2025-05-09 10:43 | disposition home or self-care (01) ==
LOC: HO.MRI 10:42
PROVIDERS: PCP Internal Medicine; Visit Provider Surgery
DX: Z91.89 Other specified personal risk factors, not elsewhere classified (principal)
CPT/HCPCS: 77049; A9585

== ENCOUNTER → 2025-05-09 11:22 | Outpatient (BNV) | payer OTHER, SELFPAY | PROVIDERS: PCP Internal Medicine; Visit Provider Internal Medicine | DX: Z91.89 Other specified personal risk factors, not elsewhere classified (principal) | CPT/HCPCS: 77049 ==

== ENCOUNTER 2025-05-23 09:13 | Outpatient (REF) | payer OTHER, SELFPAY ==
--- OUTSIDE RECORDS SUMMARY | 2024-06-25 05:45 | XMS_ITS ---
Author Organization Rahat Grimes III, MD Address [address] [place] [address] Care Team Providers Care Car Cooper Name Role Phone Rowan Rosario MD Primary Care Provider Dr. Rahat Ruiz III Unavailable [phone] Allergies Allergen (clinical drug ingredient) Drug/Non Drug [...] Date Provider Diagnosis Rahat Grimes III, MD [address] [place] [address] [place] [address] 06/25/2024 Rahat Grimes Vitamin D deficiency E55.9 [...] Provider Name:Rahat Grimes , 06/26/2025 10:30:00 AM, [address] [place] [address], [place] [address], [place], [address], Progress Notes * ABDIAS QUINTEROSB:1965 ([age] yo F)Acc No.[id number]:06/25/2024 Progress Notes Patient: OSEI CUMMINS Provider: Suly Grimes MD :1965 A ge:58 Y S ex:Female Date:06/25/2024 Address:[address] [place] [address], [address], [place], [id number] Pcp:Rowan Rosario MD Subjective: * Chief Complaints: [...] or use drugs. She was born in [place]. She is unemployed. She is single with one child, a son Wilbert and she has no grandchildren. She sees an saw sharpener at [facility] endocrinology. She is perimenopausal. 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 * Medications: T akingmetFORMIN HCl ER 500 [...] Suly Grimes MD Date: 08/26/2023 Generated for Printi ng/Jerri/eTransmitting on: 07/23/2024 09:54 AM EST History and Physical Notes * [...]
--- OUTSIDE RECORDS SUMMARY | 2025-05-23 09:55 | XMS_ITS | Patient Health Record ---
Author Organization Rahat Grimes III, MD Address [address] [place] [address] Care Team Providers Care Chemistry Technical Officer Name Role Phone Rowan Rosario MD Primary [...] ff Reviewed date:06/25/2024 10:49:35 AM Interpretation: Performing Lab:[facility], [address] [place] [phone] Notes/Report: White Blood Count 13.3 4.8-10.8 X10*3/uL [...] XAVIER ECTED REPORT XAVIER ECTED REPORT Comprehensive [place]. Panel Fa st Reviewed date:06/25/2024 10:49:35 AM Interpretation: Performing Lab:[address] [address] Notes/Report: Sodium 138 135-145 mmol/L Potassium 4.0 [...] Dehydrogenase Reviewed date:06/25/2024 10:49:35 AM Interpretation: Performing Lab:[facility], [address] [place] [phone] Notes/Report: Lactate Dehydrogenase 200 122-220 U/L Lipid Panel Reviewed date:06/25/2024 10:49:35 AM Interpretation: Performing Lab:[address] [address] Notes/Report: Triglycerides 104 <150 mg/dL Desirable Triglyceride: [...] Serum Reviewed date:06/25/2024 10:49:35 AM Interpretation: Performing Lab:[address] [address] Notes/Report: Beta-2 Microglobulin, Serum 2.48 < OR = 2.51 mg/L THIS TEST WAS PERFORMED AT: [facility] [address] [address] AMADOR TOURE MD SLIDE REVIEW Reviewed date:06/25/2024 10:49:35 AM Interpretation: Performing Lab:[facility], [address] [place] [address] Notes/Report: SLIDE REVIEW VERIFIED Complete Blood Count Auto Di ff Reviewed date:12/19/2024 05:32:08 AM Interpretation: Performing Lab:[address] [address] Notes/Report: White Blood Count 11.5 4.8-10.8 X10*3/uL [...] te Reviewed date:12/19/2024 05:32:08 AM Interpretation: Performing Lab:[facility], [address] [place] [phone] Notes/Report: Erythrocyte Sedimentation Rate 7 0-20 MM/HR Patients with polycythemia and many hemoglobin abnormalities may have depressed sed rates whereas patients with anemia may have elevated sed rates. Comprehensive Met. Panel Reviewed date:12/19/2024 05:32:08 AM Interpretation: Performing Lab:[facility], [address] [place] [phone] Notes/Report: Sodium 141 135-145 mmol/L Potassium 3.8 [...] Dehydrogenase Reviewed date:12/19/2024 05:32:08 AM Interpretation: Performing Lab:[facility], [address] [place] [phone] Notes/Report: Lactate Dehydrogenase 161 122-220 U/L Beta-2 Microglobulin, Serum Reviewed date:12/19/2024 05:32:08 AM Interpretation: Performing Lab:[facility], [address] [place] [phone] Notes/Report: Beta-2 Microglobulin, Serum 2.77 < OR = 2.51 mg/L THIS TEST WAS PERFORMED AT: [facility] [address] [address] AMADOR TOURE MD SLIDE REVIEW Reviewed date:12/19/2024 05:32:08 AM Interpretation: Performing Lab:[facility], [address] [place] [address] Notes/Report: SLIDE REVIEW VERIFIED Glucose, Whole Blood Reviewed date:03/07/2025 02:49:15 PM Interpretation: Performing Lab:[facility], [address] [place] [phone] Notes/Report: Glucose, Whole Blood 73 60-115 mg/dL METER # : [id number] Kidney Stone Reviewed date:03/21/2025 05:48:04 AM Interpretation: Performing Lab:[facility], [address] [place] [phone] Notes/Report: [id number] Component 1 SEE NOTE Carbonate Apatite (Dahllite) 90% Calcium Oxalate Dihydrate (Weddellite) 10% Stone Weight 0.100 Formalin, surgical gel, tape adhesive or transport media interfere with the analytical procedure. Follow up testing with the UroRisk(R) Panel is suggested for affected samples, if clinically indicated. This test was developed and its analytical performance characteristics have been determined by [facility]. It has not been cleared or approved by the FDA. This assay has been validated pursuant to the CLIA regulations and is used for clinical purposes. THIS TEST WAS PERFORMED AT: [facility] [address] [place] [address] ROGER PHAM MD,PHD,TRINA [facility] Reviewed date:03/07/2025 02:49:15 PM Interpretation: Performing Lab:[facility], [address] [place] [phone] Notes/Report: ------ Name: Osei Núñez Age/Sex: 59/F : 1965 Unit#: [id number] Attend Dr: Eve Bell MD Re03/04/25 Status : [facility] Location: [facility] Disch: ------ SPEC : [id number] RECD : 03/04/25-2689 STATUS: [place] NUM: [id number] YULISSA: 03/04/25-[address] [facility] [address]: Eve Bell MD ENTERED: 03/04/25-14 35 SP TYPE: Surgical OTHR DR: Rahat Grimes MD ORDERED: GO Diagnosis Ureter stone: Calcul ous material. Gross examination only. Sent for chemical analysis. Please see laborator y portion of the EMR for outside report from [facility]. Clinical History Pre-Op Dx: Calculus of ureter bilaterally Post-Op Dx: Bilatera l hydronephrosis, bilateral ureteral stone Material Received Sloughing of the papilla Gross Description Received fresh label ed ?sloughing of the papilla? is an aggregate of cortez-white and red-pink soft tissue with pal pable, firm gritty areas forming in aggregate measuring 3.2 x 2.5 x 0.3 cm. The specimen is entirely submitted to [facility] for chemical analysis per request of Dr. Bell. No sections taken. ([facility]) IHC S/NG Disclaimer NOTE: Unless otherwi se stated, all tissue is formalin-fixed and paraffin-embedded. Some or all of the immunohistochemical tests reported herein may have been developed and their performance characteristics determined by [facility]. They have not been cleared or appr juan j by the U.S. Food and Drug Administration (FDA). However, the FDA has determined that such clearance or approval is not necessary. This laboratory is certified under the Clinical Laboratory Improvement Amendments of 1988 (CLIA) as qualified to perform high comp lexity clinical laboratory testing. Copies To: Eve Bell MD [facility] [place] [facility] [address] [place] [address] Dr. [address] [place] [address] [email or web address] Rahat Grimes MD [address] [place] [address] [address] [place] [address] CONTINUED ON NEXT PAGE ------ Name: Osei Núñez Age/Sex: 59/F : 1965 Unit#: [id number] Attend Dr: Eve Bell MD Re03/04/25 [place] : [facility] [place] [facility] Disch: ------ SPEC : [id number] RECD : 03/04/25-0730 STATUS: [place] NUM: [id number] YULISSA: 03/04/25-[address] [facility] [address]: Eve Bell MD ENTERED: 03/04/25-14 35 SP TYPE: Surgical OTHR DR: Rahat Grimes MD ORDERED: GO ------ Signed (signature on file) Vladimir Dean MD 03/07/25 1151 ------ END OF REPORT FL guidance in OR Reviewed date:03/07/2025 02:49:15 PM Interpretation: Performing Lab: Notes/Report: [address] [address] Fluoroscopy Report Signed Patient: Osei Núñez MR#: [id number] : 1965 Acct:[id number] Age/Sex: 59 / F ADM Date: 03/04/25 Loc: HO.SSS Attending Dr: Eve Bell MD Ordering Physician: Eve Bell MD Date of Service: 03/04/25 Procedure(s): FL guidance in OR Accession Number(s): [id number] cc: Eve Bell MD; Rahat Grimes MD [...] 03/04/25 1252 DD/ 1140 TD/TT: 03/04/25 1235 [facility]: [place] [address] Fluoroscopy Report Signed Patient: Osei Núñez MR#: [id number] : 1965 Acct:[id number] Age/Sex: 59 / F ADM Date: 03/04/25 Loc: HO.SSS Attending Dr: Eve Bell MD Ordering Physician: Eve Bell MD Date of Service: 03/04/25 Procedure(s): FL jayla dance in OR Accession Number(s): [id number] cc: Rohit Bell MD; Rahat Grimes MD [...] Dictated By: Rahat Green MD Signed By: <Electron icallfang signed by Rahat Green MD in OV> 03/04/25 1252 DD/ 1140 TD/TT: 03/04/25 1235 [facility]: MR breast BI wo/w con Reviewed date:05/16/2025 05:59:14 AM Interpretation: Performing Lab: Notes/Report: [address] [address] Magnetic Resonance Report Signed Patient: Osei Núñez MR#: [id number] : 1965 Acct:[id number] Age/Sex: 59 / F ADM Date: 05/09/25 Loc: HO.MRI Attending Dr: Domenic Quevedo MD Ordering Physician: Domenic Quevedo MD Date of Service: 05/09/25 Procedure(s): MR breast BI wo/w con Accession Number(s): [id number] cc: Rahat Grimes MD; Domenic Quevedo MD; Jack Rosario MD Reason for Exam: Z91.89 - Other specified personal risk factors, not elsewhere classified EXAMINATION: MR BREAST WITHOUT AND WITH CONTRAST, BILATERAL CLINICAL INFORMATION: High risk screening strong family history of breast cancer including mother in her 40s and maternal aunt in her 40s in sister in her mid 50s. History of lymphoma and ovarian cancer. COMPARISON: Comparison is made with relevant prior imaging. TECHNIQUE: MR imaging of the breast was performed using T1, T2 and fat saturated techniques. Dynamic multiphase imaging was also performed after the administration of intravenous gadolinium contrast agent. Computer generated 3D reconstruction and enhancement kinetic analysis was ulitized by the radiologist in the interpretation of this examination. FINDINGS: Breast composition: Scattered fibroglandular breast tissue Background parenchymal enhancement: Moderate LEFT BREAST: No suspicious enhancing masses or areas of non mass enhancement. No axillary or internal mammary adenopathy. RIGHT BREAST: No suspicious enhancing masses or areas of non mass enhancement. No axillary or internal mammary adenopathy. Other: Limited views of the mediastinal fat demonstrates multiple T2 hyperintense enhancing oval masses question lymph nodes throughout the visualized neck and mediastinal fat. Series 7 image 52/144 59/140 470/144 and 71/144. Series 15 images 41,48,50,55,70/144. Otherwise Limited views of the chest and abdomen are unremarkable. MR/MR breast BI wo/w con IMPRESSION: No MR specific evidence of malignancy. Other: Multiple enhancing masses within the neck and mediastinum are partially imaged and not completely visualized. Additional neck and chest imaging should be considered for further evaluation. ASSESSMENT: LEFT BREAST: BI-RADS 1-Negative RIGHT BREAST: BI-RADS 1-Negative RECOMMENDATIONS: Yearly screening mammography Yearly Breast MRI screening surveillance. Other: Multiple enhancing masses within the neck and mediastinum are partially imaged and not completely visualized. Additional neck and chest imaging should be considered for further evaluation. Findings and recommendations communicated to Dr. Quevedo Electronically signed by: Mary Mcghee DO 05/09/2025 03:49 PM EDT Dictated By: Mary Mcghee DO Signed By: <Electronically signed by Mary Mcghee DO in OV> 05/09/25 1549 DD/ 1116 TD/TT: 05/09/25 1150 [facility]: [place] [address] Magnetic Resonance Report Signed Patient: Osei Núñez MR#: [id number] : 1965 Acct:[id number] Age/Sex: 59 / F ADM Date: 05/09/25 Loc: HO.MRI Attending Dr: oDmenic Quevedo MD Ordering Physician: Domenic Quevedo MD Date of Service: 05/09/25 Procedure(s): MR candy arnett BI wo/w con Accession Number(s): [id number] cc: Rahat Grimes MD; Domenic Quevedo MD; Jack Rosario MD Reason for Exam: Z91 .89 - Other specified personal risk factors, not elsewhere classified EXAMINATION: MR BREAST WITHOUT AN D WITH CONTRAST, BILATERAL CLINICAL INFORMATION: High risk screening strong family history of breast cancer including mother in her 40s an d maternal aunt in her 40s in sister in her mid 50s. History of lymphoma and ovarian cancer. COMPARISON: Comparison is made w ith relevant prior imaging. TECHNIQUE: MR imaging of the br east was performed using T1, T2 and fat saturated techniques. Dynamic multiphase i maging was also performed after the administration of intravenous gadol inium contrast agent. Computer generated 3 D reconstruction and enhancement kinetic analysis was ulitized by the radiologist in the interpretation of this examination. FINDINGS: Breast composition: Scattered fibroglandular breast tissue Background parenchym al enhancement: Moderate LEFT BREAST: No suspicious enhanc ing masses or areas of non mass enhancement. No axillary or inter nal mammary adenopathy. RIGHT BREAST: No suspicious enhanc ing masses or areas of non mass enhancement. No axillary or inter nal mammary adenopathy. Other: Limited views of the mediastinal fat demonstrates multiple T2 hyperintense enhanci ng oval masses question lymph nodes throughout the visualized neck and mediastinal fat. Series 7 image 52/144 59/140 470/144 and 71/144. Series 15 images 41,48,50,55,70/144. Otherwise Limited vi ews of the chest and abdomen are unremarkable. M R/MR breast BI wo/w con IMPRESSION: No MR specific evide nce of malignancy. Other: Multiple enha ncing masses within the neck and mediastinum are partially imaged and not completely visualized. Additional neck and chest imaging should be considered for further evaluation. ASSESSMENT: LEFT BREAST: BI-RADS 1-Negative RIGHT BREAST: BI-RAD S 1-Negative RECOMMENDATIONS: Yearly screening mammography Yearly Breast MRI screening surveillance. Other: Multiple enha ncing masses within the neck and mediastinum are partially imaged and not completely visualized. Additional neck and chest imaging should be considered for further evaluation. Findings and recommendations communicated to Dr. Quevedo Electronically breanne d by: Mary Mcghee DO 05/09/2025 03:49 PM EDT Dictated By: Mary Mcghee DO Signed By: <Electron ically signed by Mary Mcghee DO in OV> 05/09/25 1549 DD/ 1116 TD/TT: 05/09/25 1150 [facility]: Reason For Referral No Information Medications Medication [...] Risk Notes Problem Diabetes mellitus without complication (043634582) Diabetes (E11.9) Active confirmed Her fas ting glucose is 105. No change in her medications indicated. I recommended aggressive weight loss. Problem 76600902 Lymphocytosis (D72.820) Active confirmed Lymphocyte count is slightly lower. It is essentially unchanged. Observation will continue. Problem 423170940191266 Obesity (BMI 30.0-34.9) (E66.9) Active confirmed We discuu ssed diet and nutrition. I recommended calorie reduction. Problem 09646047 Vitamin D deficiency (E55.9) Active confirmed She has b een compliant with her vitamin D suppleements. 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 The lymphoma remains indolent and surveillance with her treatment will be continued. Problem 71128747843953 Microcalcificati on of right breast on mammogram (R92.0) Active confirmed She will undergo routine mammography. Problem 08609685 Corona's thyroiditis (E06.3) Active confirmed She is clinically euthyroid. She is compliant with her medications. Problem 62921966 Left-sided hemiplegic cerebral palsy (G80.8) Active confirmed The neurological deficits are mild and she is completing all his activities of daily life without impairment. She is not currently working. 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 Rahat Grimes III, MD [address] [place] [address] [place] [address] 12/25/2024 Rahat Grimes Vitamin D deficiency E55.9 ; Lymphoma, small lymphocytic C83.00 ; Lymphocytosis D72.820 ; Obesity (BMI 30.0-34.9) E66.9 and 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 Rahat Grimes III, MD [address] [place] [address] [place] [address] 01/14/2025 Rahat Grimes III MD [address] [place] [address] STEF[place]IE T[place], [place] [address] 03/05/2025 Rahat Grimes Assessments Encounter Date Diagnosis [...] Provider Name:Rahat Grimes , 06/26/2025 10:30:00 AM, [address] [place] [address] DR [facility] [address], [place], [address], Insurance Providers Payer Name Payer Address Payer Phone Subscriber Number Group Number Insured Name Patient Relationship to Insured Coverage Start Date Coverage End Date [employer] [address] [address] [place] [address] [id number] OSEI NÚÑEZ Self - patient is the insured [place] [address] [place], [place] [id number] [phone] [id number] OSEI NÚÑEZ Self - patient is the [...]
[2025-05-23 11:05] LABS: Blood Urea Nitrogen 12 mg/dL (9-16); Estimated Glomerular Filt Rate > 60
== END 2025-05-23 09:14 | disposition home or self-care (01) ==
LOC: HO.HMGCLDS 09:13
PROVIDERS: PCP Internal Medicine; Visit Provider Surgery
DX: R59.1 Generalized enlarged lymph nodes (principal)
CPT/HCPCS: 36415; 82565; 84520

== ENCOUNTER 2025-06-13 08:25 | Outpatient (REF) | payer OTHER, SELFPAY ==
[2025-06-13 10:27] LABS: Hematocrit 43.8 % (37.0-47.0); Hemoglobin 14.2 g/dl (12.0-16.0); Imm Gran Abs Auto 0.03 X10*3/uL (0.00-0.03); Imm Gran Pct Auto 0.2 % (0.0-0.4); MANUAL DIFF FLAG SCAN; Mean Corpuscular HGB Conc 32.4 g/dl (31.0-35.0); Mean Corpuscular Hemoglobin 29.2 pg (27.0-33.0); Mean Corpuscular Volume 89.9 fL (80.0-98.0); NRBC Abs Auto 0.000 X10*3/uL (0.0-0.012); NRBC Pct Auto 0.0 /100WBC (0.0-0.2); Platelet Count 274 X10*3/uL (160-400); Red Blood Count 4.87 X10*6/uL (4.20-5.50); SCAN SMEAR FLAG 1; White Blood Count 15.6 X10*3/uL (4.8-10.8)
[2025-06-13 10:28] LABS: Lymphocytes Absolute Auto 7.3 X10*3/uL (1.2-4.9)
[2025-06-13 10:56] LABS: Alanine Aminotransferase 20 U/L (0-31); Albumin Level 4.7 g/dL (3.5-5.0); Alkaline Phosphatase 86 U/L (39-117); Anion Gap 14 (12-20); Aspartate Amino Transferase 23 U/L (5-31); Blood Urea Nitrogen 12 mg/dL (9-16); Calcium 10.0 mg/dL (8.4-10.2); Carbon Dioxide 22 mmol/L (22-29); Chloride 108 mmol/L (96-108); Cholesterol 159 mg/dL (<200); Estimated Glomerular Filt Rate > 60; Free T4 (Free Thyroxine) 1.34 ng/dL (0.71-1.85); HDL Cholesterol 50 mg/dL (>40); Potassium 4.3 mmol/L (3.3-5.1); Sodium 140 mmol/L (135-145); Thyroid Stimulating Hormone 2.12 uIU/mL (0.32-4.0); Total Protein 8.0 g/dL (6.5-8.0); Triglycerides 191 mg/dL (<150)
[2025-06-13 11:12] LABS: Folate 4.6 ng/mL (> or = 4.0); Vitamin B12 351 pg/mL (200-900)
== END 2025-06-13 08:26 | disposition home or self-care (01) ==
LOC: HO.HMGCLDS 08:25
PROVIDERS: PCP Internal Medicine; Visit Provider Internal Medicine
DX: E11.65 Type 2 diabetes mellitus with hyperglycemia (principal); E78.00 Pure hypercholesterolemia, unspecified
CPT/HCPCS: 36415; 80053; 80061; 82306; 82607; 82746; 83036; 84439; 84443; 85025

== ENCOUNTER 2025-06-18 08:18 | Outpatient (REF) | payer OTHER, SELFPAY ==
[2025-06-18 10:06] LABS: Hematocrit 38.3 % (37.0-47.0); Hemoglobin 12.7 g/dl (12.0-16.0); Imm Gran Abs Auto 0.03 X10*3/uL (0.00-0.03); Imm Gran Pct Auto 0.2 % (0.0-0.4); MANUAL DIFF FLAG SCAN; Mean Corpuscular HGB Conc 33.2 g/dl (31.0-35.0); Mean Corpuscular Hemoglobin 29.3 pg (27.0-33.0); Mean Corpuscular Volume 88.2 fL (80.0-98.0); NRBC Abs Auto 0.000 X10*3/uL (0.0-0.012); NRBC Pct Auto 0.0 /100WBC (0.0-0.2); Platelet Count 249 X10*3/uL (160-400); Red Blood Count 4.34 X10*6/uL (4.20-5.50); SCAN SMEAR FLAG 1; White Blood Count 12.7 X10*3/uL (4.8-10.8)
[2025-06-18 10:09] LABS: Lymphocytes Absolute Auto 6.8 X10*3/uL (1.2-4.9)
[2025-06-18 10:32] LABS: Alanine Aminotransferase 13 U/L (0-31); Albumin Level 4.2 g/dL (3.5-5.0); Alkaline Phosphatase 75 U/L (39-117); Anion Gap 12 (12-20); Aspartate Amino Transferase 18 U/L (5-31); Blood Urea Nitrogen 12 mg/dL (9-16); Calcium 9.3 mg/dL (8.4-10.2); Carbon Dioxide 22 mmol/L (22-29); Chloride 110 mmol/L (96-108); Estimated Glomerular Filt Rate > 60; Potassium 3.8 mmol/L (3.3-5.1); Sodium 140 mmol/L (135-145); Total Protein 7.3 g/dL (6.5-8.0)
== END 2025-06-18 08:19 | disposition home or self-care (01) ==
LOC: HO.HMGCLDS 08:18
PROVIDERS: PCP Internal Medicine; Visit Provider Internal Medicine Medical Oncology
DX: C83.00 Small cell B-cell lymphoma, unspecified site (principal); D72.820 Lymphocytosis (symptomatic); D27.0 Benign neoplasm of right ovary; E55.9 Vitamin D deficiency, unspecified
CPT/HCPCS: 36415; 80053; 82232; 83615; 85025

== ENCOUNTER 2025-06-20 07:32 | Outpatient (REF) | payer OTHER, SELFPAY ==
--- OUTSIDE RECORDS SUMMARY | 2024-02-26 12:45 | XMS_ITS ---
Author Organization Rahat Grimes III, MD Address [address] [facility] [place] [address] Care Team Providers Care Charter Pilot Name Role Phone Rowan Rosario MD Primary Care Provider Dr. Rahat Ruiz III [facility] REASON FOR VISIT follow up Social History Sex Assigned At : Social History Observation Description Sex Assigned At Female Encounters Encounter Location Date Provider Diagnosis Rahat Grimes III, MD [address] [place] [address] [address] [facility] [place] [address] 02/26/2024 Rahat Grimes Plan Of Treatment Next Appt Details Provider Name:Rahat Grimes , 06/26/2025 10:30:00 AM, [address] [place] [address] [place], [address], Progress Notes * SHANA QUINTEROSADOB:1965 ([age] yo F)Acc No.[id number]:02/26/2024 Progress Notes Patient: OSEI CUMMINS Provider: Suly Grimes MD :1965 A ge:58 Y S ex:Female Date:02/26/2024 Address:[address], [address], [id number] Pcp:Rowan Rosario MD Subjective: * Chief Complaints: * 1 . Follow up. * Medical History: Objective: * Vitals: Assessment: Plan: * Treatment: * Images: * The named appointment provid er may or may not be the originator of this progress note, and it is not deemed complete until electronically signed by the appointment provider. Sign off status: Pending * Provider: Suly Grimes MD Date: 0 02/26/2024 Generated for Danette forrest/Jerri/Alberta on: 1 08/21/2024 07:38 AM EST
--- OUTSIDE RECORDS SUMMARY | 2024-02-27 05:30 | XMS_ITS ---
Author Organization Rahat Grimes III, MD Address [address] [place] [address] Care Team Providers Care Credit And Collection Manager Name Role Phone Rowan Rosario MD Primary [...] Date Provider Diagnosis Rahat Grimes III, MD [address] [place] [address] [place] [address] 02/27/2024 Rahat Grimes Vitamin D deficiency E55.9 [...] Provider Name:Rahat Grimes , 06/26/2025 10:30:00 AM, [address] [place] [address] [address] [address], [place], [address], Progress Notes * MERLYSHANARITAB:1965 ([age] yo F)Acc No.[id number]:02/27/2024 Progress Notes Patient: OSEI CUMMINS Provider: Suly Grimes MD :1965 A ge:58 Y S ex:Female Date:02/27/2024 Address:[address] [place] [address] [place], [place], [place] Pcp:Rowan Rosario MD Subjective: * Chief [...] or use drugs. She was born in [place]. She is unemployed. She is single with one child, a son Wilbert and she has no grandchildren. She sees an oracle programmer analyst at [facility] endocrinology. She is perimenopausal. 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 * Medications: T akingJardiance 10 MG Tablet [...] >40 mg/dL) 50 (Ref Range: mg/dL) ???Lab:Comprehensive [place]. Panel Fast (Order Date - 02/19/2024) (Collection Date - 02/19/2024)?ValueReference Range?[id number] - mmol/L ?Bilirubin Total0.50.0-1.0 - mg/dL?Aspartate Amino Alnnclehumg168- 31 - U/L?Alanine Kovysicvwejltwoq23W6-09 - U/L?Total Protein8.1H 6.5-8.0 - g/dL?Albumin Level4.63.5-5.0 - g/dL?Alkaline Phosphatase 7439-117 - U/L?Potassium4.03.3-5.1 - mmol/L?Eqqddbwg99164-006 - mmol/L?Carbon Zqwodbk1962-02 - mmol/L?Anion Kyo5825-65 - ?Blood Urea Zgmsmfwd174-54 - mg/dL?Creatinine0.640.5-1.4 - mg/dL ?Estimated Glomerular Filt Rate> 60-?Glucose Wmwzkkw628H54-99 - mg/dL?Calcium9.78.4-10.2 - mg/dL * Lab:Complete Blood [...] 02/27/2024 Generated for Danette forrest/Jerri/eTransmitting on: 1 08/21/2024 07:37 AM EST History and Physical Notes * HPI (History of Present Illness) Category Sub-Category Detail Notes COVID-19 Screening Questions Have you had any new onset fever, chills, cough, congestion, sore throat, shortness of breath, muscle aches?: No Have you been exposed to the virus withi n the last 10 days?: No Have you travelled internationally in [facility] last 10 days?: No Have you been [...]
--- OUTSIDE RECORDS SUMMARY | 2024-06-25 05:45 | XMS_ITS ---
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 Medications Medication SIG (Take, Route, Frequency, Duration) Notes Start Date End Date Status Jardiance 10 MG 1 tablet Orally Once a day Active metFORMIN HCl ER 500 MG 1 tablet with ev ening meal Orally Twice a day Active ZyrTEC Allergy 10 MG 1 tablet Orally Onc e a day Active Irbesartan 75 MG 1 tablet Orally Once a day Active Vitamin D 1000 UNIT 1 tablet Orally Once a day Active Simvastatin 20 MG 1 tablet in the even ing Orally Once a day Active Tylenol 325 MG 2 tablets as needed Orally every 6 hrs Active ALPRAZolam 0.25 MG 1 tablet Orally Twic e a day Active Sertraline HCl 50 MG 1 tablet Orally Onc e a day Active Docusate Sodium 100 MG Oral Active Levothyroxine Sodium 88 MCG 1 tablet on an empty stomach in the morning Orally Once a day Active Social History Tobacco Use: Social History Observation Description Date Details (start date - stop date) Never Smoker NA - NA Sex Assigned At : Social History Observation Description Sex Assigned At Female Tobacco Use/Smoking Question Answer Notes Patient is a nonsmoker Additional Findings: Tobacco Non-User Aggressive non-smoker Vital Signs Temperature 97.6 degrees Fahrenheit 06/25/20 24 Blood pressure systolic 138 mm Hg 06/25/20 24 Blood pressure diastolic 89 mm Hg 024 Heart Rate 82 /min 06/25/2024 Height 64 in in 06/25/2024 Weight 185 lbs 06/25/2024 BMI 31.75 kg/m2 06/25/2024 Encounters Encounter Location Date Provider Diagnosis Rahat Grimes III, MD [address] [place] [address] [place] [address] 06/25/2024 Rahat Grimes Vitamin D deficiency E55.9 ; Lymphoma, small lymphocytic C83.00 ; Lymphocytosis D72.820 ; Obesity (BMI 30.0-34.9) E66.9 and 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 No change in therapy was necessary. She will be followed at regular interrvals. She was given instructions on when she should call me or new developments. 06/25/2024 Lymphocytosis (ICD-10 - D72.820) The white blood cell count is 13,300 primarily lymphocytes. Her disease has been stable. 06/25/2024 Obesity (BMI 30.0-34.9) (ICD-10 - E66.9) She says her weight has been stable. We reviewed her diet and nutrition and weight loss strategy. 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 There was no residual disease. She will be observed at this point. Plan Of Treatment Medication Medication Name Sig Start Date Stop Date Notes Jardiance 10 MG 1 tablet Orally Once a day metFORMIN HCl ER 500 MG 1 tablet with ev ening meal Orally Twice a day ZyrTEC Allergy 10 MG 1 tablet Orally Once a day Irbesartan 75 MG 1 tablet Orally Once a day Vitamin D 1000 UNIT 1 tablet Orally Once a day Simvastatin 20 MG 1 tablet in the even ing Orally Once a day Tylenol 325 MG 2 tablets as needed Orally every 6 hrs ALPRAZolam 0.25 MG 1 tablet Orally Twice a day Sertraline HCl 50 MG 1 tablet Orally Once a day Docusate Sodium 100 MG Oral Levothyroxine Sodium 88 MCG 1 tablet on an empty stomach in the morning Orally Once a day Pending Test Test Name Order Date PROFILE, RANDOM (COMPREHENSIVE METABOLIC ) 06/25/2024 LDH 06/25/2024 CBC w DIFF 06/25/2024 SED RATE (ESR) 06/25/2024 Beta-2 Microglobulin, Serum 06/25/2024 Next Appt Details Follow Up: December, Reason: Hema moore follow-up Provider Name:Rahat Grimes , 06/26/2025 10:30:00 AM, [address] [place] [address], [place] [address], [place], [address], Progress Notes * ABDIAS QUINTEROSB:1965 ([age] yo F)Acc No.[id number]:06/25/2024 Progress Notes Patient: OSEI CUMMINS Provider: Suly Grimes MD :1965 A ge:58 Y S ex:Female Date:06/25/2024 Address:[address] [place] [address], [address], [place], [id number] Pcp:Rowan Rosario MD Subjective: * Chief Complaints: * S mall lymphocytic lymphomaSertoli-Leydig cell tumor of the right over * HPI: C OVID-19 Screening: Questions H ave you had any new onset fever, chills, cough, congestion, sore throat, shortness of breath, muscle aches? N o * : The patient, a 58-year-old female, reported feeling tired and had been diagnosed with tendonitis. She received a shot for the tendonitis, which she referred to as a 'spicy shot', and reported feeling much better 20 minutes later. She also had an MRI of her breast in April, which did not show anything concerning. The patient reported a weight loss of 4 lbs. Her white blood cell count was slightly high at 13,000, but her red blood cells and platelets were normal. She had a few extra lymphocytes in her blood, but this was not a new development. Her blood sugar was 109, which the doctor reassured her was normal. Her cholesterol was 153. The patient did not report any lumps in her breast, pain in her abdomen, or rectal vaginal bleeding. Blood Sugar Level is 109. * ROS: G eneral/Constitutional: pain o nly normal aches and pains. C hills d enies.?Fatigue a dmits. F ever d enies. A dmits W eight loss. E NT: Decreased hearing d enies. R espiratory: Cough d enies. C ardiovascular: Chest pain with exertion d enies. D yspnea on exertion?denies. S hortness of breath d enies. G astrointestinal: Constipation o ccasional. D ecreased appetite d enies. D iarrhea d enies. H eartburn d enies. N ausea d enies. R ectal bleeding d enies. V omiting d enies. H ematology: bruising d enies. p etechiae d enies. S wollen glands n one have been noted. G enitourinary: Frequent urination d enies. M usculoskeletal: Muscle aches d enies. P ainful joints d enies. S ciatica d enies. W eakness i n the left arm. S kin: Itching d enies. R alli [...] biopsy and aspirate 03/2018Partial Hysterectomy 06/14/2022hysterectomy completion 08/05/2022No history * Hospitalization/Major Diagno stic Procedure: L eft axillary lymph node biopsy DIANE/BSO Sertoli-Leydig cell tumor of the ovary September 2022No history * Family History: F ather: 79 yrs, Diverticulitis, sepsis, diagnosed with DM, HTN. M other: 69 yrs, breast cancer-51, cervical cancer-65, diagnosed with Cancer. S on(s): alive. S iblings: alive, diagnosed with Cancer. P aternal Grand Mother: 38 yrs, diagnosed with Cancer. M aternal aunt: alive, diagnosed with Cancer. 1 brother(s) , 2 sister(s) . 1 son(s) . .? Her two sisters and brother are alivel. [...] T obacco Use: T obacco Use/Smoking P julissa is a n onsmoker A dditional Findings: Tobacco Non-User A ggressive non-smoker S he does not smoke or drink alcohol or use drugs. She was born in [place]. She is unemployed. She is single with one child, a son Wilbert and she has no grandchildren. She sees an cage tender at [facility] endocrinology. She is perimenopausal. 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 * Medications: T akingmetFORMIN HCl ER 500 MG Tablet Extended Release 24 Hour 1 tablet with evening meal Orally Twice a day Irbesartan 75 MG Tablet 1 tablet Orally Once a day ZyrTEC Allergy 10 MG Tablet 1 tablet Orally Once a day Vitamin D 1000 UNIT Tablet 1 tablet Orally Once a day Levothyroxine Sodium 88 MCG Tablet 1 tablet on an empty stomach in the morning Orally Once a day Tylenol 325 MG Tablet 2 tablets as needed Orally every 6 hrs Simvastatin 20 MG Tablet 1 tablet in the evening Orally Once a day Sertraline HCl 50 MG Tablet 1 tablet Orally Once a day ALPRAZolam 0.25 MG Tablet 1 tablet Orally Twice a day Docusate Sodium 100 MG Capsule Oral Jardiance 10 MG Tablet 1 tablet Orally Once a day Medication List reviewed and reconciled with the patientTaking metFORMIN HCl ER 500 MG Tablet Extended Release 24 Hour 1 tablet with evening meal Orally Twice a day Taking Irbesartan 75 MG Tablet 1 tablet Orally Once a day Taking ZyrTEC Allergy 10 MG Tablet 1 tablet Orally Once a day Taking Vitamin D 1000 UNIT Tablet 1 tablet Orally Once a day Taking Levothyroxine Sodium 88 MCG Tablet 1 tablet on an empty stomach in the morning Orally Once a day Taking Tylenol 325 MG Tablet 2 tablets as needed Orally every 6 hrs Taking Simvastatin 20 MG Tablet 1 tablet in the evening Orally Once a day Taking Sertraline HCl 50 MG Tablet 1 tablet Orally Once a day Taking ALPRAZolam 0.25 MG Tablet 1 tablet Orally Twice a day Taking Docusate Sodium 100 MG Capsule Oral Taking Jardiance 10 MG Tablet 1 tablet Orally Once a day Medication List reviewed and reconciled with the patient * Allergies: L atexLisinoprilAdhesiveSurgical GlueTapeno[Allergies Verified] Objective: * Vitals: H t: 64 in, Wt: 185, BMI:31.75, BP: 138/89, HR: 82, Temp: 97.6, Wt-k.91. * P ast Orders: Lab:SLIDE REVIEW * Collection Date 06/17/2024 02/19/2024 10/21/2023 Collection Time 08:31 AM 09:16 AM 09:31 AM Order Date 06/17/2024 02/19/2024 10/21/2023 SLIDE REVIEW VERIFIED VERIFIED VERIFIED * Lab:Beta-2 Microglobulin, Se rum * Collection Date 06/17/2024 10/21/2023 07/21/2023 Collection Time 08:31 AM 09:31 AM 09:12 AM Order Date 06/17/2024 10/21/2023 07/21/2023 Beta-2 Microglobulin, Serum 2.48 (Ref Range: < OR = 2.51 mg/L) 2.50 (Ref Range: < OR = 2.51 mg/L) 2.41 (Ref Range: < OR = 2.51 mg/L) * Lab:Complete Blood Count Aut o Diff * Collection Date 06/17/2024 02/19/2024 10/21/2023 Collection Time 08:31 AM 09:16 AM 09:31 AM Order Date 06/17/2024 02/19/2024 10/21/2023 White Blood Count 13.3 H (Ref Range: 4.8-10.8 X10*3/uL) 13.7 H (Ref Range: 4.8-10.8 X10*3/uL) 12.5 H (Ref Range: 4.8-10.8 X10*3/uL) Red Blood Count 4.79 (Ref Range: 4.20-5.50 X10*6/uL) 4.72 (Ref Range: 4.20-5.50 X10*6/uL) 4.55 (Ref Range: 4.20-5.50 X10*6/uL) Hemoglobin 14.1 (Ref Range: 12.0-16.0 g/dl) 14.5 (Ref Range: 12.0-16.0 g/dl) 14.0 (Ref Range: 12.0-16.0 g/dl) Hematocrit 44.0 (Ref Range: 37.0-47.0 %) 43.2 (Ref Range: 37.0-47.0 %) 41.9 (Ref Range: 37.0-47.0 %) Mean Corpuscular Volume 91.9 (Ref Range: 80.0-98.0 fL) 91.5 (Ref Range: 80.0-98.0 fL) 92.1 (Ref Range: 80.0-98.0 fL) Mean Corpuscular Hemoglobin 29.4 (Ref Range: 27.0-33.0 pg) 30.7 (Ref Range: 27.0-33.0 pg) 30.8 (Ref Range: 27.0-33.0 pg) Mean Corpuscular HGB Conc 32.0 (Ref Range: 31.0-35.0 g/dl) 33.6 (Ref Range: 31.0-35.0 g/dl) 33.4 (Ref Range: 31.0-35.0 g/dl) Red Cell Distribution Width 13.3 (Ref Range: 11.0-16.0 %) 12.8 (Ref Range: 11.0-16.0 %) 12.9 (Ref Range: 11.0-16.0 %) Platelet Count 254 (Ref Range: 160-400 X10*3/uL) 267 (Ref Range: 160-400 X10*3/uL) 259 (Ref Range: 160-400 X10*3/uL) Mean Platelet Volume 9.1 L (Ref Range: 9.4-12.3 fL) 9.1 L (Ref Range: 9.4-12.3 fL) 9.0 L (Ref Range: 9.4-12.3 fL) Neutrophils Percent Auto 39.0 L (Ref Range: 45-73 %) 39.6 L (Ref Range: 45-73 %) 36.2 L (Ref Range: 45-73 %) Imm Gran Pct Auto 0.2 (Ref Range: 0.0-0.4 %) 0.4 (Ref Range: 0.0-0.4 %) 0.2 (Ref Range: 0.0-0.4 %) Lymphocytes Percent Auto 53.2 H (Ref Range: 20-40 %) 52.4 H (Ref Range: 20-40 %) 53.4 H (Ref Range: 20-40 %) Monocytes Percent Auto 5.4 (Ref Range: 2-11 %) 5.0 (Ref Range: 2-11 %) 5.1 (Ref Range: 2-11 %) Eosinophils Percent Auto 1.7 (Ref Range: 0-4 %) 2.0 (Ref Range: 0-4 %) 4.6 H (Ref Range: 0-4 %) Basophils Percent Auto 0.5 (Ref Range: 0-2 %) 0.6 (Ref Range: 0-2 %) 0.5 (Ref Range: 0-2 %) NRBC Pct Auto 0.0 (Ref Range: 0.0-0.2 /100WBC) 0.0 (Ref Range: 0.0-0.2 /100WBC) 0.0 (Ref Range: 0.0-0.2 /100WBC) Neutrophils Absolute Auto 5.2 (Ref Range: 2.0-8.3 x10*3/uL) 5.4 (Ref Range: 2.0-8.3 x10*3/uL) 4.5 (Ref Range: 2.0-8.3 x10*3/uL) Imm Gran Abs Auto 0.03 (Ref Range: 0.00-0.03 X10*3/uL) 0.06 H (Ref Range: 0.00-0.03 X10*3/uL) 0.03 (Ref Range: 0.00-0.03 X10*3/uL) Lymphocytes Absolute Auto 7.1 H (Ref Range: 1.2-4.9 X10*3/uL) 7.2 H (Ref Range: 1.2-4.9 X10*3/uL) 6.7 H (Ref Range: 1.2-4.9 X10*3/uL) Monocytes Absolute Auto 0.7 (Ref Range: 0.1-1.2 X10*3/uL) 0.7 (Ref Range: 0.1-1.2 X10*3/uL) 0.6 (Ref Range: 0.1-1.2 X10*3/uL) Eosinophils Absolute Auto 0.2 (Ref Range: 0.0-0.4 X10*3/uL) 0.3 (Ref Range: 0.0-0.4 X10*3/uL) 0.6 H (Ref Range: 0.0-0.4 X10*3/uL) Basophils Absolute Auto 0.1 (Ref Range: 0.0-0.2 X10*3/uL) 0.1 (Ref Range: 0.0-0.2 X10*3/uL) 0.1 (Ref Range: 0.0-0.2 X10*3/uL) NRBC Abs Auto 0.000 (Ref Range: 0.0-0.012 X10*3/uL) 0.000 (Ref Range: 0.0-0.012 X10*3/uL) 0.000 (Ref Range: 0.0-0.012 X10*3/uL) * Lab:Linda Weiss l Fast * Collection Date 06/17/2024 02/19/2024 Collection Time 08:31 AM 09:16 AM Order Date 06/17/2024 02/19/2024 Sodium 138 (Ref Range: 135-145 mmol/L) 141 (Ref Range: 135-145 mmol/L) Bilirubin Total 0.4 (Ref Range: 0.0-1.0 mg/dL) 0.5 (Ref Range: 0.0-1.0 mg/dL) Aspartate Amino Transferase 24 (Ref Range: 5-31 U/L) 22 (Ref Range: 5-31 U/L) Alanine Aminotransferase 33 H (Ref Range: 0-31 U/L) 35 H (Ref Range: 0-31 U/L) Total Protein 7.8 (Ref Range: 6.5-8.0 g/dL) 8.1 H (Ref Range: 6.5-8.0 g/dL) Albumin Level 4.4 (Ref Range: 3.5-5.0 g/dL) 4.6 (Ref Range: 3.5-5.0 g/dL) Alkaline Phosphatase 70 (Ref Range: 39-117 U/L) 74 (Ref Range: 39-117 U/L) Potassium 4.0 (Ref Range: 3.3-5.1 mmol/L) 4.0 (Ref Range: 3.3-5.1 mmol/L) Chloride 106 (Ref Range: 96-108 mmol/L) 108 (Ref Range: 96-108 mmol/L) Carbon Dioxide 23 (Ref Range: 22-29 mmol/L) 23 (Ref Range: 22-29 mmol/L) Anion Gap 13 (Ref Range: 12-20) 14 (Ref Range: 12-20) Blood Urea Nitrogen 11 (Ref Range: 9-16 mg/dL) 11 (Ref Range: 9-16 mg/dL) Creatinine 0.57 (Ref Range: 0.5-1.4 mg/dL) 0.64 (Ref Range: 0.5-1.4 mg/dL) Estimated Glomerular Filt Rate > 60 > 60 Glucose Fasting 109 H (Ref Range: 60-99 mg/dL) 105 H (Ref Range: 60-99 mg/dL) Calcium 9.6 (Ref Range: 8.4-10.2 mg/dL) 9.7 (Ref Range: 8.4-10.2 mg/dL) * Lab:Lactate Dehydrogenase * Collection Date 06/17/2024 10/21/2023 07/21/2023 Collection Time 08:31 AM 09:31 AM 09:12 AM Order Date 06/17/2024 10/21/2023 07/21/2023 Lactate Dehydrogenase 200 (Ref Range: 122-220 U/L) 184 (Ref Range: 122-220 U/L) 207 (Ref Range: 122-220 U/L) * Lab:Lipid Panel * Collection Date 06/17/2024 02/19/2024 08/03/2020 Collection Time 08:31 AM 09:16 AM 04:20 PM Order Date 06/17/2024 02/19/2024 08/03/2020 Triglycerides 104 (Ref Range: <150 mg/dL) 85 (Ref Range: <150 mg/dL) 151 (Ref Range: mg/dL) Cholesterol 153 (Ref Range: <200 mg/dL) 140 (Ref Range: <200 mg/dL) 159 (Ref Range: mg/dL) LDL Cholesterol Calculated 79 (Ref Range: <100 mg/dL) 67 (Ref Range: <100 mg/dL) 79 (Ref Range: mg/dl) HDL Cholesterol 54 (Ref Range: >40 mg/dL) 56 (Ref Range: >40 mg/dL) 50 (Ref Range: mg/dL) * Examination: G eneral Examination: GENERAL APPEARANCE: p leasant, well nourished, well developed, in no acute distress, calm and relaxed, obese, woman. HEAD: a traumatic, normocephalic. EYES: e [...] sounds normal, no ascites, no organomegaly, no mass, centripital obesity. RECTAL EXAM: n ot examined. MUSCULOSKELETAL: e xtremities unremarkable, no clubbing, cyanosis or edema. PERIPHERAL PULSES: n ormal. NEUROLOGIC: a lert and oriented, cranial nerves 2-12 grossly intact, deep tendon reflexes 2+ symmetrica right, 3+ leftl, motor strength normal right upper and lower extremities, sensory exam intact, Left hemiplegia. PSYCH: a lert, oriented. Assessment: * Assessment: 1. 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 No change in therapy was necessary. She will be followed at regular interrvals. She was given instructions on when she should call me or new developments. 2 . V itamin D deficiency - E55.9 N otes :She has been compliant with her vitamin D suppleements. 3 . L ymphocytosis - D72.820 N otes :The white blood cell count is 13,300 primarily lymphocytes. Her disease has been stable. 4 . O besity (BMI 30.0-34.9) - E66.9 N otes :She says her weight has been stable. We reviewed her diet and nutrition and weight loss strategy. 5 . 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 There was no residual disease. She will be observed at this point. Plan: * Treatment: 2. V itamin D deficiency Continue metFORMIN HCl ER Tablet Extended Release 24 Hour, 500 MG, 1 tablet with evening meal, Orally, Twice a day; C ontinue Irbesartan Tablet, 75 MG, 1 tablet, Orally, Once a day; C ontinue ZyrTEC Allergy Tablet, 10 MG, 1 tablet, Orally, Once a day; C ontinue Vitamin D Tablet, 1000 UNIT, 1 tablet, Orally, Once a day; C ontinue Levothyroxine Sodium Tablet, 88 MCG, 1 tablet on an empty stomach in the morning, Orally, Once a day; C ontinue Tylenol Tablet, 325 MG, 2 tablets as needed, Orally, every 6 hrs; C ontinue Simvastatin Tablet, 20 MG, 1 tablet in the evening, Orally, Once a day; C ontinue Sertraline HCl Tablet, 50 MG, 1 tablet, Orally, Once a day; C ontinue ALPRAZolam Tablet, 0.25 MG, 1 tablet, Orally, Twice a day; C ontinue Docusate Sodium Capsule, 100 MG, Oral; C ontinue Jardiance Tablet, 10 MG, 1 tablet, Orally, Once a day. L AB: PROFILE, RANDOM (COMPREHENSIVE METABOLIC) L AB: LDH L AB: CBC w DIFF L AB: SED RATE (ESR) L AB: Beta-2 Microglobulin, Serum 3. L ymphocytosis L AB: PROFILE, RANDOM (COMPREHENSIVE METABOLIC) L AB: LDH L AB: CBC w DIFF L AB: SED RATE (ESR) L AB: Beta-2 Microglobulin, Serum * Procedure Codes: * Preventive Medicine: Counseling: C are goal follow-up plan: Counseling for abnormal BMI given Y es Above Normal BMI Follow-up D ietary management education, guidance, and counseling, Dietary needs education, Exercise promotion: strength training, Exercise promotion: stretching, Feeding regime, Giving encouragement to exercise, Lifestyle education regarding diet, Nutrition / feeding management, Nutrition therapy, Prescribed activity/exercise education, Prescribed diet education, Prescribed dietary intake, Special diet education, Weight monitoring , Intervention, Order not done: Medical or Other reason not done * Follow Up: J une (Reason: Routine follow-up) * Images: * Sign off status: Completed true * Provider: Suly Grimes MD Date: 08/26/2023 Generated for Mariellei ng/Jerri/eTransmitting on: 08/21/2024 07:36 AM EST History and Physical Notes * HPI (History of Present Illness) Category Sub-Category Detail Notes COVID-19 Screening Questions Have you had any new onset fever, chills, cough, congestion, sore throat, shortness of breath, muscle aches?: No Examination Category Sub-Category Detail Notes General Examination GENERAL APPEARANCE: pleasant , well nourished, well developed, in no acute distress, calm and relaxed, obese, woman HEAD: atraumatic, normocep halic EYES: eomi, perrla, anicte tamy, conjugate EARS: normal NOSE: septum intact NECK/THYROID: no jugular venous di stention, no carotid bruit, thyroid normal HEART: no clicks, gallops, murmurs, or rubs, regular rhythm, S1, S2 normal, no s3, or vascular bruits LUNGS: clear to auscultatio n ABDOMEN: bowel sounds normal, no ascites, no organomegaly, no mass, centripital obesity NEUROLOGIC: alert and oriented, cranial nerves 2-12 grossly intact, deep tendon reflexes 2+ symmetrica right, 3+ leftl, motor strength normal right upper and lower extremities, sensory exam intact, Left hemiplegia SKIN: no suspicious lesion s, anicteric PERIPHERAL PULSES: normal BREASTS: no masses palpable b ilaterally MUSCULOSKELETAL: extremities unremark able, no clubbing, cyanosis or edema LYMPH NODES: no enlarged lymph no marcia,spleen normal RECTAL EXAM: not examined PSYCH: alert, oriented ORAL CAVITY: normal, unremarkable
--- OUTSIDE RECORDS SUMMARY | 2024-12-25 05:30 | XMS_ITS ---
Author Organization Rahat Grimes III, MD Address [address] [address] Care Team Providers Care Mobile Equipment Mechanic Name Role Phone Rowan Rosario MD Primary [...] Provider Diagnosis Rahat Grimes III, MD [address] [place] [address] [address] [place], [place] [address] 12/25/2024 Rahat Grimes Vitamin D deficiency E55.9 [...] Provider Name:Rahat Grimes , 06/26/2025 10:30:00 AM, [address] [place] [address] [address] [address], [place], [address], Progress Notes * SHANA QUINTEROSADOB:1965 ([age] yo F)Acc No.[id number]:12/25/2024 Progress Notes Patient: OSEI CUMMINS Provider: Suly Grimes MD :1965 A ge:59 Y S ex:Female Date:12/25/2024 Address:[address] [place] [address] [place], [place], [place]-[address] Pcp:Rowan Rosario MD Subjective: * Chief [...] or use drugs. She was born in [place]. She is unemployed. She is single with one child, a son Wilbert and she has no grandchildren. She sees an laundry manager at [facility] endocrinology. She is perimenopausal. 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 * Medications: T akingmetFORMIN HCl ER 500 [...] 0 12/25/2024 Generated for Danette forrest/Jerri/eTransmitting on: 1 08/21/2024 07:38 AM EST History and Physical Notes * [...]
--- OUTSIDE RECORDS SUMMARY | 2025-01-14 04:25 | XMS_ITS ---
Author Organization Rahat Grimes III, MD Address [address] [facility] [place] [address] Care Team Providers Care Contact Lens Lathe Operator Name Role Phone Rowan Rosario MD Primary Care Provider Dr. Rahat Ruiz III [facility] [phone] REASON FOR VISIT update on her hospital stay at Social History Sex Assigned At : Social History Observation Description Sex Assigned At Female Encounters Encounter Location Date Provider Diagnosis Rahat Grimes III, MD [address] [place] [address] [place] [address] 01/14/2025 Rahat Grimes Plan Of Treatment Next Appt Details Provider Name:Rahat Grimes , 06/26/2025 10:30:00 AM, [address] [place] [address] [address], [place], [address], Progress Notes * SHANA QUINTEROSADOB:1965 ([age] yo F)Acc No.[id number]:01/14/2025 Patient: OSEI CUMMINS :1965 A ge:59 Y S ex:Female Address:[address], [address], [place], [address] * true * Date: Generated for Printi ng/Faalg/eTransmitting on: 08/21/2024 07:38 AM EST
--- OUTSIDE RECORDS SUMMARY | 2025-03-05 10:00 | XMS_ITS ---
Author Organization Rahat Grimes III, MD Address [address] D[address] [facility] [place] [address] Care Team Providers Care Mail Processing Clerk Name Role Phone Rowan Rosario MD Primary Care Provider Dr. Rahat Ruiz III [facility] REASON FOR VISIT FYI only Social History Sex Assigned At : Social History Observation Description Sex Assigned At Female Encounters Encounter Location Date Provider Diagnosis Rahat Grimes III, MD [address] [place] [address] [place] [address] 03/05/2025 Rahat Grimes Plan Of Treatment Next Appt Details Provider Name:Rahat Grimes , 06/26/2025 10:30:00 AM, [address] [place] [address] [address], [place], [address], Progress Notes * ABDIAS QUINTEROSB:1965 ([age] yo F)Acc No.[id number]:03/05/2025 Patient: OSEI CUMMINS :1965 A ge:59 Y S ex:Female Address:[address], [address], [facility] [place], [address] * true * Date: Generated for Printi ng/Faxing/eTransmitting on: 1 08/21/2024 07:37 AM EST
--- NOTE | ~2025-06-20 | CT_ITS ---
EXAMINATION: CT SOFT TISSUE NECK WITH CONTRAST CLINICAL INFORMATION: R59.0. Enlarged lymph nodes. COMPARISON: None available. TECHNIQUE: Following the intravenous administration of 80 mL of Omnipaque 350 intravenous contrast, helical imaging was performed in the axial plane with generation of coronal and sagittal reformatted images. This CT examination was performed using dose optimization techniques as appropriate, variously including the following: *Automated exposure control *Adjustment of mA and/or kV according to patient size (this includes techniques or standardized protocols for targeted exams where dose is matched to indication/reason for exam; i.e. extremities or head) *Use of iterative reconstruction technique DLP: 193.2 mGy-cm FINDINGS: Skull base, nasopharynx, oropharynx, retropharynx, hypopharynx and larynx demonstrated no masses or fluid collections. Focal 4 mm gas in the nasopharynx soft tissues. Secretions in the right vallecula. Gr[employer] Surface Tool spaces, parapharyngeal spaces and carotid spaces demonstrated no masses or fluid collections. Salivary glands demonstrated normal enhancement pattern without sialolithiasis. Multiple prominent less than 9 mm cervical lymph nodes. 10 mm right pretracheal lymph node in the superior mediastinum. The vessels are patent. No gross calcified plaques in the carotid bulbs nor the proximal ICAs. No enhancing mass in the intraconal or extraconal compartments of the orbits. There is a 1.4 x 3 cm noncalcified heterogeneous enhancing nodule, left thyroid lobe. The thyroid gland is not enlarged. Multilevel cervical spondylosis pronounced at C5-6 resulting in reverse curvature and likely central spinal canal stenosis. Craniocervical junction is intact with normal position of the cerebellar tonsils. Small retention cyst, left maxillary sinus. Poor pneumatization of the frontal sinuses. Annabelle bullosa, middle turbinates. 3 mm left midline spur, nasal septum. Tympanic cavities and mastoid cells are aerated. Pulmonary mosaic pattern.. CT/CT soft tissue neck w IV con IMPRESSION: Nonspecific prominent less than 10 mm lymph nodes, the most conspicuous in the right pretracheal mediastinum. 1.4 x 3 cm dominant solid nodule, left thyroid lobe. Recommend further analysis versus FNA. Cervical spondylosis C5-6. Pulmonary mosaic pattern. Differential diagnostic considerations include small airway disease versus small pulmonary disease versus pulmonary edema versus pneumonitis.. Electronically signed by: Abdullahi Rahman MD 06/20/2025 09:15 AM EST [facility]
--- NOTE | ~2025-06-20 | CT_ITS ---
EXAMINATION: CT CHEST WITH IV CONTRAST INDICATION: R59.0 - Localized enlarged lymph nodes COMPARISON: Previous chest CT most recent August [address] from the same day TECHNIQUE: Helical CT scan of the chest was performed following administration of intravenous contrast. Coronal and sagittal reformatted images were generated and reviewed. This CT exam was performed with one or more of the following dose reduction techniques: automated exposure control, adjustment of the mA and/or kV according to patient size, use of iterative reconstruction technique. DLP: 300 mGy-cm CHEST: THYROID: The left lobe of the thyroid gland is larger than the right. This is similar to prior exam. No nodule. LUNGS: New 3 mm left upper lobe nodule axial image 140 series 7. New 4 mm perivascular right upper lobe nodule axial image 189 series 7. Stable 8.7 mm left upper lobe nodule axial image 169 series 7. Stable 3 mm right upper lobe nodule axial image 117 series 7. Stable 3 mm left upper lobe nodule axial image 163 series 7. Stable 3 mm peripheral or subpleural right upper lobe nodule adjacent to the minor fissure axial image 300 series 7. Stable 4 mm peripheral or subpleural left lower lobe nodule adjacent to the fissure axial image 279 series 7. MEDIASTINUM: There are small mediastinal lymph nodes. These appear similar to 2019 exam. Largest mediastinal lymph node is a vascular space lymph node measuring 6.5 mm in short axis axial image 127 series 7. CECI: There is a slightly enlarged right hilar lymph node measuring 12 mm in short axis axial image 228 series 7. This is increased in size from previous exam. Small supraclavicular lymph nodes similar to previous exam. Small probable epicardial lymph nodes largest measuring 3 mm in short axis axial image 394 series 7 similar to 2019 exam. No internal mammary adenopathy. CARDIOVASCULATURE: The heart is normal in size. There is a trace pericardial effusion. This is new or increased from prior exam. The thoracic aorta is normal in caliber. DEGREE OF CORONARY CALCIFICATION: none PLEURA: There is no pleural effusion. No pneumothorax. MAIN AIRWAYS: The mainstem bronchi and proximal branches are patent. AXILLA: There are small bilateral axillary lymph nodes. No enlarged lymph nodes. New 4 mm density in the lateral mid right breast, 9:00 axis, for example axial image 325 series 7, sagittal reconstructed image 173 and coronal reconstructed image 38. Correlate with recent mammogram and breast MRI. BONES AND SOFT TISSUES: Degenerative changes of the right shoulder and spine. UPPER ABDOMEN: Liver and spleen are not completely imaged but may be prominent. CT/CT chest w IV con IMPRESSION: Slight interval increase in right hilar lymph node now slightly prominent measuring 12 mm in short axis. Smaller mediastinal and bilateral axillary lymph nodes are similar to 2019 exam. New 3 mm bilateral upper lobe nodules. Otherwise pulmonary nodules are stable from 2019, largest measuring 9 mm in the left upper lobe. New 4 mm density in the right lateral breast. Correlate with recent mammogram and breast MRI October and April 2025. New trace pericardial effusion. Electronically signed by: Allyson Wallace MD 06/20/2025 09:32 AM EST
--- OUTSIDE RECORDS SUMMARY | 2025-06-20 07:37 | XMS_ITS | Patient Health Record ---
Author Organization Rahat Grimes III, MD Address [address] [place] [address] Care Team Providers Care Evaluator Name Role Phone Rowan Rosario MD Primary [...] ff Reviewed date:12/19/2024 05:32:08 AM Interpretation: Performing Lab:[facility], [address] [place] [phone] Notes/Report: White Blood Count 11.5 4.8-10.8 X10*3/uL [...] te Reviewed date:12/19/2024 05:32:08 AM Interpretation: Performing Lab:[address] [address] Notes/Report: Erythrocyte Sedimentation Rate 7 0-20 MM/HR Patients with polycythemia and many hemoglobin abnormalities may have depressed sed rates whereas patients with anemia may have elevated sed rates. Comprehensive Met. Panel Reviewed date:12/19/2024 05:32:08 AM Interpretation: Performing Lab:[address] [address] Notes/Report: Sodium 141 135-145 mmol/L Potassium 3.8 [...] Dehydrogenase Reviewed date:12/19/2024 05:32:08 AM Interpretation: Performing Lab:[facility], [address] [place] [phone] Notes/Report: Lactate Dehydrogenase 161 122-220 U/L Beta-2 Microglobulin, Serum Reviewed date:12/19/2024 05:32:08 AM Interpretation: Performing Lab:[facility], [address] [place] [phone] Notes/Report: Beta-2 Microglobulin, Serum 2.77 < OR = 2.51 mg/L THIS TEST WAS PERFORMED AT: [facility] [address] [place] [phone] AMADOR TOURE MD SLIDE REVIEW Reviewed date:12/19/2024 05:32:08 AM Interpretation: Performing Lab:[facility], [address] [place] [phone] Notes/Report: SLIDE REVIEW VERIFIED Glucose, Whole Blood Reviewed date:03/07/2025 02:49:15 PM Interpretation: Performing Lab:[facility], [address] [place] [phone] Notes/Report: Glucose, Whole Blood 73 60-115 mg/dL METER # : [id number] Kidney Stone Reviewed date:03/21/2025 05:48:04 AM Interpretation: Performing Lab:[facility], [address] [place] [phone] Notes/Report: [id number] Component 1 SEE NOTE Carbonate Apatite (Dahllite) 90% Calcium Oxalate Dihydrate (Weddellite) 10% Stone Weight 0.100 Formalin, surgical gel, tape adhesive or transport media interfere with the analytical procedure. Follow up testing with the UroRisk(R) Panel is suggested for affected samples, if clinically indicated. This test was developed and its analytical performance characteristics have been determined by [facility]. It has not been cleared or approved by the FDA. This assay has been validated pursuant to the CLIA regulations and is used for clinical purposes. THIS TEST WAS PERFORMED AT: [facility] [address] [place] [address] ROGER PHAM MD,PHD,TRINA [facility] Reviewed date:03/07/2025 02:49:15 PM Interpretation: Performing Lab:[facility], [address] [place] [phone] Notes/Report: ------ Name: Osei Núñez Age/Sex: 59/F : 1965 Unit#: [id number] Attend Dr: Eve Bell MD Re03/04/25 Status : [facility] Location: [facility] [[email or web address]] Disch: ------ SPEC : [id number] RECD : 03/04/25-1430 STATUS: [place] NUM: [id number] YULISSA: 03/04/25-1236 [facility] DR: Eve Bell MD ENTERED: 03/04/25-14 35 SP TYPE: Surgical OTHR DR: Rahat Grimes MD ORDERED: GO Diagnosis Ureter stone: Calcul ous material. Gross examination only. Sent for chemical analysis. Please see laborator y portion of the EMR for outside report from [facility]. Clinical History Pre-Op Dx: Calculus of ureter bilaterally Post-Op Dx: Bilatera l hydronephrosis, bilateral ureteral stone Material Received Sloughing of the papilla Gross Description Received fresh label ed ?sloughing of the papilla? is an aggregate of cortez-white and red-pink soft tissue with pal pable, firm gritty areas forming in aggregate measuring 3.2 x 2.5 x 0.3 cm. The specimen is entirely submitted to [email or web address] for chemical analysis per request of Dr. Bell. No sections taken. ([facility]) IHC S/NG Disclaimer NOTE: Unless otherwi se stated, all tissue is formalin-fixed and paraffin-embedded. Some or all of the immunohistochemical tests reported herein may have been developed and their performance characteristics determined by [facility]. They have not been cleared or appr juan j by the U.S. Food and Drug Administration (FDA). However, the FDA has determined that such clearance or approval is not necessary. This laboratory is certified under the Clinical Laboratory Improvement Amendments of 1988 (CLIA) as qualified to perform high comp lexity clinical laboratory testing. Copies To: Eve Bell MD [facility] [address] [place], [place] [address] [place] [address] [email or web address] Rahat Grimes MD [address] [place] [address] [address] [place] [address] CONTINUED ON NEXT PAGE ------ Name: Osei Núñez Age/Sex: 59/F : 1965 Unit#: [id number] Attend Dr: Eve Bell MD Re03/04/25 Status : [facility] Location: [facility] [[email or web address]] Disch: ------ SPEC : [id number] RECD : 03/04/25-9690 STATUS: [place] NUM: [id number] YULISSA: 03/04/25-1236 [facility] DR: Eve Bell MD ENTERED: 03/04/25-14 35 SP TYPE: Surgical OTHR DR: Rahat Grimes MD ORDERED: GO ------ Signed (signature on file) Vladimir Dean MD 03/07/25 1151 ------ END OF REPORT FL guidance in OR Reviewed date:03/07/2025 02:49:15 PM Interpretation: Performing Lab: Notes/Report: [address] [address] Fluoroscopy Report Signed Patient: Osei Núñez MR#: [id number] : 1965 Acct:[id number] Age/Sex: 59 / F ADM Date: 03/04/25 Loc: .[facility] Attending Dr: Eve Bell MD Ordering Physician: Eve Bell MD Date of Service: 03/04/25 Procedure(s): FL guidance in OR Accession Number(s): [id number] cc: Eve Bell MD; Rahat Grimes MD [...] 03/04/25 1252 DD/ 1140 TD/TT: 03/04/25 1235 Track Oiler: [place] [address] Fluoroscopy Report Signed Patient: Osei Núñez MR#: [id number] : 1965 Acct:[id number] Age/Sex: 59 / F ADM Date: 03/04/25 Loc: HO.[facility] Attending Dr: Eve Bell MD Ordering Physician: Eve Bell MD Date of Service: 03/04/25 Procedure(s): FL jayla tarasmariana in OR Accession Number(s): [id number] cc: Rohit Bell MD; Rahat Grimes MD [...] By: Rahat Green MD Signed By: <Electron ically signed by Rahat Green MD in OV> 03/04/25 1252 DD/ 1140 TD/TT: 03/04/25 1235 Track Oiler: MR breast BI wo/w con Reviewed date:05/16/2025 05:59:14 AM Interpretation: Performing Lab: Notes/Report: [address] [address] Magnetic Resonance Report Signed Patient: Osei Núñez MR#: [id number] : 1965 Acct:[id number] Age/Sex: 59 / F ADM Date: 05/09/25 Loc: HO.MRI Attending Dr: Domenic Quevedo MD Ordering Physician: Domenic Quevedo MD Date of Service: 05/09/25 Procedure(s): MR breast BI wo/w con Accession Number(s): [id number] cc: Rahat Grimes MD; Domenic Quevedo MD; [...] Mary Mcghee DO 05/09/2025 03:49 PM EDT RP Dictated By: Mary Mcghee DO Signed By: <Electronically signed by Mary Mcghee DO in OV> 05/09/25 1549 DD/ 1116 TD/TT: 05/09/25 1150 Track Oiler: [place] [address] Magnetic Resonance Report Signed Patient: Osei Núñez MR#: [id number] : 1965 Acct:[id number] Age/Sex: 59 / F ADM Date: 05/09/25 Loc: .MRI Attending Dr: Domenic Quevedo MD Ordering Physician: Domenic Quevedo MD Date of Service: 05/09/25 Procedure(s): MR candy ast BI wo/w con Accession Number(s): [id number] cc: Rahat Grimes MD; Domenic Quevedo MD; [...] 05/09/25 1549 DD/ 1116 TD/TT: 05/09/25 1150 Track Oiler: Complete Blood Count Auto Di ff (Not yet reviewed by provider) Interpretation: Performing Lab:[facility], [address] [place] [phone] Notes/Report: White Blood Count 12.7 4.8-10.8 X10*3/uL Red Blood Count 4.34 4.20-5.50 X10*6/uL Hemoglobin 12.7 12.0-16.0 g/dl Hematocrit 38.3 37.0-47.0 % Mean Corpuscular Volume 88.2 80.0-98.0 fL Mean Corpuscular Hemoglobin 29.3 27.0-33.0 pg Mean Corpuscular HGB Conc 33.2 31.0-35.0 g/dl Red Cell Distribution Width 14.1 11.0-16.0 % Platelet Count 249 160-400 X10*3/uL Mean Platelet Volume 9.4 9.4-12.3 fL Neutrophils Percent Auto 38.5 45-73 % Imm Gran Pct Auto 0.2 0.0-0.4 % Lymphocytes Percent Auto 53.5 20-40 % Monocytes Percent Auto 4.3 2-11 % Eosinophils Percent Auto 2.9 0-4 % Basophils Percent Auto 0.6 0-2 % NRBC Pct Auto 0.0 0.0-0.2 /100WBC Neutrophils Absolute Auto 4.9 2.0-8.3 x10*3/uL Imm Gran Abs Auto 0.03 0.00-0.03 X10*3/uL Lymphocytes Absolute Auto 6.8 1.2-4.9 X10*3/uL Monocytes Absolute Auto 0.6 0.1-1.2 X10*3/uL Eosinophils Absolute Auto 0.4 0.0-0.4 X10*3/uL Basophils Absolute Auto 0.1 0.0-0.2 X10*3/uL NRBC Abs Auto 0.000 0.0-0.012 X10*3/uL White Blood Count 12.7 4.8-10.8 X10*3/uL Red Blood Count 4.34 4.20-5.50 X10*6/uL Hemoglobin 12.7 12.0-16.0 g/dl Hematocrit 38.3 37.0-47.0 % Mean Corpuscular Volume 88.2 80.0-98.0 fL Mean Corpuscular Hemoglobin 29.3 27.0-33.0 pg Mean Corpuscular HGB Conc 33.2 31.0-35.0 g/dl Red Cell Distribution Width 14.1 11.0-16.0 % Platelet Count 249 160-400 X10*3/uL Mean Platelet Volume 9.4 9.4-12.3 fL Neutrophils Percent Auto 38.5 45-73 % Imm Gran Pct Auto 0.2 0.0-0.4 % Lymphocytes Percent Auto 53.5 20-40 % Monocytes Percent Auto 4.3 2-11 % Eosinophils Percent Auto 2.9 0-4 % Basophils Percent Auto 0.6 0-2 % NRBC Pct Auto 0.0 0.0-0.2 /100WBC Neutrophils Absolute Auto 4.9 2.0-8.3 x10*3/uL Imm Gran Abs Auto 0.03 0.00-0.03 X10*3/uL Lymphocytes Absolute Auto 6.8 1.2-4.9 X10*3/uL Monocytes Absolute Auto 0.6 0.1-1.2 X10*3/uL Eosinophils Absolute Auto 0.4 0.0-0.4 X10*3/uL Basophils Absolute Auto 0.1 0.0-0.2 X10*3/uL NRBC Abs Auto 0.000 0.0-0.012 X10*3/uL XAVIER ECTED REPORT XAVIER ECTED REPORT Comprehensive Met. Panel (No t yet reviewed by provider) Interpretation: Performing Lab:[facility], [address] [place] [phone] Notes/Report: Sodium 140 135-145 mmol/L Potassium 3.8 3.3-5.1 mmol/L Chloride 110 96-108 mmol/L Carbon Dioxide 22 22-29 mmol/L Anion Gap 12 12-20 Blood Urea Nitrogen 12 9-16 mg/dL Creatinine 0.61 0.5-1.4 mg/dL Estimated Glomerular Filt Rate > 60 Chronic Kidney Disease: Estimated GFR < 60 mL/min/1.73m2 Severe Kidney Disease: Estimated GFR < 15 mL/min/1.73m2 Glucose Random 109 60-115 mg/dL Calcium 9.3 8.4-10.2 mg/dL Bilirubin Total 0.3 0.0-1.0 mg/dL Aspartate Amino Transferase 18 5-31 U/L Alanine Aminotransferase 13 0-31 U/L Total Protein 7.3 6.5-8.0 g/dL Albumin Level 4.2 3.5-5.0 g/dL Alkaline Phosphatase 75 39-117 U/L Lactate Dehydrogenase (Not y et reviewed by provider) Interpretation: Performing Lab:[facility], [address] [place] [phone] Notes/Report: Lactate Dehydrogenase 185 122-220 U/L SLIDE REVIEW (Not yet review ed by provider) Interpretation: Performing Lab:[facility], [address] [place] [phone] Notes/Report: SLIDE REVIEW VERIFIED Reason For Referral [...] Risk Notes Problem Diabetes mellitus without complication (806491756) Diabetes (E11.9) Active confirmed Her fas ting glucose is 105. No change in her medications indicated. I recommended aggressive weight loss. Problem 30490141 Lymphocytosis (D72.820) Active confirmed Lymphocyte count is slightly lower. It is essentially unchanged. Observation will continue. Problem 912699786461152 Obesity (BMI 30.0-34.9) (E66.9) Active confirmed We discuu ssed diet and nutrition. I recommended calorie reduction. Problem 03227695 Vitamin D deficiency (E55.9) Active confirmed She has b een compliant with her vitamin D suppleements. 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 The lymphoma remains indolent and surveillance with her treatment will be continued. Problem 29051362364848 Microcalcificati on of right breast on mammogram (R92.0) Active confirmed She will undergo routine mammography. 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 She is compliant with her medications. Problem 06692245 Left-sided hemiplegic cerebral palsy (G80.8) Active confirmed The neurological deficits are mild and she is completing all his activities of daily life without impairment. She is not currently working. 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 Panel 06/18/2025 Lactate Dehydrogenase 06/18/2025 Total Protein 07/28/2023 Lipid Panel 10/27/2023 Lipid Panel 02/27/2024 Vitamin D 25-OH Total 07/28/2023 Free T4 (Free Thyroxine) 10/27/2023 Beta-2 Microglobulin, Serum 12/25/2024 Beta-2 Microglobulin, Serum 06/25/2024 SLIDE REVIEW 06/18/2025 Hemoglobin A1c 12/15/2020 Next Appt Details Provider Name:Rahat Aguilarrne , 06/26/2025 10:30:00 AM, [address] [place] [address] , STEFANIE Veronica, [place], [address], Insurance Providers Payer Name Payer Address Payer Phone Subscriber Number Group Number Insured Name Patient Relationship to Insured Coverage Start Date Coverage End Date [employer] [address] [address] [place] [address] [id number] OSEI NÚÑEZ Self - patient is the insured MED[place] [address] [place], [place] [id number] [phone] [id number] OSEI NÚÑEZ Self - patient is the [...]
[2025-06-20] MEDS: iohexoL 350 MG/ML 100 ML INFUS..BTL IV (08:37)
== END 2025-06-20 07:33 | disposition home or self-care (01) ==
LOC: HO.CT 07:32
PROVIDERS: Absent Provider Internal Medicine Medical Oncology; PCP Internal Medicine; Visit Provider Surgery
DX: R59.0 Localized enlarged lymph nodes (principal)
CPT/HCPCS: 70491; 71260; Q9967

== ENCOUNTER → 2025-06-20 07:34 | Outpatient (BNV) | payer OTHER, SELFPAY | PROVIDERS: Absent Provider Internal Medicine Medical Oncology; PCP Internal Medicine; Visit Provider Radiology Diagnostic Radiology | DX: R59.0 Localized enlarged lymph nodes (principal) | CPT/HCPCS: 70491; 71260 ==

== ENCOUNTER 2025-06-24 05:37 | Day surgery (SDC) | payer OTHER, SELFPAY ==
--- OUTSIDE RECORDS SUMMARY | 2024-02-26 12:45 | XMS_ITS ---
Author Organization Rahat Grimes III, MD Address [address] [facility] [place] [address] Care Team Providers Care Hogshead Liner Name Role Phone Rowan Rosario MD Primary Care Provider Dr. Rahat Ruiz III [facility] REASON FOR VISIT follow up Social History Sex Assigned At : Social History Observation Description Sex Assigned At Female Encounters Encounter Location Date Provider Diagnosis Rahat Grimes III, MD [address] [place] [address] [address] [facility] [place] [address] 02/26/2024 Rahat Grimes Plan Of Treatment Next Appt Details Provider Name:Rahat Grimes , 06/26/2025 10:30:00 AM, [address] [place] [address] [place], [address], Progress Notes * SHANA QUINTEROSADOB:1965 (5 7 yo F)Acc No.[id number]:02/26/2024 Progress Notes Patient: OSEI CUMMINS Provider: Suly Grimes MD :1965 A ge:58 Y S ex:Female Date:02/26/2024 Address:[address], [address], [id number] Pcp:Rowan Rosario MD Subjective: * Chief Complaints: [...] 0 02/26/2024 Generated for Danette forrest/Jerri/Alberta on: 07/30/2024 08:33 AM EST
--- OUTSIDE RECORDS SUMMARY | 2024-02-27 05:30 | XMS_ITS ---
Author Organization Rahat Grimes III, MD Address [address] [place] [address] Care Team Providers Care Harness Installer Name Role Phone Rowan Rosario MD Primary Care Provider Dr. 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, Lymphocytosis, Diabetes, Obesity, Left hemiplegia from cerebral palsy Medications Medication SIG (Take, Route, Frequency, Duration) Notes Start Date End Date Status Jardiance 10 MG 1 tablet Orally Once a day Active ALPRAZolam 0.25 MG 1 tablet Orally Twic e a day Active Docusate Sodium 100 MG Oral Active metFORMIN HCl ER 500 MG 1 tablet with ev ening meal Orally Twice a day Active Irbesartan 75 MG 1 tablet Orally Once a day Active Vitamin D 1000 UNIT 1 tablet Orally Once a day Active Levothyroxine Sodium 88 MCG 1 tablet on an empty stomach in the morning Orally Once a day Active Tylenol 325 MG 2 tablets as needed Orally every 6 hrs Active Simvastatin 20 MG 1 tablet in the even ing Orally Once a day Active Sertraline HCl 50 MG 1 tablet Orally Onc e a day Active ZyrTEC Allergy 10 MG 1 tablet Orally Onc e a day Active Social History Tobacco Use: Social History Observation Description Date Details (start date - stop date) Never Smoker NA - NA Sex Assigned At : Social History Observation Description Sex Assigned At Female Tobacco Use/Smoking Question Answer Notes Patient is a nonsmoker Additional Findings: Tobacco Non-User Aggressive non-smoker Vital Signs Temperature 98.2 degrees Fahrenheit 02/27/20 24 Blood pressure systolic 143 mm Hg 02/27/20 24 Blood pressure diastolic 78 mm Hg 024 Heart Rate 79 /min 02/27/2024 Height 64 in in 02/27/2024 Weight 189 lbs 02/27/2024 BMI 32.44 kg/m2 02/27/2024 Encounters Encounter Location Date Provider Diagnosis Rahat Grimes III, MD [address] [place] [address] [place] [address] 02/27/2024 Rahat Grimes Vitamin D deficiency E55.9 ; Lymphoma, small lymphocytic C83.00 ; Obesity (BMI 30.0-34.9) E66.9 ; Diabetes E11.9 and Lymphocytosis D72.820 Assessments Encounter Date Diagnosis (ICD Code) Assessment Notes Treatment Notes Treatment Clinical Notes 02/27/2024 Vitamin D deficiency (ICD-10 - E55.9) She has been compliant with her vitamin D suppleements. 02/27/2024 Lymphoma, small lymphocytic (ICD-10 - C83.00) The lymphoproliferative process is stable and no changes were made in her treatment. She does not need treatment at this time. Observation was continued. 02/27/2024 Obesity (BMI 30.0-34.9) (ICD-10 - E66.9) She says her weight has been stable. We reviewed her diet and nutrition and weight loss strategy. 02/27/2024 Diabetes (ICD-10 - E11.9) Her fasting glucose is 105. No change in her medications indicated. I recommended aggressive weight loss. 02/27/2024 Lymphocytosis (ICD-10 - D72.820) Lymphocytosis is stable. There was no adenopathy or splenomegaly. Plan Of Treatment Medication Medication Name Sig Start Date Stop Date Notes Jardiance 10 MG 1 tablet Orally Once a day ALPRAZolam 0.25 MG 1 tablet Orally Twice a day Docusate Sodium 100 MG Oral metFORMIN HCl ER 500 MG 1 tablet with ev ening meal Orally Twice a day Irbesartan 75 MG 1 tablet Orally Once a day Vitamin D 1000 UNIT 1 tablet Orally Once a day Levothyroxine Sodium 88 MCG 1 tablet on an empty stomach in the morning Orally Once a day Tylenol 325 MG 2 tablets as needed Orally every 6 hrs Simvastatin 20 MG 1 tablet in the even ing Orally Once a day Sertraline HCl 50 MG 1 tablet Orally Once a day ZyrTEC Allergy 10 MG 1 tablet Orally Once a day Pending Test Test Name Order Date PROFILE, FASTING (COMPREHENSIVE METABOLI C) 02/27/2024 LDH 02/27/2024 CBC w DIFF 02/27/2024 BETA-2 MICROGLOBULIN, SERUM 02/27/2024 Lipid Panel 02/27/2024 Next Appt Details Follow Up: 4 Months, Reason: ov review labs Provider Name:Rahat Grimes , 06/26/2025 10:30:00 AM, [address] [place] [address] [address] [place] [address], [place], [address], Progress Notes * MERLYSHANARITAB:1965 ([age] yo F)Acc No.[id number]:02/27/2024 Progress Notes Patient: OSEI CUMMINS Provider: Suly Grimes MD :1965 A ge:58 Y S ex:Female Date:02/27/2024 Address:[address] [place] [address] [place], [place] Pcp:Rowan Rosario MD Subjective: * Chief Complaints: * S mall lymphocytic lymphomaSertoli-Leydig cell tumor of the right ovaryLymphocytosisDiabetesObesityLeft hemiplegia from cerebral palsy * HPI: C OVID-19 Screening: She returns for medical management of her lymphoma. Since her last visit she has been healthy and well. No new problems have evolved. The ovarian tumor was removed. She says she feels healthy and well. Her diabetes has been controlled. Compress the blood work is available and was reviewed with her in detail. Questions H ave you experienced fever, chills, cough, sore throat, shortness of breath, difficulty breathing, muscle aches, loss of taste or smell? N o H ave you been exposed to the virus within the last 10 days? N o H ave you travelled internationally in the last 10 days? N o H ave you been exposed to COVID-19 in the past? N o * ROS: G eneral/Constitutional: pain o nly normal aches and pains. C hills d enies.?Fatigue a dmits. F ever d enies. E NT: Decreased hearing d enies. R espiratory: Cough d enies. C ardiovascular: Chest pain with exertion d enies. D yspnea on exertion?denies. S hortness of breath d enies. G astrointestinal: Constipation o ccasional. D ecreased appetite d enies. D iarrhea d enies. H eartburn c ontrolled with medications. N ausea d enies. R ectal bleeding d enies. V omiting d enies. H ematology: bruising d enies. p etechiae d enies. S wollen glands n one have been noted. G enitourinary: Frequent urination a t night. M usculoskeletal: Muscle aches d enies. P ainful joints d enies. S ciatica d enies. W eakness d enies. S kin: Itching d enies. R alli d enies. S kin lesion(s)?denies. N eurologic: Difficulty speaking d enies. D izziness d enies.?Headache d enies. L ow back pain d enies. P sychiatric: Depressed mood d enies. * Medical History: * Surgical History: f oot surgery, left Right knee partial medial meniscectomy 06/2014core biopsy. Right axillary lymph node 07/2017left posterior superior iliac crest bone marrow biopsy and aspirate 03/2018Partial Hysterectomy 06/14/2022hysterectomy completion 08/05/2022 * Hospitalization/Major Diagno stic Procedure: L eft axillary lymph node biopsy DIANE/BSO Sertoli-Leydig cell tumor of the ovary September 2022 * Family History: F ather: 79 yrs, Diverticulitis, sepsis, diagnosed with HTN, DM. M other: 69 yrs, breast cancer-49, cervical cancer-63, diagnosed with Cancer. S on(s): alive. S iblings: alive, Sister have bilateral breast cancer-51, diagnosed with Cancer. P aternal Grand Mother: 38 yrs, diagnosed with Cancer. M aternal aunt: , bilateral breast cancer-40, diagnosed with Cancer. 1 brother(s) , 2 sister(s) . 1 son(s) . . Her two sisters and brother are alivel. The oldest sister suffers from hypertension, arthritis, irritable bowel syndrome and is hypothyroid. Her brother has multiple sclerosis. Her other sister suffers from breast cancer and alcoholism. Her mother suffered from breast cancer diagnosed at age of 49 and cervical cancer at the age of 63. Her paternal grandmother at the age of 38 of some form of cancer. A maternal aunt has bilateral breast cancer diagnosed at the age of 40. A sibling has bilateral breast cancer diagnosed at the age of 51. * Social History: T obacco Use: T obacco Use/Smoking P atient is a n onsmoker A dditional Findings: Tobacco Non-User A ggressive non-smoker S he does not smoke or drink alcohol or use drugs. She was born in [employer]. She is unemployed. She is single with one child, a son Wilbert and she has no grandchildren. She sees an payroll lead at [facility] endocrinology. She is perimenopausal. 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 * Medications: T akingJardiance 10 MG Tablet 1 tablet Orally Once a daymetFORMIN HCl ER 500 MG Tablet Extended Release 24 Hour 1 tablet with evening meal Orally Twice a dayIrbesartan 75 MG Tablet 1 tablet Orally Once a dayZyrTEC Allergy 10 MG Tablet 1 tablet Orally Once a dayVitamin D 1000 UNIT Tablet 1 tablet Orally Once a dayLevothyroxine Sodium 88 MCG Tablet 1 tablet on an empty stomach in the morning Orally Once a dayTylenol 325 MG Tablet 2 tablets as needed Orally every 6 hrsSimvastatin 20 MG Tablet 1 tablet in the evening Orally Once a daySertraline HCl 50 MG Tablet 1 tablet Orally Once a dayALPRAZolam 0.25 MG Tablet 1 tablet Orally Twice a dayDocusate Sodium 100 MG Capsule Oral Medication List reviewed and reconciled with the patientTaking Jardiance 10 MG Tablet 1 tablet Orally Once a dayTaking metFORMIN HCl ER 500 MG Tablet Extended Release 24 Hour 1 tablet with evening meal Orally Twice a dayTaking Irbesartan 75 MG Tablet 1 tablet Orally Once a dayTaking ZyrTEC Allergy 10 MG Tablet 1 tablet Orally Once a dayTaking Vitamin D 1000 UNIT Tablet 1 tablet Orally Once a dayTaking Levothyroxine Sodium 88 MCG Tablet 1 tablet on an empty stomach in the morning Orally Once a dayTaking Tylenol 325 MG Tablet 2 tablets as needed Orally every 6 hrsTaking Simvastatin 20 MG Tablet 1 tablet in the evening Orally Once a dayTaking Sertraline HCl 50 MG Tablet 1 tablet Orally Once a dayTaking ALPRAZolam 0.25 MG Tablet 1 tablet Orally Twice a dayTaking Docusate Sodium 100 MG Capsule Oral Medication List reviewed and reconciled with the patient * Allergies: L atexLisinoprilAdhesiveSurgical GlueTapeno[Allergies Verified] Objective: * Vitals: H t: 64 in, Wt: 189, BMI:32.44, BP: 143/78, HR: 79, Temp: 98.2, Wt-k.73. * P ast Orders: Lab:Lipid Panel * Order Date 02/19/2024 08/03/2020 Triglycerides 85 (Ref Range: <150 mg/dL) 151 (Ref Range: mg/dL) Cholesterol 140 (Ref Range: <200 mg/dL) 159 (Ref Range: mg/dL) LDL Cholesterol Calculated 67 (Ref Range: <100 mg/dL) 79 (Ref Range: mg/dl) HDL Cholesterol 56 (Ref Range: >40 mg/dL) 50 (Ref Range: mg/dL) ???Lab:Comprehensive [place]. Panel Fast (Order Date - 02/19/2024) (Collection Date - 02/19/2024)?ValueReference Range?[id number] - mmol/L ?Bilirubin Total0.50.0-1.0 - mg/dL?Aspartate Amino Rydpapldmvs777- 31 - U/L?Alanine Gfvhjllrvwyuohgs26Q8-15 - U/L?Total Protein8.1H 6.5-8.0 - g/dL?Albumin Level4.63.5-5.0 - g/dL?Alkaline Phosphatase 7439-117 - U/L?Potassium4.03.3-5.1 - mmol/L?Srhrosir38084-500 - mmol/L?Carbon Iatncgo1467-82 - mmol/L?Anion Xco1549-28 - ?Blood Urea Tnqylutb349-94 - mg/dL?Creatinine0.640.5-1.4 - mg/dL ?Estimated Glomerular Filt Rate> 60-?Glucose Njucrmf079T90-01 - mg/dL?Calcium9.78.4-10.2 - mg/dL * Lab:Complete Blood Count Aut o Diff * Order Date 02/19/2024 10/21/2023 07/21/2023 White Blood Count 13.7 H (Ref Range: 4.8-10.8 X10*3/uL) 12.5 H (Ref Range: 4.8-10.8 X10*3/uL) 12.2 H (Ref Range: 4.8-10.8 X10*3/uL) Red Blood Count 4.72 (Ref Range: 4.20-5.50 X10*6/uL) 4.55 (Ref Range: 4.20-5.50 X10*6/uL) 4.56 (Ref Range: 4.20-5.50 X10*6/uL) Hemoglobin 14.5 (Ref Range: 12.0-16.0 g/dl) 14.0 (Ref Range: 12.0-16.0 g/dl) 14.1 (Ref Range: 12.0-16.0 g/dl) Hematocrit 43.2 (Ref Range: 37.0-47.0 %) 41.9 (Ref Range: 37.0-47.0 %) 42.8 (Ref Range: 37.0-47.0 %) Mean Corpuscular Volume 91.5 (Ref Range: 80.0-98.0 fL) 92.1 (Ref Range: 80.0-98.0 fL) 93.9 (Ref Range: 80.0-98.0 fL) Mean Corpuscular Hemoglobin 30.7 (Ref Range: 27.0-33.0 pg) 30.8 (Ref Range: 27.0-33.0 pg) 30.9 (Ref Range: 27.0-33.0 pg) Mean Corpuscular HGB Conc 33.6 (Ref Range: 31.0-35.0 g/dl) 33.4 (Ref Range: 31.0-35.0 g/dl) 32.9 (Ref Range: 31.0-35.0 g/dl) Red Cell Distribution Width 12.8 (Ref Range: 11.0-16.0 %) 12.9 (Ref Range: 11.0-16.0 %) 13.1 (Ref Range: 11.0-16.0 %) Platelet Count 267 (Ref Range: 160-400 X10*3/uL) 259 (Ref Range: 160-400 X10*3/uL) 254 (Ref Range: 160-400 X10*3/uL) Mean Platelet Volume 9.1 L (Ref Range: 9.4-12.3 fL) 9.0 L (Ref Range: 9.4-12.3 fL) 9.6 (Ref Range: 9.4-12.3 fL) Neutrophils Percent Auto 39.6 L (Ref Range: 45-73 %) 36.2 L (Ref Range: 45-73 %) 36.5 L (Ref Range: 45-73 %) Imm Gran Pct Auto 0.4 (Ref Range: 0.0-0.4 %) 0.2 (Ref Range: 0.0-0.4 %) 0.2 (Ref Range: 0.0-0.4 %) Lymphocytes Percent Auto 52.4 H (Ref Range: 20-40 %) 53.4 H (Ref Range: 20-40 %) 55.4 H (Ref Range: 20-40 %) Monocytes Percent Auto 5.0 (Ref Range: 2-11 %) 5.1 (Ref Range: 2-11 %) 5.2 (Ref Range: 2-11 %) Eosinophils Percent Auto 2.0 (Ref Range: 0-4 %) 4.6 H (Ref Range: 0-4 %) 2.0 (Ref Range: 0-4 %) Basophils Percent Auto 0.6 (Ref Range: 0-2 %) 0.5 (Ref Range: 0-2 %) 0.7 (Ref Range: 0-2 %) NRBC Pct Auto 0.0 (Ref Range: 0.0-0.2 /100WBC) 0.0 (Ref Range: 0.0-0.2 /100WBC) 0.0 (Ref Range: 0.0-0.2 /100WBC) Neutrophils Absolute Auto 5.4 (Ref Range: 2.0-8.3 x10*3/uL) 4.5 (Ref Range: 2.0-8.3 x10*3/uL) 4.5 (Ref Range: 2.0-8.3 x10*3/uL) Imm Gran Abs Auto 0.06 H (Ref Range: 0.00-0.03 X10*3/uL) 0.03 (Ref Range: 0.00-0.03 X10*3/uL) 0.03 (Ref Range: 0.00-0.03 X10*3/uL) Lymphocytes Absolute Auto 7.2 H (Ref Range: 1.2-4.9 X10*3/uL) 6.7 H (Ref Range: 1.2-4.9 X10*3/uL) 6.8 H (Ref Range: 1.2-4.9 X10*3/uL) Monocytes Absolute Auto 0.7 (Ref Range: 0.1-1.2 X10*3/uL) 0.6 (Ref Range: 0.1-1.2 X10*3/uL) 0.6 (Ref Range: 0.1-1.2 X10*3/uL) Eosinophils Absolute Auto 0.3 (Ref Range: 0.0-0.4 X10*3/uL) 0.6 H (Ref Range: 0.0-0.4 X10*3/uL) 0.2 (Ref Range: 0.0-0.4 X10*3/uL) Basophils Absolute Auto 0.1 (Ref Range: 0.0-0.2 X10*3/uL) 0.1 (Ref Range: 0.0-0.2 X10*3/uL) 0.1 (Ref Range: 0.0-0.2 X10*3/uL) NRBC Abs Auto 0.000 (Ref Range: 0.0-0.012 X10*3/uL) 0.000 (Ref Range: 0.0-0.012 X10*3/uL) 0.000 (Ref Range: 0.0-0.012 X10*3/uL) * Lab:SLIDE REVIEW * Order Date 02/19/2024 10/21/2023 07/21/2023 SLIDE REVIEW VERIFIED VERIFIED VERIFIED * Lab:Thyroid Stimulating Horm one * Order Date 02/19/2024 11/08/2021 Thyroid Stimulating Hormone 3.67 (Ref Range: 0.32-4.0 uIU/mL) 2.33 (Ref Range: 0.32-4.0 uIU/mL) * Lab:Free T4 (Free Thyroxine) * Order Date 02/19/2024 11/08/2021 Free T4 (Free Thyroxine) 1.34 (Ref Range: 0.71-1.85 ng/dL) 1.19 (Ref Range: 0.71-1.85 ng/dL) * Examination: G eneral Examination: GENERAL APPEARANCE: p leasant, well nourished, well developed, in no acute distress, calm and relaxed , obese , woman. HEAD: a traumatic, normocephalic. EYES: e jana, perrla, anicteric, conjugate. EARS: n ormal. NOSE: s eptum intact. ORAL CAVITY: n ormal, unremarkable. NECK/THYROID: n o jugular venous distention, no carotid bruit, thyroid normal. LYMPH NODES: n o enlarged lymph nodes,spleen normal. SKIN: n o suspicious lesions, anicteric. HEART: n o clicks, gallops, murmurs, or rubs, regular rhythm, S1, S2 normal, no s3, or vascular bruits. LUNGS: c lear to auscultation . BREASTS: no masses palpable bilaterally. ABDOMEN: b owel sounds normal, no ascites, no organomegaly, no mass , centripital obesity. RECTAL EXAM: n ot examined. MUSCULOSKELETAL: e xtremities unremarkable, no clubbing, cyanosis or edema. PERIPHERAL PULSES: n ormal. NEUROLOGIC: a lert and oriented, cranial nerves 2-12 grossly intact, deep tendon reflexes 2+ symmetrical, motor strength normal right upper and lower extremities, Left hemiplegia, s ensory exam intact. PSYCH: a lert, oriented. Assessment: * Assessment: 1. V itamin D deficiency - E55.9 (Primary), She has been compliant with her vitamin D suppleements. 2 . 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 She does not need treatment at this time. Observation was continued. 3 . O marge (BMI 30.0-34.9) - E66.9, She says her weight has been stable. We reviewed her diet and nutrition and weight loss strategy. 4 . D iabetes - E11.9, Her fasting glucose is 105. No change in her medications indicated. I recommended aggressive weight loss. 5 . Lymphocytosis - D72.820, Lymphocytosis is stable. There was no adenopathy or splenomegaly. Plan: * Treatment: 2. L ymphoma, small lymphocytic L AB: PROFILE, FASTING (COMPREHENSIVE METABOLIC) L AB: LDH L AB: CBC w DIFF L AB: BETA-2 MICROGLOBULIN, SERUM L AB: Lipid Panel 3. O marge (BMI 30.0-34.9) L AB: PROFILE, FASTING (COMPREHENSIVE METABOLIC) L AB: LDH L AB: CBC w DIFF L AB: BETA-2 MICROGLOBULIN, SERUM L AB: Lipid Panel 4. D iabetes L AB: PROFILE, FASTING (COMPREHENSIVE METABOLIC) L AB: LDH L AB: CBC w DIFF L AB: BETA-2 MICROGLOBULIN, SERUM L AB: Lipid Panel 5. L ymphocytosis L AB: PROFILE, FASTING (COMPREHENSIVE METABOLIC) L AB: LDH L AB: CBC w DIFF L AB: BETA-2 MICROGLOBULIN, SERUM L AB: Lipid Panel * Procedure Codes: * Preventive Medicine: Counseling: C are goal follow-up plan: Counseling for abnormal BMI given Y es Above Normal BMI Follow-up D ietary management education, guidance, and counseling, Dietary needs education DM Care Plan: P atient Lifestyle Goals P atient wants to be able to manage diabetes without too much effort. T reatment Goals B lood Sugars less than < 115, HbA1C < 7.0. B arriers n o barriers. S elf-Managment Goals W ork on weight loss, with a goal of losing 1 lb per week. * Follow Up: 4 Months (Reason: ov review labs) * Images: * Sign off status: Completed true * Provider: Suly Grimes MD Date: 0 02/27/2024 Generated for Danette forrest/Jerri/eTransmitting on: 1 07/30/2024 08:33 AM EST History and Physical Notes * HPI (History of Present Illness) Category Sub-Category Detail Notes COVID-19 Screening Questions Have you had any new onset fever, chills, cough, congestion, sore throat, shortness of breath, muscle aches?: No Have you been exposed to the virus withi n the last 10 days?: No Have you travelled internationally in [facility] last 10 days?: No Have you been exposed to COVID-19 in the past?: No Examination Category Sub-Category Detail Notes General Examination GENERAL APPEARANCE: pleasant , well nourished, well developed, in no acute distress, calm and relaxed , obese , woman HEAD: atraumatic, normocep halic EYES: eomi, perrla, anicte tamy, conjugate EARS: normal NOSE: septum intact NECK/THYROID: no jugular venous di stention, no carotid bruit, thyroid normal HEART: no clicks, gallops, murmurs, or rubs, regular rhythm, S1, S2 normal, no s3, or vascular bruits LUNGS: clear to auscultatio n ABDOMEN: bowel sounds normal, no ascites, no organomegaly, no mass , centripital obesity NEUROLOGIC: alert and oriented, cranial nerves 2-12 grossly intact, deep tendon reflexes 2+ symmetrical, motor strength normal right upper and lower extremities, Left hemiplegia, sensory exam intact SKIN: no suspicious lesion s, anicteric PERIPHERAL PULSES: normal BREASTS: no masses palpable b ilaterally MUSCULOSKELETAL: extremities unremark able, no clubbing, cyanosis or edema LYMPH NODES: no enlarged lymph no marcia,spleen normal RECTAL EXAM: not examined PSYCH: alert, oriented ORAL CAVITY: normal, unremarkable
--- OUTSIDE RECORDS SUMMARY | 2024-06-25 05:45 | XMS_ITS ---
Author Organization Rahat Grimes III, MD Address [address] [place] [address] Care Team Providers Care Developer Advisor Name Role Phone Rowan Rosario MD Primary [...] Date Provider Diagnosis Rahat Grimes III, MD [address] [place] [address] [place] [address] 06/25/2024 Rahat Grimes Vitamin D deficiency E55.9 [...] Provider Name:Rahat Grimes , 06/26/2025 10:30:00 AM, [address] [place] [address], [place] [address], [place], [address], Progress Notes * ABDIAS QUINTEROSB:1965 ([age] yo F)Acc No.[id number]:06/25/2024 Progress Notes Patient: OSEI CUMIMNS Provider: Suly Grimes MD :1965 A ge:58 Y S ex:Female Date:06/25/2024 Address:[address] [place] [address], [address], [place], [id number] Pcp:Rowan Rosario MD Subjective: * Chief Complaints: [...] or use drugs. She was born in [place]. She is unemployed. She is single with one child, a son Wilbert and she has no grandchildren. She sees an steam shovel operator at [facility] endocrinology. She is perimenopausal. 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 * Medications: T akingmetFORMIN HCl ER 500 [...] Date: 08/26/2023 Generated for Mariellei ng/Jerri/eTransmitting on: 07/30/2024 08:33 AM EST History and Physical [...]
--- OUTSIDE RECORDS SUMMARY | 2024-12-25 05:30 | XMS_ITS ---
Author Organization Rahat Grimes III, MD Address [address] [place] [address] Care Team Providers Care Strip Presser Name Role Phone Rowan Rosario MD Primary Care Provider Dr. 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 Medications Medication SIG (Take, Route, Frequency, Duration) Notes Start Date End Date Status Levothyroxine Sodium 88 MCG 1 tablet on an empty stomach in the morning Orally Once a day Active Tylenol 325 MG 2 tablets as needed Orally every 6 hrs Active Simvastatin 20 MG 1 tablet in the even ing Orally Once a day Active Sertraline HCl 50 MG 1 tablet Orally Onc e a day Active Vitamin D 1000 UNIT 1 tablet Orally Once a day Active Docusate Sodium 100 MG Oral Active metFORMIN HCl ER 500 MG 1 tablet with ev ening meal Orally Twice a day Active Irbesartan 75 MG 1 tablet Orally Once a day Active ZyrTEC Allergy 10 MG 1 tablet Orally Onc e a day Active Jardiance 10 MG 1 tablet Orally Once a day Active ALPRAZolam 0.25 MG 1 tablet Orally Twic e a day Active Social History Tobacco Use: Social History Observation Description Date Details (start date - stop date) Never Smoker NA - NA Sex Assigned At : Social History Observation Description Sex Assigned At Female Tobacco Use/Smoking Question Answer Notes Patient is a nonsmoker Additional Findings: Tobacco Non-User Aggressive non-smoker Vital Signs Temperature 98.4 degrees Fahrenheit 12/26/19 25 Blood pressure systolic 134 mm Hg 12/26/19 25 Blood pressure diastolic 80 mm Hg 025 Heart Rate 79 /min 12/25/2024 Height 64 in in 12/25/2024 Weight 185 lbs 12/25/2024 BMI 31.75 kg/m2 12/25/2024 Encounters Encounter Location Date Provider Diagnosis Rahat Grimes III, MD [address] [place] [address] [address] [place], [place] [address] 12/25/2024 Rahat Grimes Vitamin D deficiency E55.9 ; Lymphoma, small lymphocytic C83.00 ; Lymphocytosis D72.820 ; Obesity (BMI 30.0-34.9) E66.9 and 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 Assessments Encounter Date Diagnosis (ICD Code) Assessment Notes Treat ment Notes Treatment Clinical Notes 12/25/2024 Vitamin D deficiency (ICD-10 - E55.9) She has been compliant with her vitamin D suppleements. 12/25/2024 Lymphoma, small lymphocytic (ICD-10 - C83.00) There continues to be no palpable adenopathy or splenomegaly on the white blood cell count is slightly diminished. The lymphoma remains indolent and surveillance with her treatment will be continued. 12/25/2024 Lymphocytosis (ICD-10 - D72.820) Lymphocyte count is slightly lower. It is essentially unchanged. Observation will continue. 12/25/2024 Obesity (BMI 30.0-34.9) (ICD-10 - E66.9) We discuussed diet and nutrition. I recommended calorie reduction. 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 There is no sign of recurrent disease. Plan Of Treatment Medication Medication Name Sig Start Date Stop Date Notes Levothyroxine Sodium 88 MCG 1 tablet on an empty stomach in the morning Orally Once a day Tylenol 325 MG 2 tablets as needed Orally every 6 hrs Simvastatin 20 MG 1 tablet in the even ing Orally Once a day Sertraline HCl 50 MG 1 tablet Orally Once a day Vitamin D 1000 UNIT 1 tablet Orally Once a day Docusate Sodium 100 MG Oral metFORMIN HCl ER 500 MG 1 tablet with ev ening meal Orally Twice a day Irbesartan 75 MG 1 tablet Orally Once a day ZyrTEC Allergy 10 MG 1 tablet Orally Once a day Jardiance 10 MG 1 tablet Orally Once a day ALPRAZolam 0.25 MG 1 tablet Orally Twice a day Pending Test Test Name Order Date PROFILE, RANDOM (COMPREHENSIVE METABOLIC ) 12/25/2024 LDH 12/25/2024 CBC w DIFF 12/25/2024 Beta-2 Microglobulin, Serum 12/25/2024 Next Appt Details Follow Up: 6 Months, Reason: OV Provider Name:Rahat Grimes , 06/26/2025 10:30:00 AM, [address] [place] [address] [address] [address], [place], [address], Progress Notes * SHANA QUINTEROSADOB:1965 ([age] yo F)Acc No.[id number]:12/25/2024 Progress Notes Patient: OSEI CUMMINS Provider: Suly Grimes MD :1965 A ge:59 Y S ex:Female Date:12/25/2024 Address:[address] [place] [address] [place], [place], [id number] Pcp:Rowan Rosario MD Subjective: * Chief Complaints: * W ith small lymphocytic lymphoma with lymphocytosisShe Laura's thyroiditisVitamin D deficiencyCerebral palsyLeft hemiplegiaSertoli-Leydig cell tumor of the right ovary * HPI: C OVID-19 Screening: She returns to manage her oncology issues. She saw her surgeon yesterday who found no abnormalities in her breast. On examination today there was no adenopathy. Her clinical status is unchanged. Review of her blood work showed unchanged slightly diminished lymphocytosis. No change in her regimen was necessary. Ongoing surveillance was recommended unestablished. She will remain with endocrinology. Weight loss was recommended as well. There was no sign of her recurrent ovarian tumor. Questions H ave you had any new onset fever, chills, cough, congestion, sore throat, shortness of breath, muscle aches? N o * ROS: G eneral/Constitutional: pain [...] enies. S ciatica d enies. W eakness L eft hemiplegia. S kin: Itching d enies. R alli [...] or use drugs. She was born in [place]. She is unemployed. She is single with one child, a son Wilbert and she has no grandchildren. She sees an trading floor operator at [facility] endocrinology. She is perimenopausal. She has a a operator. * Medications: T akingmetFORMIN HCl ER [...] t: 64 in, Wt: 185, BMI:31.75, BP: 134/80, HR: 79, Temp: 98.4, Wt-k.91. * Examination: G eneral Examination: GENERAL APPEARANCE: [...] LUNGS: c lear to auscultation . BREASTS: N ot examined. ABDOMEN: b owel sounds normal, no ascites, no organomegaly, no mass, centripital obesity. RECTAL EXAM: n ot examined. MUSCULOSKELETAL: e xtremities unremarkable, no clubbing, cyanosis or edema, Left hemiplegia, mild contractures of shoulder. PERIPHERAL PULSES: n ormal. NEUROLOGIC: a lert and oriented, cranial nerves 2-12 grossly intact, deep tendon reflexes 2+ symmetrical on the right 3+ on the left, motor strength normal right upper and lower extremities, sensory exam intact, Dense left hemiplegia, speech fluent, mental status and cognitive function intact. PSYCH: a lert, oriented. Assessment: * Assessment: 1. L ymphoma, small lymphocytic - C83.00 (Primary) N otes :There continues to be no palpable adenopathy or splenomegaly on the white blood cell count is slightly diminished. The lymphoma remains indolent and surveillance with her treatment will be continued. 2 . V itamin D deficiency - E55.9 N otes :She has been compliant with her vitamin D suppleements. 3 . L ymphocytosis - D72.820 N otes :Lymphocyte count is slightly lower. It is essentially unchanged. Observation will continue. 4 . O besity (BMI 30.0-34.9) - E66.9 N otes :We discuussed diet and nutrition. I recommended calorie reduction. 5 . S ertoli-Leydig cell tumor of right ovary - D27.0 N otes :She has recovered from this surgery. There is no sign of recurrent disease. Plan: * Treatment: 2. V itamin D [...] L AB: CBC w DIFF L AB: Beta-2 Microglobulin, Serum 3. L ymphocytosis L AB: PROFILE, RANDOM (COMPREHENSIVE METABOLIC) L AB: LDH L AB: CBC w DIFF L AB: Beta-2 Microglobulin, Serum 4. O besity (BMI 30.0-34.9) L AB: PROFILE, RANDOM (COMPREHENSIVE METABOLIC) L AB: LDH L AB: CBC w DIFF L AB: Beta-2 Microglobulin, Serum 5. S ertoli-Leydig cell tumor of right ovary L AB: PROFILE, RANDOM (COMPREHENSIVE METABOLIC) L AB: LDH L AB: CBC w DIFF L AB: Beta-2 Microglobulin, Serum * Procedure [...] Other reason not done * Follow Up: 6 Months (Reason: OV) * Images: * Sign off status: Completed true * Provider: Suly Grimes MD Date: 0 12/25/2024 Generated for Danette forrest/Jerri/eTransmitting on: 07/30/2024 08:33 AM EST History and [...] 2-12 grossly intact, deep tendon reflexes 2+ symmetrical on the right 3+ on the left, motor strength normal right upper and lower extremities, sensory exam intact, Dense left hemiplegia, speech fluent, mental status and cognitive function intact SKIN: no suspicious lesion s, anicteric PERIPHERAL PULSES: normal BREASTS: Not examined MUSCULOSKELETAL: extremities unremark able, no clubbing, cyanosis or edema, Left hemiplegia, mild contractures of shoulder LYMPH NODES: no enlarged lymph no marcia,spleen normal RECTAL EXAM: not examined PSYCH: alert, oriented ORAL CAVITY: normal, unremarkable
--- OUTSIDE RECORDS SUMMARY | 2025-01-14 04:25 | XMS_ITS ---
Author Organization Rahat Grimes III, MD Address [address] D[address]AZ [facility] [place] [address] Care Team Providers Care Chocolate Packer Name Role Phone Rowan Rosario MD Primary Care Provider Dr. aRhat Ruiz III [facility] REASON FOR VISIT update on her hospital stay at Social History Sex Assigned At : Social History Observation Description Sex Assigned At Female Encounters Encounter Location Date Provider Diagnosis Rahat Grimes III, MD [address] [place] [address] [place] [address] 01/14/2025 Rahat Grimes Plan Of Treatment Next Appt Details Provider Name:Rahat Grimes , 06/26/2025 10:30:00 AM, [address] [place] [address] [address], [place], [address], Progress Notes * SHANA QUINTEROSADOB:1965 ([age] yo F)Acc No.[id number]:01/14/2025 Patient: OSEI CUMMINS :1965 A ge:59 Y S ex:Female Address:[address], [place], [address] * true * Date: Generated for Printi ng/Faalg/eTransmitting on: 07/30/2024 08:33 AM EST
--- OUTSIDE RECORDS SUMMARY | 2025-03-05 10:00 | XMS_ITS ---
Author Organization Rahat Grimes III, MD Address [address] [place] [place] [address] Care Team Providers Care Clinical Research Nurse Name Role Phone Rowan Rosario MD Primary Care Provider Dr. Rahat Ruiz III [facility] [phone] REASON FOR VISIT FYI only Social History Sex Assigned At : Social History Observation Description Sex Assigned At Female Encounters Encounter Location Date Provider Diagnosis Rahat Grimes III, MD [address] [place] [address] [place] [address] 03/05/2025 Rahat Grimes Plan Of Treatment Next Appt Details Provider Name:Rahat Grimes , 06/26/2025 10:30:00 AM, [address] [place] [address] [address], [place], [address], Progress Notes * ABDIAS QUINTEROSB:1965 ([age] yo F)Acc No.[id number]:03/05/2025 Patient: OSEI CUMMINS :1965 A ge:59 Y S ex:Female Address:[address], [address], [facility] [place], [address] * true * Date: Generated for Printi ng/Faxing/eTransmitting on: 07/30/2024 08:33 AM EST
--- OUTSIDE RECORDS SUMMARY | 2025-05-30 08:33 | XMS_ITS | Patient Health Record ---
Author Organization Rahat Grimes III, MD Address [address] [address] Care Team Providers Care Roll Press Operator Name Role Phone Rowan Rosario MD [...] ff Reviewed date:06/25/2024 10:49:35 AM Interpretation: Performing Lab:[facility], [address] [place] [phone] Notes/Report: White Blood Count 13.3 4.8-10.8 X10*3/uL [...] XAVIER ECTED REPORT XAVIER ECTED REPORT Comprehensive [place]. Panel Fa st Reviewed date:06/25/2024 10:49:35 AM Interpretation: Performing Lab:[address] [address] Notes/Report: Sodium 138 135-145 mmol/L Potassium 4.0 [...] Dehydrogenase Reviewed date:06/25/2024 10:49:35 AM Interpretation: Performing Lab:[facility], [address] [place] [phone] Notes/Report: Lactate Dehydrogenase 200 122-220 U/L Lipid Panel Reviewed date:06/25/2024 10:49:35 AM Interpretation: Performing Lab:[address] [address] Notes/Report: Triglycerides 104 <150 mg/dL Desirable Triglyceride: [...] Serum Reviewed date:06/25/2024 10:49:35 AM Interpretation: Performing Lab:[address] [address] Notes/Report: Beta-2 Microglobulin, Serum 2.48 < OR = 2.51 mg/L THIS TEST WAS PERFORMED AT: [facility] [address] [address] AMADOR TOURE MD SLIDE REVIEW Reviewed date:06/25/2024 10:49:35 AM Interpretation: Performing Lab:[facility], [address] [place] [phone] Notes/Report: SLIDE REVIEW VERIFIED Complete Blood Count Auto Di ff Reviewed date:12/19/2024 05:32:08 AM Interpretation: Performing Lab:[address] [address] Notes/Report: White Blood Count 11.5 4.8-10.8 X10*3/uL [...] te Reviewed date:12/19/2024 05:32:08 AM Interpretation: Performing Lab:[facility], [address] [place] [phone] Notes/Report: Erythrocyte Sedimentation Rate 7 0-20 MM/HR Patients with polycythemia and many hemoglobin abnormalities may have depressed sed rates whereas patients with anemia may have elevated sed rates. Comprehensive Met. Panel Reviewed date:12/19/2024 05:32:08 AM Interpretation: Performing Lab:[facility], [address] [place] [phone] Notes/Report: Sodium 141 135-145 mmol/L Potassium 3.8 [...] Dehydrogenase Reviewed date:12/19/2024 05:32:08 AM Interpretation: Performing Lab:[facility], [address] [place] [phone] Notes/Report: Lactate Dehydrogenase 161 122-220 U/L Beta-2 Microglobulin, Serum Reviewed date:12/19/2024 05:32:08 AM Interpretation: Performing Lab:[facility], [address] [place] [phone] Notes/Report: Beta-2 Microglobulin, Serum 2.77 < OR = 2.51 mg/L THIS TEST WAS PERFORMED AT: [facility] [address] [address] AMADOR TOURE MD SLIDE REVIEW Reviewed date:12/19/2024 05:32:08 AM Interpretation: Performing Lab:[facility], [address] [place] [phone] Notes/Report: SLIDE REVIEW VERIFIED Glucose, Whole Blood Reviewed date:03/07/2025 02:49:15 PM Interpretation: Performing Lab:[facility], [address] [place] [phone] Notes/Report: Glucose, Whole Blood 73 60-115 mg/dL METER # : [id number] Kidney Stone Reviewed date:03/21/2025 05:48:04 AM Interpretation: Performing Lab:[facility], [address] [place] [phone] Notes/Report: [id number] Component 1 SEE NOTE Carbonate Apatite (Dahllite) 90% Calcium Oxalate Dihydrate (Weddellite) 10% Stone Weight 0.100 Formalin, surgical gel, tape adhesive or transport media interfere with the analytical procedure. Follow up testing with the UroRisk(R) Panel is suggested for affected samples, if clinically indicated. This test was developed and its analytical performance characteristics have been determined by [facility]. It has not been cleared or approved by the FDA. This assay has been validated pursuant to the CLIA regulations and is used for clinical purposes. THIS TEST WAS PERFORMED AT: [facility] [address] [place] [address] ROGER PAHM MD,PHD,TRINA [facility] Reviewed date:03/07/2025 02:49:15 PM Interpretation: Performing Lab:[facility], [address] [place] [phone] Notes/Report: ------ Name: Osei Núñez Age/Sex: 59/F : 1965 Unit#: [id number] Attend Dr: Eve Bell MD Re03/04/25 Status : [facility] Location: [facility] Disch: ------ SPEC : [id number] RECD : 03/04/25-4033 STATUS: SAL [place] NUM: [id number] YULISSA: 03/04/25-[address] [facility] [address]: Eve Bell MD ENTERED: 03/04/25-14 35 SP TYPE: Surgical OTHR DR: Rahat Grimes MD ORDERED: GO Diagnosis Ureter stone: Calcul ous material. Gross examination only. Sent for chemical analysis. Please see laborator y portion of the EMR for outside report from [facility]. Clinical History Pre-Op Dx: Calculus of ureter bilaterally Post-Op Dx: Bilatera l hydronephrosis, bilateral ureteral stone Material Received Sloughing of the papilla Gross Description Received fresh label ed ?sloughing of the papilla? is an aggregate of cortez-white and red-pink soft tissue with pal pable, firm gritty areas forming in aggregate measuring 3.2 x 2.5 x 0.3 cm. The specimen is entirely submitted to [facility] for chemical analysis per request of Dr. Bell. No sections taken. ([facility]) IHC S/NG Disclaimer NOTE: Unless otherwi se stated, all tissue is formalin-fixed and paraffin-embedded. Some or all of the immunohistochemical tests reported herein may have been developed and their performance characteristics determined by [facility]. They have not been cleared or appr juan j by the U.S. Food and Drug Administration (FDA). However, the FDA has determined that such clearance or approval is not necessary. This laboratory is certified under the Clinical Laboratory Improvement Amendments of 1988 (CLIA) as qualified to perform high comp lexity clinical laboratory testing. Copies To: Eve Bell MD [facility] [address] [place] [address] [address] [place] [address] [email or web address] Rahat Grimes MD [address] [place] [address] [address] [place] [address] CONTINUED ON NEXT PAGE ------ Name: Osei Núñez Age/Sex: 59/F : 1965 Unit#: [id number] Attend Dr: Eve Bell MD Re03/04/25 Status : [facility] Location: [facility] Disch: ------ SPEC : [id number] RECD : 03/04/25-1670 STATUS: [place] NUM: [id number] YULISSA: 03/04/25-[address] [facility] [address]: Eve Bell MD ENTERED: 03/04/25-14 35 SP TYPE: Surgical OTHR DR: Rahat Grimes MD ORDERED: GO ------ Signed (signature on file) Vladimir Dean MD 03/07/25 1151 ------ END OF REPORT FL guidance in OR Reviewed date:03/07/2025 02:49:15 PM Interpretation: Performing Lab: Notes/Report: [address] [address] Fluoroscopy Report Signed Patient: Osei Núñez MR#: [id number] : 1965 Acct:[id number] Age/Sex: 59 / F ADM Date: 03/04/25 Loc: HO.SSS Attending Dr: Eve Bell MD Ordering Physician: Eve Bell MD Date of Service: 03/04/25 Procedure(s): FL guidance in OR Accession Number(s): [id number] cc: Eve Bell MD; Rahat Grimes MD [...] 03/04/25 1252 DD/ 1140 TD/TT: 03/04/25 1235 Optical Manager: [place] [address] Fluoroscopy Report Signed Patient: Osei Núñez MR#: [id number] : 1965 Acct:[id number] Age/Sex: 59 / F ADM Date: 03/04/25 Loc: HO.SSS Attending Dr: Eve Bell MD Ordering Physician: Eve Bell MD Date of Service: 03/04/25 Procedure(s): FL jayla dance in OR Accession Number(s): [id number] cc: Rohit Bell MD; Rahat Grimes MD [...] 03/04/25 1252 DD/ 1140 TD/TT: 03/04/25 1235 Optical Manager: MR breast BI wo/w con Reviewed date:05/16/2025 05:59:14 AM Interpretation: Performing Lab: Notes/Report: [address] [address] Magnetic Resonance Report Signed Patient: Osei Núñez MR#: [id number] : 1965 Acct:[id number] Age/Sex: 59 / F ADM Date: 05/09/25 Loc: HO.MRI Attending Dr: Domenic Quevedo MD Ordering Physician: Domenic Quevedo MD Date of Service: 05/09/25 Procedure(s): MR breast BI wo/w con Accession Number(s): [id number] cc: Rahat Grimes MD; Domenic Quevedo MD; [...] 05/09/25 1549 DD/ 1116 TD/TT: 05/09/25 1150 Optical Manager: [place] [address] Magnetic Resonance Report Signed Patient: Osei Núñez MR#: [id number] : 1965 Acct:[id number] Age/Sex: 59 / F ADM Date: 05/09/25 Loc: HO.MRI Attending Dr: Domenic Quevedo MD Ordering Physician: Domenic Quevedo MD Date of Service: 05/09/25 Procedure(s): MR candy arnett BI wo/w con Accession Number(s): [id number] cc: Rahat Grimes MD; Domenic Quevedo MD; [...] 05/09/25 1549 DD/ 1116 TD/TT: 05/09/25 1150 Optical Manager: Reason For Referral No Information Medications Medication [...] Risk Notes Problem Diabetes mellitus without complication (070001884) Diabetes (E11.9) Active confirmed Her fas ting glucose is 105. No change in her medications indicated. I recommended aggressive weight loss. Problem 41527389 Lymphocytosis (D72.820) Active confirmed Lymphocyte count is slightly lower. It is essentially unchanged. Observation will continue. Problem [id number] Obesity (BMI 30.0-34.9) (E66.9) Active confirmed We discuu ssed diet and nutrition. I recommended calorie reduction. Problem 65191636 Vitamin D deficiency (E55.9) Active confirmed She has b een compliant with her vitamin D suppleements. 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 The lymphoma remains indolent and surveillance with her treatment will be continued. Problem 85590770534080 Microcalcificati on of right breast on mammogram (R92.0) Active confirmed She will undergo routine mammography. Problem 07515389 Corona's thyroiditis (E06.3) Active confirmed She is clinically euthyroid. She is compliant with her medications. 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 She is not currently working. 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 Rahat Grimes III, MD [address] [place] [address] [place] [address] 12/25/2024 Rahat Grimes Vitamin D deficiency E55.9 ; Lymphoma, small lymphocytic C83.00 ; Lymphocytosis D72.820 ; Obesity (BMI 30.0-34.9) E66.9 and 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 Rahat Grimes III, MD [address] [place] [address] [place] [address] 01/14/2025 Rahat Grimes III MD [address] [place] [address] STEFANIE TIDWELL, DERREK [address] 03/05/2025 Rahat Grimes Assessments Encounter Date Diagnosis [...] METABOLIC ) 01/09/2020 LIPID PANEL 04/09/2020 [facility] 03/22/2022 [facility] 07/28/2023 [facility] 09/09/2019 [facility] 12/25/2024 L[facility] 12/15/2020 L[facility] 06/25/2024 L[facility] 11/15/2021 LDH 03/28/2023 LDH 02/27/2024 LDH [...] Provider Name:Rahat Grimes , 06/26/2025 10:30:00 AM, [address] [place] [address] [address] [facility] [address], [place], [address], Insurance Providers Payer Name Payer Address Payer Phone Subscriber Number Group Number Insured Name Patient Relationship to Insured Coverage Start Date Coverage End Date [employer] [address] [address] [place] [address] [id number] OSEI NÚÑEZ Self - patient is the insured MED[place] [address] [place], [place] [id number] [phone] [id number] OSEI NÚÑEZ Self - patient is the [...]
--- NOTE | 2025-06-20 09:18 | HO.ANESPROP2 ---
Documented by User: Dana Mcelroy NP 06/20/25 09:20 HPI - Anesthesia Eval Consult details Narrative: 59yo F for Right Lithotripsy ESW s/p cysto, etc 02/2025 with GA-LMA 4 PMFSH Active Problems Active Problems: All Active Problems Lymphadenopathy of head and neck (Acute) Lymphadenopathy, mediastinal (Acute) Multiple renal calculi (Acute) Constipation (Acute) Ureteral stent present (Acute) Bilateral ureteral calculi (Acute) Hydronephrosis with obstructing calculus (Acute) Elevated WBC count (Acute) Acute cystitis (Acute) Ureterolithiasis (Acute) Eczema of right hand (Acute) Sertoli-Leydig cell tumor of ovary (Acute) Colon cancer screening (Acute) Generalized anxiety disorder (Acute) Annual physical exam (Acute) Dermoid cyst (Acute) Mass of left lower leg (Acute) Complex cyst of both ovaries (Acute) UTI (urinary tract infection) (Acute) Postmenopausal bleeding (Acute) Cervical cancer screening (Acute) Lymphadenopathy, axillary (Acute) Annual physical exam (Acute) Nausea (Acute) At high risk for breast cancer (Acute) Type 2 diabetes mellitus with hyperglycemia (Acute) Obesity (BMI 30-39.9) (Acute) Lymphoma (Acute) Hypertension (Acute) Hypothyroid (Acute) Cerebral palsy (Acute) Hypercholesterolemia (Acute) Past Medical History Medical History Diverticulosis Hx of ovarian cancer Nausea Anxiety and depression At high risk for breast cancer Thyroid nodule Medial meniscus tear Ear drum perforation Shoulder fracture, right Type 2 diabetes mellitus with hyperglycemia Obesity (BMI 30-39.9) Lymphoma Hypertension Hypothyroid Cerebral palsy Hypercholesterolemia Family History Family History Father Stroke Hypertension Diabetes CVD (cardiovascular disease) Mother Stroke Cervical cancer, Onset Age: 63 Breast cancer, Onset Age: 49 CVD (cardiovascular disease) Sister Breast cancer, Onset Age: 51 Substance abuse Bipolar disorder Mental health disorder Maternal Aunt Breast cancer, Onset Age: 40 Maternal Grandfather Throat cancer Family history of problems with anesthesia: No Surgical History Surgical History Hx of hysterectomy Hx of cystoscopy History of right breast biopsy (09/2017) History of lymph node biopsy (07/2017) History of meniscal tear History of Achilles tendon repair History of Problems with Anesthesia: No Social History Social History Household Members: Significant Other Household Members Other:: Jon Housing: Apartment Do you presently have visiting nurse or other home services: No Alcohol intake: never Patient Tobacco Use Status: Never used Tobacco Tobacco use type: Cigarette Years Smoked: gummies e-Cigarette/Vaping Use: Never Used Second Hand Smoke Exposure: No Substance Use Type Other:: low dose gummies to help with sleep Substance Use Frequency: Daily Have you been hit, kicked, punched, or otherwise hurt by someone within the past year? If so, by whom?: No Are you DNR?: No Advance Directives: No Advance Directives Information Provided: Yes service: No Current occupational status: disabled Cognitive needs: Yes Hearing needs: No Vision needs: Yes Meds Allergies Allergy/AdvReac Type Severity Reaction Status Date / Time latex (LATEX) Allergy Intermediate REDNESS,JENNY Verified 06/24/25 06:22 H lisinopril Allergy Unknown difficulty Verified 06/24/25 06:22 urination empagliflozin (From AdvReac Intermediate Recurrent Verified 06/24/25 06:22 Jardiance) UTI Home Medications ?Medication ?Instructions ?Recorded ?Confirmed ?Last Taken ?Type cetirizine 10 mg tablet (Zyrtec) 10 mg PO DAILY 04/24/20 06/24/25 01/07/25 History cholecalciferol (vitamin D3) 25 25 mcg PO DAILY 04/24/20 06/24/25 01/07/25 History mcg (1,000 unit) capsule levothyroxine 88 mcg tablet 88 mcg PO DAILY@0600 01/08/25 06/24/25 01/07/25 History Exam Pertinent Lab Results Pertinent Lab Results: Laboratory Tests 06/18/25 06/18/25 08:24 08:34 WBC 12.7 H Hgb 12.7 Hct 38.3 Plt Count 249 Sodium 140 Potassium 3.8 Chloride 110 H Carbon Dioxide 22 BUN 12 Creatinine 0.61 Assessment and Plan Assessment Anesthesia Assessment: Chart Reviewed Final Anesthetic Review Family History of Problems with Anesthesia: No History of Problems with Anesthesia: No Documented by User: Faisal Castaneda MD 06/24/25 07:38 [facility] Past Medical History Medical History Diverticulosis Hx of ovarian cancer Nausea Anxiety and depression At high risk for breast cancer Thyroid nodule Medial meniscus tear Ear drum perforation Shoulder fracture, right Type 2 diabetes mellitus with hyperglycemia Obesity (BMI 30-39.9) Lymphoma Hypertension Hypothyroid Cerebral palsy Hypercholesterolemia Cognitive capacity: normal Functional capacity: independent ambulation Family History Family History Father Stroke Hypertension Diabetes CVD (cardiovascular disease) Mother Stroke Cervical cancer, Onset Age: 63 Breast cancer, Onset Age: 49 CVD (cardiovascular disease) Sister Breast cancer, Onset Age: 51 Substance abuse Bipolar disorder Mental health disorder Maternal Aunt Breast cancer, Onset Age: 40 Maternal Grandfather Throat cancer Surgical History Surgical History Hx of hysterectomy Hx of cystoscopy History of right breast biopsy (09/2017) History of lymph node biopsy (07/2017) History of meniscal tear History of Achilles tendon repair Social History Social History Household Members: Significant Other Household Members Other:: Jon Housing: Apartment Do you presently have visiting nurse or other home services: No Alcohol intake: never Patient Tobacco Use Status: Never used Tobacco Tobacco use type: Cigarette Years Smoked: gummies e-Cigarette/Vaping Use: Never Used Second Hand Smoke Exposure: No Substance Use Type Other:: low dose gummies to help with sleep Substance Use Frequency: Daily Have you been hit, kicked, punched, or otherwise hurt by someone within the past year? If so, by whom?: No Are you DNR?: No Advance Directives: No Advance Directives Information Provided: Yes service: No Current occupational status: disabled Cognitive needs: Yes Hearing needs: No Vision needs: Yes Meds Allergies Allergy/AdvReac Type Severity Reaction Status Date / Time latex (LATEX) Allergy Intermediate REDNESS,JENNY Verified 06/24/25 06:22 H lisinopril Allergy Unknown difficulty Verified 06/24/25 06:22 urination empagliflozin (From AdvReac Intermediate Recurrent Verified 06/24/25 06:22 Jardiance) UTI Home Medications ?Medication ?Instructions ?Recorded ?Confirmed ?Last Taken ?Type cetirizine 10 mg tablet (Zyrtec) 10 mg PO DAILY 04/24/20 06/24/25 01/07/25 History cholecalciferol (vitamin D3) 25 25 mcg PO DAILY 04/24/20 06/24/25 01/07/25 History mcg (1,000 unit) capsule levothyroxine 88 mcg tablet 88 mcg PO DAILY@0600 01/08/25 06/24/25 01/07/25 History Exam Exam Date and Time: 06/24/2025 Airway Mallampati Class: II TM Dist: >3cm Neck ROM: Full Loose/Missing/Broken Teeth: Yes Heart: rrr Lungs: cta Other: normal Assessment and Plan Assessment Anesthesia Assessment: Anesthesia Plan Discussed Final Anesthetic Review NPO: Yes ASA Class: II Final Preanesthetic Review: No Changes in Pt Med Stat, Meds/Allgs Chart Reviewed and Consent Obtained/Reviewed Patient Risk: Low Procedure Risk: Low Anesthetic Plan Anesthetic Plan: GA Disposition: Standard PACU
[2025-06-20 10:05] VITALS: BMI 29.7
--- NOTE | ~2025-06-24 | XR_ITS ---
CLINICAL HISTORY: pre eswl-right Abdomen X-ray, 1 View COMPARISON: Portions of CT/REG/SR - CT ABDOMEN PELVIS WO IV CON - 01/08/25 02:05 EDT FINDINGS: Nonobstructive bowel gas pattern. No visible free air. No acute fracture. Degenerative changes in the spine. Calculi measuring up to 11 mm project over the right renal shadow. Calculi measuring up to 9 mm project over the left renal shadow. IMPRESSION: No acute findings. Bilateral renal calculi. This document has been electronically signed by: Rob Combs MD on 06/24/2025 06:30:33
[2025-06-24 06:36] VITALS: BP 148/95; PULSE 78; RESP 17; TEMP 36.6; O2SAT 97; BMI 29.4
[2025-06-24] MEDS: Lactated Ringers 1,000 ML 100 ML IVCONT (06:40)
[2025-06-24] MEDS: Lactated Ringers 500 ML 999 ML IV (06:41)
[2025-06-24 06:48] LABS: Glucose, Whole Blood 100 mg/dL (60-115)
--- NOTE | 2025-06-24 07:27 | MHC.SHP ---
Pre-Procedural Eval Section A - 24 Hr Update-Section A only Date of Service: 06/24/25 The patient is an INPATIENT: No The patient has been examined within 24 hours of the surgical procedure. The History & Physical has been completed within 30 days and I have reviewed it.: Yes Section B - Complete if H&P > 30 days Chief Complaint: Calculus of kidney, right Allergies: Allergies Allergy/AdvReac Type Severity Reaction Status Date / Time latex (LATEX) Allergy Intermediate REDNESS,JENNY Verified 06/24/25 06:22 H lisinopril Allergy Unknown difficulty Verified 06/24/25 06:22 urination empagliflozin (From AdvReac Intermediate Recurrent Verified 06/24/25 06:22 Jardiance) UTI Plan Diagnosis/Plan: Unchanged I have reviewed the history and physical and performed a pertinent physical examination on my patient. No changes have occurred unless specified. Right ESWL. Discussed risks to include but not limited to, blood in the urine, bruising to the skin, kidney hematoma, possible need for another procedure if a stone fragment obstructs the ureter while passing, possible need to repeat procedure if stone is not completely fragmented. Time Spent With Patient Time: Total time managing care of this patient today ____ minutes.
--- NOTE | 2025-06-24 07:29 | W.PM.OPN ---
Operative Note Operative Note Date of Service: 06/24/25 Narrative: PreOperative Diagnosis:? ? Right Renal stone Post Operative Diagnosis:?Right? Renal stone Procedure:?Right? ESWL Surgeon:?Dr Eve Bell Anesthesia:? General Indications for procedure: The patient understands there is a risk of bruising or hematoma to the kidney, infection, and stone migration following the procedure and subsequent intervention may be required.? - Imaging 10 mm x 7 mm stone Procedure: After informed consent was verified the patient was brought to the operating room and placed in a supine position.? Anesthesia was performed per protocol. Safety pause time-out was performed. Imaging was displayed in the room and laterality confirmed. ESWL was performed.?The stone was visualized on both fluoroscopy and ultrasound.? Shockwave lithotripsy was performed, with a maximum rate of 120 hertz. After the first 300 shocks a pause for 3 minutes was completed.? A total of 2500 shocks to a maximum of power of 20 for the last 300 shocks and rate was reduced to 60 hertz.? Good fragmentation of the stone was appreciated. The patient tolerated the procedure well and was transferred to the recovery area upon completion. Complications: None
[2025-06-24 08:31] VITALS: BP 133/92; PULSE 77; RESP 16; TEMP 36.4; O2SAT 98
[2025-06-24 08:35] VITALS: BP 133/82; PULSE 85; RESP 16; O2SAT 98
[2025-06-24 08:40] VITALS: BP 134/84; PULSE 85; RESP 16; O2SAT 98
[2025-06-24 08:45] VITALS: BP 143/87; PULSE 90; RESP 16; TEMP 36.4; O2SAT 98
[2025-06-24 09:00] VITALS: BP 138/82; PULSE 85; RESP 16; TEMP 36.4; O2SAT 98
== END 2025-06-24 09:42 | disposition home or self-care (01) ==
PROVIDERS: PCP Internal Medicine; Visit Provider Urology
PROC: (CPT 50590; principal; 2025-06-24 07:30)
DX: N20.0 Calculus of kidney (principal); I10 Essential (primary) hypertension; E78.00 Pure hypercholesterolemia, unspecified; E11.65 Type 2 diabetes mellitus with hyperglycemia; E03.9 Hypothyroidism, unspecified; G80.9 Cerebral palsy, unspecified; F41.8 Other specified anxiety disorders; E66.9 Obesity, unspecified; Z85.43 Personal history of malignant neoplasm of ovary; Z90.710 Acquired absence of both cervix and uterus; Z98.890 Other specified postprocedural states; Z88.8 Allergy status to other drugs, medicaments and biological substances; Z91.040 Latex allergy status
CPT/HCPCS: 50590; 74018; 82947; J0131; J0690; J1938; J2003; J2371; J2405; J2704; J3010

== ENCOUNTER → 2025-06-24 05:37 | Outpatient (BNV) | payer OTHER, SELFPAY | PROVIDERS: PCP Internal Medicine; Visit Provider Urology | DX: N20.0 Calculus of kidney (principal) | CPT/HCPCS: 50590 ==

== ENCOUNTER → 2025-06-24 05:55 | Outpatient (BNV) | payer OTHER, SELFPAY | PROVIDERS: PCP Internal Medicine; Visit Provider Radiology Diagnostic Radiology | DX: N20.0 Calculus of kidney (principal) | CPT/HCPCS: 74018 ==

== ENCOUNTER 2025-06-25 13:13 | Outpatient (REF) | payer OTHER, SELFPAY ==
[2025-06-25 18:05] LABS: Appearance Urine Turbid; Glucose Urine UA Negative (Negative); PH 6.0 (5.0-9.0); Specific Gravity - Urine 1.010 (1.005-1.025); UMIC TRIGGER UA YES
== END 2025-06-25 13:14 | disposition home or self-care (01) ==
LOC: HO.HMGCLDS 13:13
PROVIDERS: Urology; PCP Internal Medicine; Visit Provider Internal Medicine
DX: N20.1 Calculus of ureter (principal); R30.0 Dysuria
CPT/HCPCS: 81001; 87086